=== PATIENT | female | born 1990 | race Caucasian/White ===

== ENCOUNTER → 2016-11-22 | Outpatient (CLI) | payer OTHER ==
[~2016-11-22] MED LIST: ADVA115A INH; ALBU17IN INH; DOCU100C PO; LEVA500T PO; MIRA33504 PO; NUVAMIS2 PV; OMEP20CA3 PO; ONDA1TAB15 PO; OXYC-517 PO; SERT-141 PO; TECF240C PO
--- NOTE | 2016-11-22 20:17 | REP ---
MRI BRAIN WITHOUT AND WITH CONTRAST: HISTORY: Multiple sclerosis. CONTRAST: ProHance 18 mL Several punctate areas of increased signal intensity on T2-weighted images are present in the periventricular white matter. An additional area of increased signal intensity is present in the corpus callosum. There are no areas of abnormal signal intensity in the brain stem or cerebellum. There is no abnormal enhancement with contrast. There is no intraparenchymal hemorrhage, infarct, mass or midline shift. The ventricular system is normal in appearance. There is no extracerebral collection. Mucosal thickening is present in the maxillary sinuses. A retention cyst is present in the left maxillary sinus. IMPRESSION: There are several punctate areas of increased signal intensity in the periventricular white matter and corpus callosum. This is suspicious for demyelinating disease. Unreviewed
--- NOTE | 2016-11-22 20:29 | REP ---
MRI CERVICAL SPINE WITHOUT AND WITH CONTRAST: HISTORY: Multiple sclerosis. CONTRAST: ProHance 18 mL. A small right paracentral disc protrusion is present at the C3-4 level. There is minimal effacement of the thecal sac without spinal cord compression. The C3 neural foramina are patent. There is no other disc bulge or herniation. The remaining neural foramina are patent. The spinal cord is normal in signal intensity. There is no intradural extramedullary lesion. There is no abnormal enhancement. Normal signal intensity is present in the cervical vertebral bodies. IMPRESSION: There is cervical spondylosis at the C3-4 level without spinal cord compression. Unreviewed
--- NOTE | 2016-11-22 20:32 | REP ---
MRI THORACIC SPINE WITHOUT AND WITH CONTRAST: HISTORY: Multiple sclerosis. CONTRAST: ProHance 18 mL. There is no disc bulge or herniation. The spinal canal and the neural foramina are . The spinal cord is normal in signal intensity. There is no intradural extramedullary lesion. There is no abnormal enhancement. Normal signal intensity is present in the thoracic vertebral bodies. IMPRESSION: Normal study. Incomplete
== END ==
LOC: M RAD 14:45
PROVIDERS: ATTEND Psychiatry & Neurology Neurology
DX: G35 Multiple sclerosis (principal); R20.2 Paresthesia of skin; R26.81 Unsteadiness on feet
CPT/HCPCS: 70553; 72156; 72157; A9576

== ENCOUNTER → 2016-11-27 | Outpatient (REF) | payer OTHER ==
[2016-11-27 18:15] LABS: BASO % 0.3 % (0.0-1.0); EOS % 0.6 % (0.0-3.0); LARGE UNSTAINED CELL # 0.1 K/mm3 (0.0-0.4); LYMPH # 0.7 K/mm3 (1.5-6.5); LYMPH % 10.3 % (24.0-44.0); MEAN CORPUSCULAR HEMOGLOBIN 28.1 pg (27.0-33.0); MEAN CORPUSCULAR HGB CONC 32.7 g/dl (32.0-36.5); MONO # 0.2 K/mm3 (0.0-0.8); MONO % 2.7 % (0.0-5.0); NEUTROPHILS # 5.7 K/mm3 (1.8-7.7); NEUTROPHILS % 84.1 % (36.0-66.0); PLATELET COUNT, AUTOMATED 269 k/mm3 (150-450); RED CELL DISTRIBUTION WIDTH 13.5 % (11.5-14.5); WHITE BLOOD COUNT 6.7 K/mm3 (4.0-10.0)
== END ==
LOC: M LABNEURO 16:48
PROVIDERS: ATTEND Psychiatry & Neurology Neurology
DX: T14.8 Other injury of unspecified body region (principal)

== ENCOUNTER → 2016-12-10 | Outpatient (REF) | payer OTHER ==
[2016-12-10 14:38] LABS: FOLATE 19.3 NG/ML (>5.4); VITAMIN B12 LEVEL 780 PG/ML (247-911)
[2016-12-10 14:39] LABS: ALBUMIN 3.8 GM/DL (3.2-5.2); ALBUMIN/GLOBULIN RATIO 1.12 (1.00-1.93); ALKALINE PHOSPHATASE 88 U/L (45-117); ALT/SGPT 33 U/L (12-78); ANION GAP 9 MEQ/L (8-16); AST/SGOT 22 U/L (15-37); BILIRUBIN,TOTAL 0.6 MG/DL (0.2-1.0); BLOOD UREA NITROGEN 11 MG/DL (7-18); CALCIUM LEVEL 8.8 MG/DL (8.5-10.1); CARBON DIOXIDE LEVEL 23 MEQ/L (21-32); CHLORIDE LEVEL 109 MEQ/L (98-107); CREATININE FOR GFR 0.62 MG/DL (0.55-1.02); GLOMERULAR FILTRATION RATE > 60.0 (>60); GLUCOSE, FASTING 98 MG/DL (70-105); POTASSIUM SERUM 4.2 MEQ/L (3.5-5.1); SODIUM LEVEL 141 MEQ/L (136-145); TOTAL PROTEIN 7.2 GM/DL (6.4-8.2)
== END ==
LOC: M LABNEURO 11:08
PROVIDERS: ATTEND Psychiatry & Neurology Neurology
DX: E55.9 Vitamin D deficiency, unspecified (principal); E53.8 Deficiency of other specified B group vitamins

== ENCOUNTER → 2017-02-03 | Outpatient (REF) | payer OTHER ==
[~2017-02-03] MED LIST changes: -SERT-141 PO; +SERT50TA PO
[2017-02-03 14:46] LABS: BASO % 0.2 % (0.0-1.0); EOS # 0.1 K/mm3 (0.0-0.50); EOS % 1.4 % (0.0-3.0); LARGE UNSTAINED CELL # 0.1 K/mm3 (0.0-0.4); LARGE UNSTAINED CELL % 1.5 % (0.0-4.0); MEAN CORPUSCULAR HEMOGLOBIN 29.2 pg (27.0-33.0); MEAN CORPUSCULAR HGB CONC 32.7 g/dl (32.0-36.5); MEAN CORPUSCULAR VOLUME 89.3 fl (80.0-96.0); MONO # 0.2 K/mm3 (0.0-0.8); MONO % 3.2 % (0.0-5.0); NEUTROPHILS # 5.4 K/mm3 (1.8-7.7); NEUTROPHILS % 80.6 % (36.0-66.0); PLATELET COUNT, AUTOMATED 280 k/mm3 (150-450); RED CELL DISTRIBUTION WIDTH 13.2 % (11.5-14.5); WHITE BLOOD COUNT 6.7 K/mm3 (4.0-10.0)
== END ==
LOC: M LABNEURO 14:38
PROVIDERS: ATTEND Psychiatry & Neurology Neurology
DX: G35 Multiple sclerosis (principal)

== ENCOUNTER → 2017-07-18 | Outpatient (REF) | payer OTHER ==
[~2017-07-18] MED LIST changes: -DOCU100C PO; +DOCU100C16 PO; +LEVA1TAB2 PO; -LEVA500T PO; -ONDA1TAB15 PO; +ONDA4TAB5 PO
[2017-07-18 10:13] LABS: BASO % 0.9 % (0.0-1.0); EOS # 0.2 K/mm3 (0.0-0.50); EOS % 4.8 % (0.0-3.0); LARGE UNSTAINED CELL # 0.1 K/mm3 (0.0-0.4); LARGE UNSTAINED CELL % 3.5 % (0.0-4.0); LYMPH # 0.8 K/mm3 (1.5-6.5); LYMPH % 19.3 % (24.0-44.0); MEAN CORPUSCULAR HEMOGLOBIN 30.1 pg (27.0-33.0); MEAN CORPUSCULAR HGB CONC 35.1 g/dl (32.0-36.5); MEAN CORPUSCULAR VOLUME 85.5 fl (80.0-96.0); MONO # 0.2 K/mm3 (0.0-0.8); NEUTROPHILS # 2.6 K/mm3 (1.8-7.7); NEUTROPHILS % 66.5 % (36.0-66.0); PLATELET COUNT, AUTOMATED 229 k/mm3 (150-450); RED CELL DISTRIBUTION WIDTH 12.3 % (11.5-14.5); WHITE BLOOD COUNT 3.9 K/mm3 (4.0-10.0)
== END ==
LOC: M LABNEURO 09:37
PROVIDERS: ATTEND Psychiatry & Neurology Neurology
DX: G35 Multiple sclerosis (principal); E55.9 Vitamin D deficiency, unspecified

== ENCOUNTER → 2017-09-25 | Outpatient (CLI) | payer OTHER ==
[~2017-09-25] MED LIST changes: +DULO30CA PO
[2017-09-25 14:59] LABS: BASO % 0.6 % (0.0-1.0); EOS # 0.2 10^3/uL (0.0-0.50); EOS % 2.5 % (0.0-3.0); IMMATURE GRANULOCYTE % 0.3 % (0-0); LYMPH # 0.8 10^3/uL (1.5-6.5); LYMPH % 11.6 % (24.0-44.0); MEAN CORPUSCULAR HGB CONC 33.5 g/dl (32.0-36.5); MEAN CORPUSCULAR VOLUME 89.6 fl (80.0-96.0); MONO # 0.3 10^3/uL (0.0-0.8); MONO % 4.9 % (0.0-5.0); NEUTROPHILS # 5.5 10^3/uL (1.8-7.7); NEUTROPHILS % 80.1 % (36.0-66.0); PLATELET COUNT, AUTOMATED 288 10^3/uL (150-450); RED CELL DISTRIBUTION WIDTH 12.7 % (11.5-14.5); WHITE BLOOD COUNT 6.9 10^3/uL (4.0-10.0)
[2017-09-25 15:29] LABS: VITAMIN B12 LEVEL 883 PG/ML (247-911)
[2017-09-26 09:47] LABS: HEPATITIS B SURFACE ANTIBODY POSITIVE (POSITIVE)
== END ==
LOC: M LABNEURO 12:09
PROVIDERS: ATTEND Psychiatry & Neurology Neurology
DX: G35 Multiple sclerosis (principal)

== ENCOUNTER 2017-09-30 13:22 | Outpatient (CLI) | payer OTHER ==
[~2017-09-30] VITALS: Ht 172.7 cm; Wt 135.5 kg
[~2017-09-30 13:22] MED LIST changes: -DULO30CA PO; +methylPREDNISolone 1,000 MG, VIAL MATE ADAPTER 1 EACH in D5W 250 ML IV ONE
[2017-09-30] MEDS ORDERED: DULO30CA PO (14:58)
== END 2017-09-30 15:45 | disposition home or self-care (01) ==
LOC: M INFU 13:22
PROVIDERS: ATTEND Psychiatry & Neurology Neurology
DX: G35 Multiple sclerosis (principal); Z98.84 Bariatric surgery status; Z87.891 Personal history of nicotine dependence; Z91.81 History of falling; Z79.899 Other long term (current) drug therapy
CPT/HCPCS: 96365; 96366; J2930

== ENCOUNTER 2017-10-01 15:19 | Outpatient (CLI) | payer OTHER ==
[~2017-10-01 15:19] MED LIST changes: +DULO30CA PO
== END 2017-10-01 16:45 | disposition home or self-care (01) ==
LOC: M INFU 15:19
PROVIDERS: ATTEND Psychiatry & Neurology Neurology
DX: G35 Multiple sclerosis (principal); J45.909 Unspecified asthma, uncomplicated; Z87.442 Personal history of urinary calculi; Z87.891 Personal history of nicotine dependence; Z79.899 Other long term (current) drug therapy
CPT/HCPCS: 96365; J2930

== ENCOUNTER 2017-10-02 14:27 | Outpatient (CLI) | payer OTHER ==
[~2017-10-02] VITALS: Ht 172.7 cm; Wt 97.7 kg
== END 2017-10-02 15:45 | disposition home or self-care (01) ==
LOC: M INFU 14:27
PROVIDERS: ATTEND Psychiatry & Neurology Neurology
DX: G35 Multiple sclerosis (principal); Z98.84 Bariatric surgery status; Z87.891 Personal history of nicotine dependence; Z79.899 Other long term (current) drug therapy
CPT/HCPCS: 96365; J2930

== ENCOUNTER 2017-10-03 08:34 | Outpatient (CLI) | payer OTHER ==
[~2017-10-03] VITALS: Ht 172.7 cm; Wt 97.7 kg
[~2017-10-03 08:34] MED LIST changes: -methylPREDNISolone 1,000 MG, VIAL MATE ADAPTER 1 EACH in D5W 250 ML IV ONE
[2017-10-03] MEDS ORDERED: methylPREDNISolone 1,000 MG, VIAL MATE ADAPTER 1 EACH in D5W 250 ML IV ONE (09:00)
== END 2017-10-03 10:25 | disposition home or self-care (01) ==
LOC: M INFU 08:34
PROVIDERS: ATTEND Psychiatry & Neurology Neurology
DX: G35 Multiple sclerosis (principal); Z91.81 History of falling; Z98.84 Bariatric surgery status; Z87.891 Personal history of nicotine dependence; Z79.899 Other long term (current) drug therapy
CPT/HCPCS: 96365; J2930

== ENCOUNTER 2017-10-04 11:16 | Outpatient (CLI) | payer OTHER ==
[2017-10-04 11:25] VITALS: BP 135/86
[2017-10-04] MEDS ORDERED: methylPREDNISolone 1,000 MG, VIAL MATE ADAPTER 1 EACH in D5W 250 ML IV ONE (12:00)
== END 2017-10-04 13:30 | disposition home or self-care (01) ==
LOC: M OPCLIPED 11:16 → M PED 11:19 → M OPCLIPED 13:30
PROVIDERS: ATTEND Psychiatry & Neurology Neurology
DX: G35 Multiple sclerosis (principal); Z79.899 Other long term (current) drug therapy
CPT/HCPCS: 96374; J2930

== ENCOUNTER → 2017-10-09 | Outpatient (CLI) | payer OTHER ==
--- NOTE | 2017-10-15 23:25 | REP ---
ULTRASOUND LEFT BREAST: Real-time sonographic evaluation of the left breast performed. Reportedly there is a palpable abnormality at 4-o'clock left breast. There is dense fibroglandular tissue in this region. No cystic or solid nodule is seen. IMPRESSION: ACR 2 benign. No cystic or solid nodule is seen in the region of the left breast, 4-o'clock. Dense fibroglandular tissue is seen. Unreviewed
== END ==
LOC: M RAD 09:38
PROVIDERS: ATTEND Internal Medicine
DX: N63.0 Unspecified lump in unspecified breast (principal)

== ENCOUNTER → 2017-12-02 | Outpatient (REF) | payer OTHER ==
[2017-12-02 17:45] LABS: BASO # 0.1 10^3/uL (0.0-0.2); EOS # 0.4 10^3/uL (0.0-0.50); EOS % 7.1 % (0.0-3.0); HEMATOCRIT 39.2 % (36.0-47.0); HEMOGLOBIN 12.9 g/dl (12.0-16.0); IMMATURE GRANULOCYTE % 0.4 % (0-0); LYMPH # 0.9 10^3/uL (1.5-6.5); LYMPH % 17.9 % (24.0-44.0); MEAN CORPUSCULAR HEMOGLOBIN 29.7 pg (27.0-33.0); MEAN CORPUSCULAR HGB CONC 32.9 g/dl (32.0-36.5); MEAN CORPUSCULAR VOLUME 90.3 fl (80.0-96.0); MONO # 0.4 10^3/uL (0.0-0.8); MONO % 7.5 % (0.0-5.0); NEUTROPHILS # 3.4 10^3/uL (1.8-7.7); NEUTROPHILS % 66.1 % (36.0-66.0); PLATELET COUNT, AUTOMATED 280 10^3/uL (150-450); RED BLOOD COUNT 4.34 10^6/uL (4.00-5.40); RED CELL DISTRIBUTION WIDTH 12.5 % (11.5-14.5); WHITE BLOOD COUNT 5.2 10^3/uL (4.0-10.0)
[2017-12-02 18:26] LABS: ALBUMIN 4.1 GM/DL (3.2-5.2); ALBUMIN/GLOBULIN RATIO 1.21 (1.00-1.93); ALKALINE PHOSPHATASE 88 U/L (45-117); ALT/SGPT 18 U/L (12-78); ANION GAP 13 MEQ/L (8-16); AST/SGOT 22 U/L (7-37); BILIRUBIN,TOTAL 0.4 MG/DL (0.2-1.0); BLOOD UREA NITROGEN 5 MG/DL (7-18); CALCIUM LEVEL 9.4 MG/DL (8.5-10.1); CARBON DIOXIDE LEVEL 20 MEQ/L (21-32); CHLORIDE LEVEL 106 MEQ/L (98-107); GLOMERULAR FILTRATION RATE > 60.0 (>60); GLUCOSE, FASTING 64 MG/DL (70-100); POTASSIUM SERUM 4.1 MEQ/L (3.5-5.1); SODIUM LEVEL 139 MEQ/L (136-145); TOTAL PROTEIN 7.5 GM/DL (6.4-8.2)
[2017-12-03 09:34] LABS: HEPATITIS B SURFACE ANTIBODY POSITIVE (POSITIVE)
[2017-12-03 09:43] LABS: HEPATITIS B SURFACE ANTIGEN NEGATIVE (NEGATIVE)
[2017-12-04 08:06] LABS: HEPATITIS B CORE ANTIBODY IGG Negative (Negative)
== END ==
LOC: M LABNEURO 17:01
DX: G35 Multiple sclerosis (principal); Z13.818 Encounter for screening for other digestive system disorders
CPT/HCPCS: 80053

== ENCOUNTER → 2017-12-23 | Outpatient (REF) | payer OTHER ==
[2017-12-23 14:33] LABS: ALBUMIN/GLOBULIN RATIO 1.21 (1.00-1.93); ALKALINE PHOSPHATASE 88 U/L (45-117); ALT/SGPT 18 U/L (12-78); AST/SGOT 9 U/L (7-37); BILIRUBIN,DIRECT 0.1 MG/DL (0.0-0.2); BILIRUBIN,TOTAL 0.4 MG/DL (0.2-1.0); IMMUNOGLOBULIN E 33.3 IU/ML (<100); IMMUNOGLOBULIN G 850 MG/DL (681-1648); IMMUNOGLOBULIN M 108 MG/DL (40-230); TOTAL PROTEIN 7.3 GM/DL (6.4-8.2)
[2017-12-25 00:07] LABS: HEPATITIS B CORE ANTIBODY IGG Negative (Negative); HEPATITIS BE ANTIBODY Negative (Negative)
[2017-12-25 00:07] LABS: HEPATITIS BE ANTIGEN Negative (Negative)
[2017-12-26 00:07] LABS: HBV HBV DNA not detected IU/mL (.)
== END ==
LOC: M SFHCPLAZ 11:06
DX: R76.8 Other specified abnormal immunological findings in serum (principal); J18.9 Pneumonia, unspecified organism

== ENCOUNTER 2018-02-23 07:54 | Outpatient (CLI) | payer OTHER ==
[2018-02-23] MEDS: 0.22 MICRON FILTER (METHACHOLINE/OCREVUS) XX (08:15)
[2018-02-23] MEDS: ACETAMINOPHEN TAB 650MG DOSE (2X325MG) PO (08:19)
[2018-02-23] MEDS: diphenhydrAMINE 25 MG CAP PO (08:19)
[2018-02-23] MEDS: methylPREDNISolone INJ 125 MG/2 ML VIAL (J2930) IV (08:19)
[2018-02-23] MEDS: OCRELIZUMAB 300 MG in NS 250 ML IV (08:27)
== END 2018-02-23 12:00 | disposition home or self-care (01) ==
LOC: M INFU 07:54
DX: G35 Multiple sclerosis (principal); Z98.84 Bariatric surgery status; Z88.0 Allergy status to penicillin; Z91.010 Allergy to peanuts; Z91.013 Allergy to seafood; Z79.82 Long term (current) use of aspirin; Z79.899 Other long term (current) drug therapy
CPT/HCPCS: J2930

== ENCOUNTER 2018-03-09 07:12 | Outpatient (CLI) | payer OTHER ==
[2018-03-09] MEDS: methylPREDNISolone INJ 125 MG/2 ML VIAL (J2930) IV (07:59)
[2018-03-09] MEDS: diphenhydrAMINE 25 MG CAP PO (07:59)
[2018-03-09] MEDS: ACETAMINOPHEN TAB 650MG DOSE (2X325MG) PO (08:00)
[2018-03-09] MEDS: 0.22 MICRON FILTER (METHACHOLINE/OCREVUS) XX (08:00)
[2018-03-09] MEDS: OCRELIZUMAB 300 MG in NS 250 ML IV (08:12)
== END 2018-03-09 11:45 | disposition home or self-care (01) ==
LOC: M INFU 07:12
DX: G35 Multiple sclerosis (principal); J45.909 Unspecified asthma, uncomplicated; Z79.891 Long term (current) use of opiate analgesic; Z79.899 Other long term (current) drug therapy; Z87.442 Personal history of urinary calculi; Z90.49 Acquired absence of other specified parts of digestive tract
CPT/HCPCS: J2930

== ENCOUNTER 2018-07-13 09:26 | Emergency (ER) | payer OTHER ==
[2018-07-13] MEDS: PERCOCET 5MG/325MG TAB PO (10:11)
[2018-07-13 10:26] LABS: HEMATOCRIT 41.6 % (36.0-47.0); MEAN CORPUSCULAR HEMOGLOBIN 29.8 pg (27.0-33.0); MEAN CORPUSCULAR HGB CONC 33.7 g/dl (32.0-36.5); MEAN CORPUSCULAR VOLUME 88.5 fl (80.0-96.0); PLATELET COUNT, AUTOMATED 280 10^3/uL (150-450); RED CELL DISTRIBUTION WIDTH 12.9 % (11.5-14.5); WHITE BLOOD COUNT 12.4 10^3/uL (4.0-10.0)
[2018-07-13 10:47] LABS: CONTROL LINE HCG INT CTR LINE PRESENT; HCG, SERUM QUALITATIVE NEGATIVE (NEGATIVE)
[2018-07-13 10:49] LABS: ERYTHROCYTE SEDIMENTATION RATE 3 mm/hr (0-20)
[2018-07-13 10:52] LABS: C REACTIVE PROTEIN QUANTITATIV < 0.30 MG/DL (0.00-0.30)
== END 2018-07-13 11:11 | disposition home or self-care (01) ==
LOC: M ED 09:26
DX: N64.4 Mastodynia (principal); G35 Multiple sclerosis; K21.9 Gastro-esophageal reflux disease without esophagitis; F33.9 Major depressive disorder, recurrent, unspecified; Z79.899 Other long term (current) drug therapy; Z79.3 Long term (current) use of hormonal contraceptives; Z87.42 Personal history of other diseases of the female genital tract
CPT/HCPCS: 93005

== ENCOUNTER 2018-08-27 07:42 | Outpatient (CLI) | payer OTHER ==
[2018-08-27] MEDS: ACETAMINOPHEN TAB 650MG DOSE (2X325MG) PO (08:07)
[2018-08-27] MEDS: diphenhydrAMINE 25 MG CAP PO (08:07)
[2018-08-27] MEDS: methylPREDNISolone INJ 125 MG/2 ML VIAL (J2930) IV (08:07)
[2018-08-27] MEDS: OCRELIZUMAB 600 MG in NS 500 ML IV (08:28)
[2018-08-27] MEDS: 0.22 MICRON FILTER (METHACHOLINE/OCREVUS) XX (08:28)
== END 2018-08-27 12:30 | disposition home or self-care (01) ==
LOC: M INFU 07:42
DX: G35 Multiple sclerosis (principal)
CPT/HCPCS: J2930

== ENCOUNTER → 2018-09-28 | Outpatient (CLI) | payer OTHER | LOC: M RAD 09:05 | DX: R06.2 Wheezing (principal) | CPT/HCPCS: 71250 ==

== ENCOUNTER → 2018-10-22 | Outpatient (REF) | payer OTHER ==
[~2018-10-22] MED LIST changes: +BIOT7500 PO; +CYMB1CAP5 PO; +DULO1CAP3 PO; +GERITAB9 PO; +NORCOTAB PO; +OCRE300I IV; +OXYC1TAB23 PO; +PERC5TAB12 PO; +PRED10PA PO; +PRED10TA2 PO; +PRED20TA PO; +VITA200038 PO; +VITMTA PO; +WHEEMIS3 XX
== END ==
LOC: M SFHCLERA 17:39
PROVIDERS: ATTEND Nurse Practitioner Family
DX: R06.2 Wheezing (principal)

== ENCOUNTER → 2018-10-22 | Outpatient (CLI) | payer OTHER ==
--- NOTE | 2018-10-22 10:38 | REP ---
Clinical: Wheezing . Comparison: 02/04/2018 . Technique: PA and lateral. Findings: The mediastinum and cardiac silhouette are normal. The lung burns are clear and without acute consolidation, effusion, or pneumothorax. The skeletal structures are intact and normal. Impression: 1. No acute cardiopulmonary process. Electronically Signed by Ernie Ellison MD 10/22/2018 10:30 A
== END ==
LOC: M LRY 09:49
PROVIDERS: ATTEND Nurse Practitioner Family
DX: R06.2 Wheezing (principal)

== ENCOUNTER 2018-12-18 09:37 | Emergency (ER) | payer OTHER ==
[~2018-12-18] VITALS: Ht 172.7 cm; Wt 102.7 kg
[2018-12-18 10:33] LABS: BASO % 0.8 % (0.0-1.0); EOS # 0.1 10^3/uL (0.0-0.50); EOS % 1.6 % (0.0-3.0); HEMOGLOBIN 14.4 g/dl (12.0-15.5); LYMPH # 0.5 10^3/uL (1.5-6.5); LYMPH % 13.5 % (24.0-44.0); MEAN CORPUSCULAR HEMOGLOBIN 29.8 pg (27.0-33.0); MEAN CORPUSCULAR HGB CONC 34.3 g/dl (32.0-36.5); MONO # 0.5 10^3/uL (0.0-0.8); MONO % 13.3 % (0.0-5.0); NEUTROPHILS # 2.7 10^3/uL (1.8-7.7); NEUTROPHILS % 70.5 % (36.0-66.0); PLATELET COUNT, AUTOMATED 226 10^3/uL (150-450); RED BLOOD COUNT 4.83 10^6/uL (4.00-5.40); WHITE BLOOD COUNT 3.8 10^3/uL (4.0-10.0)
[2018-12-18 10:59] LABS: HCG, SERUM QUALITATIVE NEGATIVE (NEGATIVE)
[2018-12-18 11:18] LABS: BLOOD UREA NITROGEN 10 MG/DL (7-18); CALCIUM LEVEL 8.3 MG/DL (8.5-10.1); CARBON DIOXIDE LEVEL 21 MEQ/L (21-32); CHLORIDE LEVEL 107 MEQ/L (98-107); CREATININE FOR GFR 0.67 MG/DL (0.55-1.30); GLOMERULAR FILTRATION RATE > 60.0 (>60); GLUCOSE, FASTING 87 MG/DL (70-100); POTASSIUM SERUM 4.2 MEQ/L (3.5-5.1); SODIUM LEVEL 138 MEQ/L (136-145)
[2018-12-18] MEDS ORDERED: LORazepam 2 MG/ML VIAL (J2060) IV STA (11:26)
[2018-12-18] MEDS ORDERED: MORPHINE 4 MG/ML 1ML VIAL/SYRINGE (J2270) IV ONE ×2 (11:30→14:45)
--- NOTE | 2018-12-18 11:49 | REP ---
CT Head without contrast HISTORY: Weakness COMPARISON: 02/05/2018 There is no intraparenchymal hemorrhage, acute infarct, mass or midline shift. The ventricular system is normal in appearance. There is no extra cerebral collection. There is no fracture. The visualized sinuses are clear. IMPRESSION: There is no intracranial lesion. Electronically Signed by Jaison Leger MD 12/18/2018 11:41 A
--- NOTE | 2018-12-18 13:35 | REP ---
MR LUMBAR SPINE WITHOUT CONTRAST: HISTORY: Back pain. Slight decreased signal intensity on T2-weighted images is present in the L5-S1 intervertebral disc. This represents disc degeneration. There is no disc bulge or herniation at the L1-2 through L3-4 levels. The nerves exit the neural foramina without compression. A diffuse disc bulge is present at the L4-5 level. This abuts the thecal sac. The L4 nerves exit the neural foramina without compression. A diffuse disc bulge is present at the L5-S1 level. This abuts the thecal sac. The L5 nerves exits the neural foramina without compression. The conus medullaris is normal in appearance terminating at the level of the T12-L1 intervertebral disc. Normal signal intensity is present in the lumbar vertebral bodies. IMPRESSION: 1. Diffuse disc bulges at the L4-5 and L5-S1 levels. The disc bulges abut the thecal sac. Electronically Signed by Jaison Leger MD 12/18/2018 01:36 P
[2018-12-18] MEDS ORDERED: NS 1,000 ML IV SCH (14:45)
[2018-12-18 15:40] VITALS: BP 120/69
== END 2018-12-18 15:47 | disposition short-term general hospital (02) ==
LOC: M ED 09:37
DX: M54.9 Dorsalgia, unspecified (principal); R53.1 Weakness; M51.26 Other intervertebral disc displacement, lumbar region; M51.27 Other intervertebral disc displacement, lumbosacral region; R32 Unspecified urinary incontinence; R15.9 Full incontinence of feces; G35 Multiple sclerosis; J45.909 Unspecified asthma, uncomplicated; Z98.84 Bariatric surgery status; Z98.891 History of uterine scar from previous surgery; Z79.899 Other long term (current) drug therapy
CPT/HCPCS: 36415; 70450; 72148; 80048; 84703; 85025; 96374; 96375; 96376; 99285; J2060; J2270

== ENCOUNTER → 2018-12-28 | Outpatient (CLI) | payer OTHER ==
[2018-12-28 19:17] LABS: CPK CREATINE PHOSPHOKINASE 59 U/L (26-192); FREE T4 1.07 NG/DL (0.76-1.46); RHEUMATOID FACTOR QUANT < 10.0 IU/ML (<15.0); TOTAL 25(OH) VITAMIN D 30.8 NG/ML (30.0-100.0)
[2018-12-30 14:15] LABS: ANTINUCLEAR ANTIBODIES DIRECT Negative (Negative)
[2018-12-31 00:06] LABS: Lyme Disease IgG/IgM Antibodie <0.91 ISR (0.00-0.90); Lyme Disease IgM Ab Quantitati <0.80 index (0.00-0.79)
[2019-01-01 14:21] LABS: ALDOLASE 3.5 U/L (3.3-10.3); VITAMIN E(ALPHA TOCOPHEROL) 15.7 mg/L (5.9-19.4); VITAMIN E(GAMMA TOCOPHEROL) 0.6 mg/L (0.7-4.9)
== END ==
LOC: M SMT 13:48
PROVIDERS: ATTEND Psychiatry & Neurology Neurology
DX: E11.9 Type 2 diabetes mellitus without complications (principal); R20.0 Anesthesia of skin; R53.1 Weakness; E07.9 Disorder of thyroid, unspecified; E55.9 Vitamin D deficiency, unspecified; E53.8 Deficiency of other specified B group vitamins

== ENCOUNTER 2019-02-24 07:45 | Outpatient (CLI) | payer OTHER ==
[~2019-02-24] VITALS: Ht 172.7 cm; Wt 102.7 kg
[2019-02-24] VITALS (8 sets, daily range): BP systolic 115–141; BP diastolic 64–76
[~2019-02-24 07:45] MED LIST changes: -DULO30CA PO; +DULO30CA9 PO; +HYDR-3715 PO; -NORCOTAB PO; +SERT-141 PO; -SERT50TA PO
[2019-02-24] MEDS ORDERED: 0.22 MICRON FILTER (METHACHOLINE/OCREVUS) XX ONE (08:00)
[2019-02-24] MEDS ORDERED: OCRELIZUMAB 600 MG in NS 500 ML IV ONE (08:00)
[2019-02-24] MEDS ORDERED: methylPREDNISolone INJ 125 MG/2 ML VIAL (J2930) IV ONE (08:00)
[2019-02-24] MEDS ORDERED: ACETAMINOPHEN TAB 650MG DOSE (2X325MG) PO ONE (08:00)
[2019-02-24] MEDS ORDERED: diphenhydrAMINE 25 MG CAP PO ONE (08:00)
[2019-02-24] MEDS ORDERED: PROZ10CA7 PO (08:39)
== END 2019-02-24 12:45 | disposition home or self-care (01) ==
LOC: M INFU 07:45
PROVIDERS: ATTEND Obstetrics & Gynecology Hospice and Palliative Medicine
DX: G35 Multiple sclerosis (principal)
CPT/HCPCS: 96375; 96413; 96415; J2350; J2930

== ENCOUNTER → 2019-03-24 | Outpatient (REF) | payer OTHER ==
[~2019-03-24] MED LIST changes: +PROZ10CA7 PO
[2019-03-24 13:30] LABS: BASO # 0.1 10^3/uL (0.0-0.2); BASO % 0.8 % (0.0-1.0); EOS # 0.3 10^3/uL (0.0-0.50); EOS % 4.7 % (0.0-3.0); HEMATOCRIT 39.7 % (36.0-47.0); HEMOGLOBIN 13.2 g/dl (12.0-15.5); LYMPH % 13.6 % (24.0-44.0); MEAN CORPUSCULAR HEMOGLOBIN 29.5 pg (27.0-33.0); MEAN CORPUSCULAR HGB CONC 33.2 g/dl (32.0-36.5); MEAN CORPUSCULAR VOLUME 88.8 fl (80.0-96.0); MONO # 0.5 10^3/uL (0.0-0.8); MONO % 7.3 % (0.0-5.0); NEUTROPHILS # 5.2 10^3/uL (1.8-7.7); NEUTROPHILS % 73.2 % (36.0-66.0); PLATELET COUNT, AUTOMATED 322 10^3/uL (150-450); RED BLOOD COUNT 4.47 10^6/uL (4.00-5.40); WHITE BLOOD COUNT 7.1 10^3/uL (4.0-10.0)
[2019-03-31 08:07] LABS: CHLAMYDIA PNEUMONIAE IgM <1:10 (Neg:<1:10); D001-IgE D pteronyssinus <0.10 kU/L (Class 0); E001-IgE Cat Epith/Dander < 0.10 kU/L (Class 0); E005-IgE Dog Dander < 0.10 kU/L (Class 0); G002-IgE Bermuda Grass < 0.10 kU/L (Class 0); G008-IgE Kentucky Bluegrass 0.61 kU/L (Class II); L PNEUMOPHILIA 1-6 IgG <1:128 (<1:128); L PNEUMOPHILIA 1-6 IgM < 1:16 (< 1:16); M001-IgE Penicillium chrysogen < 0.10 kU/L (Class 0); M002 IgE Cladosporium herbaru < 0.10 kU/L (Class 0); M003 IgE Aspergillus fumigatu < 0.10 kU/L (Class 0); M006-IgE Alternaria alternata < 0.10 kU/L (Class 0); MYCOPLASMA PNEUMONIAE IgG 255 U/mL (0-99); MYCOPLASMA PNEUMONIAE IgM <770 U/mL (0-769); T001-IgE Maple/Box Elder < 0.10 kU/L (Class 0); T003-IgE Common Silver Birch < 0.10 kU/L (Class 0); T006-IgE Cedar, Mountain 2.68 kU/L (Class III); T007-IgE Oak, White < 0.10 kU/L (Class 0); T008-IgE Elm, American < 0.10 kU/L (Class 0); T015-IgE Ash, White < 0.10 kU/L (Class 0); T041-IgE Hickory, White < 0.10 kU/L (Class 0); T070-IgE White Mulberry < 0.10 kU/L (Class 0); W001-IgE Ragweed, Short 0.13 kU/L (Class 0/I); W009-IgE Plantain, English < 0.10 kU/L (Class 0); W014-IgE Pigweed, Rough < 0.10 kU/L (Class 0); W018-IgE Sheep Sorrel < 0.10 kU/L (Class 0)
== END ==
LOC: M LAB REF 13:08
PROVIDERS: ATTEND Nurse Practitioner Adult Health
DX: J45.41 Moderate persistent asthma with (acute) exacerbation (principal)

== ENCOUNTER → 2019-03-24 | Outpatient (CLI) | payer OTHER ==
--- NOTE | 2019-03-24 11:36 | REP ---
Chest x-ray: Two views. History: Moderate persistent asthma. Comparison chest x-ray: October 07, 2018. Findings: The lungs are well inflated and clear. The pleural angles are sharp. Heart size is normal. Pulmonary vasculature is not increased. No significant bony abnormality is seen. Impression: No active disease. Electronically Signed by Salazar Ricardo MD 03/24/2019 11:27 A
== END ==
LOC: M SMT 10:14
PROVIDERS: ATTEND Nurse Practitioner Adult Health
DX: J45.41 Moderate persistent asthma with (acute) exacerbation (principal)

== ENCOUNTER → 2019-04-01 | Outpatient (REF) | payer OTHER | LOC: M LABNEURO 11:44 | PROVIDERS: ATTEND Psychiatry & Neurology Neurology | DX: E53.8 Deficiency of other specified B group vitamins (principal) ==

== ENCOUNTER → 2019-07-09 | Outpatient (CLI) | payer OTHER ==
[~2019-07-09] MED LIST changes: -DULO1CAP3 PO; +DULO1CAP6 PO; -OMEP20CA3 PO; +OMEP20CA4 PO
--- NOTE | 2019-07-09 18:12 | REP ---
HISTORY: Trauma. COMPARISON: No priors. FINDINGS: The joint spaces are symmetric and relatively well maintained. There is no evidence of acute fracture or destructive osseous lesion. IMPRESSION: Negative. Electronically Signed by Maximino Reed DO 07/09/2019 06:16 P
== END ==
LOC: M LRY 17:27
PROVIDERS: ATTEND Nurse Practitioner Family
DX: S69.92XA Unspecified injury of left wrist, hand and finger(s), initial encounter (principal); X58.XXXA Exposure to other specified factors, initial encounter; Y92.9 Unspecified place or not applicable
CPT/HCPCS: 73130; 90471; 90715; 96372; G0463; J1885

== ENCOUNTER 2019-08-23 08:42 | Outpatient (CLI) | payer OTHER ==
[~2019-08-23] VITALS: Ht 172.7 cm; Wt 112.0 kg
[2019-08-23] VITALS (8 sets, daily range): BP systolic 133–141; BP diastolic 80–90
[~2019-08-23 08:42] MED LIST changes: +0.22 MICRON FILTER (METHACHOLINE/OCREVUS) XX ONE; +ACETAMINOPHEN TAB 650MG DOSE (2X325MG) PO ONE; +OCRELIZUMAB 600 MG in NS 500 ML IV ONE; +diphenhydrAMINE 25 MG CAP PO ONE; +methylPREDNISolone INJ 125 MG/2 ML VIAL (J2930) IV ONE
[2019-08-23] MEDS ORDERED: methylPREDNISolone INJ 125 MG/2 ML VIAL (J2930) IV ONE (09:30)
[2019-08-23] MEDS ORDERED: OCRELIZUMAB 600 MG in NS 500 ML IV ONE (09:30)
[2019-08-23] MEDS ORDERED: 0.22 MICRON FILTER (METHACHOLINE/OCREVUS) XX ONE (09:30)
[2019-08-23] MEDS ORDERED: ACETAMINOPHEN TAB 650MG DOSE (2X325MG) PO ONE (09:30)
[2019-08-23] MEDS ORDERED: diphenhydrAMINE 25 MG CAP PO ONE (09:30)
== END 2019-08-23 14:25 | disposition home or self-care (01) ==
LOC: M INFU 08:42
PROVIDERS: ATTEND Psychiatry & Neurology Neurology
DX: G35 Multiple sclerosis (principal)
CPT/HCPCS: 96375; 96413; 96415; J2350; J2930

== ENCOUNTER 2019-11-22 11:10 | Inpatient (IN) | payer OTHER ==
[~2019-11-22] VITALS: Ht 172.7 cm; Wt 115.9 kg
[~2019-11-22 11:10] MED LIST changes: -0.22 MICRON FILTER (METHACHOLINE/OCREVUS) XX ONE; -ACETAMINOPHEN TAB 650MG DOSE (2X325MG) PO ONE; -OCRELIZUMAB 600 MG in NS 500 ML IV ONE; +OMEP1CAP73 PO; -OMEP20CA4 PO; +ONDA-83 PO; -ONDA4TAB5 PO; -diphenhydrAMINE 25 MG CAP PO ONE; -methylPREDNISolone INJ 125 MG/2 ML VIAL (J2930) IV ONE
[2019-11-22] MEDS ORDERED: NORT25CA2 PO (11:35)
[2019-11-22] MEDS ORDERED: SPIR1AER INH (11:35)
[2019-11-22] MEDS ORDERED: FLUO10CA15 PO (11:35)
[2019-11-22] MEDS ORDERED: FLUT11IN INH (11:35)
[2019-11-22] MEDS ORDERED: ALBU83IN INH (11:35)
[2019-11-22] MEDS ORDERED: ADVA230A INH (11:35)
[2019-11-22] MEDS ORDERED: PRED10TA2 PO (11:35)
[2019-11-22] MEDS ORDERED: NUVAMIS2 PV (11:35)
[2019-11-22] MEDS ORDERED: FLUO20CA19 PO (11:35)
[2019-11-22] MEDS ORDERED: AZIT-12 PO (11:35)
[2019-11-22 12:15] LABS: BASO % 0.1 % (0.0-1.0); HEMATOCRIT 41.4 % (36.0-47.0); HEMOGLOBIN 13.3 g/dl (12.0-15.5); LYMPH % 2.5 % (24.0-44.0); MEAN CORPUSCULAR HEMOGLOBIN 28.4 pg (27.0-33.0); MEAN CORPUSCULAR HGB CONC 32.1 g/dl (32.0-36.5); MEAN CORPUSCULAR VOLUME 88.5 fl (80.0-96.0); MONO # 0.2 10^3/uL (0.0-0.8); MONO % 2.7 % (0.0-5.0); NEUTROPHILS # 6.9 10^3/uL (1.5-8.5); NEUTROPHILS % 94.4 % (36.0-66.0); PLATELET COUNT, AUTOMATED 245 10^3/uL (150-450); RED BLOOD COUNT 4.68 10^6/uL (4.00-5.40); WHITE BLOOD COUNT 7.3 10^3/uL (4.0-10.0)
[2019-11-22] MEDS ORDERED: IPRATROPIUM 0.5MG/ALBUTEROL 2.5MG INH SOL UD 3ML (DUONEB)(J7620) NEB ONE (12:15)
[2019-11-22 12:25] LABS: INR 1.04; PROTHROMBIN TIME 13.3 SECONDS (11.8-14.0)
[2019-11-22 12:26] LABS: PARTIAL THROMBOPLASTIN TIME 31.4 SECONDS (25.0-38.4)
[2019-11-22 12:40] LABS: ALBUMIN 3.7 GM/DL (3.2-5.2); ALT/SGPT 29 U/L (12-78); BILIRUBIN,DIRECT < 0.1 MG/DL (0.0-0.2); BILIRUBIN,TOTAL 0.2 MG/DL (0.2-1.0); BLOOD UREA NITROGEN 6 MG/DL (7-18); CALCIUM LEVEL 8.8 MG/DL (8.5-10.1); CARBON DIOXIDE LEVEL 22 MEQ/L (21-32); CHLORIDE LEVEL 109 MEQ/L (98-107); CREATININE FOR GFR 0.77 MG/DL (0.55-1.30); GLOMERULAR FILTRATION RATE > 60.0 (>60); GLUCOSE, FASTING 135 MG/DL (70-100); POTASSIUM SERUM 4.1 MEQ/L (3.5-5.1); SODIUM LEVEL 139 MEQ/L (136-145); TOTAL PROTEIN 7.2 GM/DL (6.4-8.2)
[2019-11-22 12:44] LABS: VENOUS BASE EXCESS -3.6 (-2.0-2.0); VENOUS HCO3 19.8 MEQ/L (23.0-27.0); VENOUS O2 SATURATION 99.4 % (60.0-80.0); VENOUS PARTIAL PRESSURE CO2 31.4 mmHg (38.0-50.0); VENOUS PARTIAL PRESSURE O2 161.2 mmHg (30.0-50.0); VENOUS PH 7.418 UNITS (7.330-7.430); VENOUS STANDARD HCO3 21.5 MEQ/L; VENOUS TOTAL CO2 20.8 MEQ/L (24.0-28.0)
[2019-11-22 13:03] LABS: LYMPH # 0.2 10^3/uL (1.5-5.0)
[2019-11-22] MEDS ORDERED: ISOVUE-370 76% 100ML VIAL (Q9967) As Ordered ONE (13:03)
[2019-11-22] MEDS ORDERED: VITA100054 PO (15:46)
[2019-11-22] MEDS ORDERED: PROAAER10 INH (15:46)
[2019-11-22] MEDS: IPRATROPIUM HFA INHALER 12.9 GRAMS (ATROVENT HFA) INH SCH ×3 (15:50→23:25)
[2019-11-22] MEDS ORDERED: LEVALBUTEROL 1.25 MG/0.5 ML CONCENTRATE NEB NEB ONE (16:00)
[2019-11-22] MEDS ORDERED: methylPREDNISolone INJ 125 MG/2 ML VIAL (J2930) IV SCH (16:00)
[2019-11-22] MEDS ORDERED: MONTELUKAST 10 MG TAB PO ONE (16:45)
--- NOTE | 2019-11-22 16:55 | REP ---
CT ANGIOGRAM CHEST: TECHNIQUE: Axial contrast enhanced images from the thoracic inlet to the upper abdomen using 100 mL Isovue 370 intravenous contrast material with multiplanar reformations. The study is limited by patient motion. No gross pulmonary embolism is seen. No definite dissection is seen in the thoracic aorta and there is no thoracic aortic aneurysm. The heart is normal in size. There is no pleural or pericardial effusion. No significantly enlarged lymph nodes are seen in the chest. There is no pleural or pericardial effusion. There are linear fibro atelectatic changes in both lungs. No consolidation is seen. The patient has had a prior cholecystectomy. IMPRESSION: Limited by patient motion. No gross pulmonary embolism or other acute abnormality. Mild bilateral fibro atelectatic change. Electronically Signed by Brandt Carrillo MD 11/24/2019 12:03 P
--- NOTE | 2019-11-22 18:45 | IPNPDOC ---
Date Seen The patient was seen on 11/22/19. Progress Note Addendum: (+) influenza plan: tamiflu 75 mg po bid x 5days droplet precautions. VS, I&O, 24H, Fishbone Vital Signs/I&O Vital Signs Date Time Temp Pulse Resp B/P (MAP) Pulse Ox O2 Delivery O2 Flow Rate FiO2 11/22/19 16:28 103 20 125/69 (87) 96 Nasal Cannula 3.0 11/22/19 11:24 99.5 Laboratory Data 24H LABS Laboratory Tests 2 11/22/19 12:01: Immature Granulocyte % (Auto) 0.3, Neutrophils (%) (Auto) 94.4H, Lymphocytes (%) (Auto) 2.5L, Monocytes (%) (Auto) 2.7, Eosinophils (%) (Auto) 0.0, Basophils (%) (Auto) 0.1, Neutrophils # (Auto) 6.9, Lymphocytes # (Auto) 0.2L, Monocytes # (Auto) 0.2, Eosinophils # (Auto) 0.0, Basophils # (Auto) 0.0, Nucleated Red Blood Cells % (auto) 0.0, Prothrombin Time 13.3, Prothromb Time International Ratio 1.04, Activated Partial Thromboplast Time 31.4, Anion Gap 8, Glomerular Filtration Rate > 60.0, Calcium Level 8.8, Total Bilirubin 0.2, Direct Bilirubin < 0.1, Aspartate Amino Transf (AST/SGOT) 25, Alanine Aminotransferase (ALT/SGPT) 29, Alkaline Phosphatase 84, Total Protein 7.2, Albumin 3.7, Albumin/Globulin Ratio 1.06 11/22/19 12:02: POC Beta HCG, Quantitative < 5.0 11/22/19 12:19: Blood Gas Bicarbonate Standard 21.5, Venous Blood pH 7.418, Venous Blood Partial Pressure CO2 31.4L, Venous Blood Partial Pressure O2 161.2H, Venous Blood Total Carbon Dioxide 20.8L, Venous Blood HCO3 19.8L, Venous Blood Oxygen Saturation 99.4H, Venous Blood Base Excess -3.6L 11/22/19 17:49: Lactic Acid Level 3.0*H, C-Reactive Protein, Quantitative 7.26H CBC/BMP Laboratory Tests 11/22/19 12:01 Microbiology Microbiology 11/22/19 Respiratory Virus Panel (PCR) ([facility]), Received Pending 11/22/19 Respiratory Virus Panel (PCR) ([facility]) - Final, Complete Influenza B SHANTHI ROLDAN MD Nov 22, 2019 18:45
--- NOTE | 2019-11-22 18:49 | ECGEPIP ---
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
[2019-11-22] MEDS ORDERED: NS 1,000 ML IV ONE ×2 (19:00→20:00)
[2019-11-22] MEDS: OSELTAMIVIR PHOSPHATE 75 MG CAP (TAMIFLU) PO SCH (19:11)
[2019-11-22] MEDS: FLUTICASONE HFA 110 MCG 12 GM INHALER (FLOVENT) INH SCH (20:15)
[2019-11-22 20:20] VITALS: BP 138/84
[2019-11-22] MEDS ORDERED: ACETAMINOPHEN TAB 650MG DOSE (2X325MG) PO PRN (22:00)
[2019-11-22] MEDS: methylPREDNISolone INJ 125 MG/2 ML VIAL (J2930) IV SCH (22:03)
[2019-11-22] MEDS: NORTRIPTYLINE 25 MG CAP PO SCH (22:04)
[2019-11-22] MEDS: FLUoxetine 10 MG CAP PO SCH (22:04)
[2019-11-22] MEDS: FLUoxetine 20 MG CAP PO SCH (22:04)
[2019-11-22] MEDS: VITAMIN D 1,000 INTERNATIONAL UNITS TABLET PO SCH (22:04)
[2019-11-23] MEDS: IPRATROPIUM HFA INHALER 12.9 GRAMS (ATROVENT HFA) INH SCH ×6 (02:34→23:15)
[2019-11-23 04:55] VITALS: BP 140/110
[2019-11-23] MEDS: methylPREDNISolone INJ 125 MG/2 ML VIAL (J2930) IV SCH ×2 (04:55→08:56)
[2019-11-23 05:00] VITALS: BP 140/110
[2019-11-23 06:31] LABS: BASO % 0.2 % (0.0-1.0); HEMATOCRIT 39.7 % (36.0-47.0); HEMOGLOBIN 12.5 g/dl (12.0-15.5); LYMPH # 0.5 10^3/uL (1.5-5.0); MEAN CORPUSCULAR HGB CONC 31.5 g/dl (32.0-36.5); MEAN CORPUSCULAR VOLUME 88.8 fl (80.0-96.0); MONO # 0.6 10^3/uL (0.0-0.8); MONO % 9.6 % (0.0-5.0); NEUTROPHILS # 4.9 10^3/uL (1.5-8.5); NEUTROPHILS % 81.7 % (36.0-66.0); PLATELET COUNT, AUTOMATED 268 10^3/uL (150-450); RED BLOOD COUNT 4.47 10^6/uL (4.00-5.40)
[2019-11-23 06:57] LABS: BLOOD UREA NITROGEN 7 MG/DL (7-18); CALCIUM LEVEL 8.7 MG/DL (8.5-10.1); CARBON DIOXIDE LEVEL 23 MEQ/L (21-32); CHLORIDE LEVEL 109 MEQ/L (98-107); CREATININE FOR GFR 0.62 MG/DL (0.55-1.30); GLOMERULAR FILTRATION RATE > 60.0 (>60); GLUCOSE, FASTING 115 MG/DL (70-100); POTASSIUM SERUM 4.2 MEQ/L (3.5-5.1); SODIUM LEVEL 138 MEQ/L (136-145)
[2019-11-23] MEDS: FLUTICASONE HFA 110 MCG 12 GM INHALER (FLOVENT) INH SCH ×2 (07:12→20:40)
[2019-11-23] MEDS: VITAMIN D 1,000 INTERNATIONAL UNITS TABLET PO SCH ×2 (08:55→21:21)
[2019-11-23] MEDS: MONTELUKAST 10 MG TAB PO SCH (08:55)
[2019-11-23] MEDS: OSELTAMIVIR PHOSPHATE 75 MG CAP (TAMIFLU) PO SCH ×2 (08:55→21:21)
[2019-11-23] MEDS ORDERED: ALBUTEROL SULFATE 2.5 MG/0.5 ML INH NEB SOLN INH PRN (09:00)
[2019-11-23] MEDS ORDERED: ALBUTEROL 90 MCG/ACT 8GM HFA INHALER INH PRN (09:00)
--- NOTE | 2019-11-23 10:39 | IPNPDOC ---
Text Note Date of Service The patient was seen on 11/23/19. NOTE Patient's a 29-year-old female admitted for asthma exacerbation secondary to the influenza virus. SUBJECTIVE: She was examined at bedside this one. She had no overnight activitie s. Continues albuterol inhaler, as well as her other medications for asthma. She did admit to some chest pressure. This morning, and shortness of breath while ambulating to the bathroom, which is approximately 25 feet from her bed OBJECTIVE: PHYSICAL EXAMINATION: GENERAL APPEARANCE: Pleasant, alert and oriented 3, speaking in full sentences without shortness of breath SKIN: Warm, well perfused. LUNGS: Moderate wheezing heard throughout lung burns, no rhonchi, no rales, no use of his muscles HEART: Normal S1, S2. No murmurs, no rubs, no gallops PULSES: 2+ upper and lower extremity . Or discoloration LABORATORY DATA: Please see below. ASSESSMENT: Patient's a 29-year-old female admitted for asthma exacerbation secondary to the influenza virus. PLAN: Asthma exacerbation secondary to influenza vaccination with lactic acidosis. --Tamiflu for influenza --Albuterol nebulizer when necessary for shortness of breath -- Resume home medication for asthma control --Discontinued IV Solu-Medrol. Start patient on 40 mg by mouth prednisone. Will need five-day therapy followed by taper. --Due to patient's reported shortness of breath while and was in the bathroom, which is approximately 25 feet from her bed. We'll continue to monitor patient overnight. We'll likely discharge patient once patient is able to ambulate without getting short of breath. Lactic acidosis , secondary shortness of breath, no other signs of infection, patient does not have a cough, UA was negative, no skin rashes, no headaches, no abdominal pain, no diarrhea --Status post 2 L bolus -elevated on presentation at 3.0, repeat was 4.5. This a.m. patient had a lactic acidosis of 2.3. He is tolerating by mouth diet, will repeat tomorrow a.m. -Procalcitonin pending -C-Reactive protein elevated at 7.26 on 11/22/19 Influenza -Tamiflu -Respiratory panel pending Depression -c/w with home med VS,Fishbone, I+O VS, Fishbone, I+O Laboratory Tests 11/22/19 12:01 11/23/19 05:57 Vital Signs Date Time Temp Pulse Resp B/P (MAP) Pulse Ox O2 Delivery O2 Flow Rate FiO2 11/23/19 05:00 98.7 84 18 140/110 (120) 93 11/22/19 20:10 96 11/22/19 16:28 Nasal Cannula 3.0 I&O- Last 24 Hours up to 6 AM 11/23/19 06:00 Intake Total 2720 ml Output Total 400 ml Balance 2320 ml MAKAYLA GU DO Nov 23, 2019 08:57
--- NOTE | 2019-11-23 12:34 | HPE ---
DATE OF ADMISSION: 11/22/2019 PRIMARY CARE PROVIDER: Emelina Chairez CHIEF COMPLAINT: Shortness of breath. HISTORY OF PRESENT ILLNESS: This is a 29-year-old female with a history of asthma and multiple sclerosis who presented to the emergency room with worsening shortness of breath since Friday. She says that out of nowhere she felt a sharp pain in her chest and had a hard time breathing. When she got home she rested but it did not fidel despite using her nebulizers. She continued to have wheezing and shortness of breath with dyspnea on exertion. She did have a cough productive of white sputum. She was seen at [place] emergency room where she was given prednisone without much relief, and inhalers. In the emergency room, she had a temperature of 101. Chest x-ray was negative. Without significant improvement, the patient presented to the emergency room at [facility] for further evaluation. CT of the chest was negative. The patient did have a little bit of a sore throat, some headache, no nausea or vomiting. No diarrhea or abdominal pain. No chest pain this time. She follows with Darlene at [facility], last seen on 11/04/2019 and was given prednisone. The patient otherwise denies any recent travel. She has no pets or birds. No sick contacts. In the emergency room, she was found to be tachycardic and was 93% on room air but had bilateral wheezing. The hospitalist was called for admission for asthma exacerbation. PAST MEDICAL HISTORY: 1. Asthma. 2. Multiple sclerosis. PAST SURGICAL HISTORY: None. ALLERGIES: NONSTEROIDAL ANTIINFLAMMATORY DRUGS. HOME MEDICATIONS: - vitamin D - vitamin B - albuterol two puffs as needed every 4 hours - Nuva Ring - Geritol - Ocrevus - Prozac 20 mg daily - Advair Diskus 250/50 - nortriptyline - prednisone taper - azithromycin - triamcinolone - Voltaren transdermal SOCIAL HISTORY: Previously smoked, quit 2 months ago. No alcohol use. No drug use. Lives with her . FAMILY HISTORY: Unknown. REVIEW OF SYSTEMS: As per history of present illness. 12-point system otherwise negative. VITAL SIGNS: Temperature 99.5, pulse 109, respiratory rate 25, blood pressure 125/69, 96% on 3 liters nasal cannula, 91% on room air. GENERAL: The patient is unable to complete sentences. She currently has four to five word conversational dyspnea. No cyanosis. No tracheal deviation. No nasal flaring. She has a nose ring in the left naris. Some rhinorrhea. No jugular venous distention (JVD), thyromegaly or cervical lymphadenopathy. LUNGS: Diminished with bilateral wheezing, very tight, diminished breath sounds. HEART: S1, S2. Sinus tachycardia. ABDOMEN: Soft, nontender, nondistended. Positive bowel sounds. Obese abdomen. EXTREMITIES: No cyanosis, clubbing or any pitting edema. LABORATORY DATA: White count 7.3, hemoglobin 13, hematocrit 41, platelet count 245. Sodium 139, potassium 4.1, chloride 109, bicarbonate 22, BUN 6, creatinine 0.77, glucose of 135, calcium 8.8, total bilirubin 0.2, direct bilirubin less than 0.1, AST 25, ALT 29, alkaline phosphatase 84. CT of the chest with no PE or edema. No consolidation. ASSESSMENT AND PLAN: 29-year-old female with multiple sclerosis, depression, and asthma, who presented to the emergency room with intractable asthma symptoms despite oral prednisone as outpatient. IMPRESSION: 1. Asthma exacerbation. The patient will be given intravenous Solu-Medrol and Xopenex due to complaints of tremors and restlessness with albuterol. Montelukast and inhaled steroids. 2. Multiple sclerosis. No acute exacerbation. 3. Depression. Resume on home dose of Prozac. 4. Obesity. Body Mass Index (BMI) of 38.9. Rule out pulmonary hypertension. Check 2-D echo. Sleep study as an outpatient to rule out obstructive sleep apnea. 5. Deep vein thrombosis (DVT) prophylaxis with compression stockings.
[2019-11-23 14:39] VITALS: BP 126/77
--- NOTE | 2019-11-23 19:44 | ECHO ---
DATE OF PROCEDURE: 11/23/2019 REFERRING PHYSICIAN: Dr. Vargas INDICATION: Dyspnea. Height is 173 cm, weight is 116 kg. DIMENSIONS: IVS: 1.0 LV: 5.2 LVPW: 0.7 LA: 3.5 Aorta: 3.4 IVC: 0.9 Mitral E wave velocity: 64 A wave: 77 E prime septal: 8.7 E prime lateral: 14.7 FINDINGS: The study is of acceptable technical quality considering patient's body habitus. The patient is in sinus rhythm. Left ventricle is normal size and systolic function, I estimate ejection fraction (EF) around 65%. Right ventricle also appears normal size and systolic function. Both atria appear normal. There is thickening of the intra-atrial septum, most likely representing lipomatous hypertrophy which is a benign finding. Aortic, mitral and tricuspid valves appear normal. Pulmonic valve was poorly visualized. No pericardial effusion is present. Inferior vena cava is normal size and appropriately collapses with inspiration indicative of likely normal or low central venous pressure. Aortic root is normal. Aortic arch and abdominal aorta were poorly seen. Doppler interrogation reveals no aortic stenosis or insufficiency. There is also functionally competent mitral valve. Mild tricuspid insufficiency is seen. Calculated pulmonary artery pressure is in 30s corresponding to mild pulmonary hypertension. Mitral inflow pattern and tissue Doppler imaging of mitral annulus revealed grade 1 diastolic dysfunction. CONCLUSIONS: 1. Study is of acceptable technical quality, the patient is in sinus rhythm. 2. Normal left ventricular (LV) size with normal LV systolic function and grade 1 diastolic dysfunction. 3. No significant valvular disease. 4. Likely normal central venous pressure and mild pulmonary hypertension. COMMENT: Subacute bacterial endocarditis (SBE) prophylaxis is not recommended.
[2019-11-23] MEDS: FLUoxetine 10 MG CAP PO SCH (21:21)
[2019-11-23] MEDS: NORTRIPTYLINE 25 MG CAP PO SCH (21:21)
[2019-11-23] MEDS: FLUoxetine 20 MG CAP PO SCH (21:21)
[2019-11-23 22:00] VITALS: BP 125/77
[2019-11-24] MEDS: IPRATROPIUM HFA INHALER 12.9 GRAMS (ATROVENT HFA) INH SCH ×3 (05:25→12:44)
[2019-11-24 06:00] VITALS: BP 125/78
[2019-11-24 07:15] LABS: BASO % 0.2 % (0.0-1.0); EOS % 0.2 % (0.0-3.0); HEMATOCRIT 40.7 % (36.0-47.0); LYMPH # 0.7 10^3/uL (1.5-5.0); LYMPH % 14.1 % (24.0-44.0); MEAN CORPUSCULAR HEMOGLOBIN 28.3 pg (27.0-33.0); MEAN CORPUSCULAR HGB CONC 31.9 g/dl (32.0-36.5); MEAN CORPUSCULAR VOLUME 88.5 fl (80.0-96.0); MONO # 0.7 10^3/uL (0.0-0.8); MONO % 13.3 % (0.0-5.0); NEUTROPHILS # 3.5 10^3/uL (1.5-8.5); NEUTROPHILS % 71.8 % (36.0-66.0); PLATELET COUNT, AUTOMATED 245 10^3/uL (150-450); WHITE BLOOD COUNT 4.9 10^3/uL (4.0-10.0)
[2019-11-24 07:41] LABS: BLOOD UREA NITROGEN 12 MG/DL (7-18); CALCIUM LEVEL 8.5 MG/DL (8.5-10.1); CARBON DIOXIDE LEVEL 28 MEQ/L (21-32); CHLORIDE LEVEL 106 MEQ/L (98-107); CREATININE FOR GFR 0.85 MG/DL (0.55-1.30); GLOMERULAR FILTRATION RATE > 60.0 (>60); GLUCOSE, FASTING 78 MG/DL (70-100); POTASSIUM SERUM 3.9 MEQ/L (3.5-5.1); SODIUM LEVEL 140 MEQ/L (136-145)
[2019-11-24] MEDS: FLUTICASONE HFA 110 MCG 12 GM INHALER (FLOVENT) INH SCH (07:45)
[2019-11-24] MEDS: MONTELUKAST 10 MG TAB PO SCH (08:41)
[2019-11-24] MEDS: VITAMIN D 1,000 INTERNATIONAL UNITS TABLET PO SCH (08:41)
[2019-11-24] MEDS: OSELTAMIVIR PHOSPHATE 75 MG CAP (TAMIFLU) PO SCH (08:41)
[2019-11-24] MEDS ORDERED: predniSONE 20 MG TAB PO SCH (09:00)
[2019-11-24] MEDS ORDERED: PRED10TA2 PO (11:18)
[2019-11-24] MEDS ORDERED: OSEL75CA PO (12:45)
--- NOTE | 2019-11-24 13:16 | DS.PDOC ---
Discharge Summary General Date of Admission Nov 22, 2019 at 15:15 Date of Discharge 11/24/19 Attending Physician: MAIRA HYMAN MD Discharge Summary PROCEDURES PERFORMED DURING STAY: None ADMITTING DIAGNOSES: 1. Shortness of breath 2. Reported fevers 3. Wheezing DISCHARGE DIAGNOSES: 1. Asthma exacerbation secondary to viral infection 2. Influenza SECONDARY DIAGNOSIS: Relapsing and remitting Multiple sclerosis Obesity Depression Grade 1 diastolic dysfunction COMPLICATIONS/CHIEF COMPLAINT: Shortness Of Breath. HISTORY OF PRESENT ILLNESS: HOSPITAL COURSE: Patient's 29-year-old obese female with a history of asthma and multiple sclerosis whom presented to the emergency room with worsening shortness of breath of several days.That was worse with activity. On presentation she complained of chest pain with breathing. She also complained of cough that was productive of white sputum. Prior to presentation. She was evaluated at [facility] where she was given prednisone without much relief, and inhalers. Initial evaluation, patient had a temperature of 101 with a negative x-ray, without significant improvement with albuterol use. Respiratory panel was negative. However an influenza panel was positive for influenza virus B. . She was admitted for asthma exacerbation secondary to influenza B virus. She was given IV steroids, nebulizer treatment when necessary for wheezing and shortness of breath. Patient was afebrile during stay. She continued to have cough, but overall had improvement with decrease sputum production. On day of discharge patient was in good spirits. She was advised to follow-up with PCP for asthma management. Patient agreed and verbalized the plan. She was instructed to return for increased chest pain, shortness of breath, hemoptysis, increased exertional dyspnea. Patient verbalized plan. She was discharged on a steroid taper for asthma exacerbation. Patient was also discharged on a 4 day course of Tamiflu due to her influenza B infection and instructed to follow-up with PCP within the week for outpatient asthma management. DISCHARGE MEDICATIONS: Please see below. ALLERGIES: Please see below. PHYSICAL EXAMINATION ON DISCHARGE: GENERAL APPEARANCE: Alert no acute distress. SKIN: Warm, well perfused. LUNGS: Clear to auscultation bilaterally. No wheezing, no rhonchi, HEART: Normal S1, S2. No murmurs, no rubs, no gallops ABDOMEN: Soft. No masses. Bowel sounds are present. TRUNK/SPINE:Straight. EXTREMITIES: Moves all extremities equally. No gross deformities. PULSES: 2+ upper and lower extremity . LABORATORY DATA: Please see below. IMAGING: CT angiography.Limited by patient motion. No gross pulmonary embolism or other acute abnormality. Mild bilateral fibro atelectatic change. PROGNOSIS: Stable ACTIVITY:. As tolerated DIET:. As tolerated DISCHARGE PLAN: With PCP for asthma management DISPOSITION:fair, improved DISCHARGE INSTRUCTIONS: 1. Follow-up with PCP for asthma management ITEMS TO FOLLOWUP ON ON OUTPATIENT: 1. Asthma management 2. Complete course of Tamiflu for influenza B virus 3. Complete steroid taper DISCHARGE CONDITION: Stable. TIME SPENT ON DISCHARGE: 35 minutes. Vital Signs/I&Os Vital Signs Date Time Temp Pulse Resp B/P (MAP) Pulse Ox O2 Delivery O2 Flow Rate FiO2 11/24/19 07:45 94 11/24/19 06:00 98.1 88 18 125/78 (94) 92 Room Air 11/22/19 16:28 3.0 I&O- Last 24 Hours up to 6 AM 11/24/19 06:00 Intake Total 1980 ml Output Total 2100 ml Balance -120 ml Laboratory Data Labs 24H Laboratory Tests 2 11/23/19 13:21: Lactic Acid Followup at 4 Hours 1.2 11/24/19 06:54: Immature Granulocyte % (Auto) 0.4, Neutrophils (%) (Auto) 71.8H, Lymphocytes (%) (Auto) 14.1L, Monocytes (%) (Auto) 13.3H, Eosinophils (%) (Auto) 0.2, Basophils (%) (Auto) 0.2, Neutrophils # (Auto) 3.5, Lymphocytes # (Auto) 0.7L, Monocytes # (Auto) 0.7, Eosinophils # (Auto) 0.0, Basophils # (Auto) 0.0, Nucleated Red Blood Cells % (auto) 0.0, Anion Gap 6L, Glomerular Filtration Rate > 60.0, Calcium Level 8.5 CBC/BMP Laboratory Tests 11/24/19 06:54 Microbiology Microbiology 11/22/19 Respiratory Virus Panel (PCR) ([facility]), Received Pending 11/22/19 Respiratory Virus Panel (PCR) ([facility]) - Final, Complete Influenza B Discharge Medications Scheduled Cholecalciferol (Vitamin D3) (Vitamin D3) 1,000 Unit Capsule, 2,000 UNIT PO BID, (Reported) Etonogestrel/Ethinyl Estradiol (Nuvaring Vaginal Ring) 1 Each Vag.ring, 1 RING PV QMONTH, (Reported) Fluoxetine Hcl (Fluoxetine HCl) 10 Mg Capsule, 10 MG PO QHS, (Reported) TAKE WITH 20 MG TABLET FOR A TOTAL OF 30 MG DAILY Fluoxetine Hcl (Fluoxetine HCl) 20 Mg Capsule, 20 MG PO QHS, (Reported) TAKE WITH 10 MG TAB FOR A TOTAL OF 30 MG DAILY Fluticasone Propion/Salmeterol (Advair Hfa 230-21 Mcg Inhaler) 12 Gm Hfa.aer.ad, 2 PUFF INH BID, (Reported) Fluticasone Propionate (Flovent Hfa) 110 Mcg/Act Aer.w.adap, 2 PUFFS INH BID, (Reported) Nortriptyline HCl (Nortriptyline HCl) 25 Mg Capsule, 25 MG PO QHS, (Reported) Ocrelizumab (Ocrevus) 300 Mg/10 Ml Inj, 300 MG IV ASDIRECTED, (Reported) EVERY 6 MONTHS Oseltamivir Phosphate (Tamiflu) 75 Mg Capsule, 75 MG PO BID Prednisone (Prednisone) 10 Mg Tablet, 10 MG PO TAPER Take 4 tabs daily x 3 days, then 3 tabs daily x 3 days, then 2 tabs daily x 3 days, then 1 tab daily x 3 days and stop Tiotropium [place] (Spiriva Respimat) 4 Gm Mist.inhal, 2 PUFFS INH DAILY, (Reported) Scheduled PRN Albuterol Sulf (Albuterol Sulfate) 2.5 Mg/3 Ml Vial.neb, 2.5 MG INH Q6H PRN for SOB/WHEEZING, (Reported) Albuterol Sulfate (Proair Hfa) 8.5 Gm Hfa.aer.ad, 2 PUFF INH QID PRN for SOB/WHEEZING, (Reported) Allergies Coded Allergies: NSAIDS (Non-Steroidal Anti-Inflamma (Verified Adverse Reaction, Unknown, PT HAS GASTRIC SLEEVE, 11/22/19) Attending Note I personally saw and evaluated the patient. I agree with the findings and the plan of care documented above in the resident's note. Patient is going to be discharged home today. I personally spent 35 mins in counselling the patient and coordinating her discharge. MAKAYLA GU DO Nov 24, 2019 13:16 MAIRA HYAMN MD Nov 25, 2019 11:51
== END 2019-11-24 14:35 | disposition home or self-care (01) | DRG 202 ==
LOC: M ED 11:10 → EDBD 11:10 → M ED INP 15:15 → ENRESERV 15:27 → M MS5PR 17:30
PROVIDERS: ADMIT General Practice; ATTEND Internal Medicine Nephrology
DX: J45.901 Unspecified asthma with (acute) exacerbation (principal); E87.2 Acidosis; G35 Multiple sclerosis; J10.1 Influenza due to other identified influenza virus with other respiratory manifestations; F32.9 Major depressive disorder, single episode, unspecified; E66.9 Obesity, unspecified; Z68.38 Body mass index [BMI] 38.0-38.9, adult; Z79.899 Other long term (current) drug therapy; Z88.8 Allergy status to other drugs, medicaments and biological substances

== ENCOUNTER → 2019-12-10 | Outpatient (REF) | payer OTHER ==
[~2019-12-10] MED LIST changes: +ADVA230A INH; +ALBU83IN INH; +AZIT-12 PO; +FLUO10CA15 PO; +FLUO20CA22 PO; +FLUT11IN INH; +NORT25CA2 PO; +OSEL75CA PO; +PROAAER10 INH; +SPIR1AER INH; +VITA100054 PO
== END ==
LOC: M LABNEURO 11:25
PROVIDERS: ATTEND Psychiatry & Neurology Neurology
DX: E55.9 Vitamin D deficiency, unspecified (principal)

== ENCOUNTER → 2020-01-27 | Outpatient (REF) | payer OTHER | LOC: M LAB REF 13:31 | PROVIDERS: ATTEND Nurse Practitioner Adult Health | DX: J45.51 Severe persistent asthma with (acute) exacerbation (principal) ==

== ENCOUNTER 2020-02-21 07:45 | Outpatient (CLI) | payer OTHER ==
[~2020-02-21] VITALS: Ht 172.7 cm; Wt 115.9 kg
[2020-02-21] VITALS (9 sets, daily range): BP systolic 117–160; BP diastolic 70–87
[2020-02-21] MEDS ORDERED: OCRELIZUMAB 600 MG in NS 500 ML IV ONE (08:00)
[2020-02-21] MEDS ORDERED: diphenhydrAMINE 25MG CAP PO ONE (08:00)
[2020-02-21] MEDS ORDERED: methylPREDNISolone INJ 125 MG/2 ML VIAL (J2930) IV ONE (08:00)
[2020-02-21] MEDS ORDERED: ACETAMINOPHEN TAB 650MG DOSE (2X325MG) PO ONE (08:00)
[2020-02-21] MEDS ORDERED: FLOV250A2 IN (08:07)
== END 2020-02-21 12:45 | disposition home or self-care (01) ==
LOC: M INFU 07:45
PROVIDERS: ATTEND Psychiatry & Neurology Neurology
DX: G35 Multiple sclerosis (principal); Z88.8 Allergy status to other drugs, medicaments and biological substances
CPT/HCPCS: 96375; 96413; 96415; J2350; J2930

== ENCOUNTER → 2020-06-06 | Outpatient (REF) | payer OTHER ==
[~2020-06-06] MED LIST changes: +AMIT25TA PO; +FLOV250A2 IN; -FLUO10CA15 PO; +FLUO10CA16 PO; +METO1TAB32 PO
== END ==
LOC: M LAB REF 08:34
PROVIDERS: ATTEND Nurse Practitioner Adult Health
DX: J45.51 Severe persistent asthma with (acute) exacerbation (principal)

== ENCOUNTER → 2020-08-03 | Outpatient (CLI) | payer OTHER ==
[2020-08-03 15:50] LABS: BASO # 0.1 10^3/uL (0.0-0.2); BASO % 0.6 % (0.0-1.0); EOS # 0.4 10^3/uL (0.0-0.5); EOS % 4.1 % (0.0-3.0); HEMATOCRIT 39.4 % (36.0-47.0); HEMOGLOBIN 12.6 g/dl (12.0-15.5); LYMPH # 1.7 10^3/uL (1.5-5.0); MEAN CORPUSCULAR HEMOGLOBIN 28.4 pg (27.0-33.0); MEAN CORPUSCULAR VOLUME 88.9 fl (80.0-96.0); MONO # 0.8 10^3/uL (0.0-0.8); MONO % 9.6 % (0.0-5.0); NEUTROPHILS # 5.7 10^3/uL (1.5-8.5); NEUTROPHILS % 65.2 % (36.0-66.0); PLATELET COUNT, AUTOMATED 403 10^3/uL (150-450); RED BLOOD COUNT 4.43 10^6/uL (4.00-5.40); WHITE BLOOD COUNT 8.7 10^3/uL (4.0-10.0)
[2020-08-03 15:53] LABS: APPEARANCE, URINE CLEAR (CLEAR); BACTERIA, URINE AUTO 1+ (NEGATIVE); BILIRUBIN, URINE AUTO NEGATIVE (NEGATIVE); BLOOD, URINE BLOOD NEGATIVE (NEGATIVE); COLOR, URINE STRAW (YELLOW); GLUCOSE, URINE (UA) AUTO NEGATIVE (NEGATIVE); KETONE, URINE AUTO NEGATIVE (NEGATIVE); LEUKOCYTE ESTERASE, URINE AUTO NEGATIVE (NEGATIVE); NITRITE, URINE AUTO NEGATIVE (NEGATIVE); PROTEIN, URINE AUTO NEGATIVE (NEGATIVE); RBC, URINE AUTO 1 /HPF (0-3); SPECIFIC GRAVITY URINE AUTO 1.005 (1.002-1.035); SQUAMOUS EPITHELIAL CELL UR AU 0 /HPF (0-6); UROBILINOGEN, URINE AUTO 0.2 mg/dL (0.0-2.0); WBC, URINE AUTO 1 /HPF (0-3)
[2020-08-03 16:23] LABS: ALBUMIN 3.3 GM/DL (3.2-5.2); ALT/SGPT 22 U/L (12-78); BILIRUBIN,TOTAL 0.1 MG/DL (0.2-1.0); BLOOD UREA NITROGEN 13 MG/DL (7-18); CALCIUM LEVEL 8.5 MG/DL (8.5-10.1); CARBON DIOXIDE LEVEL 25 MEQ/L (21-32); CHLORIDE LEVEL 108 MEQ/L (98-107); CREATININE FOR GFR 0.74 MG/DL (0.55-1.30); GLOMERULAR FILTRATION RATE > 60.0 (>60); GLUCOSE, FASTING 85 MG/DL (70-100); POTASSIUM SERUM 4.3 MEQ/L (3.5-5.1); SODIUM LEVEL 139 MEQ/L (136-145); TOTAL PROTEIN 6.6 GM/DL (6.4-8.2)
[2020-08-03 16:30] LABS: TOTAL 25(OH) VITAMIN D 41.1 NG/ML (30.0-100.0)
== END ==
LOC: M WUC 11:37
PROVIDERS: ATTEND Psychiatry & Neurology Neurology
DX: G35 Multiple sclerosis (principal); E55.9 Vitamin D deficiency, unspecified

== ENCOUNTER 2020-08-21 08:27 | Outpatient (CLI) | payer OTHER ==
[~2020-08-21] VITALS: Ht 172.7 cm; Wt 127.3 kg
[~2020-08-21 08:27] MED LIST changes: -AMIT25TA PO; -METO1TAB32 PO
[2020-08-21 08:30] VITALS: BP 137/73
[2020-08-21] MEDS ORDERED: AMIT25TA PO (08:57)
[2020-08-21] MEDS ORDERED: METO1TAB32 PO (08:58)
[2020-08-21] MEDS ORDERED: methylPREDNISolone 125MG 2ML VIAL IV ONE (09:00)
[2020-08-21] MEDS ORDERED: OCRELIZUMAB 600 MG in NS 500 ML IV ONE (09:00)
[2020-08-21] MEDS ORDERED: ACETAMINOPHEN TAB 650MG DOSE (2X325MG) PO ONE (09:00)
[2020-08-21] MEDS ORDERED: diphenhydrAMINE 25MG CAP PO ONE (09:00)
[2020-08-21 09:40] VITALS: BP 118/60
[2020-08-21 10:10] VITALS: BP 116/62
[2020-08-21 10:40] VITALS: BP 119/65
[2020-08-21 12:00] VITALS: BP 119/76
[2020-08-21 13:45] VITALS: BP 136/77
== END 2020-08-21 13:45 | disposition home or self-care (01) ==
LOC: M INFU 08:27
PROVIDERS: ATTEND Psychiatry & Neurology Neurology
DX: G35 Multiple sclerosis (principal)
CPT/HCPCS: 96375; 96413; 96415; J2350; J2930

== ENCOUNTER → 2020-10-05 | Outpatient (CLI) | payer OTHER ==
[~2020-10-05] MED LIST changes: +AMIT25TA PO; +METO1TAB32 PO
[2020-10-05 16:21] LABS: BASO # 0.1 10^3/uL (0.0-0.2); BASO % 0.7 % (0.0-1.0); EOS # 0.3 10^3/uL (0.0-0.5); EOS % 3.4 % (0.0-3.0); HEMATOCRIT 40.3 % (36.0-47.0); HEMOGLOBIN 12.9 g/dl (12.0-15.5); LYMPH # 1.7 10^3/uL (1.5-5.0); LYMPH % 22.1 % (24.0-44.0); MEAN CORPUSCULAR HEMOGLOBIN 29.6 pg (27.0-33.0); MEAN CORPUSCULAR VOLUME 92.4 fl (80.0-96.0); MONO # 0.7 10^3/uL (0.0-0.8); MONO % 9.8 % (0.0-5.0); NEUTROPHILS # 4.8 10^3/uL (1.5-8.5); NEUTROPHILS % 63.6 % (36.0-66.0); PLATELET COUNT, AUTOMATED 388 10^3/uL (150-450); RED BLOOD COUNT 4.36 10^6/uL (4.00-5.40); WHITE BLOOD COUNT 7.5 10^3/uL (4.0-10.0)
== END ==
LOC: M WUC 11:30
PROVIDERS: ATTEND Nurse Practitioner Adult Health
DX: J45.50 Severe persistent asthma, uncomplicated (principal)

== ENCOUNTER 2020-12-18 16:43 | Emergency (ER) | payer OTHER ==
[~2020-12-18] VITALS: Ht 172.7 cm; Wt 133.1 kg
[~2020-12-18 16:43] MED LIST changes: -AMIT25TA PO; +AMIT25TA17 PO
--- OUTSIDE RECORDS SUMMARY | 2020-12-18 16:54 | CCD | Continuity of Care Document ---
Author Doris Smart Organization Unknown Address [address] [place] [address] Phone [phone] Care Team Providers Care Residential Building Inspector Name Role Phone Elias Hooker M.D.M [phone] Isai Sparks D.O. AUTVirgie Unavailable Problems Active Problems Provider Date Uncomplicated severe persistent asthma AMAURI Carcamo O nset: 08/22/2020 Exacerbation of severe persistent asthma AMAURI Carcamo Onset: 01/26/2020 Social History Type Date Description Comments Sex Unknown Tobacco Use Start: Unknown End: Patient is a former smoker does not know how long or how much she smoked Smoking Status Reviewed: 10/04/20 Patient is a former smoker d oes not know how long or how much she smoked Allergies, Adverse Reactions, Alerts Active Allergies Reaction Severity Comments Date Influenza A Virus interferes with MS meds 01/19/2020 NSAIDS 01/19/2020 Medications Active Medications SIG Qnty Indications Ordering Provide r Date Prednisone 10mg Tablets 1 tab by mouth every other day 15tabs AMAURI Carcamo 08/22/2020 Montelukast Sodium 10mg Tablets 1 by mouth every day 30tabs AMAURI Carcamo 04/05/2020 Spiriva Respimat 1.25mcg/Act Aeros ol 2 puffs every day 4gm J45.51 AMAURI Carcamo 11/04/2019 Flovent HFA 110mcg/Act Aerosol 2 puff twice a day 12gm AMAURI Carcamo 04/12/2019 Advair HFA 230-21mcg/Act Aerosol 2 puff twice a day 12gm AMAURI Carcamo 09/21/2018 Albuterol Sulfate (2 .5mg/3ML) 0.083% Nebulizer 1 vial four times a day as needed 360ml J45.50 AMAURI Tijerina Ocrevus 300mg/10ML Solution infusion every 6 months. Unknown Vitamin B-12 ER 1000mcg Tablets ER 1 tab by mouth every day Unknown Proair HFA 108(90Base) mcg/Act Aer osol 2 puffs four times a day as needed 25.5units AMAURI Carcamo Nuvaring 0.12-0.015mg/24HR Ring use as directed Unknown Aerochamber MV Misc 1 unit use with inhaler Unknown Gabapentin 300mg Capsules 1 cap by mouth every evening Unknown Effexor XR 150mg Caps ER 24HR 1 cap by mouth every day Unknown History Medications Prednisone 10mg Tablets 30mg by mouth every dayx 4 , 20mg x 4, 10mg x 4 days, then 10mg every other day 42tabs J45.51 AMAURI Carcamo 07/18/2020 - 08/22/2020 Prednisone 10mg Tablets 2 tabs by mouth every day x 5 days, the 1 tab by mouth daily x 7 days, then 1 tab every other day 30tabs AMAURI Carcamo 06/20/2020 - Prednisone 10mg Tablets 40mg by mouth every day x 4 days then 30mg every day x 4 days then 20mg every day x 4 days then 10mg x4days&stop 40tabs J45.51 AMAURI Carcamo 06/06/2020 - 06/20/2020 Immunizations Description No Information Available Vital Signs Date Vital Result Comment 10/04/2020 9:16am BP Systolic 122 mmHg BP Diastolic 80 mmHg Heart Rate 81 /min O2 % BldC Oximetry 95 % Height 69 inches 5'9" Weight 304.00 lb BMI (Body Mass Index) 44.9 kg/m2 [place] Body Weight 145 lb Weight 137.894 kg BSA (Body Surface Area) 2.47 m2 08/22/2020 9:18am BP Systolic 132 mmHg BP Diastolic 98 mmHg Heart Rate 102 /min O2 % BldC Oximetry 96 % Body Temperature 97.9 F Height 69 inches 5'9" Weight 292.00 lb BMI (Body Mass Index) 43.1 kg/m2 [place] Body Weight 145 lb Weight 132.451 kg BSA (Body Surface Area) 2.43 m2 Results Test Acquired Date Facility Test Result H/L Range Note FVL/[place] 10/04/2020 [facility] PD[facility]eport SEE IMAGE FVC-Pred 4.41 L FVC-Pre 3.27 L FVC-%Pred-Pre 74 L FVC-LLN 3.61 L Fev1-Pred 3.68 L Fev1-Pre 2.16 L Fev1-%Pred-Pre 58 L Fev1-LLN 3.00 L Fev6-Pred 4.36 L Fev6-Pre 3.27 L Fev6-%Pred-Pre 74 L Fev6-LLN 3.57 L Gew4xrz-Ztip 84 % Bmu7ctf-Fln 66 % Hyz5vvn-%Pred-Pre 78 % Bxx0lin-BJS 75 % Ycz8ygk-Jebh 99 % Fyf2cle-Pcb 100 % Xcv7faw-%Pred-Pre 101 % FEFMax-Pred 7.80 L/E/sec FEFMax-Pre 5.59 L/E/sec FEFMax-%Pred-Pre 71 L/E/sec FEFMax-LLN 5.80 L/E/sec Xtj9064-Zqme 3.76 L/E/sec Azd8850-War 1.20 L/E/sec Ozq3034-%Pred-Pre 31 L/E/sec Ard6439-PFH 2.32 L/E/sec ExpTime-Pre 6.15 sec Sya6vqz7-Azpv 85 % Qvd7pju9-Qnj 66 % Cuf6yqf9-%Pred-Pre 77 % Esg6guh0-ZVZ 77 % Culture Sputum And Gram Stain 06/06/2020 [facility] Main Lab [address] [place], [place] [id number] [phone] Gram Stain (SEE NOTE) Normal 1 Sputum Culture Sputum culture n <SEE NOTE> 2 FVL/Chito 06/06/2020 [facility] PDFRep[facility] SEE IMAGE FVC-Pred 4.41 L FVC-Pre 2.34 L FVC-%Pred-Pre 53 L FVC-LLN 3.61 L Fev1-Pred 3.68 L Fev1-Pre 1.37 L Fev1-%Pred-Pre 37 L Fev1-LLN 3.00 L Fev6-Pred 4.36 L Fev6-Pre 2.34 L Fev6-%Pred-Pre 53 L Fev6-LLN 3.57 L Ysi0rlz-Upfn 84 % Ooh3qzw-Wme 59 % Pcq6zat-%Pred-Pre 69 % Pvs0yva-NXY 75 % Ncf0gjy-Cqng 99 % Ceq2bso-Giq 100 % Ztr3eat-%Pred-Pre 101 % FEFMax-Pred 7.80 L/E/sec FEFMax-Pre 3.55 L/E/sec FEFMax-%Pred-Pre 45 L/E/sec FEFMax-LLN 5.80 L/E/sec Qhl6647-Gcoz 3.76 L/E/sec Wja9818-Cmy 0.65 L/E/sec Tbe3273-%Pred-Pre 17 L/E/sec Npr7603-HJF 2.32 L/E/sec ExpTime-Pre 6.01 sec Tgr2ptp2-Odjb 85 % Jwg9btw7-Fck 59 % Fko6hid7-%Pred-Pre 68 % Aws9hcx4-RKC 77 % FVL/Chito 04/05/2020 [facility] [facility] PDFReport SEE IMAGE FVC-Pred 4.41 L FVC-Pre 3.79 L FVC-%Pred-Pre 85 L FVC-LLN 3.61 L Fev1-Pred 3.68 L Fev1-Pre 2.85 L Fev1-%Pred-Pre 77 L Fev1-LLN 3.00 L Fev6-Pred 4.36 L Fev6-Pre 3.79 L Fev6-%Pred-Pre 86 L Fev6-LLN 3.57 L Rom5xot-Avbk 84 % Zxt6svk-Kwg 75 % Vjg8ynn-%Pred-Pre 89 % Qph8wij-YCF 75 % Exb8qaj-Nmco 99 % Adl8vis-Aiv 100 % Tcg7hso-%Pred-Pre 101 % FEFMax-Pred 7.80 L/E/sec FEFMax-Pre 6.67 L/E/sec FEFMax-%Pred-Pre 85 L/E/sec FEFMax-LLN 5.80 L/E/sec Mgn0516-Onjh 3.76 L/E/sec Hgr4814-Pej 2.21 L/E/sec Cbz5803-%Pred-Pre 58 L/E/sec Lfq6214-BYY 2.32 L/E/sec ExpTime-Pre 5.76 sec Flb0zey1-Muuk 85 % Lxd9uqx8-Rro 75 % Myx2uoo7-%Pred-Pre 88 % Yea7rcq8-ZMP 77 % 1 QUALITY: POOR MANY EPITHELIAL CELLS FEW WBCS MANY GRAM POSITIVE COCCI IN PAIRS AND CHAINS 2 Sputum culture not performed due to oropharyngeal contamination. Further processing of such specimens would not yield useful information about the possible pathogens from the lower respiratory tract. Test not performed Procedures Date Code Description Status 08/22/2020 00436 Spirometry Completed 07/18/2020 99549 Spirometry Completed 06/06/2020 74112 Spirometry Completed 04/05/2020 53595 Spirometry Completed Medical Devices Description No Information Available Encounters Type Date Location Provider Dx Diagnosis Office Visit 08/22/2020 9:30a [facility] To AMAURI anderson J45.50 Severe persistent asthma, uncomplicated Office Visit 07/18/2020 11:00a [facility] To AMAURI anderson J45.51 Severe persistent asthma with (acute) ex acerbation Office Visit 06/06/2020 2:00p [facility] To AMAURI anderson J45.51 Severe persistent asthma with (acute) ex acerbation Office Visit 04/05/2020 11:30a [facility] To AMAURI anderson J45.51 Severe persistent asthma with (acute) ex acerbation Assessments Date Code Description Provider 10/04/2020 J45.50 Severe persistent asthma, uncomp licated AMAURI Carcamo 08/22/2020 J45.50 Severe persistent asthma, uncomp licated AMAURI Carcamo 07/18/2020 J45.51 Severe persistent asthma with (a cute) exacerbation AMAURI Carcamo 06/06/2020 J45.51 Severe persistent asthma with (a cute) exacerbation AMAURI Carcamo 04/05/2020 J45.51 Severe persistent asthma with (a cute) exacerbation AMAURI Carcamo Plan of Treatment 10/04/2020 - AMAURI Carcamo* J45.50 Severe persistent asthma, uncomplicated* New Labs:* FVL/Chito, Ordered: 10/04/20 Functional Status Description No Information Available Mental Status Description No Information Available Referrals Description No Information Available
--- OUTSIDE RECORDS SUMMARY | 2020-12-18 16:54 | CCD | Continuity of Care Document ---
Author Author Doris OLIVEROS M.D. Organization Unknown Address [address] [place] [address] Phone [phone] Problems Active Problems Provider Date Multiple sclerosis Anaya Oliveros M.D. Onset: 12/26/2015 Social History Type Date Description Comments Sex Unknown Tobacco Use Start: Unknown End: Unknown Patient is a former smoker Allergies, Adverse Reactions, Alerts Description No Known Drug Allergies Medications Active Medications SIG Qnty Indications Ordering Provide r Date Gabapentin 300mg Capsules Take 1 capsule at bedtime. lacho Oliveros M.D. 09/26/2020 Amitriptyline HCL 25mg Tablets take one tablet at bedtime 30mable Oliveros M.D. 06/16/20 20 Ocrevus 300mg/10ML Solution infuse 600mg over 3.5 hours every 6 months for maintainence. 20ml Anaya Oliveros M.D. 08/18/2019 Ocrevus Pre-Med 125m [id number] IV/Tab/Tab methylprednisolone 125mg iv, benadryl 25mg by mouth, tylenol 650mg by mouth Anaya Oliveros M.D. 08/18/2019 Butalbital/Acetaminophen/Caffeine 50-325-40mg Tablets take 1 tab as needed for headaches. max 2 tabs 24 hours, and 4 tabs in 7 days. meaghan Oliveros M.D. 10/28/2018 Diazepam 5mg Tablets take 1-2 tabs 60 minutes prior to mri. pension manager [id number] 2amble orta M.D. 06/15/2018 Medrol 4mg TBPK take 6 tabs in the morning on day 1, then reduce by one tab each day till completed over 6 days. 21units Anaya Oliveros M.D. 03/26/2018 Ondansetron 4mg Tablets Dispers take 1 tab every 8 hours as needed for nausea, vomiting, and or migraine 30tajeronimo Oliveros M.D. 03/16/2018 Vitamin B-12 ER 1000mcg Tablets ER take one tablet once a day. 90tajeronimo Oliveros M.D. Vitamin D2 2000Unit Tablets take one tab by mouth bid. 180tajeronimo Oliveros M.D. 02/22/2016 Immunizations Description No Information Available Vital Signs Date Vital Result Comment 09/26/2020 12:54pm Respiratory Rate 12 /min Height 68 inches 5'8" Weight 275.00 lb BMI (Body Mass Index) 41.8 kg/m2 [place] Body Weight 140 lb 06/16/2020 11:02am Respiratory Rate 12 /min Height 68 inches 5'8" Weight 275.00 lb BMI (Body Mass Index) 41.8 kg/m2 [place] Body Weight 140 lb Results Test Acquired Date Facility Test Result H/L Range Note CBC With Differential 08/03/2020 [facility] White Blood Count 8.7 10 Normal 4.0-10.0 Red Blood Count 4.43 10 Normal 4.00-5.40 Hemoglobin 12.6 g/dL Normal 12.0-15.5 Hematocrit 39.4 % Normal 36.0-47.0 Mean Corpuscular Volume 88.9 fl Normal 80.0-96.0 Mean Corpuscular Hemoglobin 28.4 pg Normal 27.0-33.0 Mean Corpuscular HGB Conc 32.0 g/dL Normal 32.0-36.5 Red Cell Distribution Width 14.6 % High 11.5-14.5 Platelet Count, Automated 403 10 Normal 150-450 Neutrophils % 65.2 % Normal 36.0-66.0 Lymph % 20.0 % Low 24.0-44.0 [place] % 9.6 % High 0.0-5.0 Eos % 4.1 % High 0.0-3.0 Baso % 0.6 % Normal 0.0-1.0 Immature Granulocyte % 0.5 % Normal 0-3.0 Nucleated Red Blood Cell % 0.0 % Normal 0-0 Neutrophils # 5.7 10 Normal 1.5-8.5 Lymph # 1.7 10 Normal 1.5-5.0 [place] # 0.8 10 Normal 0.0-0.8 Eos # 0.4 10 Normal 0.0-0.5 Baso # 0.1 10 Normal 0.0-0.2 Ua Routine 08/03/2020 [facility] Appearance, Urine CLEAR Normal Clear Color, Urine STRAW Normal Yellow PH,Urine 6.0 units Normal 5.0-9.0 Specific [place] Urine Auto 1.005 Normal 1.002-1.035 Protein, Urine Auto NEGATIVE mg/dL Normal Negative Glucose, Urine (Ua) Auto NEGATIVE mg/dL Normal Negative Ketone, Urine Auto NEGATIVE mg/dL Normal Negative Urobilinogen, Urine Auto 0.2 mg/dL Normal 0.0-2.0 Bilirubin, Urine Auto NEGATIVE Normal Negative Nitrite, Urine Auto NEGATIVE Normal Negative Leukocyte Esterase, Urine Auto NEGATIVE Normal Negative Blood, Urine Blood NEGATIVE Normal Negative WBC, Urine Auto 1 /HPF Normal 0-3 RBC, Urine Auto 1 /HPF Normal 0-3 Bacteria, Urine Auto 1+ High Negative Squamous Epithelial Cell Ur AU 0 /HPF Normal 0-6 Hyaline Cast, Urine Auto 0 /LPF Normal 0-1 Comprehensive Metabolic Profil 08/03/2020 [facility] Glucose, Fasting 85 mg/dL Normal 70-100 Blood Urea Nitrogen 13 mg/dL Normal 7-18 Creatinine For GFR 0.74 mg/dL Normal 0.55-1.30 Glomerular Filtration Rate > 60.0 Normal >60 1 Sodium Level 139 mEq/L Normal 136-145 Potassium Serum 4.3 mEq/L Normal 3.5-5.1 Chloride Level 108 mEq/L High 98-107 Carbon Dioxide Level 25 mEq/L Normal 21-32 Anion Gap 6 mEq/L Low 8-16 Calcium Level 8.5 mg/dL Normal 8.5-10.1 Ast/Sgot 14 U/L Normal 7-37 Alt/SGPT 22 U/L Normal 12-78 Alkaline Phosphatase 87 U/L Normal 45-117 Bilirubin,Total 0.1 mg/dL Low 0.2-1.0 Total Protein 6.6 GM/DL Normal 6.4-8.2 Albumin 3.3 GM/DL Normal 3.2-5.2 Albumin/Globulin Ratio 1.0 Low 1.2-2.2 Laboratory test finding 08/03/2020 [facility] Total 25(Oh) Vitamin D 41.1 NG/ML Normal 30.0-100.0 1 Units are mL/min/1.73 m2 Chronic Kidney Disease Staging per NKF: Stage I & II GFR >=60 Normal to Mildly Decreased Stage III GFR 30-59 Moderately Decreased Stage IV GFR 15-29 Severely Decreased Stage V GFR <15 Very Little GFR Left ESRD GFR <15 on MANAGER DOCUMENTATION Procedures Date Code Description Status 09/05/2020 77910 MRI Spine Thoracic W/O Contrast, Followed By Contrast Completed 09/05/2020 41470 MRI Spine Thoracic W/O Contrast, Followed By Contrast Completed 09/05/2020 12780 MRI Spine Cervical W/O Contrast, Followed By Contrast Completed 09/05/2020 20032 MRI Spine Cervical W/O Contrast, Followed By Contrast Completed 09/05/2020 17014 MRI Brain W/O Contrast, Followed By Contrast Completed 09/05/2020 94938 MRI Brain W/O Contrast, Followed By Contrast Completed 08/09/2020 77678 Needle Electromyography Complete , Five Or More Muscles Studied Completed 08/09/2020 17737 Needle Electromyography Complete , Five Or More Muscles Studied Completed 08/09/2020 86407 Nerve Conduction 13+ Studies Com pleted 04/19/2020 95931 Sympathetic Skin Responses Compl eted 04/19/2020 09436 Sympathetic Skin Responses Compl eted 04/19/2020 86712 Test Autonomic Nervous System, C ardiovagal Innervation Completed 04/19/2020 31545 Test Autonomic Nervous System, C ardiovagal Innervation Completed 04/19/2020 88939 Artery Study Extremity Mult Leve ls Bilateral Completed 04/19/2020 93194 Artery Study Extremity Mult Leve ls Bilateral Completed 04/19/2020 40190 Artery Study Extremity Mult Leve ls Bilateral Completed 04/19/2020 63204 Artery Study Extremity Mult Leve ls Bilateral Completed Medical Devices Description No Information Available Encounters Type Date Location Provider Dx Diagnosis Office Visit 09/26/2020 12:30p Main office - Ne orta M.D. G35 Multiple sclerosis Office Visit 06/16/2020 10:30a Main office - Ne orta M.D. G35 Multiple sclerosis Assessments Date Code Description Provider 09/26/2020 G35 Multiple sclerosis Anaya farrell M.D. 09/05/2020 G35 Multiple sclerosis Araseli Forrest, FannyDVicenta 09/05/2020 G35 Multiple sclerosis MRI 09/05/2020 R20.2 Paresthesia of skin Araseli Forrest, M.DVicenta 09/05/2020 R20.2 Paresthesia of skin MRI 09/05/2020 M62.838 Other muscle spasm Araseli Forrest, M.D. 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 08/09/2020 M54.2 Cervicalgia Anaya Oliveros M.D. 08/09/2020 M79.605 Pain in left leg Anaya Oliveros M.D. 08/09/2020 M79.604 Pain in right leg Anaya aguirre M.D. 08/09/2020 M79.601 Pain in right arm Anaya aguirre M.D. 08/09/2020 M79.602 Pain in left arm Anaya Oliveros M.D. 06/16/2020 G35 Multiple sclerosis Anaya farrell M.D. 04/19/2020 G62.9 Polyneuropathy, unspecified Mary Oliveros M.D. 04/19/2020 G62.9 Polyneuropathy, unspecified Ans/ VS 04/19/2020 I95.1 Orthostatic hypotension Anaya phipps M.D. 04/19/2020 I95.1 Orthostatic hypotension Ans/VS 04/19/2020 I73.9 Peripheral vascular disease, uns pecified Anaya Oliveros M.D. 04/19/2020 I73.9 Peripheral vascular disease, uns pecified Ans/VS Plan of Treatment No Information Available Functional Status Description No Information Available Mental Status Description No Information Available Referrals Refer to Dr Reason for Referral Status Appt Date Anaya Oliveros M.D. Created [address] [id number] [phone] Anaya Oliveros M.D. Created [address] [place] [address] [phone] Anaya Oliveros M.D. Created [address] [place] [address] [phone]
--- OUTSIDE RECORDS SUMMARY | 2020-12-18 16:54 | CCD | Continuity of Care Document ---
Author Author Doris PETTY ANP Organization Unknown Address [address] [place] [address] Phone [phone] Care Team Providers Care Audit Mgr Name Role Phone Elias Hooker M.D.M [phone] Isai Sparks D.O. AUTVirgie Unavailable Problems [...] SIG Qnty Indications Ordering Provide r Date Flovent HFA 220mcg/Act Aerosol 2 puff twice a day 12gm AMAURI Carcamo 10/04/2020 Prednisone 10mg Tablets 1 tab by mouth every other day 15tabs AMAURI Carcamo 08/22/2020 Montelukast Sodium 10mg Tablets 1 by mouth every day 30tabs AMAURI Carcamo 04/05/2020 Spiriva Respimat 1.25mcg/Act Aeros ol 2 puffs every day 4gm J45.51 AMAURI Carcamo 11/04/2019 Advair HFA 230-21mcg/Act Aerosol 2 puff twice [...] lb BMI (Body Mass Index) 44.9 kg/m2 [place] Body Weight 145 lb Weight 137.894 kg BSA (Body Surface Area) 2.47 m2 08/22/2020 9:18am BP Systolic 132 mmHg BP Diastolic 98 mmHg Heart Rate 102 /min O2 % BldC Oximetry 96 % Body Temperature 97.9 F Height 69 inches 5'9" Weight 292.00 lb BMI (Body Mass Index) 43.1 kg/m2 [place] Body Weight 145 lb Weight 132.451 kg [...] L Fev6-%Pred-Pre 74 L Fev6-LLN 3.57 L Uyb0hdh-Gope 84 % Wqs4xng-Zzg 66 % Zyz1qln-%Pred-Pre 78 % Fuz0osj-KXT 75 % Bor1bmh-Lexr 99 % Nfl2slr-Vsw 100 % Vja6suv-%Pred-Pre 101 % FEFMax-Pred 7.80 L/E/sec FEFMax-Pre 5.59 L/E/sec FEFMax-%Pred-Pre 71 L/E/sec FEFMax-LLN 5.80 L/E/sec Fff7454-Nvnp 3.76 L/E/sec Frt7898-Pen 1.20 L/E/sec Hum0717-%Pred-Pre 31 L/E/sec Gkj5948-FLO 2.32 L/E/sec ExpTime-Pre 6.15 sec Ppu2wrm7-Exkp 85 % Liy8qtc2-Ruj 66 % Zre3tei5-%Pred-Pre 77 % Ytr4zhi2-QKJ 77 % Culture Sputum And Gram Stain 06/06/2020 [facility] Main Lab [address] [place], [place] [id number] [phone] Gram Stain (SEE NOTE) Normal 1 Sputum Culture Sputum culture n <SEE NOTE> 2 FVL/Chito 06/06/2020 [facility] PDFReport SEE IMAGE FVC-Pred 4.41 L FVC-Pre 2.34 L FVC-%Pred-Pre 53 L FVC-LLN 3.61 L Fev1-Pred 3.68 L Fev1-Pre 1.37 L Fev1-%Pred-Pre 37 L Fev1-LLN 3.00 L Fev6-Pred 4.36 L Fev6-Pre 2.34 L Fev6-%Pred-Pre 53 L Fev6-LLN 3.57 L Bhy2ryh-Mpca 84 % Hwv5mmh-Gee 59 % Lcy9esh-%Pred-Pre 69 % Llc9kyq-NWO 75 % Xng8yrs-Ruku 99 % Tkx5zvc-Ppt 100 % Dle3kci-%Pred-Pre 101 % FEFMax-Pred 7.80 L/E/sec FEFMax-Pre 3.55 L/E/sec FEFMax-%Pred-Pre 45 L/E/sec FEFMax-LLN 5.80 L/E/sec Bnw6020-Krvj 3.76 L/E/sec Kwy0586-Uhi 0.65 L/E/sec Vnf3802-%Pred-Pre 17 L/E/sec Nyp0532-HSJ 2.32 L/E/sec ExpTime-Pre 6.01 sec Bwg1vvw2-Zggv 85 % Mmq3hun2-Clo 59 % Rud0fty1-%Pred-Pre 68 % Yhx4zmo5-FVO 77 % FVL/Chito 04/05/2020 [facility] PDFReport SEE IMAGE FVC-Pred 4.41 L FVC-Pre 3.79 L FVC-%Pred-Pre 85 L FVC-LLN 3.61 L Fev1-Pred 3.68 L Fev1-Pre 2.85 L Fev1-%Pred-Pre 77 L Fev1-LLN 3.00 L Fev6-Pred 4.36 L Fev6-Pre 3.79 L Fev6-%Pred-Pre 86 L Fev6-LLN 3.57 L Jov5wxc-Xlnu 84 % Ock6vqx-Kdf 75 % Len5mca-%Pred-Pre 89 % Xhj2qnm-FWG 75 % Qva2hbx-Uqjl 99 % Tja0weq-Gty 100 % Ufs4aqz-%Pred-Pre 101 % FEFMax-Pred 7.80 L/E/sec FEFMax-Pre 6.67 L/E/sec FEFMax-%Pred-Pre 85 L/E/sec FEFMax-LLN 5.80 L/E/sec Qiv8281-Ohik 3.76 L/E/sec Gvy7036-Mjd 2.21 L/E/sec Wiz5337-%Pred-Pre 58 L/E/sec Uof4705-XRZ 2.32 L/E/sec ExpTime-Pre 5.76 sec Haf5zwm4-Ylfm 85 % Tlx1exu7-Gxr 75 % Jui0opt3-%Pred-Pre 88 % Jmy4zjd0-VPD 77 % 1 QUALITY: POOR MANY EPITHELIAL CELLS FEW WBCS MANY GRAM POSITIVE COCCI IN PAIRS AND CHAINS 2 Sputum culture not performed due to oropharyngeal contamination. Further processing of such specimens would not yield useful information about the possible pathogens from the lower respiratory tract. Test not performed Procedures Date Code Description Status 08/22/2020 92326 Spirometry Completed 07/18/2020 30232 Spirometry Completed 06/06/2020 94843 Spirometry Completed 04/05/2020 56866 Spirometry Completed Medical Devices Description No Information Available Encounters Type Date Location Provider Dx Diagnosis Office Visit 10/04/2020 9:30a [facility] To AMAURI anderson J45.50 Severe persistent asthma, uncomplicated Office Visit 08/22/2020 9:30a [facility] To AMAURI anderson J45.50 Severe persistent asthma, uncomplicated Office Visit 07/18/2020 11:00a [facility] To monica ANP J45.51 Severe persistent asthma with (acute) ex acerbation Office Visit 06/06/2020 2:00p [facility] To AMAURI anderson J45.51 Severe persistent asthma with (acute) ex acerbation Office Visit 04/05/2020 11:30a [facility] To AMAURI anderson J45.51 Severe [...] cute) exacerbation AMAURI Carcamo Plan of Treatment Future Appointment(s):* 11/15/2020 11:00 am - Darlene Petty ANP at [facility] 10/04/2020 - AMAURI Carcamo* J45.50 Severe persistent asthma, uncomplicated * * New Labs:* FVL/[place], Scheduled: 11/15/20 * CBC W/Diff & PLT, Ordered: 10/04/20 * Follow up:* Follow up 4-6 weeks with FVL Phone follow up with CBC Functional Status Description No Information Available Mental Status Description No Information Available Referrals Description No Information Available
--- OUTSIDE RECORDS SUMMARY | 2020-12-18 16:54 | CCD | Continuity of Care Document ---
Author Doris Smart Organization Unknown Address [address] [place] [address] Phone [phone] Care Team Providers Care Forestry Tree Pruner Name Role Phone Isai Sparks D.O. Unavailable Problems Active Problems Provider Date Uncomplicated [...] lb BMI (Body Mass Index) 44.9 kg/m2 [place] Body Weight 145 lb Weight 137.894 kg BSA (Body Surface Area) 2.47 m2 08/22/2020 9:18am BP Systolic 132 mmHg BP Diastolic 98 mmHg Heart Rate 102 /min O2 % BldC Oximetry 96 % Body Temperature 97.9 F Height 69 inches 5'9" Weight 292.00 lb BMI (Body Mass Index) 43.1 kg/m2 [place] Body Weight 145 lb Weight 132.451 kg BSA (Body Surface Area) 2.43 m2 Results Test Acquired Date Facility Test Result H/L Range Note CBC With Differential 10/05/2020 [facility] Main Lab [address] [place] [address] [phone] White Blood Count 7.5 10 Normal 4.0-10.0 Red Blood Count 4.36 10 Normal 4.00-5.40 Hemoglobin 12.9 g/dL Normal 12.0-15.5 Hematocrit 40.3 % Normal 36.0-47.0 Mean Corpuscular Volume 92.4 fl Normal 80.0-96.0 Mean Corpuscular Hemoglobin 29.6 pg Normal 27.0-33.0 Mean Corpuscular HGB Conc 32.0 g/dL Normal 32.0-36.5 Red Cell Distribution Width 13.5 % Normal 11.5-14.5 Platelet Count, Automated 388 10 Normal 150-450 Neutrophils % 63.6 % Normal 36.0-66.0 Lymph % 22.1 % Low 24.0-44.0 [place] % 9.8 % High 0.0-5.0 Eos % 3.4 % High 0.0-3.0 Baso % 0.7 % Normal 0.0-1.0 Immature Granulocyte % 0.4 % Normal 0-3.0 Nucleated Red Blood Cell % 0.0 % Normal 0-0 Neutrophils # 4.8 10 Normal 1.5-8.5 Lymph # 1.7 10 Normal 1.5-5.0 [place] # 0.7 10 Normal 0.0-0.8 Eos # 0.3 10 Normal 0.0-0.5 Baso # 0.1 10 Normal 0.0-0.2 FVL/[place] 10/04/2020 [employer] PDFReport SEE IMAGE FVC-Pred 4.41 L FVC-Pre 3.27 L FVC-%Pred-Pre 74 L FVC-LLN 3.61 L Fev1-Pred 3.68 L Fev1-Pre 2.16 L Fev1-%Pred-Pre 58 L Fev1-LLN 3.00 L Fev6-Pred 4.36 L Fev6-Pre 3.27 L Fev6-%Pred-Pre 74 L Fev6-LLN 3.57 L Kfd3yis-Rppu 84 % Uex7cck-Ywu 66 % Giv3sfj-%Pred-Pre 78 % Fkq3xeo-FHL 75 % Kpj6hkf-Ztzw 99 % Cal2muo-Ath 100 % Wpg6kyr-%Pred-Pre 101 % FEFMax-Pred 7.80 L/E/sec FEFMax-Pre 5.59 L/E/sec FEFMax-%Pred-Pre 71 L/E/sec FEFMax-LLN 5.80 L/E/sec Szh2715-Rtjt 3.76 L/E/sec Soh0768-Czt 1.20 L/E/sec Zsi3835-%Pred-Pre 31 L/E/sec Gyq1506-JQZ 2.32 L/E/sec ExpTime-Pre 6.15 sec Yof7dfv3-Fgan 85 % Seh5rmn9-Ytn 66 % Che6nff4-%Pred-Pre 77 % Lxl0rgl1-UVG 77 % Culture Sputum And Gram Stain 06/06/2020 [facility] Main Lab [address] [place] [address] [phone] Gram Stain (SEE NOTE) Normal 1 Sputum Culture Sputum culture n <SEE NOTE> 2 FVL/[place] 06/06/2020 [employer] PDFReport SEE IMAGE FVC-Pred 4.41 L FVC-Pre 2.34 L FVC-%Pred-Pre 53 L FVC-LLN 3.61 L Fev1-Pred 3.68 L Fev1-Pre 1.37 L Fev1-%Pred-Pre 37 L Fev1-LLN 3.00 L Fev6-Pred 4.36 L Fev6-Pre 2.34 L Fev6-%Pred-Pre 53 L Fev6-LLN 3.57 L Bra5wkq-Qqjj 84 % Agh2psm-Grt 59 % Qmx9ojj-%Pred-Pre 69 % Ldz7jwt-ZXC 75 % Vrm2dko-Kwph 99 % Yqo1wbd-Mkx 100 % Diw6lbx-%Pred-Pre 101 % FEFMax-Pred 7.80 L/E/sec FEFMax-Pre 3.55 L/E/sec FEFMax-%Pred-Pre 45 L/E/sec FEFMax-LLN 5.80 L/E/sec Inn0703-Gsaq 3.76 L/E/sec Lle8756-Cvo 0.65 L/E/sec Bfl8883-%Pred-Pre 17 L/E/sec Sqa6979-RHJ 2.32 L/E/sec ExpTime-Pre 6.01 sec Nma5umv5-Mpdt 85 % Owx3yey1-Rxz 59 % Lfa8wdq1-%Pred-Pre 68 % Bbl2jqx0-CME 77 % 1 QUALITY: POOR MANY EPITHELIAL CELLS FEW WBCS MANY GRAM POSITIVE COCCI IN PAIRS AND CHAINS 2 Sputum culture not performed due to oropharyngeal contamination. Further processing of such specimens would not yield useful information about the possible pathogens from the lower respiratory tract. Test not performed Procedures Date Code Description Status 10/04/2020 39717 Spirometry Completed 08/22/2020 22322 Spirometry Completed 07/18/2020 41520 Spirometry Completed 06/06/2020 98381 Spirometry Completed Medical Devices Description No Information Available Encounters Type Date Location Provider Dx Diagnosis Office Visit 10/04/2020 9:30a [facility] To AMAURI anderson J45.50 Severe persistent asthma, uncomplicated Office Visit 08/22/2020 9:30a [facility] To AMAURI anderson J45.50 Severe persistent asthma, uncomplicated Office Visit 07/18/2020 11:00a [facility] To AMAURI anderson J45.51 Severe persistent asthma with (acute) ex acerbation Office Visit 06/06/2020 2:00p [facility] To AMAURI anderson J45.51 Severe [...] Treatment Future Appointment(s):* 11/15/2020 11:00 am - A[facility]URI Carcamo at [facility] 10/04/2020 - AMAURI Carcamo* J45.50 Severe persistent asthma, uncomplicated * * New Labs:* FVL/[place], Scheduled: 11/15/20 * CBC W/Diff & PLT, Ordered: 10/04/20 * Follow up:* Follow up 4-6 weeks with FVL Phone follow up with CBC Functional Status Description No Information Available Mental Status Description No Information Available Referrals Description No Information Available
--- OUTSIDE RECORDS SUMMARY | 2020-12-18 16:54 | CCD | Continuity of Care Document ---
Author Author Doris CASTELLANO Organization Unknown Address [address] [place] [address] Phone [phone] Care Team Providers Care Dough Mixer Operator Name Role Phone Daron Frazier AUTM [phone] Problems Description No Information Available Social History Type Date Description Comments Sex Unknown ETOH Use Denies alcohol use Tobacco Use Start: Unknown End: Unknown Patient is a former smoker Recreational Drug Use Denies Drug Use Smoking Status Reviewed: 07/24/20 Patient is a former smoker Allergies, Adverse Reactions, Alerts Active Allergies Reaction Severity Comments Date NSAIDS gastric sleeve done 07/24/20 20 Medications Active Medications SIG Qnty Indications Ordering Provide r Date Ocrevus 300mg/10ML Solution Unknown Prozac Unknown Amitriptyline HCL Unknown 000 Flovent HFA 220mcg/Act Aerosol Unknown Advair Diskus 250-50mcg/Dose Aeros ol 1 puff twice a day Unknown Spiriva Handihaler 18mcg Capsules Unknown Proair HFA 108(90Base) mcg/Act Aer osol 2 puffs by mouth inhaled every 4-6 hours as needed Unknown Metoprolol Succinate ER Unknown 0 Vitamin D 2000Unit Tablets qi d Unknown Prednisone 10mg (21) TBPK 20mg tapering Unknown History Medications Neomycin/Polymyxin/Hydrocortisone (Otic) 3.5-57739-0 Suspension 4 drops to each ear canal 3-4 x daily x 5 days 10ml H92.03 Franky Trevino JR., M.D. 07/24/2020 - 07/29/2020 Immunizations Description No Information Available Vital Signs Date Vital Result Comment 11/28/2020 11:48am BP Systolic 134 mmHg BP Diastolic 75 mmHg Heart Rate 89 /min Respiratory Rate 18 /min O2 % BldC Oximetry 98 % Body Temperature 97.0 F Weight 290.00 lb Pain Level 6 07/24/2020 1:47pm BP Systolic 139 mmHg BP Diastolic 83 mmHg Heart Rate 88 /min Respiratory Rate 16 /min O2 % BldC Oximetry 95 % Body Temperature 98.0 F Weight 275.00 lb Height 68 inches 5'8" BMI (Body Mass Index) 41.8 kg/m2 Pain Level 7 Results Description No Information Available Procedures Description No Information Available Medical Devices Description No Information Available Encounters Type Date Location Provider Dx Diagnosis Office Visit 11/28/2020 10:15a Main Office FLIP Delgado J06.9 Acute upper respiratory infection, unspecified Z20.828 Contact w and exposure to ot h viral communicable diseases Office Visit 07/24/2020 2:40p Main Office FLIP Delgado H92.0 3 Otalgia, bilateral Assessments Date Code Description Provider 11/28/2020 J06.9 Acute upper respiratory infectio n, unspecified FLIP Delgado 11/28/2020 Z20.828 Contact with and (pugh spected) exposure to other viral communicable diseases FLIP Delgado 07/24/2020 H92.03 Otalgia, bilateral FLIP Lobo Plan of Treatment No Information Available Functional Status Description No Information Available Mental Status Description No Information Available Referrals Refer to Reason for Referral Status Appt Date Alicia Castellano PA Created [address] [place] [address] [phone] Alicia Castellano PA Created [address] [place] [address] [phone]
--- OUTSIDE RECORDS SUMMARY | 2020-12-18 16:54 | CCD | Continuity of Care Document ---
Author Author Doris PETTY Organization Unknown Address [address] [place] [address] Phone [phone] Care Team Providers Care Professor Of German Name Role Phone Elias Hooker M.D.M [phone] Isai Sparks D.O. AUTVirgie Unavailable Problems Active Problems Provider Date Uncomplicated severe persistent asthma AMAURI Carcamo O nset: 08/22/2020 Exacerbation of severe persistent asthma AMAUIR Carcamo Onset: 01/26/2020 Social History Type Date Description Comments Sex Unknown Tobacco Use Start: Unknown End: Unknown Patient is a former smoker pt said she quit smoking over 10 years ago and does not know how long or how much she smoked Smoking Status Reviewed: 08/22/20 Patient is a former smoker pt said she quit smoking over 10 years ago and does not know how long or how [...] twice a day 12gm AMAURI Carcamo 09/21/2018 Nortriptyline HCL 25mg Capsules 1 capsule every night at bedtime Unknown 0 Albuterol Sulfate (2 .5mg/3ML) 0.083% Nebulizer 1 vial four times a day as needed 360ml J45.50 AMAURI Tijerina Prozac 10mg Capsules 1 tab by mouth every day 90caps Unknown Ocrevus 300mg/10ML Solution every 6 months. Unknown Vitamin B-12 ER 1000mcg Tablets ER 1 tab every day Unknown Proair HFA 108(90Base) mcg/Act Aer osol 2 puffs four times a day as needed 25.5units AMAURI Carcamo Nuvaring 0.12-0.015mg/24HR Ring use as directed Unknown Aerochamber MV Misc 1 unit use with inhaler Unknown History Medications Prednisone 10mg Tablets 30mg [...] Available Vital Signs Date Vital Result Comment 08/22/2020 9:18am BP Systolic 132 mmHg BP Diastolic 98 mmHg Heart Rate 102 /min O2 % BldC Oximetry 96 % Body Temperature 97.9 F Height 69 inches 5'9" Weight 292.00 lb BMI (Body Mass Index) 43.1 kg/m2 [place] Body Weight 145 lb Weight 132.451 kg BSA (Body Surface Area) 2.43 m2 07/18/2020 10:55am BP Systolic 120 mmHg BP Diastolic 86 mmHg Heart Rate 83 /min O2 % BldC Oximetry 94 % Body Temperature 98.3 F Height 69 inches 5'9" Weight 283.00 lb BMI (Body Mass Index) 41.8 kg/m2 [place] Body Weight 145 lb Weight 128.369 kg BSA (Body Surface Area) 2.39 m2 Results Test Acquired Date Facility Test Result H/L Range Note Culture Sputum And Gram Stain 06/06/2020 [facility] Main Lab [address] [place], [place] [id number] [phone] Gram Stain (SEE NOTE) Normal 1 Sputum Culture Sputum culture n <SEE NOTE> 2 FVL/[place] 06/06/2020 [employer] PDFReport SEE IMAGE FVC-Pred 4.41 L FVC-Pre 2.34 L FVC-%Pred-Pre 53 L FVC-LLN 3.61 L Fev1-Pred 3.68 L Fev1-Pre 1.37 L Fev1-%Pred-Pre 37 L Fev1-LLN 3.00 L Fev6-Pred 4.36 L Fev6-Pre 2.34 L Fev6-%Pred-Pre 53 L Fev6-LLN 3.57 L Scx6plh-Fmjw 84 % Whr9jmi-Pkd 59 % Veo7pdd-%Pred-Pre 69 % Hhl1hmn-TSS 75 % Wwn9lxq-Taqo 99 % Axw9rcp-Ktn 100 % Gws4tox-%Pred-Pre 101 % FEFMax-Pred 7.80 L/E/sec FEFMax-Pre 3.55 L/E/sec FEFMax-%Pred-Pre 45 L/E/sec FEFMax-LLN 5.80 L/E/sec Uyc9811-Dntz 3.76 L/E/sec Eig6395-Aft 0.65 L/E/sec Jlg4747-%Pred-Pre 17 L/E/sec Kwg2776-TOP 2.32 L/E/sec ExpTime-Pre 6.01 sec Ubm9nvn5-Vkxd 85 % Szr8wsf2-Ehe 59 % Dpg6ory9-%Pred-Pre 68 % Mmd1fox4-OYL 77 % FVL/[place] 04/05/2020 [employer] PDFReport SEE IMAGE FVC-Pred 4.41 L FVC-Pre 3.79 L FVC-%Pred-Pre 85 L FVC-LLN 3.61 L Fev1-Pred 3.68 L Fev1-Pre 2.85 L Fev1-%Pred-Pre 77 L Fev1-LLN 3.00 L Fev6-Pred 4.36 L Fev6-Pre 3.79 L Fev6-%Pred-Pre 86 L Fev6-LLN 3.57 L Dzx6efu-Bndu 84 % Tdt6glb-Zcq 75 % Lya2kjq-%Pred-Pre 89 % Bfm3vzp-DKS 75 % Iej4wwm-Lbxr 99 % Skw4jvc-Zgl 100 % Pbx2kop-%Pred-Pre 101 % FEFMax-Pred 7.80 L/E/sec FEFMax-Pre 6.67 L/E/sec FEFMax-%Pred-Pre 85 L/E/sec FEFMax-LLN 5.80 L/E/sec Btx4457-Bwtk 3.76 L/E/sec Wuy5374-Vld 2.21 L/E/sec Fff2895-%Pred-Pre 58 L/E/sec Fnl4676-LUC 2.32 L/E/sec ExpTime-Pre 5.76 sec Btl3hvi5-Qkli 85 % Ouc9sdn5-Lfe 75 % Lks4irx9-%Pred-Pre 88 % Knm5zxh0-NNO 77 % 1 QUALITY: POOR MANY EPITHELIAL CELLS FEW WBCS MANY GRAM POSITIVE COCCI IN PAIRS AND CHAINS 2 Sputum culture not performed due to oropharyngeal contamination. Further processing of such specimens would not yield useful information about the possible pathogens from the lower respiratory tract. Test not performed Procedures Date Code Description Status 08/22/2020 56543 Spirometry Completed 07/18/2020 73226 Spirometry Completed 06/06/2020 87813 Spirometry Completed 04/05/2020 89555 Spirometry Completed Medical Devices Description No Information Available Encounters Type Date Location Provider Dx Diagnosis Office Visit 08/22/2020 9:30a [facility] To AMAURI anderson J45.50 Severe persistent asthma, uncomplicated Office Visit 07/18/2020 11:00a [facility] To AMAURI anderson J45.51 Severe persistent asthma with (acute) ex acerbation Office Visit 06/06/2020 2:00p [facility] To monica ANP J45.51 Severe persistent asthma with (acute) ex acerbation Office Visit 04/05/2020 11:30a [facility] To marleye, ANP J45.51 Severe persistent asthma with (acute) ex acerbation Assessments Date Code Description Provider 08/22/2020 J45.50 Severe persistent asthma, uncomp licated AMAURI Carcamo 07/18/2020 J45.51 Severe persistent asthma with (a cute) exacerbation AMAURI Carcamo 06/06/2020 J45.51 Severe persistent asthma with (a cute) exacerbation AMAURI Carcamo 04/05/2020 J45.51 Severe persistent asthma with (a cute) exacerbation AMAURI Carcamo Plan of Treatment 08/22/2020 - AMAURI Carcamo* J45.50 Severe persistent asthma, uncomplicated * * Follow up:* Follow up 1 month with FVL Functional Status Description No Information Available Mental Status Description No Information Available Referrals Description No Information Available
--- OUTSIDE RECORDS SUMMARY | 2020-12-18 16:54 | CCD | Continuity of Care Document ---
Author Author Doris CASTELLANO Organization Unknown Address [address] [place] [address] Phone [phone] Care Team Providers Care Migratory Game Bird Biologist Name Role Phone Daron Frazier AUTM [phone] Problems Description No Information Available Social History [...] 20mg tapering Unknown History Medications Neomycin/Polymyxin/Hydrocortisone (Otic) 3.5-05710-1 Suspension 4 drops to each ear canal [...] Date Alicia Castellano PA Created [address] [place] [address] [phone] Alicia Castellano PA Created [address] [place] [address] [phone]
--- OUTSIDE RECORDS SUMMARY | 2020-12-18 16:54 | CCD | Continuity of Care Document ---
Author Author Doris PETTY Organization Unknown Address [address] [place] [address] Phone [phone] Care Team Providers Care Grain Mixer Name Role Phone Isai Sparks D.O. Unavailable [...] Qnty Indications Ordering Provide r Date Prednisone 2.5mg Tablets 4 tabs by mouth every other day 60tabs AMAURI Carcamo 11/15/2020 Nucala 100mg/ml Solution Auto-Inje ct inject 100mg subq q4 weeks 1ml AMAURI Carcamo 11/06 Flovent HFA 220mcg/Act Aerosol 2 puff twice a day 12gm AMAURI Carcamo 10/04/2020 Montelukast Sodium 10mg Tablets 1 by mouth every day 30tabs AMAURI Carcamo 04/05/2020 Spiriva Respimat 1.25mcg/Act Aeros ol 2 puffs every day 4gm J45.51 AMAURI Carcamo 11/04/2019 Advair HFA 230-21mcg/Act Aerosol 2 puff twice a day 12gm AMAURI Carcamo 09/21/2018 Effexor XR 150mg Caps ER 24HR 1 cap by mouth every day Unknown Gabapentin 300mg Capsules 1 cap by mouth every evening Unknown Aerochamber MV Misc 1 unit use with inhaler Unknown Nuvaring 0.12-0.015mg/24HR Ring use as directed Unknown Proair HFA 108(90Base) mcg/Act Aer osol 2 puffs four times a day as needed 25.5units AMAURI Carcamo Vitamin B-12 ER 1000mcg Tablets ER 1 tab by mouth every day Unknown Ocrevus 300mg/10ML Solution infusion every 6 months. Unknown Albuterol Sulfate (2 .5mg/3ML) 0.083% Nebulizer 1 vial four times a day as needed 360ml J45.50 AMAURI Tijerina History Medications Prednisone 10mg Tablets 1 tab by mouth every other day 15tabs AMAURI Carcamo 08/22/2020 - Prednisone 10mg Tablets 30mg by mouth every [...] Available Vital Signs Date Vital Result Comment 11/15/2020 10:48am BP Systolic 124 mmHg BP Diastolic 88 mmHg Heart Rate 89 /min O2 % BldC Oximetry 95 % Body Temperature 97.1 F Height 69 inches 5'9" Weight 302.00 lb BMI (Body Mass Index) 44.6 kg/m2 [place] Body Weight 145 lb Weight 136.987 kg BSA (Body Surface Area) 2.46 m2 10/04/2020 9:16am BP Systolic 122 mmHg BP Diastolic 80 mmHg Heart Rate 81 /min O2 % BldC Oximetry 95 % Height 69 inches 5'9" Weight 304.00 lb BMI (Body Mass Index) 44.9 kg/m2 [place] Body Weight 145 lb Weight 137.894 kg BSA (Body Surface Area) 2.47 m2 Results Test Acquired Date Facility Test Result H/L Range Note CBC With Differential 10/05/2020 [facility] Main Lab [address] [place] [address] [phone] White Blood Count 7.5 10 Normal 4.0-10.0 [...] 36.0-66.0 Lymph % 22.1 % Low 24.0-44.0 [place] % 9.8 % High 0.0-5.0 Eos % 3.4 % High 0.0-3.0 Baso % 0.7 % Normal 0.0-1.0 Immature Granulocyte % 0.4 % Normal 0-3.0 Nucleated Red Blood Cell % 0.0 % Normal 0-0 Neutrophils # 4.8 10 Normal 1.5-8.5 Lymph # 1.7 10 Normal 1.5-5.0 [place] # 0.7 10 Normal 0.0-0.8 Eos # 0.3 10 Normal 0.0-0.5 Baso # 0.1 10 Normal 0.0-0.2 FVL/[place] 10/04/2020 [employer] PDFReport SEE IMAGE FVC-Pred 4.41 L FVC-Pre 3.27 L FVC-%Pred-Pre 74 L FVC-LLN 3.61 L Fev1-Pred 3.68 L Fev1-Pre 2.16 L Fev1-%Pred-Pre 58 L Fev1-LLN 3.00 L Fev6-Pred 4.36 L Fev6-Pre 3.27 L Fev6-%Pred-Pre 74 L Fev6-LLN 3.57 L Vqq0lvl-Rhdt 84 % Wsm3yhu-Dcs 66 % Rwf3qhv-%Pred-Pre 78 % Csd5jxf-LDJ 75 % Mus0mfb-Yswk 99 % Zbj0xgu-Mjz 100 % Ddz4fpk-%Pred-Pre 101 % FEFMax-Pred 7.80 L/E/sec FEFMax-Pre 5.59 L/E/sec FEFMax-%Pred-Pre 71 L/E/sec FEFMax-LLN 5.80 L/E/sec Mvk8936-Lztm 3.76 L/E/sec Ftd5941-Mer 1.20 L/E/sec Ief3744-%Pred-Pre 31 L/E/sec Zch5652-UBY 2.32 L/E/sec ExpTime-Pre 6.15 sec Pev1dqn2-Blpw 85 % Oqr4kbg3-Zlk 66 % Fbf5kgu8-%Pred-Pre 77 % Bir0tea2-EAU 77 % Culture Sputum And Gram Stain 06/06/2020 [facility] Main Lab [address] [place] [address] [phone] Gram Stain (SEE NOTE) Normal 1 Sputum Culture Sputum culture n <SEE NOTE> 2 FVL/[place] 06/06/2020 [employer] PDFReport SEE IMAGE FVC-Pred 4.41 L FVC-Pre 2.34 L FVC-%Pred-Pre 53 L FVC-LLN 3.61 L Fev1-Pred 3.68 L Fev1-Pre 1.37 L Fev1-%Pred-Pre 37 L Fev1-LLN 3.00 L Fev6-Pred 4.36 L Fev6-Pre 2.34 L Fev6-%Pred-Pre 53 L Fev6-LLN 3.57 L Vga7vni-Cwws 84 % Qpl0pri-Dzl 59 % Wpg9uxu-%Pred-Pre 69 % Xtb6nme-AUN 75 % Giu0wle-Donv 99 % Ekl5moa-Sep 100 % Qvd3aro-%Pred-Pre 101 % FEFMax-Pred 7.80 L/E/sec FEFMax-Pre 3.55 L/E/sec FEFMax-%Pred-Pre 45 L/E/sec FEFMax-LLN 5.80 L/E/sec Mzm0785-Bbuf 3.76 L/E/sec Inr1825-Nhp 0.65 L/E/sec Qwj5029-%Pred-Pre 17 L/E/sec Pqd0284-WCR 2.32 L/E/sec ExpTime-Pre 6.01 sec Xsv5pfg2-Mbcd 85 % Fmg2gaw7-Vil 59 % Gwf0mte1-%Pred-Pre 68 % Qnf6qlj4-IUC 77 % 1 QUALITY: POOR MANY EPITHELIAL CELLS FEW WBCS MANY GRAM POSITIVE COCCI IN PAIRS AND CHAINS 2 Sputum culture not performed due to oropharyngeal contamination. Further processing of such specimens would not yield useful information about the possible pathogens from the lower respiratory tract. Test not performed Procedures Date Code Description Status 10/04/2020 67124 Spirometry Completed 08/22/2020 16223 Spirometry Completed 07/18/2020 31146 Spirometry Completed 06/06/2020 02309 Spirometry Completed Medical Devices Description No Information Available Encounters Type Date Location Provider Dx Diagnosis Office Visit 11/15/2020 11:00a [facility] To AMAURI anderson J45.50 Severe persistent asthma, uncomplicated Office Visit 10/04/2020 9:30a [facility] To AMAURI anderson J45.50 Severe persistent asthma, uncomplicated Office Visit 08/22/2020 9:30a [facility] To monica ANP J45.50 Severe persistent asthma, uncomplicated Office Visit 07/18/2020 11:00a [facility] To AMAURI anderson J45.51 Severe persistent asthma with (acute) ex acerbation Office Visit 06/06/2020 2:00p [facility] To AMAURI anderson J45.51 Severe persistent asthma with (acute) ex acerbation Assessments Date Code Description Provider 11/15/2020 J45.50 Severe persistent asthma, uncomp licated Darlenenahmoi Petty, ANP 10/04/2020 J45.50 Severe persistent asthma, uncomp licated Darlene AMAURI Petty 08/22/2020 J45.50 Severe persistent asthma, uncomp licated Darlene KwameAMAURI garces 07/18/2020 J45.51 Severe persistent asthma with (a cute) exacerbation AMAURI Carcamo 06/06/2020 J45.51 Severe persistent asthma with (a cute) exacerbation AMAURI Carcamo Plan of Treatment Future Appointment(s):* 01/02/2021 11:30 am - [facility] Carcamo at [facility] 11/15/2020 - AMAURI Carcamo* J45.50 Severe persistent asthma, uncomplicated * * Follow up:* Follow up 4-6 weeks with FVL Functional Status Description No Information Available Mental Status Description No Information Available Referrals Description No Information Available
--- OUTSIDE RECORDS SUMMARY | 2020-12-18 16:55 | CCD ---
Author Author [facility] Organization [facility] Address Unknown Phone Unavailable Care Team Providers Care Plush Brusher Name Role Phone Rechlin, Thuan Thorpe DO Unavailable Unavailable Rechlin, Thuan Thorpe DO Unavailable Unavailable Rechlin, Thuan Thorpe DO Unavailable Unavailable Rechlin, P Maurilio DO Unavailable Unavailable Rechlin, P Maurilio DO Unavailable Unavailable Rechlin, P Maurilio DO Unavailable Unavailable Rechlin, P Maurilio DO Unavailable Unavailable Rechlin, P Maurilio DO Unavailable Unavailable Rechlin, P Maurilio DO Unavailable Unavailable Rechlin, P Maurilio DO Unavailable Unavailable Rechlin, P Maurilio DO Unavailable Unavailable Rechlin, P Maurilio DO Unavailable Unavailable Rechlin, P Maurilio DO Unavailable Unavailable Rechlin, P Maurilio DO Unavailable Unavailable Rechlin, P Maurilio DO Unavailable Unavailable Rechlin, P Maurilio DO Unavailable Unavailable Rechlin, P Maurilio DO Unavailable Unavailable Rechlin, P Maurilio DO Unavailable Unavailable Rechlin, P Maurilio DO Unavailable Unavailable Rechlin, P Maurilio DO Unavailable Unavailable Rechlin, P Maurilio DO Unavailable Unavailable Rechlin, P Maurilio DO Unavailable Unavailable Rechlin, P Maurilio DO Unavailable Unavailable Rechlin, P Maurilio DO Unavailable Unavailable Rechlin, P Maurilio DO Unavailable Unavailable Rechlin, P Maurilio DO Unavailable Unavailable Rechlin, P Maurilio DO Unavailable Unavailable Rechlin, P Maurilio DO Unavailable Unavailable Rechlin, P Maurilio DO Unavailable Unavailable Rechlin, P Maurilio DO Unavailable Unavailable Rechlin, P Maurilio DO Unavailable Unavailable Rechlin, P Maurilio DO Unavailable Unavailable Rechlin, P Maurilio DO Unavailable Unavailable Rechlin, P Maurilio DO Unavailable Unavailable Rechlin, P Maurilio DO Unavailable Unavailable Rechlin, P Maurilio DO Unavailable Unavailable Rechlin, P Maurilio DO Unavailable Unavailable Rechlin, P Maurilio DO Unavailable Unavailable Rechlin, P Maurilio DO Unavailable Unavailable Rechlin, P Maurilio DO Unavailable Unavailable Rechlin, P Maurilio DO Unavailable Unavailable Rechlin, P Maurilio DO Unavailable Unavailable Rechlin, P Maurilio DO Unavailable Unavailable Rechlin, P Maurilio DO Unavailable Unavailable Rechlin, P Maurilio DO Unavailable Unavailable Rechlin, P Maurilio DO Unavailable Unavailable Rechlin, P Maurilio DO Unavailable Unavailable Rechlin, P Maurilio DO Unavailable Unavailable Leigha, J Danie PA-C Unavailable Unavailable Leigha, J Danie PA-C Unavailable Unavailable Leigha, J Danie PA-C Unavailable Unavailable Leigha, J Danie PA-C Unavailable Unavailable Leigha, J Danie PA-C Unavailable Unavailable Leigha, Milagros Danie PA-C Unavailable Unavailable Leigha, Milagros Danie PA-C Unavailable Unavailable Leigha, J Danie PA-C Unavailable Unavailable Leigha, Milagros Danie PA-C Unavailable Unavailable Leigha, Milagros Danie PA-C Unavailable Unavailable Leigha, J Danie PA-C Unavailable Unavailable SCHWARZ, DANYEL Unavailable Unavailable TURRIN, ARABELLA Unavailable Unavailable TURRIN, ARABELLA Unavailable Unavailable TURRIN, ARABELLA Unavailable Unavailable TURRIN, ARABELLA Unavailable Unavailable LEIDYЕЛЕНАBOMARY MONTEIRO MD Unavailable Unavailable LEIDY MAQBOMARY MONTEIRO MD Unavailable Unavailable LEIDY MAQBOOL DONTAE LEON Unavailable Unavailable LEIDY MAQBOOL DONTAE LEON Unavailable Unavailable LEIDY MAQBOOL DONTAE LEON Unavailable Unavailable LEIDY MAQBOOL DONTAE LEON Unavailable Unavailable LEIDY MAQBOOL DONTAE LEON Unavailable Unavailable LEIDY, MAQBOOL DONTAE MD Unavailable Unavailable LEIDY, MAQBOOL DONTAE MD Unavailable Unavailable LEIDY, MAQBOOL DONTAE MD Unavailable Unavailable LEIDY, MAQBOOL DONTAE MD Unavailable Unavailable LEIDY, MAQBOOL DONTAE MD Unavailable Unavailable LEIDY, MAQBOOL DONTAE Unavailable Unavailable LEIDY, MAQBOOL DONTAE MD Unavailable Unavailable LEIDY, MAQBOOL DONTAE MD Unavailable Unavailable LEIDY, MAQBOOL DONTAE Unavailable Unavailable LEIDY, MAQBOOL DONTAE MD Unavailable Unavailable LEIDY, MAQBOOL DONTAE MD Unavailable Unavailable LEIDY, MAQBOOL DONTAE MD Unavailable Unavailable LEIDY, MAQBOOL DONTAE MD Unavailable Unavailable LEIDY, MAQBOOL DONTAE MD Unavailable Unavailable LEIDY, MAQBOOL DONTAE MD Unavailable Unavailable LEIDY, MAQBOOL DONTAE MD Unavailable Unavailable LEIDY, MAQBOOL DONTAE MD Unavailable Unavailable LEIDY, MAQBOOL DONTAE MD Unavailable Unavailable LEIDY, MAQBOOL DONTAE MD Unavailable Unavailable LEIDY, MAQBOOL DONTAE MD Unavailable Unavailable LEIDY, MAQBOOL DONTAE MD Unavailable Unavailable LEIDY, MAQBOOL DONTAE MD Unavailable Unavailable LEIDY, MAQBOOL DONTAE MD Unavailable Unavailable LEIDY, MAQBOOL DONTAE MD Unavailable Unavailable LEIDY, MAQBOOL DONTAE MD Unavailable Unavailable LEIDY, MAQBOOL DONTAE MD Unavailable Unavailable LEIDY, MAQBOOL DONTAE MD Unavailable Unavailable LEIDY, MAQBOOL DONTAE MD Unavailable Unavailable LEIDY, MAQBOOL DONTAE MD Unavailable Unavailable LEIDY, MAQBOOL DONTAE MD Unavailable Unavailable LEIDY, MAQBOOL DONTAE MD Unavailable Unavailable LEIDY, MAQBOOL DONTAE MD Unavailable Unavailable LEIDY, MAQBOOL DONTAE MD Unavailable Unavailable LEIDY, MAQBOOL DONTAE MD Unavailable Unavailable LEIDY, MAQBOOL DONTAE MD Unavailable Unavailable LEIDY, MAQBOOL DONTAE MD Unavailable Unavailable LEIDY, MAQBOOL DONTAE MD Unavailable Unavailable LEIDY, MAQBOOL DONTAE MD Unavailable Unavailable LEIDY, MAQBOOL DONTAE MD Unavailable Unavailable LEIDY, MAQBOOL DONTAE MD Unavailable Unavailable LEIDY, MAQBOOL DONTAE MD Unavailable Unavailable LEIDY, MAQBOOL DONTAE MD Unavailable Unavailable LEIDY, MAQBOOL DONTAE MD Unavailable Unavailable LEIDY, MAQBOOL DONTAE MD Unavailable Unavailable LEIDY, MAQBOOL DONTAE MD Unavailable Unavailable LEIDY, MAQBOOL DONTAE MD Unavailable Unavailable LEIDY, MAQBOOL DONTAE MD Unavailable Unavailable LEIDY, MAQBOOL DONTAE MD Unavailable Unavailable LEIDY, MAQBOOL DONTAE MD Unavailable Unavailable LEIDY, MAQBOOL DONTAE MD Unavailable Unavailable LEIDY, MAQBOOL DONTAE MD Unavailable Unavailable LEIDY, MAQBOOL DONTAE MD Unavailable Unavailable LEIDY, MAQBOOL DONTAE MD Unavailable Unavailable LEIDY, MAQBOOL DONTAE MD Unavailable Unavailable LEIDY, MAQBOOL DONTAE MD Unavailable Unavailable LEIDY, MAQBOOL DONTAE MD Unavailable Unavailable LEIDY, MAQBOOL DONTAE MD Unavailable Unavailable LEIDY, MAQBOOL DONTAE MD Unavailable Unavailable LEIDY, MAQBOOL DONTAE MD Unavailable Unavailable LEIDY, MAQBOOL DONTAE MD Unavailable Unavailable LEIDY, MAQBOOL DONTAE MD Unavailable Unavailable LEIDY, MAQBOOL DONTAE MD Unavailable Unavailable LEIDY, MAQBOOL DONTAE MD Unavailable Unavailable LEIDY, MAQBOOL DONTAE MD Unavailable Unavailable LEIDY, MAQBOOL DONTAE MD Unavailable Unavailable LEIDY, MAQBOOL DONTAE MD Unavailable Unavailable LEIDY, MAQBOOL DONTAE MD Unavailable Unavailable Buckley, Telma Unavailable Unavailable Buckley, Telma Unavailable Unavailable Buckley, Telma Unavailable Unavailable Buckley, Telma Unavailable Unavailable Buckley, Telma Unavailable Unavailable Buckley, Telma Unavailable Unavailable Buckley, Telma Unavailable Unavailable Buckley, Telma Unavailable Unavailable Buckley, Telma Unavailable Unavailable Buckley, Telma Unavailable Unavailable Buckley, Telma Unavailable Unavailable Buckley, Telma Unavailable Unavailable Buckley, Telma Unavailable Unavailable Buckley, Telma Unavailable Unavailable Buckley, Telma Unavailable Unavailable Buckley, Telma Unavailable Unavailable Buckley, Telma Unavailable Unavailable Buckley, Telma Unavailable Unavailable Buckley, Telma Unavailable Unavailable Buckley, Telma Unavailable Unavailable Buckley, Telma Unavailable Unavailable Buckley, Telma Unavailable Unavailable Buckley, Telma Unavailable Unavailable Buckley, Telma Unavailable Unavailable Buckley, Telma Unavailable Unavailable Buckley, Telma Unavailable Unavailable Buckley, Telma Unavailable Unavailable Buckley, Telma Unavailable Unavailable Buckley, Telma Unavailable Unavailable Buckley, Telma Unavailable Unavailable Buckley, Telma Unavailable Unavailable Buckley, Telma Unavailable Unavailable Buckley, Telma Unavailable Unavailable HemaEstuardo dale MD Unavailable Unavailable HemaEstuardo MD Unavailable Unavailable Hema, O Samah MD Unavailable Unavailable Estuardo Garrido MD Unavailable Unavailable Estuardo Garrido MD Unavailable Unavailable Estuardo Garrido MD Unavailable Unavailable Estuardo Garrido MD Unavailable Unavailable Estuardo Garrido MD Unavailable Unavailable Estuardo Garrido MD Unavailable Unavailable Estuardo Garrido MD Unavailable Unavailable Estuardo Garrido MD Unavailable Unavailable Estuardo Garrido MD Unavailable Unavailable Estuardo Garrido MD Unavailable Unavailable Estuardo Garrido MD Unavailable Unavailable Estuardo Garrido MD Unavailable Unavailable Estuardo Garrido MD Unavailable Unavailable Estuardo Garrido MD Unavailable Unavailable Estuardo Garrido MD Unavailable Unavailable Estuardo Garrido MD Unavailable Unavailable Estuardo Garrido MD Unavailable Unavailable Estuardo Garrido MD Unavailable Unavailable Estuardo Garrido MD Unavailable Unavailable Estuardo Garrido MD Unavailable Unavailable Estuardo Garrido MD Unavailable Unavailable Estuardo Garrido MD Unavailable Unavailable Estuardo Garrido MD Unavailable Unavailable Estuardo Garrido MD Unavailable Unavailable Estuardo Garrido MD Unavailable Unavailable Estuardo Garrido MD Unavailable Unavailable Estuardo Garrido MD Unavailable Unavailable Estuardo Garrido MD Unavailable Unavailable Estuardo Garrido MD Unavailable Unavailable Estuardo Garrido MD Unavailable Unavailable Esutardo Garrido MD Unavailable Unavailable Estuardo Garrido MD Unavailable Unavailable Estuardo Garrido MD Unavailable Unavailable Estuardo Garrido MD Unavailable Unavailable Estuardo Garrido MD Unavailable Unavailable Estuardo Garrido MD Unavailable Unavailable Estuardo Garrido MD Unavailable Unavailable Estuardo Garrido MD Unavailable Unavailable Estuardo Garrido MD Unavailable Unavailable Estuardo Garrido MD Unavailable Unavailable Estuardo Garrido MD Unavailable Unavailable Estuardo Garrido MD Unavailable Unavailable Estuardo Garrido MD Unavailable Unavailable Estuardo Garrido MD Unavailable Unavailable Estuardo Garrido MD Unavailable Unavailable Estuardo Garrido MD Unavailable Unavailable Estuardo Garrido MD Unavailable Unavailable Estuardo Garrido MD Unavailable Unavailable Estuardo Garrido MD Unavailable Unavailable Estuardo Garrido MD Unavailable Unavailable Estuardo Garrido MD Unavailable Unavailable Estuardo Garrido MD Unavailable Unavailable Estuardo Garrido MD Unavailable Unavailable Estuardo Garrido MD Unavailable Unavailable Estuardo Garrido MD Unavailable Unavailable Estuardo Garrido MD Unavailable Unavailable Estuardo Garrido MD Unavailable Unavailable Estuardo Garrido MD Unavailable Unavailable Estuardo Garrido MD Unavailable Unavailable Estuardo Garrido MD Unavailable Unavailable Estuardo Garrido MD Unavailable Unavailable Estuardo Garrido MD Unavailable Unavailable Estuardo Garrido MD Unavailable Unavailable Estuardo Garrido MD Unavailable Unavailable Estuardo Garrido MD Unavailable Unavailable Estuardo Garrido MD Unavailable Unavailable Estuardo Garrido MD Unavailable Unavailable Estuardo Garrido MD Unavailable Unavailable Estuardo Garrido MD Unavailable Unavailable Estuardo Garrido MD Unavailable Unavailable Estuardo Garrido MD Unavailable Unavailable Estuardo Garrido MD Unavailable Unavailable Estuardo Garriod MD Unavailable Unavailable Castellano, Juana Alicia PA Unavailable Unavailable Castellano, Juana Alicia PA Unavailable Unavailable Castellano, Juana Alicia PA Unavailable Unavailable Castellano, Ujana Alicia PA Unavailable Unavailable Castellano, Juana Alicia PA Unavailable Unavailable Castellano, Juana Alicia PA Unavailable Unavailable Castellano, Juana Aliica PA Unavailable Unavailable Castellano, Juana Alicia PA Unavailable Unavailable Castellano, Juana Alicia PA Unavailable Unavailable Castellano, Juana Alicia PA Unavailable Unavailable Kwame, L Darlene CHEMICAL LAB SUPERVISOR Unavailable Unavailable Kwame, L Darlene CHEMICAL LAB SUPERVISOR Unavailable Unavailable Kwame, L Darlene CHEMICAL LAB SUPERVISOR Unavailable Unavailable Kwame, L Darlene CHEMICAL LAB SUPERVISOR Unavailable Unavailable Kwame, L Darlene CHEMICAL LAB SUPERVISOR Unavailable Unavailable Kwame, L Darlene CHEMICAL LAB SUPERVISOR Unavailable Unavailable Kwame, L Darlene CHEMICAL LAB SUPERVISOR Unavailable Unavailable Kwame, L Darlene CHEMICAL LAB SUPERVISOR Unavailable Unavailable Kwame, L Darlene CHEMICAL LAB SUPERVISOR Unavailable Unavailable Kwame, L Darlene CHEMICAL LAB SUPERVISOR Unavailable Unavailable Kwame, L Darlene CHEMICAL LAB SUPERVISOR Unavailable Unavailable Kwame, L Dralene CHEMICAL LAB SUPERVISOR Unavailable Unavailable Kwame, L Darlene CHEMICAL LAB SUPERVISOR Unavailable Unavailable Kwame, L Darlene CHEMICAL LAB SUPERVISOR Unavailable Unavailable Kwame, L Darlene CHEMICAL LAB SUPERVISOR Unavailable Unavailable Kwame, L Darlene CHEMICAL LAB SUPERVISOR Unavailable Unavailable Kwame, L Darlene CHEMICAL LAB SUPERVISOR Unavailable Unavailable Kwame, L Darlene CHEMICAL LAB SUPERVISOR Unavailable Unavailable Kwame, L Darlene CHEMICAL LAB SUPERVISOR Unavailable Unavailable Kwame, L Darlene CHEMICAL LAB SUPERVISOR Unavailable Unavailable Kwame, L Darlene CHEMICAL LAB SUPERVISOR Unavailable Unavailable Kwame, L Darlene CHEMICAL LAB SUPERVISOR Unavailable Unavailable Re-disclosure Warning The records that you are about to access may contain information from federally-assisted alcohol or drug abuse programs. If such information is present, then the following federally mandated warning applies: This information has been disclosed to you from records protected by federal confidentiality rules (42 CFR part 2). The federal rules prohibit you from making any further disclosure of this information unless further disclosure is expressly permitted by the written consent of the person to whom it pertains or as otherwise permitted by 42 CFR part 2. A general authorization for the release of medical or other information is NOT sufficient for this purpose. The Federal rules restrict any use of the information to criminally investigate or prosecute any alcohol or drug abuse patient.The records that you are about to access may contain highly sensitive health information, the redisclosure of which is protected by Article 27-F of the [facility] Public Health law. If you continue you may have access to information: Regarding HIV / AIDS; Provided by facilities licensed or operated by the [facility] Office of Mental Health; or Provided by the [facility] Office for People With Developmental Disabilities. If such information is present, then the following [facility] mandated warning applies: This information has been disclosed to you from confidential records which are protected by state law. State law prohibits you from making any further disclosure of this information without the specific written consent of the person to whom it pertains, or as otherwise permitted by law. Any unauthorized further disclosure in violation of state law may result in a fine or group home sentence or both. A general authorization for the release of medical or other information is NOT sufficient authorization for further disc losure. Allergies and Adverse Reactions Type Description Substance Reaction Status Data Source(s ) Allergy Allergy No Known Drug Allergies Active [facility] ([facility]) NSAIDs NSAIDs NSAIDs GI surgery Active [facility] ([facility]) Drug Class NO KNOWN ALLERGIES NO KNOWN ALLERGIES [facility] Family History Family Member Name Family Member Gender Family Member Status Date o f Status Description Data Source(s) Unknown Male Problem [facility] ([facility] Encounters Encounter Providers Location Date Indications Data Source(s ) Outpatient Attender: Alicia taylory 11/28/2020 09:15:00 AM EST [facility] ([facility] Outpatient Attender: Darlene Puente NP Damien/Barrington/Mesfin/Reindl 11/15/2020 10:00:00 AM EST [facility] ([facility] Outpatient Attender: Darlene Puente NP Damien/Barrington/Mesfin/Reindl 10/04/2020 08:30:00 AM EST [facility] ([facility]) Outpatient Attender: Anaya Garrido MD Main office - [facility] 09/26/2020 11:30:00 AM EST [facility] ([facility]) Outpatient Attender: DONTAE VELAZQUEZ MD 2019 04:23:00 PM EST - 08/28/2020 05:23:00 PM [facility] Outpatient Attender: Darlene Puente NP Damien/Barrington/Mesfin/Reindl 08/22/2020 09:30:00 AM EDT [facility] ([facility] Emergency Attender: ARABELLA PERALTA 2019 05:59:00 PM EDT - 08/14/2020 07:37:00 PM EDT [facility] Patient discharged. Outpatient Attender: Alicia taylory 07/24/2020 02:40:00 PM EDT [facility] ([facility]) Outpatient Attender: Darlene Puente NP Damien/Barrington/Mesfin/Reindl 07/18/2020 11:00:00 AM EDT [facility] ([facility]) Review<td><content [id number]">Review</content></td><td><content styleCode="xSecondary">10-Jul-2020 21:19 </content>
<content styleCode="xSecondary">[facility]</content></td><td></td> [facility] Office 07/10/2020 09:19:14 PM ED T - 07/13/2020 09:45:50 PM EDT [facility] ([facility]) Outpatient<td><content [id number]">Office Visit</content>
<content><content styleCode="xLabel xSecondary">Encounter Reason</content>: <content [id number]" styleCode="xSecondary">Sleep Evaluation - The referring provider is Dr. Allen. The onset of the sleep problem has been gradual and has been occurring in a persistent pattern for 10 years. The course has been constant. The problem is described as moderate. The problems were first noted at 19 years of age. Daytime symptoms include daytime sleepiness, decreased energy, fatigue, sleepiness that affects work and dozing off during the day. The sleep problems have had an impact on the patient's work, concentration, memory, hobbies and sports. The patient reports snoring and snoring that disturbs others . The patient reports daytime sleepiness, awakening with shortness of breath, mouth breathing during sleep, pauses observ ed by someone else during sleep, insurance broker awakening, not being able to get back to sleep and being a light sleeper. On workdays the patient wakes up at 0400 AM and goes to bed at 0900 PM. Usually falls asleep within 60 minutes. Patient feels that 8 hours of sleep is needed per night. Patient awakes 3 times at night and is awake for The patient wakes up for to use bathroom and unknown reason. During the first few minutes after awakening the patient feels somewhat groggy after wakening up. The patient has a regular bed partner. The patient sleeps in variable positions.</content></content>
<content><content styleCode="xSecondary xLabel">Encounter Diagnosis</content>: <content [id number]" styleCode="xSecondary">SLEEP APNEA</content><content styleCode="xSecondary">, </content><content [id number]" styleCode="xSecondary">MORBID OBESITY</content><content styleCode="xSecondary">, </content><content [id number]" styleCode="xSecondary">SVT (SUPRAVENTRICULAR TACHYCARDIA)</content></content></td><td><content styleCode="xSecondary"> 27-Jun-2020 18:30 </content><content styleCode="xLabel xSecondary"> To </content><content styleCode="xSecondary">05-Jul-2020 10:40</content>
<content styleCode="xSecondary">[facility]</content></td><td></td> [facility] Office 06/27/2020 06:30:00 PM EDT - 07/05/2020 10:40:37 AM EDT Sleep Evaluation - The referring provider is Dr. Allen. The onset of the sleep problem has been gradual and has been occurring in a persistent pattern for 10 years. The course has been constant. The problem is described as moderate. The problems were first noted at 19 years of age. Daytime symptoms include daytime sleepiness, decreased energy, fatigue, sleepiness that affects work and dozing off during the day. The sleep problems have had an impact on the patient's work, concentration, memory, hobbies and sports. The patient reports snoring and snoring that disturbs others . The patient reports daytime sleepiness, awakening with shortness of breath, mouth breathing during sleep, pauses observed by someone else during sleep, insurance broker awakening, not being able to get back to sleep and being a light sleeper. On workdays the patient wakes up at 0400 AM and goes to bed at 0900 PM. Usually falls asleep within 60 minutes. Patient feels that 8 hours of sleep is needed per night. Patient awakes 3 times at night and is awake for The patient wakes up for to use bathroom and unknown reason. During the first few minutes after awakening the patient feels somewhat groggy after wakening up. The patient has a regular bed partner. The patient sleeps in variable positions.SVT (SUPRAVENTRICULAR TACHYCARDIA)MORBID OBESITYSLEEP APNEA [facility] ([facility]) Sleep Evaluation - The referring provide r is Dr. Allen. The onset of the sleep problem has been gradual and has been occurring in a persistent pattern for 10 years. The course has been constant. The problem is described as moderate. The problems were first noted at 19 years of age. Daytime symptoms include daytime sleepiness, decreased energy, fatigue, sleepiness that affects work and dozing off during the day. The sleep problems have had an impact on the patient's work, concentration, memory, hobbies and sports. The patient reports snoring and snoring that disturbs others . The patient reports daytime sleepiness, awakening with shortness of breath, mouth breathing during sleep, pauses observed by someone else during sleep, insurance broker awakening, not being able to get back to sleep and being a light sleeper. On workdays the patient wakes up at 0400 AM and goes to bed at 0900 PM. Usually falls asleep within 60 minutes. Patient feels that 8 hours of sleep is needed per night. Patient awakes 3 times at night and is awake for The patient wakes up for to use bathroom and unknown reason. During the first few minutes after awakening the patient feels somewhat groggy after wakening up. The patient has a regular bed partner. The patient sleeps in variable positions. SVT (SUPRAVENTRICULAR TACHYCARDIA) MORBID OBESITY SLEEP APNEA Outpatient Attender: Anaya Garrido MD Main office - [facility] 06/16/2020 10:30:00 AM DONTE MARTINEZ ([facility] jain) Outpatient Attender: Darlene Quezada/Barrington/Mesfin/Reindl 06/06/2020 02:00:00 PM EDT MED[facility] ([facility]) Outpatient Attender: DANYEL SCHWARZ 04/27/2020 12:13:56 PM EDT - 04/29/2020 06:00:00 AM EDT [facility] Patient discharged. Outpatient Attender: Darlene Quezada/Barrington/Mesfin/Reindl 04/05/2020 11:30:00 AM EDT [facility] ([facility]) Outpatient Attender: Anaya Garrido MD Main office - [facility] 03/14/2020 11:45:00 AM EDT [facility] ([facility]) Outpatient Attender: Darlene Quezada/Barrington/Mesfin/Reindl 01/26/2020 10:00:00 AM EDT [facility] ([facility]) Outpatient Attender: Maurilio Valdez DO Main Office 01/06/2020 09:30:00 AM EDT [facility] ([facility] [address] [id number] 12/22/2019 12:00:00 AM EST eCW1 ([facility]) Outpatient Attender: Anaya Garrido MD Main office - [facility] 12/10/2019 09:00:00 AM EST MEDENT ([facility]) Outpatient Attender: Darlene Puente NP Main Office 12/06/2019 02:45:00 PM EST MEDENT ([facility] Outpatient 11/26/2019 01:34:00 PM EST [facility] Outpatient Attender: Telma Buckley 11/26/2019 12:00:00 AM [facility] Emergency Attender: Danie Ahuja PA-C 05:15:00 PM EST - 11/20/2019 09:46:00 PM EST [facility] Patient discharged. Outpatient Attender: Telma Buckley 11/05/2019 12:00:00 AM [facility] Outpatient Attender: Darlene Puente NP Main Office 11/04/2019 10:00:00 AM EST MEDENT ([facility] Medications Medication Brand Name Start Date Product Form Dose Route Admi nistrative Instructions Pharmacy Instructions Status Indications Reaction Description Data Source(s) Prednisone 2.5 MG Oral Tablet Prednisone 11/15/2020 12:00:00 AM EST ORAL active MEDENT ([facility], ) Nucala Nucala 11/06/2020 12:00:00 AM EST active MEDENT ([facility]) 120 ACTUAT Fluticasone propionate 0.22 MG/ACTUAT Meter ed Dose Inhaler [Flovent] Flovent HFA 10/04/2020 12:00:00 AM EST RESPIRATORY activ e MEDENT ([facility]) gabapentin 300 MG Oral Capsule Gabapentin 09/26/2020 12:00:00 AM EST active MEDENT ([facility], ) Prednisone 10 MG Oral Tablet Prednisone 08/22/2020 12:00:00 AM EDT ORAL completed MEDENT ([facility], ) Hydrocortisone 10 MG/ML / Neomycin 3.5 M G/ML / Polymyxin B 43750 UNT/ML Otic Suspension Neomycin/Polymyxin/Hydrocortisone (Otic) 07/24/2020 12:00:00 AM EDT completed MEDENT ([facility]) Prednisone 10 MG Oral Tablet Prednisone 07/18/2020 12:00:00 AM EDT ORAL completed MEDENT ([facility]) Prednisone 10 MG Oral Tablet Prednisone 06/20/2020 12:00:00 AM EDT ORAL completed MEDENT ([facility]) Amitriptyline Hydrochloride 25 MG Oral Tablet Amitriptyline HCL 06/16/2020 12:00:00 AM EDT active M EDENT ([facility], ) Prednisone 10 MG Oral Tablet Prednisone 06/06/2020 12:00:00 AM EDT ORAL completed MEDENT ([facility]) montelukast 10 MG Oral Tablet Montelukast Sodium 04/05/2020 12:00:00 AM EDT ORAL active MEDENT ([facility]) Prednisone 10 MG Oral Tablet Prednisone 03/29/2020 12:00:00 AM EDT ORAL completed MEDENT ([facility]) Prednisone 10 MG Oral Tablet Prednisone 01/31/2020 12:00:00 AM EDT ORAL completed MEDENT ([facility], ) 120 ACTUAT Fluticasone propionate 0.22 MG/ACTUAT Meter ed Dose Inhaler [Flovent] Flovent HFA 01/19/2020 12:00:00 AM EDT RESPIRATORY activ e MEDENT ([facility] Prednisone 10 MG Oral Tablet Prednisone 01/19/2020 12:00:00 AM EDT ORAL completed MEDENT ([facility], ) Prednisone 10 MG Oral Tablet Prednisone 01/19/2020 12:00:00 AM EDT active [facility] Acetaminophen 500 MG Oral Tablet Acetaminophen 500 MG 2019 12:00:00 AM EST active 1-2 tablets as ne eded eCW1 ([facility]) Diclofenac Sodium 0.01 MG/MG Topical Gel [Voltaren] Voltaren 1 % Voltaren 1 % 12/22/2019 12:00:00 AM EST active 2 grams eCW1 ([facility]) Spiriva Respimat Spiriva Respimat 11/04/2019 12:00:00 AM EST RESPIRATORY active MEDENT ([facility], ) Prednisone 10 MG Oral Tablet Prednisone 11/04/2019 12:00:00 AM EST ORAL completed MED[facility] ([facility] Spiriva Respimat Spiriva Respimat 11/04/2019 12:00:00 AM EST RESPIRATORY active [facility] montelukast 10 MG Oral Tablet Montelukast Sodium 07/27/2019 12:00:00 AM EDT ORAL completed MEDENT ([facility] Insurance Providers Payer name Policy type / Coverage type Policy ID Covered democrat ID Covered democrat's relationship to panda Policy Panda Plan Information [facility] [id number] SP [id number] [facility] - [facility]/P [id number] 01 [id number] [facility] O/P [id number] 01 [id number] [facility] [id number] [facility] [id number] [facility] O [id number] S [id number] [facility] [id number] Self [id number] REG[place]AL CLAIMS [place] -O/P [id number] 01 [id number] [place] (2018) Commercial [id number] Self [id number] Prime Commercial [id number] Family Dependent [id number] [place] (2018) Commercial [id number] Self [id number] Prime Commercial [id number] Family Dependent [id number] ANSI-Not a Secondary Insurance [id number] ANSI-Not a Secondary Insurance [id number] [facility] (2018) Commercial [id number] Self [id number] Prime Commercial [id number] Family Dependent [id number] A [id number] ANSI-Not a Secondary Insurance [id number] ANSI-Not a Secondary Insurance [id number] [facility] HUMANA [id number] [facility] [id number] [facility] (2018) Commercial [id number] Self [id number] Prime Commercial [id number] Family Dependent [id number] ANSI-Not a Secondary Insurance [id number] [facility] (2018) Commercial [id number] Self [id number] Prime Commercial [id number] Family Dependent [id number] [facility] (2018) Commercial [id number] Self [id number] Prime Commercial [id number] Family Dependent [id number] [place] CLMS Commercial [id number] Family Depen dent [id number] [place] [id number] HU2 [id number] U [id number] Self [id number] Prime Commercial [id number] Family Dependent [id number] [place] [id number] SP [id number] Prime Commercial [id number] Family Dependent [id number] [place] F [id number] SPOUSE [id number] [place] F [id number] SELF [id number] [place] O [id number] P [id number] [place] [id number] HU2 [id number] [place] O [id number] P [id number] SELF PAY UNAVAILABLE SP UNAVAILA BLE Problems, Conditions, and Diagnoses Code Display Name Description Problem Type Effective Dates Data Source(s) 300696775 Uncomplicated severe persistent asthma U ncomplicated severe persistent asthma Problem 08/22/2020 12:00:00 AM EDT MEDENT ([facility], ) [id number] Exacerbation of severe persistent asthma Exacerbation of severe persistent asthma Problem 01/26/2020 12:00:00 AM EDT MEDENT ([facility], ) [id number] Exacerbation of severe persistent asthma Exacerbation of severe persistent asthma Problem 11/04/2019 12:00:00 AM EST MED[facility] ([facility] E8342 Hypomagnesemia Hypomagnesemia Diagnosis 08/28/2020 04:23: 00 PM [facility] N390 Urinary tract infection, site not specif ied Urinary tract infection, site not specified Diagnosis 08/28/2020 04:23:00 PM [facility] M329 Systemic lupus erythematosus, unspecifie d Systemic lupus erythematosus, unspecified Diagnosis 08/28/2020 04:23:00 PM [facility] E039 Hypothyroidism, unspecified Hypothyroidism, unspecifie d Diagnosis 08/28/2020 04:23:00 PM [facility] E119 Type 2 diabetes mellitus without complic ations Type 2 diabetes mellitus without complications Diagnosis 08/28/2020 04:23:00 PM [facility] D649 Anemia, unspecified Anemia, unspecified Diagnosis 1 10/28/2019 04:23:00 PM [facility] G5601 Carpal tunnel syndrome, right upper limb Carpal tunnel syndrome, right upper limb Diagnosis 08/14/2020 05:59:00 PM EDT [facility] U14263 Pain in right wrist Pain in right wrist Diagnosis 1 05:59:00 PM EDT [facility] Z9884 Bariatric surgery status Bariatric surgery status Diag nosis 04/28/2020 08:30:00 PM EDT [facility] G4700 Insomnia, unspecified Insomnia, unspecified Diagnosis 04/28/2020 08:30:00 PM [facility] G4761 Periodic limb movement disorder Periodic limb movement disorder Diagnosis 04/28/2020 08:30:00 PM [facility] R400 Somnolence Somnolence Diagnosis 04/28/2020 08:30:[address] [facility] I94653 Personal history of nicotine dependence Personal history of nicotine dependence Diagnosis 11/20/2019 05:15:00 PM [facility] I42816 Unspecified asthma, uncomplicated Unspecified as thma, uncomplicated Diagnosis 11/20/2019 05:15:00 PM [facility] R000 Tachycardia, unspecified Tachycardia, unspecified Diag nosis 11/20/2019 05:15:00 PM [facility] J209 Acute bronchitis, unspecified Acute bronchitis, unspec ified Diagnosis 11/20/2019 05:15:00 PM [facility] R0789 Other chest pain Other chest pain Diagnosis 11/20/2019 05 :15:00 PM [facility] R072 Precordial pain Precordial pain Diagnosis 11/20/2019 05:1 5:00 PM [facility] Surgeries/Procedures Procedure Description Date Indications Data Source(s) Spirometry 10/04/2020 12:00:00 AM YAMILETH CASE ([facility], ) MRI Brain W/O Contrast, Followed By Contrast 0 12:00:00 AM EST MEDENT ([facility], ) MRI Brain W/O Contrast, Followed By Contrast 0 12:00:00 AM EST MEDENT ([facility], ) MRI Spine Cervical W/O Contrast, Followed By Contrast 09/05/2020 12:00:00 AM EST MEDENT ([facility] ) MRI Spine Cervical W/O Contrast, Followed By Contrast 09/05/2020 12:00:00 AM EST MEDENT ([facility] ) MRI Spine Thoracic W/O Contrast, Followed By Contrast 09/05/2020 12:00:00 AM EST MEDENT ([facility] ) MRI Spine Thoracic W/O Contrast, Followed By Contrast 09/05/2020 12:00:00 AM EST MEDENT ([facility], ) Spirometry 08/22/2020 12:00:00 AM EDT EDENT [facility]) 35472 Nerve conduction studies 13 or more studies NEW 201208/09/2020 12:00:00 AM EDT MEDENT ([facility], ) Needle electromyography, each extremity, with related paraspinal areas, when performed, done with nerve conduction, amplitude and latency/velocity study; complete, five or more muscles studied, innervated by three or more nerves or four or more spinal levels (list separately in addition to the code for primary procedure). 08/09/2020 12:00:00 AM EDT MEDEN T ([facility], ) Needle electromyography, each extremity, with related paraspinal areas, when performed, done with nerve conduction, amplitude and latency/velocity study; complete, five or more muscles studied, innervated by three or more nerves or four or more spinal levels (list separately in addition to the code for primary procedure). 08/09/2020 12:00:00 AM EDT MEDEN T ([facility], ) Spirometry 07/18/2020 12:00:00 AM EDT M EDENT ([facility]) OFFICE OUTPATIENT NEW 45 MINUTES 020 06:30:00 PM EDT - 07/05/2020 10:40:37 AM EDT [employer] ([facility] ) Spirometry 06/06/2020 12:00:00 AM EDT EDENT ([facility]) NON-INVASIVE PHYSIOLOGIC STUDY EXTREMITY 3 LEVLS 04/19 12:00:00 AM EDT MEDENT ([facility], ) NON-INVASIVE PHYSIOLOGIC STUDY EXTREMITY 3 LEVLS 04/19 12:00:00 AM EDT MEDENT ([facility]) NON-INVASIVE PHYSIOLOGIC STUDY EXTREMITY 3 LEVLS 04/19 12:00:00 AM EDT MEDENT ([facility]) NON-INVASIVE PHYSIOLOGIC STUDY EXTREMITY 3 LEVLS 04/19 12:00:00 AM EDT MEDENT ([facility]) TSTG ANS FUNCJ CARDIOVAGAL INNERVAJ PARASYMP 0 12:00:00 AM EDT MEDENT ([facility]) TSTG ANS FUNCJ CARDIOVAGAL INNERVAJ PARASYMP 0 12:00:00 AM EDT MEDENT ([facility]) TESTING AUTONOMIC NERVOUS SYSTEM FUNCTION 04/19/2020 1 2:00:00 AM EDT MEDENT ([facility]) TESTING AUTONOMIC NERVOUS SYSTEM FUNCTION 04/19/2020 1 2:00:00 AM EDT MEDENT ([facility]) Spirometry 04/05/2020 12:00:00 AM EDT EDENT ([facility]) Spirometry 01/26/2020 12:00:00 AM EDT EDENT ([facility]) RESPIRATORY FLOW VOLUME LOOP 01/06/2020 12:00:00 AM ED T MEDENT ([facility] MRI BRAIN BRAIN STEM W/O CONTRAST MATERIAL 12/21/2019 12:00:00 AM EST MEDENT ([facility]) MRI BRAIN BRAIN STEM W/O CONTRAST MATERIAL 12/21/2019 12:00:00 AM EST MEDENT ([facility]) RESPIRATORY FLOW VOLUME LOOP 12/06/2019 12:00:00 AM ES T MEDENT ([facility] RESPIRATORY FLOW VOLUME LOOP 11/04/2019 12:00:00 AM ES T MEDENT ([facility] Results ID Date Data Source 140 12/14/2020 12:00:00 AM EST [facility] Name Value Range Interpretation Code Description Data Jany rce(s) Supporting Document(s) SARS-CoV2 Rapid Antigen Negative [facility] This lab was ordered by [facility] AN [facility] and reported by [facility]. ID Date Data Source [id number] 10/05/2020 11:33:00 AM EST [facility] Name Value Range Interpretation Code Description Data Jany rce(s) Supporting Document(s) White Blood Count 7.5 10 4.0-10.0 Normal (applies to non-numeri c results) [facility] ([facility]) Red Blood Count 4.36 10 4.00-5.40 Normal (applies to non-numeric results) [facility] ([facility]) Hematocrit 40.3 % 36.0-47.0 Normal (applies to non-numeric resul ts) [facility] ([facility]) Hemoglobin 12.9 g/dL 12.0-15.5 Normal (applies to non-numeric resul ts) [facility] ([facility]) Mean Corpuscular Volume 92.4 fl 80.0-96.0 Normal ( applies to non-numeric results) [facility] ([facility]) Red Cell Distribution Width 13.5 % 11.5-14.5 Norm al (applies to non-numeric results) [facility] ([facility]) Mean Corpuscular Hemoglobin 29.6 pg 27.0-33.0 Norm al (applies to non-numeric results) [facility] ([facility]) Mean Corpuscular HGB Conc 32.0 g/dL 32.0-36.5 Normal (applies to non-numeric results) [facility] ([facility]) Lymph % 22.1 % 24.0-44.0 Below low normal [facility] ( [facility]) Platelet Count, Automated 388 10 150-450 Normal (applies to non-numeric results) [facility]) Neutrophils % 63.6 % 36.0-66.0 Normal (applies to non-numeric re sults) [facility]) Mcleod % 9.8 % 0.0-5.0 Above high normal [facility] Baso % 0.7 % 0.0-1.0 Normal (applies to non-numeric resul ts) MEDENT [facility]) Eos % 3.4 % 0.0-3.0 Above high normal MEDENT ([facility]) Neutrophils # 4.8 10 1.5-8.5 Normal (applies to non-numeric re sults) MEDENT ([facility]) Immature Granulocyte % 0.4 % 0-3.0 Normal (applies to non-n umeric results) MEDENT ([facility]) Nucleated Red Blood Cell % 0.0 % 0-0 Normal (applies to n on-numeric results) MEDENT ([facility]) Mcleod # 0.7 10 0.0-0.8 Normal (applies to non-numeric resul ts) MEDENT ([facility]) Eos # 0.3 10 0.0-0.5 Normal (applies to non-numeric resul ts) MEDENT ([facility]) Lymph # 1.7 10 1.5-5.0 Normal (applies to non-numeric resul ts) MEDENT ([facility]) Baso # 0.1 10 0.0-0.2 Normal (applies to non-numeric resul ts) MEDENT ([facility]) ID Date Data Source [id number] 10/04/2020 09:16:00 AM EST MEDENT ([facility]) Name Value Range Interpretation Code Description Data Jany rce(s) Supporting Document(s) PDFReport Laboratory test result MEDENT ([facility]) FVC-Pred 4.41 L MEDENT ([facility]) FVC-Pre 3.27 L MEDENT ([facility]) FVC-%Pred-Pre 74 L MEDENT ([facility]) FVC-LLN 3.61 L MEDENT ([facility]) Fev1-Pre 2.16 L MEDENT ([facility]) Fev1-Pred 3.68 L MEDENT ([facility]) Fev1-%Pred-Pre 58 L MEDENT ([facility]) Fev6-Pred 4.36 L MEDENT ([facility]) Fev1-LLN 3.00 L MEDENT ([facility]) Fev6-%Pred-Pre 74 L MEDENT ([facility], ) Fev6-Pre 3.27 L MEDENT ([facility], ) Fev6-LLN 3.57 L MEDENT ([facility], ) Sab0tri-Aoj 66 % MEDENT ([facility]) Bpu6ljl-%Pred-Pre 78 % MEDENT ([facility], ) Inc1vis-Gtiw 84 % MEDENT ([facility]) Nrh0nlh-TGX 75 % MEDENT ([facility]) Tmr9aqy-Slt 100 % MEDENT ([facility], ) Ruw5ixu-Jeoi 99 % MEDENT ([facility]) FEFMax-Pred 7.80 L/E/sec MEDENT ([facility]) FEFMax-Pre 5.59 L/E/sec MEDENT ([facility], ) Dyj3tbl-%Pred-Pre 101 % MEDENT ([facility]) FEFMax-LLN 5.80 L/E/sec MEDENT ([facility]) Nbn0800-Klrc 3.76 L/E/sec MEDENT ([facility]) FEFMax-%Pred-Pre 71 L/E/sec MEDENT ([facility]) Lpl9822-%Pred-Pre 31 L/E/sec MEDENT ([facility]) Yzb7135-Ied 1.20 L/E/sec MEDENT ([facility], ) Opq4367-QBS 2.32 L/E/sec MEDENT ([facility], ) Qwj5ute1-Iyyx 85 % MEDENT ([facility], ) Nlw0nue6-Saw 66 % MEDENT ([facility]) ExpTime-Pre 6.15 sec MEDENT ([facility]) Cuj1cnu3-HWL 77 % MEDENT ([facility]) Uer7bjq5-%Pred-Pre 77 % MEDENT ([facility]) ID Date Data Source [id number] 09/01/2020 11:44:00 AM EST [facility] Name Value Range Interpretation Code Description Data Jany rce(s) Supporting Document(s) CULTURE URINE [facility] _CULTURE URINE_$$[id number]$$416777$$[id number]$$904137$$868327$$759200$$[id number]$$398335$$443877$$ 154125$$512136$$807022$$969864$$592977$$705539$$105667$$404224$$290213$$343590$$ 061852$$946320$$008816$$505299$$135051$$321531$$[id number]$$[id number] -- Continued on next page --Patient: TEODORO Monreal Order: Page 2Culture: CULTURE URINE Status: Final ==== -- Continued on next page --Patient: TEODORO Monreal Order: [id number] Page 2Culture: CULTURE URINE Status: Prelim =====$$[id number]$$[id number] DATE/TIME: 09/01/2020 11:06Culture: CULTURE URINE Status: FinalUrine Culture,Comprehensive: H9Pzzxu urogenital flora5,000 Colonies/mL Previous result entered on 08/31/2020 02:03 ET No growth after 18-24 hours.P1 Test performed by: Pearl GERMAN #: [id number] [facility] [id number] [facility] [id number] Director : Nirmal Kirk MD NPI #:Amortization Schedule Clerk : 08/31/20.0713.XMT.SENT REF 09/01/20.1144.KYLIET.SENT REF 09/01/20.1144. .to LEIDY MOLINA via modem ID Date Data Source [id number] 08/31/2020 07:12:00 AM EST [facility] Name Value Range Interpretation Code Description Data Jany rce(s) Supporting Document(s) Nuclear Ab [Titer] in Serum by Immunofluorescence Positive A [facility] Negative <1:80 Borderline 1:80 Positive >1:80 Nuclear Ab Pattern Homogenous [Titer] in Serum 1:80 [facility] Note: COMMENT [facility] A positive OSWALDO result may occur in healt hy individuals (lowtiter) or be associated with a variety of diseases. Seeinterpretation chart which is not all inclusive:Pattern Antigen Detected Suggested Disease Association Homogeneous DNA(ds,ss), SLE - High titers Nucleosomes, Histones Drug-induced SLE Speckled Sm, DOOR SLINGER, SCL-70, SLE,MCTD,PSS (diffuse form), SS-A/SS-B Sjogrens Nucleolar SCL-70, PM-1/SCL High titers Scleroderma, PM/DM Centromere Centromere PSS (limited form) w/Crest syndrome variable Nuclear Dot Sp100,g32-nueswx Primary Biliary Cirrhosis Nuclear GP210, Primary Biliary CirrhosisMembrane ana A,B,C ID Date Data Source [id number] 08/28/2020 06:45:00 PM [facility] Value Range Interpretation Code Description Data Jany rce(s) Supporting Document(s) Cobalamin (Vitamin B12) [Mass/volume] in Serum or Plasma 705 PG/ML 232 - 1245 [facility] ID Date Data Source [id number] 08/28/2020 06:45:00 PM [facility] Value Range Interpretation Code Description Data Jany rce(s) Supporting Document(s) Thyrotropin [Units/volume] in Serum or Plasma by Detec tion limit <= 0.05 mIU/L 3.76 uIU/mL 0.47 - 5.01 [facility] ID Date Data Source [id number] 08/28/2020 06:45:00 PM [facility] Value Range Interpretation Code Description Data Jany rce(s) Supporting Document(s) Thyroxine (T4) free index in Serum or Plasma by calculation 1.10 NG/DL 0.93 - 1.70 [facility] ID Date Data Source [id number] 08/28/2020 05:52:00 PM EST [facility] Name Value Range Interpretation Code Description Data Jany rce(s) Supporting Document(s) C reactive protein [Mass/volume] in Serum or Plasma by High sensitivity method 8.10 MG/L 1.00 - 3.00 H [facility] CDC/S HS-CRP CUT-OFF: RELATIVE RISK: <1.0 mg/L Low 1.0 - 3.0 mg/L Average >3.0 mg/L High Optimally, the average of HS-CRP results repeated two weeks apart should be used for risk assessment. ID Date Data Source [id number] 08/28/2020 05:52:00 PM [facility] Name Value Range Interpretation Code Description Data Jany rce(s) Supporting Document(s) COMPREHENSIVE METABOLIC PANEL [facility] COMPREHENSIVE METABOLIC PANEL Sodium [Moles/volume] in Serum or Plasma 136 mEq/L 134 - 153 [facility] Potassium [Moles/volume] in Serum or Plasma 4.3 mEq/L 3.6 - 5.0 [facility] Chloride [Moles/volume] in Serum or Plasma 102 mEq/L 98 - 107 [facility] Carbon dioxide, total [Moles/volume] in Serum or Plasma 23 MEQ/L 22 - 30 [facility] Glucose [Mass/volume] in Serum or Plasma 97 MG/DL 65 - 110 [facility] BUN 13 MG/DL 7 - 21 [facility] Creatinine [Mass/volume] in Serum or Plasma 0.8 MG/DL 0.7 - 1.5 [facility] BUN/CREAT 16 8 - 27 [facility] Protein [Mass/volume] in Serum or Plasma 6.9 G/DL 6.3 - 8.2 [facility] Albumin [Mass/volume] in Serum or Plasma 4.4 G/DL 3.9 - 5.0 [facility] Globulin [Mass/volume] in Serum by calculation 2.5 GM/DL 2.4 - 3.2 [facility] A/G RATIO 1.8 0.8 - 2.0 [facility] Calcium [Mass/volume] in Serum or Plasma 9.5 MG/DL 8.4 - 10.2 [facility] Bilirubin.total [Mass/volume] in Serum or Plasma <0.7 MG/DL 0.2 - 1.3 [facility] Alkaline phosphatase [Enzymatic activity/volume] in Serum or Plasma 85 U/L 38 - 126 [facility] Aspartate aminotransferase [Enzymatic activity/volume] in Serum or Plasma 18 U/L 5 - 40 [facility] Alanine aminotransferase [Enzymatic activity/volume] in Seru m or Plasma 18 U/L 7 - 56 [facility] Anion gap 3 in Serum or Plasma 11.0 mmol/L 8.0 - 16.0 [facility] AGE 29 yrs [facility] NON-AA GFR >60 mL/min [facility] AFR AMER GFR >60 mL/min [facility] Male GFR In terprentation 20-49 yrs >60 mL/min Normal 50-59 yrs >56 mL/min Normal 60-69 yrs >49 mL/min Normal 70-79yrs >42 mL/min Normal 80 and above >35 mL/min Normal Female GFR Interpretation 20-39 yrs >60 mL/min Normal 40-49 yrs >58 mL/min Normal 50-59 yrs >51 mL/min Normal 60-69 yrs >45 mL/min Normal 70-79 yrs >39 mL/min Normal 80 and above >32 mL/min Normal ID Date Data Source [id number] 08/28/2020 05:52:00 PM [facility] Name Value Range Interpretation Code Description Data Jany rce(s) Supporting Document(s) Magnesium [Mass/volume] in Serum or Plasma 2.1 MG/DL 1.7 - 2.2 [facility] ID Date Data Source [id number] 08/28/2020 05:52:00 PM [facility] Name Value Range Interpretation Code Description Data Jany rce(s) Supporting Document(s) Iron [Mass/volume] in Serum or Plasma 106 UG/DL 42 - 135 [facility] ID Date Data Source [id number] 08/28/2020 04:59:00 PM [facility] Name Value Range Interpretation Code Description Data Jany rce(s) Supporting Document(s) Hemoglobin A1c/Hemoglobin.total in Blood 5.2 % 4.4 - 6.1 [facility] {A1]{HB] ID Date Data Source [id number] 08/28/2020 04:56:00 PM EST [facility] Name Value Range Interpretation Code Description Data Jany rce(s) Supporting Document(s) [facility] COL[facility] yellow NORMAL: Yellow [facility] CLARITY hazy NORMAL: Clear [facility] Specific gravity of Urine by Test strip 1.020 1.001 - 1.030 [facility] pH 5 5 - 9 [facility] Glucose [Mass/volume] in Urine by Test strip NORM NORMAL: Negat [facility] Bilirubin.total [Presence] in Urine by Test strip NEG NORMAL: Negative [facility] Ketones [Presence] in Urine by Test strip 5 NORMAL: Negative [facility] Protein [Mass/volume] in Urine by Test strip 15 NORMAL: Negat [facility] Nitrite [Presence] in Urine by Test strip NEG NORMAL: Negative [facility] BLOOD NEG NORMAL: Negative [facility] Leukocyte esterase [Presence] in Urine by Test strip 500 LIBORIO L: Negative [facility] Urobilinogen [Mass/volume] in Urine by Test strip 4 less jeanentte n 1.0 mg/dL [facility] MICROSCOPIC See Below [facility] ital WBC 15 - 20 NORMAL: NONE SEEN A [facility] Erythrocytes [#/volume] in Urine by Test strip None Seen NORMAL: NON E SEEN [facility] EPITHELIAL MODERATE NORMAL: NONE SEEN A [facility] Bacteria [Presence] in Urine sediment by Light microscopy 2+ MOD NORMAL: NONE SEEN A [facility] Mucus [Presence] in Urine sediment by Light microscopy None Seen NORMAL: NONE SEEN [facility] Amorphous sediment [Presence] in Urine sediment by Light fabiana roscopy NONE SEEN NORMAL: NONE SEEN [facility] Casts [#/area] in Urine sediment by Microscopy low power field N ot Indicated [facility] Crystals [type] in Urine sediment by Light microscopy Not Indicated [facility] YEAST None [facility] Date Data Source [id number] 08/28/2020 04:47:00 PM EST [facility] Name Value Range Interpretation Code Description Data Jany rce(s) Supporting Document(s) CBC W/AUTOMATED DIFF [facility] COMPLETE BLOOD COUNT Leukocytes [#/volume] in Blood by Automated count 7.4 10^3/uL 4.2 - 1 1.0 [facility] Erythrocytes [#/volume] in Blood by Automated count 4.47 10^6/uL 4. 20 - 5.40 [facility] Hemoglobin [Mass/volume] in Blood 13.1 g/dL 12.0 - 16.0 [facility] Hematocrit [Volume Fraction] of Blood by Automated count 38.7 % 3 7.0 - 47.0 [facility] Erythrocyte mean corpuscular volume [Entitic volume] by Auto mated count 86.6 fL 81.0 - 101 [facility] Erythrocyte mean corpuscular hemoglobin [Entitic mass] by Automated count 29.3 pg 27.0 - 34.0 [facility] Erythrocyte mean corpuscular hemoglobin concentration [Mass/volume] by Automated count 33.9 g/dL 31.0 - 36.0 [facility] Erythrocyte distribution width [Ratio] by Automated count 14.7 % 11.5 - 14.5 H [facility] Platelets [#/volume] in Blood by Automated count 440 10^3/uL 150 - 45 0 [facility] Platelet mean volume [Entitic volume] in Blood by Automated count 8.8 fL 7.4 - 10.4 [facility] Neutrophils/100 leukocytes in Blood by Automated count 60.4 % 37. 0 - 80.0 [facility] Lymphocytes/100 leukocytes in Blood by Manual count 23.5 % 25.0 - 40.0 L [facility] Monocytes/100 leukocytes in Blood by Automated count 9.8 % 3.0 - 8.0 H [facility] Eosinophils/100 leukocytes in Blood by Automated count 5.1 % 0.0 - 7.0 [facility] Basophils/100 leukocytes in Blood by Automated count 0.9 % 0.0 - 2.5 [facility] %IG 0.3 % 0.0 - 0.0 [facility] %NRBC 0.0 % 0.0 - 0.0 [facility] Neutrophils [#/volume] in Blood by Automated count 4.48 10^3/uL 2.00 - 6.90 [facility] Lymphocytes [#/volume] in Blood by Automated count 1.74 10^3/uL 0.60 - 3.40 [facility] Monocytes [#/volume] in Blood by Automated count 0.73 10^3/uL 0.00 - 0.90 [facility] Eosinophils [#/volume] in Blood by Automated count 0.38 10^3/uL 0.00 - 0.70 [facility] Basophils [#/volume] in Blood by Automated count 0.07 10^3/uL 0.00 - 0.20 [facility] #IG 0.02 10^3/uL 0.00 - 0.10 [facility] #NRBC 0.00 10^3/uL 0.00 - 0.00 [facility] MANUAL DIFF NOT INDICATED [facility] RBC MORPH NOT INDICATED [facility] ID Date Data Source [id number] 08/15/2020 03:03:00 PM EDT [facility] [address] [place] [address] PHONE: [phone] FAX: [phone] Name .................. : TEODORO SEGURA Jocelin Acct Number.................. : [id number] ROOM. ................. : TR-05 Number ................... : [id number] Stay type ............. : E/R Discharge Date......... ... : 08/14/20 Admit Date ......... : 08/14/20 Admit Phys .................... : FABIAN AMADOR Date of ....... : 1990 Family Phys ................... : UNKNOWN Phone .................. : [phone] Age ................................ : 29 Film# .................. .:[id number] Sex ................................. : F Unsigned transcriptions are preliminary reports and do not represent a medical or legal document WRIST COMPLETE RT [id number] COMPLETE:08/14/20 19:10 [facility] [id number] Reason(s): Wrist Pain RIGHT WRIST X-RAY: 4-VIEWS INDICATION: Pain, no known trauma. FINDINGS: No evidence for fractures, subluxation or adjacent soft tissue swelling is noted. IMPRESSION: Unremarkable right wrist. Electronically Reviewed and Signed By Angel Griffith MD , 08/15/20 15:03, KELIN Transcribe Initials: DZ , Transcribe Date: 08/14/20 21:21, Dictation Date: Copy for: ILENE IBARRA via fax Copy for: EMERGENCY DEPT via modem Copy for: 710 MED REC DISCHARGED Page 1 of 1 Name Value Range Interpretation Code Description Data Jany rce(s) Supporting Document(s) ID Date Data Source [id number] 08/14/2020 05:59:00 PM EDT [facility] 1 OrderSheet [facility] Emergency Department [address] [place] [address] Phone #: [phone] egn- [phone] 08/14/2020 17:50 Patient: IMELDA VALERIO Sex: F : 1990 Age: 29yWEIGHT:127.0 kg (S) HEIGHT:68 inches (S) BMI:42.6ALLERGIES: NSAIDsCHIEF COMPLAINT: Rt, wristDIAGNOSIS: Carpal tunnel syndromeLAB ORDERSOrder Description Priority Entered Acknowledged InitialedDIAGNOSTIC STUDY ORDERSOrder Description Priority Entered Acknowledged InitialedWrist Complete STAT 18:21 08/14/2020 18:21 KhadarRight Dio Kidd R.N.(Oxygen?(No)) PA; Reason for Study: Wrist PainMEDICATION/IV/DRIP/FLUID ORDERSOrder Description Priority Entered Acknowledged InitialedToradol IM 60 mg 19:13 08/14/2020 19:20 Karen Hunt R.N. PA; Reason for ordering with alerts: Clinical consideration given -- 19:13 08/14/2020 Magda Steele PAGENERAL ORDERSOrder Description Priority Entered Acknowledged InitialedSplint (UE) (Right) 19:04 08/14/2020 19:05 Khadar(Velcro - wrist) Dio Kidd R.N.(Cock-up) FLIP;[Electronically signed by Marti Rubalcava R.N. (19:37 08/14/2020)][Electronically signed by Dio Smith (21:33 08/14/2020)][Electronically locked by Marti Rubalcava R.N. (19:37 08/14/2020)] Name Value Range Interpretation Code Description Data Jany rce(s) Supporting Document(s) ID Date Data Source [id number] 08/14/2020 05:59:00 PM EDT [facility] 1 Medication Reconciliation Report [facility] Emergency Department [address] [place] [address] Phone #: ext- [phone] 08/14/2020 17:50 Patient: IMELDA VALERIO Sex: F : 1990 Age: 29yWeight: 127.0 kgHeight/Length: 68 in.BMI: 42.6ALLERGIES: NSAIDsThe patient's Home Medications are listed below:CONTINUE TAKING THE FOLLOWING MEDICATIONS: Metoprolol Succinate ER Oral (25 mg) 1 tablet, daily, at bedtime NuvaRing Vaginal Ocrevus Intravenous, every6 months PROzac Oral 30 mg, daily Vitamin B12 Oral Vitamin D OralThe source(s) of the original Home Medication information:Not obtained.The following Medications were given to the patient in the Emergency Department:Toradol [IM] IM 60 mg, administered: 08/14/2020 7:20:00 PMThe following Medications were prescribed to the patient:hydrocodone 5 mg-acetaminophen 325 mg tablet Take 1 tablet every six hours as needed for pain --Dispense 20 tablet. Refills: 0. Substitution permitted.Pharmacy - [id number] - [address] [place], [place] [id number]. . -- FLIP Mcfarlane Name Value Range Interpretation Code Description Data [facility] rce(s) Supporting Document(s) ID Date Data Source [id number] 08/14/2020 05:59:00 PM EDT [facility] 1 Medication Administration Record [facility] Emergency Department [address] [place] [address] Phone #: ext- [phone] 08/14/2020 17:50 Patient: IMELDA VALERIO Sex: F : 1990 Age: 29yWeight: 127.0 kgHeight/Length: 68 inBMI: 42.6ALLERGIES: NSAIDs Date/Time Medication Administered Medication OrderedGiven TORADOL [IM] (KETOROLAC Toradol IM 60 mg19:20 08/14/2020 TROMETHAMINE)Karen Hunt R.N. Dose: 60 mg IM Name Value Range Interpretation Code Description Data [facility] rce(s) Supporting Document(s) ID Date Data Source [id number] 08/14/2020 05:59:00 PM EDT [facility] 1 General Instructions [facility] Emergency Department [address] [place] [address] Phone #: ext- [phone] 08/14/2020 17:50 Patient: IMELDA VALERIO Sex: F : 1990 Age: 29yCarpal tunnel syndrome right wrist.INSTRUCTIONSWear cock-up splint for two weeks.Your Current Medications: Your current home medications have been reviewed.CONTINUE TAKING THE FOLLOWING MEDICATIONS:Metoprolol Succinate ER Oral : Tablet Extended Release 24 Hour 25 mg, 1 tablet daily, at bedtime.NuvaRing Vaginal.Ocrevus Intravenous : every6 months.PROzac Oral : 30 mg daily.Vitamin B12 Oral.Vitamin D Oral.Prescription Medications:hydrocodone 5 mg-acetaminophen 325 mg tablet Take 1 tablet every six hours as needed for pain --Dispense 20 tablet. Refills: 0. Substitution permitted.Pharmacy - [id number] - [address] [place], [place] [id number]. .Follow-up:Follow up with your doctor. Call for the next available appointment. Reason for referral: evaluation,treatment and refer to Orthopedics if symptoms persist.. Summary of care provided to patient.Understanding of the discharge instructions verbalized by patient. ADDITIONAL INFORMATIONCarpal Tunnel Syndrome 2 General Instructions [facility] Emergency Department [address] [place] [address] Phone #: ext- [phone] 08/14/2020 17:50 Patient: IMELDA VALERIO Sex: F : 1990 Age: 29yCarpal tunnel syndrome is a painful condition of the wrist and arm. It is caused by pressure on themedian nerve. The median nerve is one of the nerves that give feeling and movement to the hand. Itpasses through a tunnel in the wrist called the carpal tunnel. This tunnel is made up of bones andligaments. N arrowing of this tunnel or swelling of the tissues inside the tunnel puts pressure on themedian nerve. This causes numbness, pins and needles, or electric shooting pains in your hand andforearm. Often the pain is worse at night and may wake you when you are asleep.Carpal tunnel syndrome may occur during and with use of control pills. It is morecommon in workers who must often bend their wrists. It is also common in people who work withpower tools that cause strong vibrations.Home care Rest the painful wrist. Avoid repeated bending of the wrist back and forth. This puts pressure on the median nerve. Avoid using power tools with strong vibrations. If you were given a splint, wear it at night while you sleep. You may also wear it during the 3 General Instructions [facility] Emergency Department [address] [place] [address] Phone #: ext- [phone] 08/14/2020 17:50 Patient: IMELDA VALERIO Sex: F : 1990 Age: 29y day for comfort. Move your fingers and wrists often to prevent stiffness. Elevate your arms on pillows when you lie down. Try using the unaffected hand more. Try not to hold your wrists in a bent, downward position. Sometimes changes in the work place may ease symptoms. If you type most of the day, it may help to change the position of your keyboard or add a wrist support. Your wrist should be in a neutral position and not bent back when typing. You may use krll-igi-okzptur pain medicine to treat pain and inflammation, unless another medicine was prescribed. Anti-inflammatory pain medicines, such as ibuprofen or naproxen may be more effective than acetaminophen, which treats pain, but not inflammation. If you have chronic liver or kidney disease or ever had a stomach ulcer or gastrointestinal bleeding, talk with your healthcare provider before using these medicines. Opioid pain medicine will only give temporary relief and does not treat the problem. If pain continues, you may need a shot of a steroid drug into your wrist. If the above methods fail, you may need surgery. This will open the carpal tunnel and release the pressure on the trapped nerve.Follow-up careFollow up with your healthcare provider, or as advised. If X-rays were taken, you will be notified ofany new findings that may affect your care.When to seek medical adviceCall your healthcare provider right away if any of these occur: Pain not improving with the above treatment Fingers or hand become cold, blue, numb, or tingly Your whole arm becomes swollen or weak [id number] [employer]. [address] [place] [address]. All rights reserved. This information is not intended as asubstitute for professional medical care. Always follow your healthcare professional's instructions.Wrist Splint: VelcroA splint is designed to prevent movement of the bones, muscles and tendons. Velcro wrist splints are 4 General Instructions [facility] Emergency Department [address] [place] [address] Phone #: ext- [phone] 08/14/2020 17:50 ---- Patient: IMELDA VALERIO Sex: F : 1990 Age: 29yused because of their comfort and convenience for wrist and hand injuries. In certain conditions, thesplint can be removed when bathing or changing clothes. The condition you are being treated for willdetermine how long you should wear the splint and if it is safe to remove your splint before your nextvisit. If you are unsure, ask your nurse or doctor. When to seek medical advice Call your healthcare provider right away if any of these occur: Increased pain or swelling under the splint or in the hand or fingers Fingers or hand becomes cold, blue, numb or tingly [phone] [employer]. [address] [place] [address], [place] [address]. All rights reserved. This information is not intended as asubstitute for professional medical care. Always follow your healthcare professional's instructions. You have been given the following additional information: Carpal Tunnel Syndrome Wrist Splint, Velcro(Electronically signed by FLIP Mcfarlane 08/14/2020 21:33) Name Value Range Interpretation Code Description Data Jany rce(s) Supporting Document(s) ID Date Data Source [id number] 08/14/2020 05:59:00 PM EDT [facility] 1 Clinical Report - Nurses [facility] Emergency Department [address] [place] [address] Phone #: ext- [phone] 08/14/2020 17:50 Patient: IMELDA VALERIO Sex: F : 1990 Age: 29yTRIAGEArrived by private vehicle. Historian: patient.Acuity: LEVEL 4.Chief Complaint: RIGHT UPPER EXTREMITY PAIN and NUMBNESS.Alert.No injury occurred. Onset. (2 weeks ago). Provoking / relieving factors: worsened by movement. ( PTstates her right wrist began hurting around 2 weeks ago and her middle and index finger are numb. Shealso feels like she has a raised bump on the wrist that is very tender.).Treatment TOPPER PACKER:Ice and took Tylenol.SEPSIS SCREEN: SIRS Screen negative: heart rate greater than 90. Sepsis Screen negative. Nosuspected or confirmed signs of infection present.MARKO COMA SCORE: 15- eyes open- spontaneous (4); best verbal response- oriented (5); bestmotor response- obeys commands (6). --18:01 08/14/20 Marti Rubalcava R.N.17:53 08/14/20. BP: 153/83. MAP: 106. HR: 92. RR: 18. O2 saturation: 96%. Temp: 97.3 F. Pain levelnow: 07/06. --18:01 08/14/20 Marti Rubalcava R.N.Weight: 127 kg stated. Height/Length: 68 inches Per Patient. BMI: 42.6. --17:57 08/14/20 Marti Rubalcava R.N.MedicationsNuvaRing Vaginal. --18:04 08/14/20 Marti Rubalcava R.N. Ocrevus Intravenous (every6 months). PROzac Oral 30 mg, daily. Vitamin B12 Oral. Vitamin D Oral. --18:04 08/14/20 Marti Rubalcava R.N. Metoprolol Succinate ER Oral (Tablet Extended Release 24 Hour 25 mg) 1 tablet, daily at bedtime.--18:05 08/14/20 Marti Rubalcava R.N.AllergiesNSAIDs. --17:56 08/14/20 Marti Rubalcava R.N.PROBLEMS:Asthma.Multiple Sclerosis. --17:57 08/14/20 Marti Rubalcava R.N. 2 Clinical Report - Nurses [facility] Emergency Department [address] [place] [address] Phone #: ext- [phone] 08/14/2020 17:50 Patient: IMELDA VALERIO Sex: F : 1990 Age: 29y ADDITIONAL SURGERIES: Appendectomy. Cholecystectomy. Gastric sleeve. --17:57 08/14/20 Marti Rubalcava R.N. History PAST MEDICAL HX: Tetanus status: up-to-date. Immunizations: up-to-date. Last normal menstrual period- 5 days ago. Denies current . SOCIAL HX: Never smoker. No alcohol use or drug use. She was offered HIV testing but declined and hepatitis C testing but declined. She has not traveled outside the [place] Infectious disease exposure: No infectious disease exposure. The patient was not exposed to C-diff, MRSA, VRE, CRE or Coronavirus. SELF HARM ASSESSMENT: Self harm assessment was performed. The patient answered "no" to the question(s) "Have you recently felt down, depressed, or hopeless?", "Do you have thoughts of harming or killing yourself?", "Do you have a plan for harming or killing yourself?", "Have you recently had thoughts about harming or killing others?", "Do you have any dangerous items in your possession?", "Have you noticed less interest or pleasure in doing things?", "Are you here because you tried to hurt yourself?" and "Have you ever tried to hurt yourself before today?". ABUSE ASSESSMENT: No report of abuse. NUTRITIONAL RISK ASSESSMENT: The nutritional risk assessment revealed no deficiencies. FUNCTIONAL ASSESSMENT: Functional assessment: no impairments noted. LEARNING NEEDS ASSESSMENT: The learning needs assessment revealed no barriers. SKIN INTEGRITY ASSESSMENT: Skin integrity risk assessment completed. No skin integrity risk identified. --18:01 08/14/20 Marti Rubalcava R.N. FALL RISK ASSESSMENT: Fall risk assessment completed. No risk factors identified. --18:06 08/14/20 Marti Rubalcava R.N.PHYSICAL ASSESSMENTAmbulatory to room.GENERAL / NEURO / PSYCH: Oriented X 4. Alert. Appears in pain. She has numbness with tingling(Righ middle and index finger).CVS: Capillary refill is greater than 2 seconds.EXTREMITIES: Limited ROM present. Right wrist: tenderness.SKIN: Skin intact. Skin is warm and dry. --18:03 08/14/20 Marti Rubalcava R.N.NURSING PROGRESS NOTES 3 Clinical Report - Nurses [facility] Emergency Department [address] [place] [address] Phone #: [phone]- [phone] 08/14/2020 17:50 [id number] Sex[facility] F : 1990 Age: 29y Reassurance given. Call light placed in reach. Side rails up. Bed placed in lowest position. Patient ready for evaluation- PA notified. --18:06 08/14/20 Marti Rubalcava R.N. Patient walked to radiology with mask and tech. --18:26 08/14/20 Marti Rubalcava R.N. Patient walked back from radiology with mask and tech. --18:29 08/14/20 Marti Rubalcava R.N. 19:20 08/14/2020 Toradol (Ketorolac Tromethamine) IM 60 mg given. Given in the right gluteus sherrill. Allergies verified and confirmed 5 rights. Information reviewed with patient including reason for taking this medication, signs of allergic reaction and precautions. Verbalizes understanding. --19:20 08/14/20 Karen Hunt R.N.DISPOSITION / DISCHARGE 19:15 08/14/20. BP: 133/90. HR: 86. RR: 18. O2 saturation: 96%. Temp: 98.3 F. Pain level now 07/06. --19:15 08/14/20 [place] drug coordinator, Hossein, DANI Tech1 Condition at departure: improved. No learning barriers present. Reviewed medication(s) side effects information. Prescription(s) sent electronically to pharmacy. Written instructions provided in Mauritian. The patient was discharged by the physician commercial escrow assistant. She was discharged home. She left ambulatory and via private vehicle. Patient driving. --19:37 08/14/20 Marti Rubalcava R.N.Locked/Released at 08/14/2020 19:37 by Marti Rubalcava R.N. Name Value Range Interpretation Code Description Data Jany rce(s) Supporting Document(s) ID Date Data Source [id number] 08/14/2020 05:59:00 PM EDT [facility] 1 Clinical Report - Physicians/Mid Levels [facility] Emergency Department [address] [place] [address] Phone #: ext- [phone] 08/14/2020 17:50 [id number] Sex[facility] F : 1990 Age: 29y Time Seen: 18:15 08/14/2020. Arrived- By private vehicle. Historian- patient.HISTORY OF PRESENT ILLNESS Chief Complaint: Injury to the right wrist. The injury happened 2 weeks ago. Occurred at home. ( PT states her right wrist began hurting around 2 weeks ago and her middle and index finger are numb. She also feels like she has a raised bump on the wrist that is very tender). This was not an incised wound, caused by a direct blow or puncture wound or a tw isting injury. Patient did not fall. Patient is experiencing moderate pain. No injury to the head or neck or other injury.REVIEW OF SYSTEMSThe patient has had tingling, and numbness. Last normal menstrual period- 5 days ago. No swelling,weakness, foreign body or skin laceration.SOCIAL HISTORYNever smoker. No alcohol use or drug use.PHYSICAL EXAMVital Signs: 08/14/2020 17:53 BP: 153/83. MAP: 106. HR: 92. RR: 18. O2 saturation: 96%. Temp: 97.3 F.Pain level now: 9/10. Have been reviewed as abnormal. Hypertensive. Oxygen saturation normal.Appearance: Alert. Oriented X3. No acute distress.Head: Head atra umatic.Eyes: Pupils equal, round and reactive to light. Eyes normal inspection.ENT: Ears normal. Nose normal. Pharynx normal.Neck: Normal inspection.CVS: Normal heart rate.Respiratory: No respiratory distress.Abdomen: No visible injury.Back: Normal inspection.Skin: Skin warm and dry. Skin intact.Extremities: Right wrist: mild tenderness located in the area of the radial styloid. Limited ROM secondaryto pain. Neurovascular intact distally. (pos. tinel's sign). Extremities otherwise negative.Neuro, Vascular and Tendons: Vascular status intact. Sensation intact. Motor intact. Tendon functionintact.Neuro: Oriented X 3.LABS, X-RAYS, AND EKGRt Wrist X-ray: No fracture. Views: AP, lateral, oblique and scaphoid. The X-rays were interpreted by 2 Clinical Report - Physicians/Mid Levels [facility] Emergency Department [address] [place] [id number] Phone #: ext- [phone] 08/14/2020 17:50 Patient: IMELDA VALERIO Sex: F : 1990 Age: 29y the radiologist and contemporaneously by me. Interpretation time: 19:03 08/14/2020.PROGRESS AND PROCEDURESCourse of Care: :Aug 14 2020. Evaluation after observation. (Discussed x-ray and exam findingsand pt is agreeable with dx and tx plan.). Patient counseled in person regarding the patient's stable condi tion, test results, diagnosis and need for follow-up. Patient agrees with plan of care. 19:Aug 14 2020. Disposition: Discharged home in good and improved condition (:Aug 14 2020).CLINICAL IMPRESSION Carpal tunnel syndrome right wrist.INSTRUCTIONS Wear cock-up splint for two weeks. Your Current Medications: Your current home medications have been reviewed. CONTINUE TAKING THE FOLLOWING MEDICATIONS: Metoprolol Succinate ER Oral : Tablet Extended Release 24 Hour 25 mg, 1 tablet daily, at bedtime. NuvaRing Vaginal. Ocrevus Intravenous : every6 months. PROzac Oral : 30 mg daily. Vitamin B12 Oral. Vitamin D Oral. Prescription Medications: hydrocodone 5 mg-acetaminophen 325 mg tablet Take 1 tablet every six hours as needed for pain -- Dispense 20 tablet. Refills: 0. Substitution permitted. Pharmacy - [id number] - [address], [place] [phone]. FaxNumber: . Follow-up: Follow up with your doctor. Call for the next available appoint ment. Reason for referral: evaluation, treatment and refer to Orthopedics if symptoms persist.. Summary of care provided to patient. Understanding of the discharge instructions verbalized by patient. 3 Clinical Report - Physicians/Mid Levels [facility] Emergency Department [address] [place] [address] Phone #: ext- [phone] 08/14/2020 17:50 [id number] Sex: F : 1990 Age: 29y(Electronically signed by FLIP Mcfarlane 08/14/2020 21:33) Name Value Range Interpretation Code Description Data Jany rce(s) Supporting Document(s) ID Date Data Source [id number] 08/03/2020 11:39:00 AM EDT [facility] ([facility], ) Name Value Range Interpretation Code Description Data Jany rce(s) Supporting Document(s) Calcidiol [Mass/volume] in Serum or Plasma 41.1 ng/mL 30.0-100.0 [facility] ([facility], ) ID Date Data Source [id number] 08/03/2020 11:39:00 AM EDT [facility] ([facility], ) Name Value Range Interpretation Code Description Data Jany rce(s) Supporting Document(s) Glucose, Fasting 85 mg/dL 70-100 [facility] ([facility], ) Blood Urea Nitrogen 13 mg/dL 7-18 [facility] ([facility], ) Sodium Level 139 meq/L 136-145 [facility] ([facility], ) Creatinine For GFR 0.74 mg/dL 0.55-1.30 [facility] ([facility], ) Glomerular Filtration Rate Laboratory test result [facility] ([facility], ) <content>Units are mL/min/1.73 m2</content>
<content></content>
<content>Chronic Kidney Disease Staging per NKF:</content>
<content></content>
<content>Stage I & II GFR >=60 Normal to Mildly Decreased</content>
<content>Stage III GFR 30- 59 Moderately Decreased</content>
<content>Stage IV GFR 15-29 Severely Decreased</content>
<content>Stage V GFR <15 Very Little GFR Left</content>
<content>ESRD GFR <15 on SPECIAL LIBRARIAN</content>
<content></content> Potassium Serum 4.3 meq/L 3.5-5.1 [facility] ([facility]) Chloride Level 108 meq/L 98-107 [facility] ([facility]) Carbon Dioxide Level 25 meq/L 21-32 [facility] ([facility]) Ast/Sgot 14 U/L 7-37 [facility] ([facility]) Anion Gap 6 meq/L 8-16 [facility] ([facility]) Calcium Level 8.5 mg/dL 8.5-10.1 [facility] ([facility]) Alt/SGPT 22 U/L 12-78 [facility] ([facility]) Bilirubin,Total 0.1 mg/dL 0.2-1.0 [facility] ([facility]) Alkaline Phosphatase 87 U/L 45-117 [facility] ([facility]) Total Protein 6.6 GM/DL 6.4-8.2 [facility] ([facility]) Albumin 3.3 GM/DL 3.2-5.2 [facility] ([facility]) Albumin/Globulin Ratio 1.0 1.2-2.2 [facility] ([facility]) ID Date Data Source [id number] 08/03/2020 11:39:00 AM EDT [facility] ([facility]) Name Value Range Interpretation Code Description Data Jany rce(s) Supporting Document(s) Appearance, Urine Laboratory test result [facility] ([facility], ) Color, Urine Laboratory test result [facility] ([facility]) Protein, Urine Auto Laboratory test result [facility] ([facility]) PH,Urine 6.0 units 5.0-9.0 [facility] ([facility]) Specific Denhoff Urine Auto 1.005 1.002-1.035 [facility] ([facility]) Glucose, Urine (Ua) Auto Laboratory test result [facility] ([facility]) Urobilinogen, Urine Auto 0.2 mg/dL 0.0-2.0 [facility] ([facility]) Ketone, Urine Auto Laboratory test result [facility] ([facility]) Leukocyte Esterase, Urine Auto Laboratory test result [facility] ([facility]) Nitrite, Urine Auto Laboratory test result [facility] ([facility]) Bilirubin, Urine Auto Laboratory test result [facility] ([facility]) WBC, Urine Auto 1 /HPF 0-3 [facility] ([facility]) Blood, Urine Blood Laboratory test result [facility] ([facility]) Bacteria, Urine Auto Laboratory test result [facility] ([facility]) Squamous Epithelial Cell Ur AU 0 /HPF 0-6 [facility] ([facility]) RBC, Urine Auto 1 /HPF 0-3 [facility] ([facility]) Hyaline Cast, Urine Auto 0 /LPF 0-1 [facility] ([facility]) ID Date Data Source [id number] 08/03/2020 11:39:00 AM EDT [facility] ([facility]) Name Value Range Interpretation Code Description Data Jany rce(s) Supporting Document(s) Red Blood Count 4.43 10 4.00-5.40 [facility] ([facility]) White Blood Count 8.7 10 4.0-10.0 [facility] ([facility]) Hemoglobin 12.6 g/dL 12.0-15.5 [facility] ([facility]) Mean Corpuscular Volume 88.9 fl 80.0-96.0 M [facility] ([facility]) Hematocrit 39.4 % 36.0-47.0 [facility] ([facility]) Red Cell Distribution Width 14.6 % 11.5-14.5 [facility] ([facility]) Mean Corpuscular HGB Conc 32.0 g/dL 32.0-36.5 [facility] ([facility]) Mean Corpuscular Hemoglobin 28.4 pg 27.0-33.0 [facility] ([facility]) Neutrophils % 65.2 % 36.0-66.0 [facility] ([facility]) Lymph % 20.0 % 24.0-44.0 [facility] ([facility]) Platelet Count, Automated 403 10 150-450 [facility] ([facility]) Mcleod % 9.6 % 0.0-5.0 [facility] ([facility], ) Baso % 0.6 % 0.0-1.0 [facility] ([facility]) Eos % 4.1 % 0.0-3.0 [facility] ([facility]) Immature Granulocyte % 0.5 % 0-3.0 [facility] ([facility]) Neutrophils # 5.7 10 1.5-8.5 [facility] ([facility]) Nucleated Red Blood Cell % 0.0 % 0-0 [facility] ([facility]) Mcleod # 0.8 10 0.0-0.8 [facility] ([facility]) Lymph # 1.7 10 1.5-5.0 [facility] ([facility]) Eos # 0.4 10 0.0-0.5 [facility] ([facility]) Baso # 0.1 10 0.0-0.2 [facility] ([facility]) ID Date Data Source [id number] 06/06/2020 02:29:00 PM EDT [facility] ([facility]) Name Value Range Interpretation Code Description Data Jany rce(s) Supporting Document(s) Gram Stain Laboratory test result Normal (applies to non-n umeric results) [facility] ([facility]) QUALITY: POOR MANY EPITHELIAL CELLS FEW WBCS MANY GRAM POSITIVE COCCI IN PAIRS AND CHAINS Sputum Culture Laboratory test result [facility] ([facility]) Sputum culture not performed due to orop haryngeal contamination. Further processing of such specimens would not yield useful information about the possible pathogens from the lower respiratory tract. Test not performed ID Date Data Source [id number] 06/06/2020 01:43:00 PM EDT [facility] ([facility]) Name Value Range Interpretation Code Description Data Jany rce(s) Supporting Document(s) PDFReport Laboratory test result [facility] ([facility]) FVC-Pre 2.34 L [facility] ([facility]) FVC-%Pred-Pre 53 L [facility] ([facility]) FVC-Pred 4.41 L [facility] ([facility], ) Fev1-Pred 3.68 L [facility] ([facility], ) Fev1-Pre 1.37 L [facility] ([facility], ) FVC-LLN 3.61 L [facility] ([facility], ) Fev1-LLN 3.00 L [facility] ([facility], ) Fev1-%Pred-Pre 37 L [facility] ([facility], ) Fev6-Pred 4.36 L [facility] ([facility], ) Fev6-LLN 3.57 L [facility] ([facility]) Fev6-Pre 2.34 L [facility] ([facility]) Fev6-%Pred-Pre 53 L [facility] ([facility], ) Tkw5fjx-Qqhg 84 % [facility] ([facility], ) Hsx0aun-Scn 59 % [facility] ([facility]) Kei9adk-XCT 75 % [facility] ([facility]) Cqb1tfz-%Pred-Pre 69 % [facility] ([facility]) Yes8ixi-Gaie 99 % [facility] ([facility]) Kis5ezb-%Pred-Pre 101 % [facility] ([facility]) Ufb2qvp-Rho 100 % [facility] ([facility], ) FEFMax-Pred 7.80 L/E/sec [facility] ([facility], ) FEFMax-%Pred-Pre 45 L/E/sec [facility] ([facility]) FEFMax-LLN 5.80 L/E/sec [facility] ([facility]) FEFMax-Pre 3.55 L/E/sec [facility] ([facility]) Xvs3748-Mjl 0.65 L/E/sec [facility] ([facility], ) Fzd1438-Aqyp 3.76 L/E/sec [facility] ([facility]) Lxa8429-%Pred-Pre 17 L/E/sec [facility] ([facility]) Gzh3pmu2-Idvn 85 % [facility] ([facility]) Wcr9584-ZAB 2.32 L/E/sec [facility] ([facility]) ExpTime-Pre 6.01 sec [facility] ([facility]) Bbd7mgz8-Bdd 59 % [facility] ([facility]) Eiq3szj6-%Pred-Pre 68 % [facility] ([facility]) Qhb1bcg2-JHD 77 % [facility] ([facility]) ID Date Data Source [id number] 04/05/2020 11:30:00 AM EDT [facility] ([facility]) Name Value Range Interpretation Code Description Data Jany rce(s) Supporting Document(s) PDFReport Laboratory test result [facility] ([facility]) FVC-Pre 3.79 L [facility] ([facility]) FVC-Pred 4.41 L [facility] ([facility]) FVC-%Pred-Pre 85 L [facility] ([facility]) FVC-LLN 3.61 L [facility] ([facility]) Fev1-Pred 3.68 L [facility] ([facility]) Fev1-LLN 3.00 L [facility] ([facility]) Fev1-%Pred-Pre 77 L [facility] ([facility]) Fev1-Pre 2.85 L [facility] ([facility]) Fev6-Pred 4.36 L [facility] ([facility]) Fev6-Pre 3.79 L [facility] ([facility]) Fev6-%Pred-Pre 86 L [facility] ([facility]) Mbe6ucn-Esvo 84 % [facility] ([facility]) Xro9the-Xje 75 % [facility] ([facility]) Fev6-LLN 3.57 L [facility] ([facility]) Tsw4xbo-XDZ 75 % [facility] ([facility]) Ltq9niz-%Pred-Pre 89 % [facility] ([facility]) Wnq0gdn-Yecj 99 % [facility] ([facility]) Lqt3wpb-Tjq 100 % [facility] ([facility]) Gem5bmu-%Pred-Pre 101 % [facility] ([facility]) FEFMax-Pred 7.80 L/E/sec [facility] ([facility]) FEFMax-LLN 5.80 L/E/sec [facility] ([facility]) FEFMax-Pre 6.67 L/E/sec [facility] ([facility]) FEFMax-%Pred-Pre 85 L/E/sec [facility] ([facility]) Eor5914-Zvp 2.21 L/E/sec [facility] ([facility]) Qkg0294-Lhgt 3.76 L/E/sec [facility] ([facility]) Bms5632-%Pred-Pre 58 L/E/sec [facility] ([facility]) ExpTime-Pre 5.76 sec [facility] ([facility]) Ley9852-LEB 2.32 L/E/sec [facility] ([facility]) Jea3wnj8-Vfbh 85 % [facility] ([facility]) Hqi0sek7-%Pred-Pre 88 % [facility] ([facility]) Qew6xac0-Ole 75 % [facility] ([facility]) Yrt4rpo8-KIM 77 % [facility] ([facility]) ID Date Data Source [id number] 01/27/2020 09:55:00 AM EDT [facility] ([facility]) Name Value Range Interpretation Code Description Data Jany rce(s) Supporting Document(s) Gram Stain Laboratory test result Normal (applies to non-n umeric results) [facility] ([facility]) QUALITY: GOOD MODERATE WBCS MODERATE EPITHELIAL CELLS MANY GRAM POSITIVE COCCI IN PAIRS, CHAINS AND CLUSTERS FEW GRAM POSITIVE RODS Sputum Culture Laboratory test result Normal (applies to non-numeric results) [facility] ([facility]) FULL REPORT IN LAB NOTES ([facility] and [facility] ). NORMAL NAVEED PRESENT ORGANISM 1: YEAST LIKE ORGANISM QUANTITY OF GROWTH FEW ORGANISM 1: YEAST LIKE ORGANISM ID Date Data Source [id number] 01/26/2020 09:33:00 AM EDT [facility] ([facility]) Name Value Range Interpretation Code Description Data Jany rce(s) Supporting Document(s) FVC-Pre 3.75 L [facility] ([facility]) FVC-Pred 4.41 L [facility] ([facility]) PDFReport Laboratory test result [facility] ([facility]) FVC-%Pred-Pre 85 L [facility] ([facility]) FVC-LLN 3.61 L [facility] ([facility]) Fev1-Pre 2.59 L [facility] ([facility]) Fev1-Pred 3.68 L [facility] ([facility]) Fev6-Pred 4.36 L [facility] ([facility]) Fev1-%Pred-Pre 70 L [facility] ([facility]) Fev1-LLN 3.00 L [facility] ([facility]) Fev6-Pre 3.75 L [facility] ([facility]) Fev6-%Pred-Pre 86 L [facility] ([facility]) Fev6-LLN 3.57 L [facility] ([facility]) Wpd8nlb-Wemu 84 % [facility] ([facility]) Esk8zgi-%Pred-Pre 81 % [facility] ([facility]) Jee4lsz-Dqq 69 % [facility] ([facility]) Hel3bjm-YMW 75 % [facility] ([facility]) Lko3qhg-Jzh 100 % [facility] ([facility]) Lrj6tob-%Pred-Pre 101 % [facility] ([facility]) Gqv7xgc-Zobg 99 % [facility] ([facility]) FEFMax-%Pred-Pre 69 L/E/sec [facility] ([facility]) FEFMax-Pred 7.80 L/E/sec [facility] ([facility]) FEFMax-Pre 5.39 L/E/sec [facility] ([facility]) FEFMax-LLN 5.80 L/E/sec [facility] ([facility]) Olk1824-Gfad 3.76 L/E/sec [facility] ([facility]) Hvh1601-%Pred-Pre 43 L/E/sec [facility] ([facility]) Kwg5673-Qff 1.62 L/E/sec [facility] ([facility]) Poh5546-VRT 2.32 L/E/sec [facility] ([facility]) Nfs9ose2-Hupv 85 % [facility] ([facility], ) ExpTime-Pre 5.65 sec [facility] ([facility]) Qxw8hef9-NGA 77 % [facility] ([facility]) Kto8gbi0-Aqi 69 % [facility] ([facility]) Pwc6vle1-%Pred-Pre 80 % [facility] ([facility]) ID Date Data Source [id number] 12/10/2019 10:30:00 AM EST [facility] ([facility], ) Name Value Range Interpretation Code Description Data Jany rce(s) Supporting Document(s) Calcidiol [Mass/volume] in Serum or Plasma 27.6 ng/mL 30.0-100.0 [facility] ([facility], ) ID Date Data Source [id number] 11/20/2019 05:15:00 PM [facility] 1 OrderSheet [facility] Emergency Department [address] [place] [address] Phone #: ext- [phone] 11/20/2019 17:04 [id number] Sex: F : 1990 Age: 29yWEIGHT:115.6 kg (S) HEIGHT:68 inches (S) BMI:38.8ALLERGIES: NSAIDsCHIEF COMPLAINT: chest pain, chest painDIAGNOSIS: Chest pain, Sinus tachycardia, BronchitisLAB ORDERSOrder Description Priority Entered Acknowledged InitialedCBC w Diff STAT 17:10 11/20/2019 17:14 Nilsa Weeks; R.N.CMP STAT 17:10 11/20/2019 17:14 Nilsa Weeks; R.N.D-Dimer STAT 17:10 11/20/2019 17:14 Nilsa Weeks; R.N.Lactic Acid STAT 17:10 11/20/2019 17:14 Nilsa Weeks; R.N.Troponin-T STAT 17:10 11/20/2019 17:14 Nilsa Weeks; R.N.TSH STAT 17:10 11/20/2019 17:14 Nilsa Weeks; R.N.Urinalysis (Clean STAT 17:10 11/20/2019 Ack'd: 17:47 19:15 Pepe, JanuaryBret CASTELAN; [facility] R.N.Troponin-T STAT 19:47 11/20/2019 20:08 [facility] Rosalino Christianson R.N. Physician;DIAGNOSTIC STUDY ORDERSOrder Description Priority Entered Acknowledged [facility]ed[facility] 1 STAT 17:10 11/20/2019 17:14 Flor Weeks; R.N.(Oxygen?(No)) Reason for Study: Chest PainCT CTA CHEST STAT 17:50 17:51 [facility](NONCOR) Uzma CASTELAN; R.N.INC PP(Oxygen?(No))(IV?(Yes)) Reason for Study: Please r/o PE, tachycardia, CP, BCP's smoker 2 OrderSheet [facility] Emergency Department [address] [place] [address] Phone #: ext- [phone] 11/20/2019 17:04 Patient: IMELDA VALERIO Sex: F : 1990 Age: 29yMEDICATION/IV/DRIP/FLUID ORDERSOrder Description Priority Entered Acknowledged InitialedNS IV : 125 mL/hr 17:10 11/20/2019 17:47 Zojanuary(NOW x1) Danie CASTELAN; R.N.NitroGLYCERIN 17:25 11/20/2019 17:47 ZojanuaryTopical- Patch 0.4 Danie CASTELAN; R.N.mg/hr (NOW x1)Morphine IVP 2 mg 17:25 11/20/2019 17:50 ZossJanuary(NOW x1, keep o2 Danie CASTELAN; R.N.sat > 90%, HIGHALERTMEDICATION)Zofran IVP 4 mg 17:25 11/20/2019 17:49 ZossJanuary Danie CASTELAN; R.N.GI Cocktail PO 50 21:00 11/20/2019 21:19 ZoJanuarymL with Lidocaine Rosalino Kleinrus R.N.Viscous Physician;Mouth/Throat 10mL, Maalox Oral 30mL, Oral10 mLMorphine IVP 4 mg 21:15 11/20/2019 21:21 Zoss, January(NOW, HIGH ALERT Rosalino Venerus R.N.MEDICATION) Physician;GENERAL ORDERSOrder Description Priority Entered Acknowledged InitialedCardiac Monitor 17:10 11/20/2019 17:14 Nilsa Weeks(continuous) Danie CASTELAN; R.N.Blood Pressure 17:11/20/2019 17:14 Christophe Weeks; R.N.EKG 17:10 11/20/2019 17:14 Nilsa Weeks; R.N.NPO 17:11/20/2019 17:14 Nilsa Weeks; R.NVicentaPulse Oximetry 17:10 11/20/2019 17:14 Jay Weeks; R.NVicentaVitals 17:10 11/20/2019 17:14 Nilsa Weeks; R.NVicentaWarm blanket 17:10 11/20/2019 17:14 Nilsa Weeks; R.NVicentaEKG 20:56 11/20/2019 21:01 PepeJanuary 27 OrderSheet [facility] Emergency Department [address] [place] [address] Phone #: ext- [phone] 11/20/2019 17:04 Patient: IMELDA VALERIO Sex: F : 1990 Age: 29y Rosalino Christianson R.N. Physician;[Electronically signed by Katina Cantu R.N. (21:46 11/20/2019)][Electronically signed by Rosalino Christianson (11:03 11/21/2019)][Electronically signed by Danie Ahuja (11:51 11/22/2019)][Electronically locked by Katina Cantu R.N. (21:46 11/20/2019)] Name Value Range Interpretation Code Description Data Jany rce(s) Supporting Document(s) ID Date Data Source [id number] 11/20/2019 05:15:00 PM EST [facility] 1 Medication Reconciliation Report [facility] Emergency Department [address] [place] [address] Phone #: ext- [phone] 11/20/2019 17:04 Patient: IMELDA VALERIO Sex: F : 1990 Age: 29yWeight: 115.6 kgHeight/Length: 68 in.BMI: 38.8ALLERGIES: NSAIDsThe patient's Home Medications are listed below:THE FOLLOWING MEDICATIONS NEED TO BE RECONCILED: Nortriptyline HCl Oral (25 mg) 1 capsule, daily, at bedtime NuvaRing Vaginal Ocrevus Intravenous, every6 months PROzac Oral 30 mg, daily Vitamin B12 Oral Vitamin D OralThe source(s) of the original Home Medication information:Not obtained.The following Medications were given to the patient in the Emergency Department:NS [IV] IV Fluids bolus 0, then 125 mL/hr, administered: 11/20/2019 5:47:00 PMNITROGLYCERIN [TOPICAL- PATCH] Transdermal 0.4 mg, administered: 11/20/2019 5:40:00 PMZofran [IVP] IVP 4 mg, administered: 11/20/2019 5:48:00 PMMorphine [IVP] IVP 2 mg, administered: 11/20/2019 5:50:00 PMGI Cocktail [PO] PO 50 mL, administered: 11/20/2019 9:16:00 PMMorphine [IVP] IVP 4 mg, administered: 11/20/2019 9:21:00 PM 2 Medication Reconciliation Report [facility] Emergency Department [address] [place] [address] Phone #: ext- [phone] 11/20/2019 17:04 Patient: IMELDA VALERIO Sex: F : 1990 Age: 29yThe following Medications were prescribed to the patient:Zithromax Z-Cesar 250 mg tablet Take as directed for 5 days -- for bronchitis - Take 2 tabs PO on day1, then one tab PO each day for next 4 days. Dispense 1 pack. Refills: 0. Substitution permitted.Pharmacy - [facility] [phone] ; [place] [address]. .albuterol sulfate 2.5 mg/3 mL (0.083 %) solution for nebulization Inhale 1 vial every six hours as needed for10 days -- for cough / SOB / wheezing. Dispense 40 vial. Refills: 0. Substitution permitted.Pharmacy - [facility] [phone] ; [place] [address]. FaxNumber: [phone]. -- Physician SairaPrednisone 10mg dose packsig: take 6 tabs PO each day for 2 days, then 5 tabs PO each day for 2 days, then taper by one tab eachday every other day until down to 1 tab PO each day for 2 days.Disp# 42. -- Rosalino Christianson Physician Name Value Range Interpretation Code Description Data Jany rce(s) Supporting Document(s) ID Date Data Source [id number] 11/20/2019 05:15:00 PM EST [facility] 1 Medication Administration Record [facility] Emergency Department [address] [place] [address] Phone #: ext- [phone] 11/20/2019 17:04 Patient: IMELDA VALERIO Sex: F : 1990 Age: 29yWeight: 115.6 kgHeight/Length: 68 inBMI: 38.8ALLERGIES: NSAIDs Date/Time Medication Administered Medication OrderedStart NS [IV] NS IV : 125 mL/hr (NOW x1)17:47 11/20/2019 Dose: IV FluidsZoss, January, R.N. Rate: 125 mL/hr---- Dispensed: 1000 mL bagStop Site: #1 left AC21:45 11/20/2019Zoss, Katina, R.N.Given NITROGLYCERIN [TOPICAL- PATCH] NitroGLYCERIN Topical- Patch 0.417:40 11/20/2019 (NITROGLYCERIN TRANSDERMAL) mg/hr (NOW x1)Zoss, January, R.N. Dose: 0.4 mg Transdermal----Stop20:18 11/20/2019Zoss, January, R.N.Given MORPHINE [IVP] Morphine IVP 2 mg (NOW x1, keep17:50 11/20/2019 Dose: 2 mg IVP o2 sat > 90%, HIGH ALERTZoss, January, R.N. Site: #1 left AC MEDICATION)Given ZOFRAN [IVP] (ONDANSETRON HCL) Zofran IVP 4 mg17:48 11/20/2019 Dose: 4 mg IVPZoss, January, R.N. Site: #1 left ACGiven GI COCKTAIL [PO] (CALCIUM GI Cocktail PO 50 mL with21:16 11/20/2019 CARBONATE ANTACID) Lidocaine Viscous Mouth/ThroatZoss, January, R.N. Dose: 50 mL PO 10 mL, Maalox Oral 30 mL, Oral 10 mLGiven MORPHINE [IVP] Morphine IVP 4 mg (NOW, HIGH21:21 11/20/2019 Dose: 4 mg IVP ALERT MEDICATION)Zo, January, R.N. Site: #1 left AC Name Value Range Interpretation Code Description Data Jany rce(s) Supporting Document(s) ID Date Data Source [id number] 11/20/2019 05:15:00 PM EST [facility] 1 General Instructions [facility] Emergency Department [address] [place] [address] Phone #: ext- [phone] 11/20/2019 17:04 Patient: IMELDA VALERIO Sex: F : 1990 Age: 29y(Electronically signed by FLIP Nash 11/22/2019 11:51)Precordial chest pain characterized as "discomfort", "pressure" and "tightness".Acute mucopurulent bronchitis. (Mild).Sinus tachycardiaINSTRUCTIONSAvoid stimulants (such as cigarettes, coffee, cold medicines, sinus medicines, street drugs).Warnings: Further evaluation is necessary.GENERAL WARNINGS: Return or contact your physician immediately if your condition worsens orchanges unexpectedly, if not improving as expected, or if other problems arise.Prescription Medications:Zithromax Z-Cesar 250 mg tablet Take as directed for 5 days -- for bronchitis - Take 2 tabs PO on day1, then one tab PO each day for next 4 days. Dispense 1 pack. Refills: 0. Substitution permitted.Pharmacy - [facility] [phone] ; [place] [address]. .albuterol sulfate 2.5 mg/3 mL (0.083 %) solution for nebulization Inhale 1 vial every six hours as needed for10 days -- for cough / SOB / wheezing. Dispense 40 vial. Refills: 0. Substitution permitted.Pharmacy - [facility] [phone] ; [place] [address]. .Prednisone 10mg dose packsig: take 6 tabs PO each day for 2 days, then 5 tabs PO each day for 2 days, then taper by one tab each 2 General Instructions [facility] Emergency Department [address] [place] [address] Phone #: ext- [phone] 11/20/2019 17:04 Patient: IMELAD VALERIO Sex: F : 1990 Age: 29yday every other day until down to 1 tab PO each day for 2 days.Disp# 42.Understanding of the discharge instructions verbalized by patient and family.Follow-up with: Dontae Velazquez MD, Cardiology, , [address] [place] [address], [phone] Follow up. Call for the next available appointment. Reason for referral: evaluation, treatment and Atypicalchest pain / Bronchitis / Sinus tach. ADDITIONAL INFORMATIONBronchitis, Antibiotic Treatment (Adult)Bronchitis is an infection of the air passages (bronchial tubes) in your lungs. It often occurs when youhave a cold. This illness is contagious during the first few days and is spread through the air bycoughing and sneezing, or by direct contact (touching the sick person and then touching your own 3 General Instructions [facility] Emergency Department [address] [place] [address] Phone #: ext- [phone] 11/20/2019 17:04 Patient: IMELDA VALERIO Sex: F : 1990 Age: 29yeyes, nose, or mouth).Symptoms of bronchitis include cough with mucus (phlegm) and low-grade fever. Bronchitis usuallylasts 7 to 14 days. Mild cases can be treated with simple home remedies. More severe infection istreated with an antibiotic.Home careFollow these guidelines when caring for yourself at home: If your symptoms are severe, rest at home for the first 2 to 3 days. When you go back to your usual activities, don't let yourself get too tired. Don't smoke. Also stay away from secondhand smoke. You may use ntzm-ese-zkrdpsp medicines to control fever or pain, unless another medicine was prescribed. If you have chronic liver or kidney disease or have ever had a stomach ulcer or gastrointestinal bleeding, talk with your healthcare provider before using these medicines. Also talk to your provider if you are taking medicine to prevent blood clots. Aspirin should never be given to anyone younger than 18 who is ill with a viral infection or fever. It may cause severe liver or brain damage. Your appetite may be low, so a light diet is fine. Stay well hydrated by drinking 6 to 8 glasses of fluids per day. This includes water, soft drinks, sports drinks, juices, tea, or soup. Extra fluids will help loosen mucus in your nose and lungs. Zcbf-dck-zhtitnb cough, cold, and sore-throat medicines will not shorten the length of the illness, but they may be helpful to reduce your symptoms. Don't use decongestants if you have high blood pressure. Finish all antibiotic medicine. Do this even if you are feeling better after only a few days.Follow-up careFollow up with your healthcare provider, or as advised. If you had an X-ray or ECG(electrocardiogram), a specialist will review it. You will be told of any new test results that may affectyour care.If you are age 65 or older, if you smoke, or if you have a chronic lung disease or condition that affectsyour immune system, ask your healthcare provider about getting a pneumococcal vaccine and ayearly flu shot (influenza vaccine).When to seek medical adviceCall your healthcare provider right away if any of these occur: 4 General Instructions [facility] Emergency Department [address] [place] [address] Phone #: ext- [phone] 11/20/2019 17:04 Patient: IMELDA VALERIO Sex: F : 1990 Age: 29y Fever of 100.4F (38C) or higher, or as directed by your healthcare provider Coughing up more sputum Weakness, drowsiness, headache, facial pain, ear pain, or a stiff neckCall 911Call 911 if any of these occur. Coughing up blood Weakness, drowsiness, headache, or stiff neck that get worse Trouble breathing, whee zing, or pain with breathing [id number] [employer]. [address] [place] [address]. All rights reserved. This information is not intended as asubstitute for professional medical care. Always follow your healthcare professional's instructions.Uncertain Causes of Chest PainChest pain can happen for a number of reasons. Sometimes the cause can't be determined. Ifyour condition does not seem serious, and your pain does not appear to be coming from your heart,your healthcare provider may recommend watching it closely. Sometimes the signs of a serious 5 General Instructions [facility] Emergency Department [address] [place] [address] Phone #: ext- [phone] 11/20/2019 17:04 Patient: IMELDA VALERIO Sex: F : 1990 Age: 29yproblem take more time to appear. Many problems not related to your heart can cause chest pain.These include: Musculoskeletal. Costochondritis is an inflammation of the tissues around the ribs that can occur from trauma or overuse injuries, or a strain of the muscles of the chest wall Respiratory. Pneumonia, collapsed lung (pneumothorax), or inflammation of the lining of the chest and lungs (pleurisy) Gastrointestinal. Esophageal reflux, heartburn, ulcers, or gallbladder disease Anxiety and panic disorders Nerve compression and inflammation Rare miscellaneous problems such as aortic aneurysm (a swelling of the large artery coming out of the heart) or pulmonary embolism (a blood clot in the lungs)Home careAfter your visit, follow these recommendations: Rest today and avoid strenuous activity. Take any prescribed medicine as directed. Be aware of any recurrent chest pain and notice any changesFollow-up careFollow up with your healthcare provider if you do not start to feel better within 24 hours, or as advised.Call [phone] if any of these occur: A change in the type of pain: if it feels different, becomes more severe, lasts longer, or begins to spread into your shoulder, arm, neck, jaw or back Shortness of breath or increased pain with breathing Weakness, dizziness, or fainting Rapid heart beat Crushing sensation in your chestWhen to seek medical advice 6 General Instructions [facility] Emergency Department [address] [place] [address] Phone #: ext- [phone] 11/20/2019 17:04 Patient: IMELDA VALERIO Sex: F : 1990 Age: 29yCall your healthcare provider right away if any of the following occur: Cough with dark colored sputum (phlegm) or blood Fever of 100.4F (38C) or higher, or as directed by your healthcare provider Swelling, pain or redness in one leg [id number] [employer]. [address] [place] [address], [place] [address]. All rights reserved. This information is not intended as asubstitute for professional medical care. Always follow your healthcare professional's instructions.Tachycardia: PAT (PSVT)PAT stands for paroxysmal atrial tachycardia. It is a type of paroxysmal supraventricular tachycardia(PSVT). This means your heart suddenly starts beating very fast. This may feel like your heart isracing or pounding. Because it comes on so suddenly, it is often scary. But this is usually not adangerous condition. PAT can last seconds, minutes, or hours.PAT can occur in otherwise healthy people who have used too much of a stimulant like tobacco orcaffeine. Caffeine is found in coffee, tea, cola and some medicines. Some xcwy-nej-trblxri cold andsinus remedies, diet pills, and some herbal supplements can also overstimulate the heart. The streetdrugs cocaine and amphetamine are the most powerful heart stimulants. You must avoid these.Overactive thyroid and some types of heart valve disorders can also cause PAT. You may have testsdone to find out if this is the cause if your healthcare provider suspects this.Home careFollow these guidelines when caring for yourself at home: Rest today. Go back to your normal activities as soon as you are feeling back to normal. Sometimes a long episode of PAT can leave you feeling tired and weak for a while. To prevent having PAT come back, avoid all the stimulants listed above. If you have trouble giving up coffee, switch to decaf. If you smoke, try to stop or at least switch to a filtered, low-nicotine type of cigarette while you look for a stop-smoking program. If you have another episode of PAT, lie down and try to remain calm. These spells usually stop by themselves within a few minutes.Follow-up careFollow up with your healthcare provider within the week, or as advised.When to seek medical advice 7 General Instructions [facility] Emergency Department [address] [place] [address] Phone #: ext- [phone] 11/20/2019 17:04 Patient: IMELDA VALERIO Sex: F : 1990 Age: 29yCall your healthcare provider right away if any of these occur: Chest, shoulder, arm, neck, or back pain Shortness of breath Weakness Fainting or lightheadedness Sustained palpitations [phone] [employer] [place] [address]. All rights reserved. This information is not intended as asubstitute for professional medical care. Always follow your healthcare professional's instructions. You have been given the following additional information: Bronchitis, Antibiotic Treatment (Adult) Chest Pain, Uncertain Cause Tachycardia: PAT(Electronically signed by Rosalino Christianson, Physician 11/21/2019 11:03) Name Value Range Interpretation Code Description Data Jany rce(s) Supporting Document(s) ID Date Data Source [id number] 11/20/2019 05:15:00 PM EST [facility] 1 Clinical Report - Nurses [facility] Emergency Department [address] [place] [address] Phone #: ext- [phone] 11/20/2019 17:04 Patient: IMELDA VALERIO Sex: F : 1990 Age: 29yTRIAGEArrived by private vehicle. Historian: patient. Accompanied by family. ( chest pain left breast and goesto left shoulder , worst with palpation, pt states her heart rate has been 100 and does not go down, ptstates she had a migraine first and then chest pain started).Acuity: LEVEL 3.Chief Complaint: CHEST PAIN.Alert.Onset. (3pm). ( feels like she is going to pass out).Treatment TOPPER PACKER:Took Tylenol. (8:30).SEPSIS SCREEN: Negative (no infection suspected/docu mented). --17:13 11/20/19 Nilsa Weeks R.N.17:05 11/20/19. BP: 149/81. MAP: 103. HR: 93. RR: 20. O2 saturation: 97%. Temp: 97.9 F. Pain levelnow: 9/10. --17:13 11/20/19 Nilsa Weeks R.N.Weight: 115.6 kg stated. Height/Length: 68 inches Per Patient. BMI: 38.8. --17:05 11/20/19 Nilsa Weeks R.N.MedicationsOcrevus Intravenous (every6 months). --17:08 11/20/19 Nilsa Weeks R.N. PROzac Oral 30 mg, daily. --17:09 11/20/19 Nilsa Weeks R.N. Vitamin D Oral. --17:09 11/20/19 Nilsa Weeks R.N. Vitamin B12 Oral. --17:09 11/20/19 Nilsa Weeks R.N. Nortriptyline HCl Oral (Capsule 25 mg) 1 capsule, daily at bedtime. --17:10 11/20/19 Nilsa Weeks R.N. NuvaRing Vaginal. --17:10 11/20/19 Nilsa Weeks R.N.AllergiesNSAIDs. --17:08 11/20/19 Nlisa Weeks R.N.PROBLEMS:Neuropathy. --17:11 11/20/19 Nilsa Weeks R.N.Multiple Sclerosis. --17:18 11/20/19 Reed Nash following entry was modified by FLIP Nash, 17:18 11/20/19Multiple Sclerosis. --17:10 11/20/19 Nilsa Weeks R.N..ADDITIONAL SURGERIES:Gastric sleeve. --17:11 11/20/19 Nilsa Weeks R.N. 2 Clinical Report - Nurses [facility] Emergency Department [address] [place] [address] Phone #: ext- [phone] 11/20/2019 17:04 Patient: IMELDA VALERIO Sex: F : 1990 Age: 29y Appendectomy. Cholecystectomy. --17:11 11/20/19 Nilsa Weeks R.N. History PAST MEDICAL HX: Last normal menstrual period- Oct 26. SOCIAL HX: Smoker- current status unknown (quit 1 month ago). No alcohol use or drug use. She was offered HIV testing but declined and hepatitis C testing but declined. She has not traveled outside the [place] Infectious disease exposure: No infectious disease exposure. Patient is not a known carrier of tuberculosis, hepatitis, HIV, MRSA or VRE. Patient is not a known carrier of CRE. SELF HARM ASSESSMENT: Self harm assessment was performed. The patient answered "no" to the question(s) "Have you recently felt down, depressed, or hopeless?", "Do you have thoughts of harming or killing yourself?", "Do you have a plan for harming or killing yourself?", "Have you recently had thoughts about harming or killing others?", "Do you have any dangerous items in your possession?", "Have you noticed less interest or pleasure in doing things?", "Are you here because you tried to hurt yourself?" and "Have you ever tried to hurt yourself before today?". ABUSE ASSESSMENT: Abuse assessment. Abuse denied. No report of abuse. NUTRITIONAL RISK ASSESSMENT: The nutritional risk assessment revealed no deficiencies. FUNCTIONAL ASSESSMENT: Functional assessment: no impairments noted. LEARNING NEEDS ASSESSMENT: The learning needs assessment revealed no barriers. FALL RISK ASSESSMENT: Fall risk assessment completed. No risk factors identified. SKIN INTEGRITY ASSESSMENT: Skin integrity risk assessment completed. No skin integrity risk identified. --17:13 11/20/19 Nilsa Weeks R.N. Interventions Identification band on patient. To treatment room. --17:13 11/20/19 Nilsa Weeks R.N.PHYSICAL ASSESSMENTGENERAL / NEURO / PSYCH: Alert. Oriented X 4. Appears in no acute distress.HEENT: Mucous membranes are pink.RESPIRATORY: Respirations not labored. Wheezes in the left lung base posteriorly. (NON-PRODUCTIVE COUGH).CVS: Capillary refill less than 2 seconds.EXTREMITIES: No lower extremity edema.SKIN: Skin is warm and dry. Normal skin turgor. Skin is non-tender. --17:18 11/20/19 Katina Cantu R.N.NURSING PROGRESS NOTES 3 Clinical Report - Nurses [facility] Emergency Department [address] [place] [address] Phone #: ext- [phone] 11/20/2019 17:04 Patient: IMELDA VALERIO A cct#: [id number] Sex: F : 1990 Age: 29yCardiac monitor and pulse oximeter placed on patient. EKG time: (17:07 11/20/2019). EKG wasperformed by a tech and shown to the PA. Reassurance given. Two patient identifiers checked. Calllight placed in reach. Side rails up x 2. Bed placed in lowest position. Brakes of bed on. Patient readyfor evaluation- PA notified. --17:14 11/20/19 Nilsa Weeks R.N.17:40 11/20/2019 NITROGLYCERIN (Nitroglycerin Transdermal) Transdermal 0.4 mg applied to the leftchest. Allergies verified and confirmed 5 rights. Information reviewed with patient including reason fortaking this medication. Verbalizes understanding. --17:47 11/20/19January, R.N.17:47 11/20/2019 Site #1 started via IV in the left antecubital space with an 20g angiocath; two attempts.Saline lock flushed with 10 mL saline. --17:47 11/20/19January, R.N.17:47 11/20/2019 Started bag #1 1000 mL IV Fluids NS; at 125 mL/hr via site #1 via IV pump. Allergiesverified and confirmed 5 rights. IV patency established. IV site checked: no pain, redness, or swelling. IVflushed thoroughly pre- and post-medication administration. Information reviewed with patient includingreason for taking this medication. Verbalizes understanding. --17:47 11/20/19 january, R.N.17:48 11/20/2019 Zofran (Ondansetron HCl) IVP 4 mg given via site #1. Allergies verified and confirmed 5rights. IV patency established. IV site checked: no pain, redness, or swelling. IV flushed thoroughly pre-and post- medication administration. IVP given by RN. Information reviewed with patient including reasonfor taking this medication. Verbalizes understanding. --17:49 11/20/19January, R.N.17:50 11/20/2019 Morphine IVP 2 mg given via site #1. Allergies verified and confirmed 5 rights. IV patencyestablished. IV site checked: no pain, redness, or swelling. IV flushed thoroughly pre- and post- medicationadministration. IVP given by RN. Information reviewed with patient including reason for taking thismedication and sedative warning. Verbalizes understanding. --17:50 11/20/19January, R.N.18:00 11/20/19. BP: 111/68. MAP: 82. HR: 103. RR: 18. O2 saturation: 97%. --18:01 11/20/19 Gabbie Castillo ER Qhdu048:42 11/20/19. Patient returned from CT by wheelchair with solar panel technician. --18:48 11/20/19, R.N.19:03 11/20/19. BP: 113/71. MAP: 85. HR: 92. RR: 29. O2 saturation: 100%. --19:03 11/20/19 Gabbie Castillo, DANI Tech1( pt resting, no c/o, vss, waiting on CT results.). --19:24 11/20/19 Katina Cantu R.N.( pt c/o chest wall pain coming back and feeling like its pulling to her left shoulder, vss, also c/o headache,Dr workman, nitro patch removed.). --20:18 11/20/19 Pepe January RVicentaNVicenta20:30 11/20/19. BP: 114/74. MAP: 87. HR: 107. RR: 22. O2 saturation: 95%. --20:47 11/20/19 KRISTY Gomez 4 Clinical Report - Nurses [facility] Emergency Department [address] [place] [address] Phone #: ext- [phone] 11/20/2019 17:04 Patient: IMELDA VALERIO Sex: F : 1990 Age: 29y 21:16 11/20/2019 GI Cocktail (Calcium Carbonate Antacid) PO 50 mL gi louise. Allergies verified and confirmed 5 rights. Information reviewed with patient including reason for taking this medication. Verbalizes understanding. --21:19 11/20/19 Pepe KatinaElver EKG time: (21:16 11/20/2019). EKG was performed by a nurse and shown to the ED physician. --21:19 11/20/19 Pepe JanuaryThiNVicenta 20:18 11/20/2019 NITROGLYCERIN Transdermal discontinued due to adverse reaction: headache. --21:22 11/20/19 Pepe JanuaryThiNVicenta 21:21 11/20/2019 Morphine IVP 4 mg given via site #1. Allergies verified and confirmed 5 rights. IV patency established. IV site checked: no pain, redness, or swelling. IV flushed thoroughly pre- and post-medication administration. IVP given by RN. Information reviewed with patient including reason for taking this medication and sedative warning. Verbalizes understanding. --21:21 11/20/19 Katina Cantu R.N.DISPOSITION / DISCHARGE 21:38 11/20/19. BP: 135/82. MAP: 99. HR: 103. RR: 20. O2 saturation: 94%. Temp: 100.3 F. Pain level now: 02/03. --21:44 11/20/19 Katina Cantu R.N. Condition at departure: improved and stable. No learning barriers present. Discharge instructions provided and reviewed with the patient. Reviewed medication(s). Treatments reviewed. Follow up contact number. Patient verbalized understanding. Written instructions provided in Mauritian. The patient was discharged by the physician. She was discharged home and accompanied by spouse. She left ambulatory and via private vehicle. Spouse driving. --21:44 11/20/19 Katina Cantu R.N. 21:45 11/20/2019 Site #1 removed upon discharge. Catheter intact. Bandaid applied. --21:45 11/20/19 Katina Cantu R.N. 21:45 11/20/2019 IV Fluids NS via IV site #1 Discontinued: bag #1 STOPPED upon discharge. Total amount infused: 500 mL. IV patency established. IV site checked: no pain, redness, or swelling. IV flushed thoroughly. --21:45 11/20/19 Katina Cantu R.N.Locked/Released at 11/20/2019 21:46 by Katina Cantu R.N. Name Value Range Interpretation Code Description Data Jany rce(s) Supporting Document(s) ID Date Data Source [id number] 11/20/2019 05:15:00 PM EST [facility] 1 Clinical Report - Physicians/Mid Levels [facility] Emergency Department [address] [place] [address] Phone #: ext- [phone] 11/20/2019 17:04 Patient: IMELDA VALERIO Sex: F : 1990 Age: 29y Time Seen: 17:08 11/20/2019. Arrived- By private vehicle. Historian- patient.HISTORY OF PRESENT ILLNESS Chief Complaint: CHEST PAIN. This started several hours ago; Acute onset substernal chest pain radiating into L shoulder with lightheadedness, states feels like something sitting on chest. palpitations. Cough x several days. Denies fever. It is described as pressure and it is described as located in the central chest and left chest area and left shoulder and radiating to the left shoulder. At its maximum, severity described as 9 / 10. When seen in the E.D., severity described as 9 / 10. Modifying factors- worsened by exertion. No difficulty breathing or diaphoresis. No additional chest pain. Similar symptoms previously. None. Recent medical care: Not recently seen/assessed.REVIEW OF SYSTEMSLast normal menstrual period- 26 Oct 2019. No fever, chills, pedal edema, calf pain or fainting episodes.No sore throat, blurred vision, abdominal pain, black stools or difficulty with urination. No skin rash,enlarged lymph nodes, joint pain or bloody stools. The patient has had a cough. She has had aheadache (migraine, now resolved).PAST HISTORYSee nurses notes. Problems: Bone spur. LUE burisits . Acute Pain. Asthma. Sprain. MS. Multiple Sclerosis. Neuropathy. Additional Surgeries: Appendectomy. Cholecystectomy. Gastric sleeve. Gastric Sleeve. Oophorectomy. 2 Clinical Report - Physicians/Mid Levels [facility] Emergency Department [address] [place] [address] Phone #: ext- [phone] 11/20/2019 17:04 Patient: IMELDA VALERIO Sex: F : 1990 Age: 29y Medications: NuvaRing Vaginal. Nortriptyline HCl Oral (Capsule 25 mg) 1 capsule, daily at bedtime. Vitamin B12 Oral. Vitamin D Oral. PROzac Oral 30 mg, daily. Ocrevus Intravenous (every6 months). Allergies: NSAIDs.SOCIAL HISTORYFormer smoker. No alcohol use or drug use. No recent travel.ADDITIONAL NOTESThe nursing notes have been reviewed with agreement regarding the chief complaint, HPI, ROS, PMH andpatient medications and allergies.PHYSICAL EXAMVital Signs: 11/20/2019 17:05 BP: 149/81. MAP: 103. HR: 93. RR: 20. O2 saturation: 97%. Temp: 97.9 F.Pain level now: 07/06. Have been reviewed as abnormal and appear to be correct. Hypertensive. Meanarterial pressure- normal. Heart rate normal. Respiratory rate normal. Temperature normal. Oxygensaturation normal.Appearance: Alert. Oriented X3. Anxious. Patient in moderate distress. Distress appears due toanxiety.Eyes: Pupils equal, round and reactive to light. Eyes normal inspection.ENT: Ears normal. Nose normal. Pharynx normal.Neck: Normal inspection. Neck supple.CVS: Tachycardia. Heart sounds normal. Pulses normal.Respiratory: No respiratory distress. Painless inspiration. Expiratory mild bilateral wheezes diffusely.Chest nontender.Abdomen: Soft and nontender. Bowel sounds normal. No organomegaly. No mass. Femoral pulsesequal.Back: Normal external inspection.Skin: Skin warm and dry. Normal skin color. No rash. Normal skin turgor.Extremities: Extremities exhibit normal ROM. No lower extremity edema.Neuro: Oriented X 3. No motor deficit. No sensory deficit. Reflexes normal.LABS, X-RAYS, AND EKGEKG: EKG time: 17:15 11/20/2019. No acute process. No acute ischemia. Normal EKG. Rate: 99.Normal P waves. Normal USHA. Normal QRS complex. Normal axis. Normal ST and T waves, QT andQTc. The study has been interpreted contemporaneously by me. The study has been independentlyviewed by me. The EKG appears to be a good tracing. I agree with and confirm the computer reading ofthe EKG. Interpretation time: 17:15 11/20/2019.Laboratory Tests: Laboratory tests have been ordered, with results reviewed and considered in the 3 Clinical Report - Physicians/Mid Levels [facility] Emergency Department [address] [place] [address] Phone #: ext- [phone] 11/20/2019 17:04 Patient: IMELDA VALERIO Sex: F : 1990 Age: 29ymedical decision making process.CT CTA CHEST NON- CORONARY W CON INC PP: (ANNMARIE: 11/20/2019 17:50) ( MsgRcvd 11/20/2019 18:57) InProgressCT CTA CHEST NON-CORONARY W CON INC PPReason(s): Please r/o PE, tachycardia, CP, BCP's smokerTRANSPORTATION: S IV? IV?(Yes) O2? Oxygen?(No) Ro: Will sign waiverCBC w Diff: (ANNMARIE: 11/20/2019 17:35) ( MsgRcvd 11/20/2019 17:50) Final results Test Result Flag Units (Reference) CBC W/AUTOMATED DIFF COMPLETE BLOOD COUNT WBC 5.7 10/uL (4.2 - 11.0) RBC 4.3 9 10/uL (4.20 - 5.40) HEMOGLOBIN 12.7 g/dL (12.0 - 16.0) HEMATOCRIT 38.9 % (37.0 - 47.0) MCV 88.6 fL (81.0 - 101) MCH 28.9 pg (27.0 - 34.0) MCHC 32.6 g/dL (31.0 - 36.0) RDW 13.6 % (11.5 - 14.5) PLATELETS 255 10/uL (150 - 450) MPV 9.5 fL (7.4 - 10.4) NEUT 79.7 % (37.0 - 80.0) LYMPH 5.4 L % (25.0 - 40.0) MONO 11.6 H % (3.0 - 8.0) EOS 2.6 % (0.0 - 7.0) BASO 0.5 % (0.0 - 2.5) %IG 0.2 H % (0.0 - 0.0) %NRBC 0.0 % (0.0 - 0.0) #NEUT 4.53 10/uL (2.00 - 6.90) #LYMPH 0.31 L 10/uL (0.60 - 3.40) #MONO 0.66 10/uL (0.00 - 0.90) #EOS 0.15 10/uL (0.00 - 0.70) #BASO 0.03 10/uL (0.00 - 0.20) #IG 0.01 10/uL (0.00 - 0.10) #NRBC 0.00 10/uL (0.00 - 0.00) MANUAL DIFF NOT INDICATED RBC MORPH NOT INDICATEDCMP: (ANNMARIE: 11/20/2019 17:35) ( MsgRcvd 11/20/2019 18:28) Final results Test Result Flag Units (Reference) COMPREHENSIVE METABOLIC PANEL COMPREHENSIVE METABOLIC PANEL SODIUM 139 mEq/L (134 - 153) POTASSIUM 4.0 mEq/L (3.6 - 5.0) CHLORIDE 104 mEq/L (98 - 107) CO2 21 L MEQ/L (22 - 30) GLUCOSE 75 MG/DL (65 - 110) BUN 7 MG/DL (7 - 21) CREATININE 0.8 MG/DL (0.7 - 1.5) BUN/CREAT 9 (8 - 27) TOTAL PROTEIN 6.8 G/DL (6.3 - 8.2) ALBUMIN 4.4 G/DL (3.9 - 5.0) GLOBULIN 2.4 GM/DL (2.4 - 3.2) A/G RATIO 1.8 (0.8 - 2.0) CALCIUM 9.8 MG/DL (8.4 - 10.2) TOTAL BILI 0.7 MG/DL (0.2 - 1.3) ALKALINE PHOS 82 U/L (38 - 126) SGOT/AST 25 U/L (5 - 40) SGPT/ALT 19 U/L (7 - 56) ANION GAP 14.0 mmol/L (8.0 - 16.0) AGE 29 yrs NON-AA GFR >60 mL/min 4 Clinical Report - Physicians/Mid Levels [facility] Emergency Department [address] [place] [address] Phone #: ext- [phone] 11/20/2019 17:04 Patient: IMELDA VALERIO Sex: F : 1990 Age: 29y AFR AMER GFR >60 mL/min Male GFR Interprentation 20-49 yrs >60 mL/min Normal 50-59 yrs >56 mL/min Normal 60-69 yrs >49 mL/min Normal 70-79yrs >42 mL/min Normal 80 and above >35 mL/min Normal Female GFR Interpretation 20-39 yrs >60 mL/min Normal 40-49 yrs >58 mL/min Normal 50-59 yrs >51 mL/min Normal 60-69 yrs >45 mL/min Normal 70-79 yrs >39 mL/min Normal 80 and above >32 mL/min Normal D-Dimer: (ANNMARIE: 11/20/2019 17:35) ( IngRcvd 11/20/2019 17:59) Final results Test Result Flag Units (Reference) D-DIMER QUANT <0.27 ug/mL (0.27 - 0.50) Lactic Acid: (ANNMARIE: 11/20/2019 17:35) ( MsgRcvd 11/20/2019 17:50) Final results Test Result Flag Units (Reference) LACTIC ACID 2.1 MMOL/L (0.2 - 2.2) Troponin-T: (ANNMARIE: 11/20/2019 17:35) ( MsgRcvd 11/20/2019 18:28) Final results Test Result Flag Units (Reference) TROPONIN T 0.01 NG/ML (0.00 - 0.10) TROPONIN T0.1 ng/ml Recommended as the clinical threshold value Antonimessi T. TSH: (ANNMARIE: 11/20/2019 17:35) ( [facility] 11/20/2019 18:20) Final results Test Result Flag Units (Reference) TSH 1.32 uIU/mL (0.47 - 5.01) Urinalysis: (ANNMARIE: 11/20/2019 18:55) ( [facility] 19[facility] Final results Test Result Flag Units (Reference) URINALYSIS URINALYSIS SOURCE R COLOR yellow (NORMAL: Yello CLARITY clear (NORMAL: Clear SPEC GRAVITY 1.005 (1.001 - 1.030 pH 7 (5 - 9) GLUCOSE NORM (NORMAL: Negat BILIRUBIN NEG (NORMAL: Negat KETONE 15 A (NORMAL: Negat PROTEIN NEG (NORMAL: Negat NITRITE NEG (NORMAL: Negat BLOOD NEG (NORMAL: Negat LEUK EST NEG (NORMAL: Negat UROBILINOGEN NOR (less than 1.0 MICROSCOPIC Not Indicate Chest Portable 1 View: (ANNMARIE: 11/20/2019 17:15) ( [facility] 11/20/2019 18:57 ) In Progress CHEST PORTABLE Reason(s): Chest Pain TRANSPORTATION: P IV? O2? Oxygen?(No) Room: ED : Will sign waiver.PROGRESS AND PROCEDURESCourse of Care: 18:53 Nov 20 2019. Awaiting CTA chest results. 18:55 Nov 20 2019. ED caretransferred. Case discussed with Dr Christianson. Assumed care. Brief hx: Chest pressure, pain, cough, r/o PE. 5 Clinical Report - Physicians/Mid Levels [facility] Emergency Department [address] [place] [address] Phone #: ext- [phone] 11/20/2019 17:04 Patient: IMELDA VALERIO Sex: F : 1990 Age: 29y(Electronically signed by FLIP Nash 11/22/2019 11:51) Time Seen: 19:00 11/20/2019 (Dr. Christianson assumes care from Adina Walker). ED care transferred. Case discussed with receiving physician. Arrived- By private vehicle. Historian- patient. Disposition decision: 21:45 11/20/2019.HISTORY OF PRESENT ILLNESS Chief Complaint: CHEST PAIN. This started 3PM today; Pt. has MS and neuropathy and is still present. It was abrupt in onset and has been waxing/waning. Onset during light activity. It is described as pressure, tightness, aching, sharp and "pain" and it is described as located in the central chest and left chest area and radiating to the left shoulder and left chest. When seen in the E.D., severity described as 9 / 10. Modifying factors- worsened by exertion, movement, walking, cough and deep breaths. No nausea, vomiting, difficulty breathing or diaphoresis. Similar symptoms previously. Recent medical care: The patient was seen recently at another facility in the office.REVIEW OF SYSTEMSNo fever, chills, pedal edema, calf pain or fainting episodes. No headache, sore throat, blurred vision,abdominal pain or black stools. No difficulty with urination, skin rash, enlarged lymph nodes, joint pain orbloody stools. The patient has had a cough.PAST HISTORYPast history not negative. See nurses notes. Surgeries: Appendectomy. Cholecystectomy. (Gastric sleeve).SOCIAL HISTORYFormer smoker. No alcohol use or drug use.ADDITIONAL NOTESThe nursing notes have been reviewed with agreement regarding the chief complaint, HPI, ROS, PMH andpatient medications and allergies.PHYSICAL EXAM 6 Clinical Report - Physicians/Mid Levels [facility] Emergency Department [address] [place] [address] Phone #: ext- [phone] 11/20/2019 17:04 Patient: IMELDA VALERIO Sex: F : 1990 Age: 29y Vital Signs: 11/20/2019 19:03 BP: 113/71. MAP: 85. HR: 92. RR: 29. O2 saturation: 100%. 11/20/2019 18:00 BP: 111/68. MAP: 82. HR: 103. RR: 18. O2 saturation: 97%. 11/20/2019 17:05 BP: 149/81. MAP: 103. HR: 93. RR: 20. O2 saturation: 97%. Temp: 97.9 F. Pain level now: 07/06. Have been reviewed and appear to be correct. Blood pressure normal. Heart rate normal. Tachypneic. Temperature normal. Oxygen saturation normal. Appearance: Alert. Oriented X3. Anxious. Appears to be in pain. Patient in moderate distress. In distress. Eyes: Pupils equal, round and reactive to light. Eyes inspection not normal. Pale conjunctivae. ENT: Nose normal. Pharynx normal. Neck: Normal inspection. Neck supple. CVS: Heart rate / rhythm abnormal. Tachycardia. Heart sounds normal. Pulses normal. Respiratory: No respiratory distress. Chest tender. Chest pain reproducible with palpation of the costal cartilage, costochondral junction and anterior chest wall. Painless inspiration. Breath sounds normal. Abdomen: Soft and nontender. Bowel sounds normal. No organomegaly. No mass. Back: Normal external inspection. Skin: Skin warm and dry. Abnormal skin color. No rash. Normal skin turgor. Pallor. Extremities: Extremities exhibit normal ROM. No lower extremity edema. Neuro: Oriented X 3. No motor deficit. No sensory deficit.LABS, X-RAYS, AND EKGEKG: Normal EKG.Laboratory Tests: Laboratory tests have been ordered, with results reviewed and considered in themedical decision making process. Troponin-T: (ANNMARIE: 11/20/2019 20:10) ( MsgRcvd 11/20/2019 20:52) Final results Test Result Flag Units (Reference) TROPONIN T 0.01 NG/ML (0.00 - 0.10) TROPONIN T0.1 ng/ml Recommended as the clinical threshold value forTroponin T. CT CTA CHEST NON-CORONARY W CON INC PP: (ANNMARIE: 11/20/2019 17:50) ( MsgRcvd 11/20/2019 20:41) Final results Test Result Flag Units (Reference) CT CTA CHEST NON-CORONARY W CON INC PP [address] [place] [address] ---------NAME--------- NUMBER SEX AGE ADMIT DISC. XRAY# F/C TYPE TEODORO Monreal [id number] F 29 11/20/19 [id number] SB4 E/R DATE OF : 1990 M/R# [id number] #: [id number] TR-02 LOCATION: EMERGENCY DEPT TRANSCRIBED: 11/20/19 20:[address] CTA CHEST NON-CORONARY W [id number] COMPLETED:11/20/19 18:57 ST[place] [id number] Reason(s): Please r/o PE, tachycardia, CP, BCP's smoker -- PHYSICIAN: LEIGHA PEOPLES -- -- R A D I O L O G Y R E P O R T -- PATIENT HISTORY: R/O PE signed waiver verified 2 pt identifiers timeout performed 75ml isovue 370 injected acc dlp 696.5mgy*cm MP / SAGITTAL (DICOM Hx) -- CT - CTA Chest -- -- Hi story: 7 Clinical Report - Physicians/Mid Levels [facility] Emergency Department [address] [place] [address] Phone #: ext- [phone] 11/20/2019 17:04 Patient: IMELDA VALERIO Sex: F : 1990 Age: 29y R/O PE signed waiver verified 2 pt identifiers timeout performed 75ml isovue 370 injected acc dlp 696.5mgy*cm MP (Hx) / SAGITTAL (DICOM Hx) -- Technique: CT CTA CHEST NON- CORONARY W CON INC PP Dose length product (mGy-cm): Not provided Reformations: None Contrast: With; Iodine 0 -- Comparison: No comparison study provided. -- -- Findings: -- Motion limited exam -- There is no aortic dissection or aneurysm. There is no definitive filling defects seen in the pulmonary arteries. No definitive evidence for pulmonary embolism. Some subsegmental arteries not well evaluated -- Heart size is normal. No pericardial effusion. No adenopathy within the mediastinum or hilar regions. Minor groundglass changes the anterior upper lobes bilaterally likely due to minor atelectasis. No effusions or pneumothorax. -- There is no aggressive bony lesion. -- -- IMPRESSIONS: -- Motion limited exam: No definitive evidence for pulmonary embolism. Minor groundglass changes the anterior upper lobes bilaterally likely due to minor atelectasis. -- While performing the above CT examination, radiation dose reduction was accomplished utilizing automated exposure control, adjusting of the mA and kV based on the patient's body size and/or the use of imperative reconstructive -- techniques. -- -- -- Electronically Signed By: Calin Ramos M.D. , Radiologist Date/Time: 11/20/19 20:.STANLEY.to EMERGENCY via [facility] w Diff: (ANNMARIE: 11/20/2019 17:35) ( MsgRcvd 11/20/2019 17:50) Final results Test Result Flag Units (Reference) CBC W/AUTOMATED DIFF COMPLETE BLOOD COUNT WBC 5.7 10/uL (4.2 - 11.0) RBC 4.39 10/uL (4.20 - 5.40) HEMOGLOBIN 12.7 g/dL (12.0 - 16.0) HEMATOCRIT 38.9 % (37.0 - 47.0) MCV 88.6 fL (81.0 - 101) MCH 28.9 pg (27.0 - 34.0) MCHC 32.6 g/dL (31.0 - 36.0) RDW 13.6 % (11.5 - 14.5) PLATELETS 255 10/uL (150 - 450) MPV 9.5 fL (7.4 - 10.4) NEUT 79.7 % (37.0 - 80.0) LYMPH 5.4 L % (25.0 - 40.0) MONO 11.6 H % (3.0 - 8.0) EOS 2.6 % (0.0 - 7.0) BASO 0.5 % (0.0 - 2.5) %IG 0.2 H % (0.0 - 0.0) %NRBC 0.0 % (0.0 - 0.0) #NEUT 4.53 10/uL (2.00 - 6.90) 8 Clinical Report - Physicians/Mid Levels [facility] Emergency Department [address] [place] [address] Phone #: ext- [phone] 11/20/2019 17:04 Patient: IMELDA VALERIO Sex: F : 1990 Age: 29y #LYMPH 0.31 L 10/uL (0.60 - 3.40) #MONO 0.66 10/uL (0.00 - 0.90) #EOS 0.15 10/uL (0.00 - 0.70) #BASO 0.03 10/uL (0.00 - 0.20) #IG 0.01 10/uL (0.00 - 0.10) #NRBC 0.00 10/uL (0.00 - 0.00) MANUAL DIFF NOT INDICATED RBC MORPH NOT INDICATEDCMP: (ANNMARIE: 11/20/2019 17:35) ( MsgRcvd 11/20/2019 18:28) Final results Test Result Flag Units (Reference) COMPREHENSIVE METABOLIC PANEL COMPREHENSIVE METABOLIC PANEL SODIUM 139 mEq/L (134 - 153) POTASSIUM 4.0 mEq/L (3.6 - 5.0) CHLORIDE 104 mEq/L (98 - 107) CO2 21 L MEQ/L (22 - 30) GLUCOSE 75 MG/DL (65 - 110) BUN 7 MG/DL (7 - 21) CREATININE 0.8 MG/DL (0.7 - 1.5) BUN/CREAT 9 (8 - 27) TOTAL PROTEIN 6.8 G/DL (6.3 - 8.2) ALBUMIN 4.4 G/DL (3.9 - 5.0) GLOBULIN 2.4 GM/DL (2.4 - 3.2) A/G RATIO 1.8 (0.8 - 2.0) CALCIUM 9.8 MG/DL (8.4 - 10.2) TOTAL BILI 0.7 MG/DL (0.2 - 1.3) ALKALINE PHOS 82 U/L (38 - 126) SGOT/AST 25 U/L (5 - 40) SGPT/ALT 19 U/L (7 - 56) ANION GAP 14.0 mmol/L (8.0 - 16.0) AGE 29 yrs NON-AA GFR >60 mL/min AFR AMER GFR >60 mL/min Male GFR Interprentation 20-49 yrs >60 mL/min [id number] yrs >56 mL/min Normal 60-69 yrs >49 mL/min Normal 70-79yrs>42 mL/min Normal 80 and above >35 mL/min Normal Female GFRInterpretation 20-39 yrs >60 mL/min Normal 40-49 yrs >58 mL/minNormal 50-59 yrs >51 mL/min Normal 60-69 yrs >45 mL/min Btqrku99-56 yrs >39 mL/min Normal 80 and above >32 mL/min NormalD-Dimer: (ANNMARIE: 11/20/2019 17:35) ( MsgRcvd 11/20/2019 17:59) Final results Test Result Flag Units (Reference) D-DIMER QUANT <0.27 ug/mL (0.27 - 0.50)Lactic Acid: (ANNMARIE: 11/20/2019 17:35) ( [facility] 11/20/2019 17:50) Final results Test Result Flag Units (Reference) LACTIC ACID 2.1 MMOL/L (0.2 - 2.2)Troponin-T: (ANNMARIE: 11/20/2019 17:35) ( [facility] 11/20/2019 18:28) Final results Test Result Flag Units (Reference) TROPONIN T 0.01 NG/ML (0.00 - 0.10) TROPONIN T0.1 ng/ml Recommended as the clinical threshold value forTroponin T.TSH: (ANNMARIE: 11/20/2019 17:35) ( [facility] 11/20/2019 18:20) Final results Test Result Flag Units (Reference) TSH 1.32 uIU/mL (0.47 - 5.01)Urinalysis: (ANNMARIE: 11/20/2019 18:55) ( [facility] 11/20/2019 19:01) Final results Test Result Flag Units (Reference) URINALYSIS 9 Clinical Report - Physicians/Mid Levels [facility] Emergency Department [address] [place] [address] Phone #: ext- [phone] 11/20/2019 17:04 Patient: IMELDA VALERIO Sex: F : 1990 Age: 29y URINALYSIS SOURCE R COLOR yellow (NORMAL: Yello CLARITY clear (NORMAL: Clear SPEC GRAVITY 1.005 (1.001 - 1.030 pH 7 (5 - 9) GLUCOSE NORM (NORMAL: Negat BILIRUBIN NEG (NORMAL: Negat KETONE 15 A (NORMAL: Negat PROTEIN NEG (NORMAL: Negat NITRITE NEG (NORMAL: Negat BLOOD NEG (NORMAL: Negat LEUK EST NEG (NORMAL: Negat UROBILINOGEN NOR (less than 1.0 MICROSCOPIC Not Indicate Chest Portable 1 View: (ANNMARIE: 11/20/2019 17:15) ( MsgRcvd 11/20/2019 18:57) In Progress CHEST PORTABLE Reason(s): Chest Pain TRANSPORTATION: P IV? O2? Oxygen?(No) Room: ED : Will sign waiver . Note - Tests: (CTA chest - No P.E. Groundglass changes to upper lobes c/w minor atelectasis. No pleural or pericardial effusions.).PROGRESS AND PROCEDURESCourse of Care: 20:57 Nov 20 2019. Patient is stable. Symptoms better. 20:57 Nov 20 2019. Repeat t roponin and CTA chest results are unremarkable. Other than mild tachycardia at times, there are no significant abnormalities on labs / X-rays. Will recommend follow-up with Dr. Velazquez for stress test / ECHO. Critical care performed (120 minutes). Time is exclusive of separately billable procedures. Time includes: direct patient care, patient reassessment, coordination of patient care, interpretation of data (laboratory data and pulse oximetry), review of patient's medical records and documentation of patient care- see progress notes. Procedures included in critical care time: peripheral IV placement and phlebotomy- see progress notes. Disposition: Discharged (21:45 Nov 20 2019). Condition: good.CLINICAL IMPRESSION Precordial chest pain characterized as "discomfort", "pressure" and "tightness". Acute mucopurulent bronchitis. (Mild). Sinus tachycardia 10 Clinical Report - Physicians/Mid Levels [facility] Emergency Department [address] [place] [address] Phone #: ext- [phone] 11/20/2019 17:04 --------- Patient: IMELDA VALERIO Sex: F : 1990 Age: 29yINSTRUCTIONS Avoid stimulants (such as cigarettes, coffee, cold medicines, sinus medicines, street drugs). Warnings: Further evaluation is necessary. GENERAL WARNINGS: Return or contact your physician immediately if your condition worsens or changes unexpectedly, if not improving as expected, or if other problems arise. Prescription Medications: Zithromax Z-Cesar 250 mg tablet Take as directed for 5 days -- for bronchitis - Take 2 tabs PO on day 1, then one tab PO each day for next 4 days. Dispense 1 pack. Refills: 0. Substitution permitted. Pharmacy - [facility] [phone] ; [place] [address]. . albuterol sulfate 2.5 mg/3 mL (0.083 %) solution for nebulization Inhale 1 vial every six hours as needed for 10 days -- for cough / SOB / wheezing. Dispense 40 vial. Refills: 0. Substitution permitted. Pharmacy - [facility] [phone] ; [place] [address]. . Prednisone 10mg dose pack sig: take 6 tabs PO each day for 2 days, then 5 tabs PO each day for 2 days, then taper by one tab each day every other day until down to 1 tab PO each day for 2 days. Disp# 42. Understanding of the discharge instructions verbalized by patient and family. Follow-up with: Dontae Velazquez MD, Cardiology, , [address] [place] [address], [id number] Follow up. Call for the next available appointment. Reason for referral: evaluation, treatment and Atypical chest pain / Bronchitis / Sinus tach.(Electronically signed by Rosalino Christianson, Physician 11/21/2019 11:03) Name Value Range Interpretation Code Description Data Jany rce(s) Supporting Document(s) ID Date Data Source [id number] 11/22/2019 03:18:00 AM [place] [address] RESPIRATORY CARE REPORT ==== ---------NAME------- NUMBER SEX AGE ADMIT DISC. XRAY# F/C HOUSTON Monreal [id number] F 29 11/20/19 11/20/19 [id number] SB4 E/R DATE OF : 1990 M/R# [id number] PH#: [phone] TR- LOCATION: EMERGENCY DEPT EKG 80082 COMP LETE:11/21/19 02:18 VMT 90891 EKG 92482 COMPLETE:11/21/19 02:18 VMT [id number] PHYSICIAN: LEIGHA PEOPLES Name Value Range Interpretation Code Description Data Jany rce(s) Supporting Document(s) ID Date Data Source [id number] 11/20/2019 08:41:00 [place] [address] ---------NAME--------- NUMBER SEX AGE ADMIT DISC. XRAY# F/C KASHMIR Monreal [id number] F 29 11/20/19 [id number] SB4 E/R DATE OF : 1990 M/R# [id number] PH#: [phone] TR- LOCATION: EMERGENCY DEPT TRANSCRIBED: 11/20/19 20:[address] CTA CHEST NON-CORONARY W [id number] COMPLETED:11/20/19 18:57 [place] [id number] Reason(s): Please r/o PE, tachycardia, CP, BCP's smoker PHYSICIAN: LEIGHA PEOPLES == R A D I O L O G Y R E P O R T PATIENT HISTORY:R/O PE signed waiver verified 2 pt identifiers timeout performed 75ml isovue 370injected acc dlp 696.5mgy*cm MP / SAGITTAL (DICOM Hx)CT - CTA ChestHistory:R/O PE signed waiver verified 2 pt identifiers timeout performed 75ml isovue 370injected acc dlp 696.5mgy*cm MP (Hx) / SAGITTAL (DICOM Hx)Technique:CT CTA CHEST NON-CORONARY W CON INC PPDose length product (mGy-cm): Not providedReformations: NoneContrast: With; Iodine 0Comparison:No comparison study provided.Findings:Motion limited examThere is no aortic dissection or aneurysm. There is no definitive fillingdefects seen in the pulmonary arteries. No definitive evidence for pulmonaryembolism. Some subsegmental arteries not well evaluatedHeart size is normal. No pericardial effusion. No adenopathy within themediastinum or hilar regions.Minor groundglass changes the anterior upper lobes bilaterally likely due tominor atelectasis.No effusions or pneumothorax.There is no aggressive bony lesion.IMPRESSIONS:Motion limited exam:No definitive evidence for pulmonary embolism.Minor groundglass changes the anterior upper lobes bilaterally likely due tominor atelectasis.While performing the above CT examination, radiation dose reduction wasaccomplished utilizing automated exposure control, adjusting of the mA and kVbased on the patient's body size and/or the use of imperative reconstructivetechniques.Electronically Signed By:Calin Ramos M.D. , RadiologistDate/Time: 11/20/19 20:41 11/20/[email or web address].to E MERGENCY via modem Name Value Range Interpretation Code Description Data Jany rce(s) Supporting Document(s) ID Date Data Source [id number] 11/20/2019 08:52:00 PM EST [facility] Name Value Range Interpretation Code Description Data [facility](s) Supporting Document(s) TROPONIN T 0.01 NG/ML 0.00 - 0.10 [facility] TROPONIN T0.1 ng/ml Recommended as the c linical threshold value forTroponin T. ID Date Data Source [id number] 11/20/2019 07:01:00 PM EST [facility] Name Value Range Interpretation Code Description Data [facility](s) Supporting Document(s) URINALYSIS [facility] angélica [facility] yellow NORMAL: Yellow [facility] CLARITY clear NORMAL: Clear [facility] Specific gravity of Urine by Test strip 1.005 1.001 - 1.030 [facility] pH 7 5 - 9 [facility] Glucose [Mass/volume] in Urine by Test strip NORM NORMAL: Negat [facility] Bilirubin.total [Presence] in Urine by Test strip NEG NORMAL: Negative [facility] Ketones [Presence] in Urine by Test strip 15 NORMAL: Negative A [facility] Protein [Mass/volume] in Urine by Test strip NEG NORMAL: Negat [facility] Nitrite [Presence] in Urine by Test strip NEG NORMAL: Negative [facility] BLOOD NEG NORMAL: Negative [facility] Leukocyte esterase [Presence] in Urine by Test strip NEG LIBORIO L: Negative [facility] Urobilinogen [Mass/volume] in Urine by Test strip NOR less ejannette n 1.0 mg/dL [facility] MICROSCOPIC Not Indicate [facility] ID Date Data Source [id number] 11/20/2019 06:28:00 PM EST [facility] Name Value Range Interpretation Code Description Data [facility](s) Supporting Document(s) TROPONIN T 0.01 NG/ML 0.00 - 0.10 [facility] TROPONIN T0.1 ng/ml Recommended as the c linical threshold value forTroponin T. ID Date Data Source [id number] 11/20/2019 06:28:00 PM EST [facility] Name Value Range Interpretation Code Description Data Jany rce(s) Supporting Document(s) COMPREHENSIVE METABOLIC PANEL [facility] COMPREHENSIVE METABOLIC PANEL Sodium [Moles/volume] in Serum or Plasma 139 mEq/L 134 - 153 [facility] Potassium [Moles/volume] in Serum or Plasma 4.0 mEq/L 3.6 - 5.0 [facility] Chloride [Moles/volume] in Serum or Plasma 104 mEq/L 98 - 107 [facility] Carbon dioxide, total [Moles/volume] in Serum or Plasma 21 MEQ/L 22 - 30 L [facility] Glucose [Mass/volume] in Serum or Plasma 75 MG/DL 65 - 110 [facility] BUN 7 MG/DL 7 - 21 [facility] Creatinine [Mass/volume] in Serum or Plasma 0.8 MG/DL 0.7 - 1.5 [facility] BUN/CREAT 9 8 - 27 [facility] Protein [Mass/volume] in Serum or Plasma 6.8 G/DL 6.3 - 8.2 [facility] Albumin [Mass/volume] in Serum or Plasma 4.4 G/DL 3.9 - 5.0 [facility] Globulin [Mass/volume] in Serum by calculation 2.4 GM/DL 2.4 - 3.2 [facility] A/G RATIO 1.8 0.8 - 2.0 [facility] Calcium [Mass/volume] in Serum or Plasma 9.8 MG/DL 8.4 - 10.2 [facility] Bilirubin.total [Mass/volume] in Serum or Plasma 0.7 MG/DL 0.2 - 1.3 [facility] Alkaline phosphatase [Enzymatic activity/volume] in Serum or Plasma 82 U/L 38 - 126 [facility] Aspartate aminotransferase [Enzymatic activity/volume] in Serum or Plasma 25 U/L 5 - 40 [facility] Alanine aminotransferase [Enzymatic activity/volume] in Seru m or Plasma 19 U/L 7 - 56 [facility] Anion gap 3 in Serum or Plasma 14.0 mmol/L 8.0 - 16.0 [facility]GE 29 [facility] NON-AA GFR >60 mL/min [facility] AFR AMER GFR >60 mL/min [facility] Male GFR In terprentation 20-49 yrs >60 mL/min Normal 50-59 yrs >56 mL/min Normal 60-69 yrs >49 mL/min Normal 70-79yrs >42 mL/min Normal 80 and above >35 mL/min Normal Female GFR Interpretation 20-39 yrs >60 mL/min Normal 40-49 yrs >58 mL/min Normal 50-59 yrs >51 mL/min Normal 60-69 yrs >45 mL/min Normal 70-79 yrs >39 mL/min Normal 80 and above >32 mL/min Normal ID Date Data Source [id number] 11/20/2019 06:20:00 PM [facility] Value Range Interpretation Code Description Data Jany rce(s) Supporting Document(s) Thyrotropin [Units/volume] in Serum or Plasma by Detec tion limit <= 0.05 mIU/L 1.32 uIU/mL 0.47 - 5.01 [facility] ID Date Data Source [id number] 11/20/2019 05:58:00 PM [facility] Value Range Interpretation Code Description Data Jany rce(s) Supporting Document(s) Fibrin D-dimer FEU [Mass/volume] in Platelet poor plasma <0. 27 ug/mL 0.27 - 0.50 [facility] ID Date Data Source [id number] 11/20/2019 05:50:00 PM [facility] Value Range Interpretation Code Description Data Jany rce(s) Supporting Document(s) Lactate [Moles/volume] in Serum or Plasma 2.1 MMOL/L 0.2 - 2.2 [facility] ID Date Data Source [id number] 11/20/2019 05:50:00 PM [facility] Value Range Interpretation Code Description Data Jany rce(s) Supporting Document(s) CBC W/AUTOMATED DIFF [facility] COMPLETE BLOOD COUNT Leukocytes [#/volume] in Blood by Automated count 5.7 10^3/uL 4.2 - 1 1.0 [facility] Erythrocytes [#/volume] in Blood by Automated count 4.39 10^6/uL 4. 20 - 5.40 [facility] Hemoglobin [Mass/volume] in Blood 12.7 g/dL 12.0 - 16.0 [facility] Hematocrit [Volume Fraction] of Blood by Automated count 38.9 % 3 7.0 - 47.0 [facility] Erythrocyte mean corpuscular volume [Entitic volume] by Auto mated count 88.6 fL 81.0 - 101 [facility] Erythrocyte mean corpuscular hemoglobin [Entitic mass] by Automated count 28.9 pg 27.0 - 34.0 [facility] Erythrocyte mean corpuscular hemoglobin concentration [Mass/volume] by Automated count 32.6 g/dL 31.0 - 36.0 [facility] Erythrocyte distribution width [Ratio] by Automated count 13.6 % 11.5 - 14.5 [facility] Platelets [#/volume] in Blood by Automated count 255 10^3/uL 150 - 45 0 [facility] Platelet mean volume [Entitic volume] in Blood by Automated count 9.5 fL 7.4 - 10.4 [facility] Neutrophils/100 leukocytes in Blood by Automated count 79.7 % 37. 0 - 80.0 [facility] Lymphocytes/100 leukocytes in Blood by Manual count 5.4 % 25.0 - 40.0 L [facility] Monocytes/100 leukocytes in Blood by Automated count 11.6 % 3.0 - 8.0 H [facility] Eosinophils/100 leukocytes in Blood by Automated count 2.6 % 0.0 - 7.0 [facility] Basophils/100 leukocytes in Blood by Automated count 0.5 % 0.0 - 2.5 [facility] %IG 0.2 % 0.0 - 0.0 [facility] %NRBC 0.0 % 0.0 - 0.0 [facility] al Neutrophils [#/volume] in Blood by Automated count 4.53 10^3/uL 2.00 - 6.90 [facility] Lymphocytes [#/volume] in Blood by Automated count 0.31 10^3/uL 0.60 - 3.40 L [facility] Monocytes [#/volume] in Blood by Automated count 0.66 10^3/uL 0.00 - 0.90 [facility] Eosinophils [#/volume] in Blood by Automated count 0.15 10^3/uL 0.00 - 0.70 [facility] Basophils [#/volume] in Blood by Automated count 0.03 10^3/uL 0.00 - 0.20 [facility] #IG 0.01 10^3/uL 0.00 - 0.10 [facility] #NRBC 0.00 10^3/uL 0.00 - 0.00 [facility] MANUAL DIFF NOT INDICATED [facility] RBC MORPH NOT INDICATED [facility] Procedure Social History Code Duration Value Status Description Data Source(s ) Smoking 10/04/2020 12:00:00 AM EST Patient is a former smoker completed Patient is a former smoker [facility] ([facility]) Smoking 07/24/2020 12:00:00 AM EDT Patient is a former smoker completed Patient is a former smoker [facility] ([facility]) Vital Signs ID Date Data Source UNK Name Value Range Interpretation Code Description Data Source(s) Body weight 290.00 [lb_av] 290.00 [[facility]_av] [facility] Body temperature 97.0 [degF] 97.0 [degF] [facility] ([facility]) Oxygen saturation in Arterial blood by Pulse oximetry 98 % 98 % [facility] ([facility]) Respiratory rate 18 /min 18 /min [facility] ( [facility]) Heart rate 89 /min 89 /min [facility] ([facility]) Diastolic blood pressure 75 mm[Hg] 75 mm[Hg] [facility] ([facility]) Systolic blood pressure 134 mm[Hg] 134 mm[Hg] [facility] Body surface area Derived from formula 2.46 m2 2.46 m2 [facility] ([facility]) Body weight 136.987 kg 136.987 kg [facility] ([facility]) [place] body weight 145 [lb_av] 145 [lb_av] [facility] ([facility]) Body mass index (BMI) [Ratio] 44.6 kg/m2 44.6 k g/m2 [facility] ([facility]) Body weight 302.00 [lb_av] 302.00 [lb_av] [facility] ([facility]) Body height 69 [in_i] 69 [in_i] [facility] ([facility]) 5'9" Body temperature 97.1 [degF] 97.1 [degF] [facility] ([facility]) Oxygen saturation in Arterial blood by Pulse oximetry 95 % 95 % [facility] ([facility]) Heart rate 89 /min 89 /min [facility] ([facility]) Diastolic blood pressure 88 mm[Hg] 88 mm[Hg] [facility] ([facility]) Systolic blood pressure 124 mm[Hg] 124 mm[Hg] [facility] ([facility]) Body mass index (BMI) [Ratio] 44.9 kg/m2 44.9 k g/m2 [facility] ([facility]) Body weight 304.00 [lb_av] 304.00 [lb_av] [facility] ([facility]) Body height 69 [in_i] 69 [in_i] [facility] ([facility]) 5'9" Oxygen saturation in Arterial blood by Pulse oximetry 95 % 95 % [facility] ([facility]) Heart rate 81 /min 81 /min [facility] ([facility]) Diastolic blood pressure 80 mm[Hg] 80 mm[Hg] [facility] ([facility]) Systolic blood pressure 122 mm[Hg] 122 mm[Hg] [facility]) Body surface area Derived from formula 2.47 m2 2.47 m2 [facility] ([facility]) Body weight 137.894 kg 137.894 kg [facility] ([facility]) [place] body weight 145 [lb_av] 145 [lb_av] [facility] ([facility]) [place] body weight 140 [lb_av] 140 [lb_av] [facility] ([facility]) Body mass index (BMI) [Ratio] 41.8 kg/m2 41.8 k g/m2 [facility] ([facility]) Body weight 275.00 [lb_av] 275.00 [lb_av] [facility] ([facility]) Body height 68 [in_i] 68 [in_i] [facility] ([facility]) 5'8" Respiratory rate 12 /min 12 /min [facility] ( [facility]) Body surface area Derived from formula 2.43 m2 2.43 m2 [facility] ([facility]) Body weight 132.451 kg 132.451 kg [facility] ([facility]) [place] body weight 145 [lb_av] 145 [lb_av] [facility] ([facility]) Body mass index (BMI) [Ratio] 43.1 kg/m2 43.1 k g/m2 [facility] ([facility]) Body weight 292.00 [lb_av] 292.00 [lb_av] [facility] ([facility]) Body height 69 [in_i] 69 [in_i] [facility] ([facility]) 5'9" Body temperature 97.9 [degF] 97.9 [degF] [facility] ([facility]) Oxygen saturation in Arterial blood by Pulse oximetry 96 % 96 % [facility] ([facility]) Heart rate 102 /min 102 /min [facility] ([facility]) Diastolic blood pressure 98 mm[Hg] 98 mm[Hg] [facility] ([facility]) Systolic blood pressure 132 mm[Hg] 132 mm[Hg] [facility] ([facility]) Body mass index (BMI) [Ratio] 41.8 kg/m2 41.8 k g/m2 [facility] ([facility]) Body height 68 [in_i] 68 [in_i] [facility] ([facility]) 5'8" Body weight 275.00 [lb_av] 275.00 [lb_av] [facility] ([facility]) Body temperature 98.0 [degF] 98.0 [degF] [facility] ([facility]) Oxygen saturation in Arterial blood by Pulse oximetry 95 % 95 % [facility] ([facility]) Respiratory rate 16 /min 16 /min [facility] ( [facility]) Heart rate 88 /min 88 /min [facility] ([facility]) Diastolic blood pressure 83 mm[Hg] 83 mm[Hg] [facility] ([facility]) Systolic blood pressure 139 mm[Hg] 139 mm[Hg] M [facility] ([facility]) Body surface area Derived from formula 2.39 m2 2.39 m2 [facility] ([facility]) Body weight 128.369 kg 128.369 kg [facility] ([facility]) [place] body weight 145 [lb_av] 145 [lb_av] [facility] ([facility]) Body mass index (BMI) [Ratio] 41.8 kg/m2 41.8 k g/m2 [facility] ([facility]) Body weight 283.00 [lb_av] 283.00 [lb_av] [facility] ([facility]) Body height 69 [in_i] 69 [in_i] [facility] ([facility]) 5'9" Body temperature 98.3 [degF] 98.3 [degF] [facility] ([facility]) Oxygen saturation in Arterial blood by Pulse oximetry 94 % 94 % [facility] ([facility]) Heart rate 83 /min 83 /min [facility] ([facility]) Diastolic blood pressure 86 mm[Hg] 86 mm[Hg] [facility] ([facility]) Systolic blood pressure 120 mm[Hg] 120 mm[Hg] [facility] ([facility]) Body surface area Derived from formula 2.32 m2 2.32 m2 [facility] ([facility] ) Body mass index (BMI) [Ratio] 41.05 kg/m2 41.05 kg/m2 [facility] ([facility] ) Body height 68 [in_us] 68 [in_us] [facility] ([facility] ) Body weight 270 [lb_av] 270 [lb_av] [employer] ([facility] ) [place] body weight 140 [lb_av] 140 [lb_av] [facility] ([facility]) Body mass index (BMI) [Ratio] 41.8 kg/m2 41.8 k g/m2 [facility] Body weight 275.00 [lb_av] 275.00 [lb_av] [facility] ([facility]) Body height 68 [in_i] 68 [in_i] [facility] ([facility]) 5'8" Respiratory rate 12 /min 12 /min [facility] ( [facility]) Body weight 124.286 kg 124.286 kg [facility] ([facility]) Body mass index (BMI) [Ratio] 40.5 kg/m2 40.5 k g/m2 [facility] ([facility]) Body weight 274.00 [lb_av] 274.00 [lb_av] [facility] ([facility]) Body height 69 [in_i] 69 [in_i] [facility] ([facility]) 5'9" Body temperature 98.3 [degF] 98.3 [degF] [facility] ([facility]) Oxygen saturation in Arterial blood by Pulse oximetry 99 % 99 % [facility] ([facility]) Heart rate 98 /min 98 /min [facility] ([facility]) Diastolic blood pressure 80 mm[Hg] 80 mm[Hg] [facility] ([facility]) Systolic blood pressure 120 mm[Hg] 120 mm[Hg] M [facility] ([facility]) Body weight 123.833 kg 123.833 kg [facility] ([facility]) Body mass index (BMI) [Ratio] 40.3 kg/m2 40.3 k g/m2 [facility] ([facility]) Body weight 273.00 [lb_av] 273.00 [lb_av] [facility] ([facility]) Body height 69 [in_i] 69 [in_i] [facility] ([facility]) 5'9" Body temperature 98.2 [degF] 98.2 [degF] [facility] ([facility]) Oxygen saturation in Arterial blood by Pulse oximetry 98 % 98 % [facility] ([facility]) Room Air Heart rate 80 /min 80 /min [facility] ([facility]) Diastolic blood pressure 80 mm[Hg] 80 mm[Hg] [facility] ([facility]) Systolic blood pressure 118 mm[Hg] 118 mm[Hg] [facility] ([facility]) [place] body weight 140 [lb_av] 140 [lb_av] [facility] ([facility]) Body mass index (BMI) [Ratio] 40.4 kg/m2 40.4 k g/m2 [facility] ([facility]) Body weight 266.00 [lb_av] 266.00 [lb_av] [facility] ([facility]) Body height 68 [in_i] 68 [in_i] [facility] ([facility]) 5'8" Respiratory rate 12 /min 12 /min [facility] ( [facility]) Body weight 121.565 kg 121.565 kg [facility] ([facility]) Body mass index (BMI) [Ratio] 39.6 kg/m2 39.6 k g/m2 [facility] ([facility]) Body weight 268.00 [lb_av] 268.00 [lb_av] [facility] Body height 69 [in_i] 69 [in_i] [facility] ([facility]) 5'9" Body temperature 97.9 [degF] 97.9 [degF] [facility] ([facility]) Oxygen saturation in Arterial blood by Pulse oximetry 98 % 98 % [facility] ([facility]) Heart rate 97 /min 97 /min [facility] ([facility]) Diastolic blood pressure 86 mm[Hg] 86 mm[Hg] [facility] ([facility]) Systolic blood pressure 138 mm[Hg] 138 mm[Hg] [facility] ([facility]) Body mass index (BMI) [Ratio] 39.9 kg/m2 39.9 k g/m2 [facility] ([facility] Body weight 270.00 [lb_av] 270.00 [lb_av] [facility] ([facility] Body height 69 [in_i] 69 [in_i] [facility] ([facility] 5'9" Oxygen saturation in Arterial blood by Pulse oximetry 97 % 97 % [facility] ([facility] Heart rate 103 /min 103 /min [facility] ([facility] Diastolic blood pressure 80 mm[Hg] 80 mm[Hg] [facility] ([facility] Systolic blood pressure 110 mm[Hg] 110 mm[Hg] M [facility] ([facility] Diastolic blood pressure 85 mm[Hg] 85 mm[Hg] eCW1 ([facility]) Systolic blood pressure 137 mm[Hg] 137 mm[Hg] e CW1 ([facility]) Body temperature 98.3 [degF] 98.3 [degF] eCW1 ( [facility]) Respiratory rate 20 /min 20 /min eCW1 ([facility]) Heart rate 92 /min 92 /min eCW1 ([facility]) Body mass index (BMI) [Ratio] 40.74 kg/m2 40.74 kg/m2 W1 ([facility]) Body height 68 [in_us] 68 [in_us] eCW1 ([facility]) Body weight Measured 268 [lb_av] 268 [lb_av] eC W1 ([facility]) Body mass index (BMI) [Ratio] 38.2 kg/m2 38.2 k g/m2 [facility] ([facility] ) Body weight 251.00 [lb_av] 251.00 [lb_av] [facility] ([facility], ) Body height 68 [in_i] 68 [in_i] [facility] ([facility], ) 5'8" Respiratory rate 12 /min 12 /min [facility] ( [facility], ) Heart rate 88 /min 88 /min [facility] ([facility] ) Diastolic blood pressure 82 mm[Hg] 82 mm[Hg] [facility] ([facility], ) Systolic blood pressure 120 mm[Hg] 120 mm[Hg] [facility] Body mass index (BMI) [Ratio] 38.1 kg/m2 38.1 k g/m2 [facility] ([facility] Body weight 258.00 [lb_av] 258.00 [lb_av] [facility] ([facility] Body height 69 [in_i] 69 [in_i] [facility] ([facility] 5'9" Oxygen saturation in Arterial blood by Pulse oximetry 98 % 98 % [facility] ([facility] Heart rate 109 /min 109 /min [facility] ([facility] Diastolic blood pressure 78 mm[Hg] 78 mm[Hg] [facility] ([facility] Systolic blood pressure 124 mm[Hg] 124 mm[Hg] [facility] ([facility] Body mass index (BMI) [Ratio] 38.4 kg/m2 38.4 k g/m2 [facility] ([facility] Body weight 260.00 [lb_av] 260.00 [lb_av] [facility] ([facility] Body height 69 [in_i] 69 [in_i] [facility] ([facility] 5'9" Oxygen saturation in Arterial blood by Pulse oximetry 95 % 95 % [facility] ([facility] Heart rate 84 /min 84 /min [facility] ([facility] Diastolic blood pressure 80 mm[Hg] 80 mm[Hg] [facility] ([facility] Systolic blood pressure 120 mm[Hg] 120 mm[Hg] [facility] ([facility] Patient Treatment Plan of Care Planned Activity Planned Date Details Description Data Source (s) Diclofenac Sodium 0.01 MG/MG Topical Gel [Voltaren] 12/22/19 20 12:00:00 AM EST eCW1 ([facility]) Acetaminophen 500 MG Oral Tablet 12/22/2019 12:00:00 AM EST eCW1 ([facility])
[2020-12-18 17:26] LABS: HEMATOCRIT 42.7 % (36.0-47.0); HEMOGLOBIN 14.1 g/dl (12.0-15.5); MEAN CORPUSCULAR HEMOGLOBIN 29.6 pg (27.0-33.0); MEAN CORPUSCULAR VOLUME 89.5 fl (80.0-96.0); PLATELET COUNT, AUTOMATED 403 10^3/uL (150-450); RED BLOOD COUNT 4.77 10^6/uL (4.00-5.40); WHITE BLOOD COUNT 9.3 10^3/uL (4.0-10.0)
[2020-12-18 17:57] LABS: BLOOD UREA NITROGEN 5 MG/DL (7-18); CALCIUM LEVEL 9.3 MG/DL (8.5-10.1); CARBON DIOXIDE LEVEL 27 MEQ/L (21-32); CHLORIDE LEVEL 107 MEQ/L (98-107); CREATININE FOR GFR 0.72 MG/DL (0.55-1.30); GLOMERULAR FILTRATION RATE > 60.0 (>60); GLUCOSE, FASTING 87 MG/DL (70-100); POTASSIUM SERUM 3.8 MEQ/L (3.5-5.1); SODIUM LEVEL 143 MEQ/L (136-145)
[2020-12-18 17:59] LABS: HCG, SERUM QUALITATIVE NEGATIVE (NEGATIVE)
--- OUTSIDE RECORDS SUMMARY | 2020-12-18 18:44 | CCD ---
Author Author [facility] Organization [facility] Address Unknown Phone Unavailable Care Team Providers Care Healthcare Applications Analyst Name Role Phone Rechlin, Thuan Thorpe DO [...] J Danie PA-C Unavailable Unavailable Leigha, J Daine PA-C Unavailable Unavailable Leigha, J Danie PA-C [...] Unavailable Unavailable Estuardo Garrido MD Unavailable Unavailable Esturado Garrido MD Unavailable Unavailable Estuardo Garrido MD [...] Unavailable Unavailable Estuardo Garrido MD Unavailable Unavailable Castellano, Juana Alicia PA [...] Alicia PA Unavailable Unavailable Kwame, L Darlene INVESTMENT CONSULTANT Unavailable Unavailable Kwame, L Darlene INVESTMENT CONSULTANT Unavailable Unavailable Kwame, L Darlene INVESTMENT CONSULTANT Unavailable Unavailable Kwame, L Darlene INVESTMENT CONSULTANT Unavailable Unavailable Kwame, L Darlene INVESTMENT CONSULTANT Unavailable Unavailable Kwame, L Darlene INVESTMENT CONSULTANT Unavailable Unavailable Kwame, L Darlene INVESTMENT CONSULTANT Unavailable Unavailable Kwame, L Darlene INVESTMENT CONSULTANT Unavailable Unavailable Kwame, L Darlene INVESTMENT CONSULTANT Unavailable Unavailable Kwame, L Darlene INVESTMENT CONSULTANT Unavailable Unavailable Kwame, L Darlene INVESTMENT CONSULTANT Unavailable Unavailable Kwame, L Darlene INVESTMENT CONSULTANT Unavailable Unavailable Kwame, L Darlene INVESTMENT CONSULTANT Unavailable Unavailable Kwame, L Darlene INVESTMENT CONSULTANT Unavailable Unavailable Kwame, L Darlene INVESTMENT CONSULTANT Unavailable Unavailable Kwame, L Darlene INVESTMENT CONSULTANT Unavailable Unavailable Kwame, L Darlene INVESTMENT CONSULTANT Unavailable Unavailable Kwame, L Darlene INVESTMENT CONSULTANT Unavailable Unavailable Kwame, L Darlene INVESTMENT CONSULTANT Unavailable Unavailable Kwame, L Darlene INVESTMENT CONSULTANT Unavailable Unavailable Kwame, L Darlene INVESTMENT CONSULTANT Unavailable Unavailable Kwame, L Darlene INVESTMENT CONSULTANT Unavailable Unavailable Re-disclosure Warning The records that [...] is protected by Article 27-F of the [facility] Public Health law. If you continue you may have access to information: Regarding HIV / AIDS; Provided by facilities licensed or operated by the [facility] Office of Mental Health; or Provided by the [facility] Office for People With Developmental Disabilities. If such information is present, then the following [facility] mandated warning applies: This information has [...] law may result in a fine or correction sentence or both. A general authorization for the release of medical or other information is NOT sufficient authorization for further disc losure. Allergies and Adverse Reactions Type Description Substance Reaction Status Data Source(s ) Allergy Allergy No Known Drug Allergies Active A [facility]Scripts ([facility]) NSAIDs NSAIDs NSAIDs GI surgery Active eCW1 ([facility]) Drug Class NO KNOWN ALLERGIES NO KNOWN ALLERGIES [facility] Family History Family Member Name Family Member Gender Family Member Status Date o f Status Description Data Source(s) Unknown Male Problem MEDENT ([facility] Encounters Encounter Providers Location Date Indications Data Source(s ) Outpatient Attender: Alicia taylory 11/28/2020 09:15:00 AM EST MEDENT ([facility] Outpatient Attender: Darlene Puente NP [place] 11/15/2020 10:00:00 AM EST MEDENT ([facility] Outpatient Attender: Darlene Puente NP [place] 10/04/2020 08:30:00 AM EST MEDENT ([facility]) Outpatient Attender: Anaya Garrido MD Main office - [facility] 09/26/2020 11:30:00 AM EST MEDENT ([facility] Outpatient Attender: DONTAE VELAZQUEZ MD 2019 04:23:00 PM EST - 08/28/2020 05:23:00 PM [facility] Outpatient Attender: Darlene Puente NP [place] 08/22/2020 09:30:00 AM EDT MEDENT ([facility] Emergency Attender: ARABELLA PERALTA 2019 05:59:00 PM EDT - 08/14/2020 07:37:00 PM EDT [facility] Patient discharged. Outpatient Attender: Alicia taylory 07/24/2020 02:40:00 PM EDT MEDENT ([facility]) Outpatient Attender: Darlene Puente NP [place] 07/18/2020 11:00:00 AM EDT MEDENT ([facility]) Review<td><content [id number]">Review</content></td><td><content styleCode="xSecondary">10-Jul-2020 21:19 </content>
<content styleCode="xSecondary">[facility]</content></td><td></td> [facility] 07/10/2020 09:19:14 PM ED T - 07/13/2020 09:45:50 PM EDT [facility] ([facility]) Outpatient<td><content ID="_[id number]">Office Visit</content>
<content><content styleCode="xLabel xSecondary">Encounter Reason</content>: <content ID="_[id number]" styleCode="xSecondary">Sleep Evaluation - The referring provider is [...] observ ed by someone else during sleep, line palletizer awakening, not being able to get back [...] variable positions.</content></content>
<content><content styleCode="xSecondary xLabel">Encounter Diagnosis</content>: <content [id number]" styleCode="xSecondary">SLEEP APNEA</content><content styleCode="xSecondary">, </content><content [id number]" styleCode="xSecondary">MORBID OBESITY</content><content styleCode="xSecondary">, </content><content ID="_[id number]" styleCode="xSecondary">SVT (SUPRAVENTRICULAR TACHYCARDIA)</content></content></td><td><content styleCode="xSecondary"> 27-Jun-2020 18:30 </content><content styleCode="xLabel xSecondary"> To </content><content styleCode="xSecondary">05-Jul-2020 10:40</content>
<content styleCode="xSecondary">[facility]</content></td><td></td> [facility] 06/27/2020 06:30:00 PM EDT - 07/05/2020 [...] pauses observed by someone else during sleep, line palletizer awakening, not being able to get back [...] pauses observed by someone else during sleep, line palletizer awakening, not being able to get back [...] Attender: Anaya Garrido MD Main office - [facility] 06/16/2020 10:30:00 AM DONTE MARTINEZ ([facility] jain) Outpatient Attender: Darlene Quez[place] 06/06/2020 02:00:00 PM EDT MEDENT ([facility]) Outpatient Attender: DANYEL SCHWARZ 04/27/2020 12:13:56 PM EDT - 04/29/2020 06:00:00 AM EDT [facility] Patient discharged. Outpatient Attender: Darlene Quezada/[place] 04/05/2020 11:30:00 AM EDT MEDENT ([facility]) Outpatient Attender: Anaya aGrrido MD Main office - [facility] 03/14/2020 11:45:00 AM EDT MEDENT ([facility]) Outpatient Attender: Darlene Quez[place] 01/26/2020 10:00:00 AM EDT MEDENT ([facility]) Outpatient Attender: Maurilio Valdez DO Main Office 01/06/2020 09:30:00 AM EDT MED[facility] ([facility] [address] [address] 12/22/2019 12:00:00 AM EST eCW1 ([facility]) Outpatient Attender: Anaya Garirdo MD Main office - [facility] 12/10/2019 09:00:00 AM EST MEDENT ([facility]) Outpatient Attender: Darlene Puente NP Main Office 12/06/2019 02:45:00 PM EST MED[facility] ([facility] Outpatient 11/26/2019 01:34:00 PM EST [facility] Outpatient Attender: Telma Buckley 11/26/2019 12:00:[address] [facility] Emergency Attender: Danie Ahuja PA-C 05:15:00 PM EST - 11/20/2019 09:46:00 PM EST [facility] Patient discharged. Outpatient Attender: Telma Buckley 11/05/2019 12:00:[address] [facility] Outpatient Attender: Darlene Puente NP Main Office 11/04/2019 10:00:00 AM EST MEDENT ([facility] Medications Medication Brand Name Start Date Product Form Dose Route Admi nistrative Instructions Pharmacy Instructions Status Indications Reaction Description Data Source(s) Prednisone 2.5 MG Oral Tablet Prednisone 11/15/2020 12:00:00 AM EST ORAL active MEDENT ([facility], ) Nucala Nucala 11/06/2020 12:00:00 AM EST active MEDENT ([facility]) 120 ACTUAT Fluticasone propionate 0.22 MG/ACTUAT Meter ed Dose Inhaler [Flovent] Flovent HFA 10/04/2020 12:00:00 AM EST RESPIRATORY activ e MEDENT ([facility]) gabapentin 300 MG Oral Capsule Gabapentin 09/26/2020 12:00:00 AM EST active MEDENT ([facility], ) Prednisone 10 MG Oral Tablet Prednisone 08/22/2020 12:00:00 AM EDT ORAL completed MEDENT ([facility], ) Hydrocortisone 10 MG/ML / Neomycin 3.5 M G/ML / Polymyxin B 18908 UNT/ML Otic Suspension Neomycin/Polymyxin/Hydrocortisone (Otic) 07/24/2020 12:00:00 AM EDT completed MEDENT ([facility]) Prednisone 10 MG Oral Tablet Prednisone 07/18/2020 12:00:00 AM EDT ORAL completed MEDENT ([facility]) Prednisone 10 MG Oral Tablet Prednisone 06/20/2020 12:00:00 AM EDT ORAL completed MEDENT ([facility]) Amitriptyline Hydrochloride 25 MG Oral Tablet Amitriptyline HCL 06/16/2020 12:00:00 AM EDT active M EDENT ([facility], ) Prednisone 10 MG Oral Tablet Prednisone 06/06/2020 12:00:00 AM EDT ORAL completed MEDENT ([facility]) montelukast 10 MG Oral Tablet Montelukast Sodium 04/05/2020 12:00:00 AM EDT ORAL active MEDENT ([facility]) Prednisone 10 MG Oral Tablet Prednisone 03/29/2020 12:00:00 AM EDT ORAL completed MEDENT ([facility]) Prednisone 10 MG Oral Tablet Prednisone 01/31/2020 12:00:00 AM EDT ORAL completed MEDENT ([facility], ) 120 ACTUAT Fluticasone propionate 0.22 MG/ACTUAT Meter ed Dose Inhaler [Flovent] Flovent HFA 01/19/2020 12:00:00 AM EDT RESPIRATORY activ e MEDENT ([facility] Prednisone 10 MG Oral Tablet Prednisone 01/19/2020 12:00:00 AM EDT ORAL completed MEDENT ([facility], ) Prednisone 10 MG Oral Tablet Prednisone 01/19/2020 12:00:00 AM EDT active [facility] Acetaminophen 500 MG Oral Tablet Acetaminophen 500 MG 2019 12:00:00 AM EST active 1-2 tablets as ne eded eCW1 ([facility]) Diclofenac Sodium 0.01 MG/MG Topical Gel [Voltaren] Voltaren 1 % Voltaren 1 % 12/22/2019 12:00:00 AM EST active 2 grams eCW1 ([facility]) Spiriva Respimat Spiriva Respimat 11/04/2019 12:00:00 AM EST RESPIRATORY active MEDENT ([facility], ) Prednisone 10 MG Oral Tablet Prednisone 11/04/2019 12:00:00 AM EST ORAL completed [facility] Spiriva Respimat Spiriva Respimat 11/04/2019 12:00:00 AM EST RESPIRATORY active [facility] montelukast 10 MG Oral Tablet Montelukast Sodium 07/27/2019 12:00:00 AM EDT ORAL completed [facility] Insurance Providers Payer name Policy type / Coverage type Policy ID Covered republican ID Covered republican's relationship to panda Policy Panda Plan Information [facility] [id number] [facility] [id number] [facility] [id number] 01 [id number] [facility] [id number] 01 [id number] [facility] [id number] [facility] [id number] [facility] [id number] [facility] [id number] Self [id number] [place] CLAIMS [place] -O/P [id number] 01 [id number] [place] (2018) Commercial [id number] Self [id number] Prime Commercial [id number] Family Dependent [id number] [facility] (2018) Commercial [id number] Self [id number] Prime Commercial [id number] Family Dependent [id number] ANSI-Not a Secondary Insurance [id number] ANSI-Not a Secondary Insurance [id number] [facility] (2018) Commercial [id number] Self [id number] Prime Commercial [id number] Family Dependent [id number] A [id number] ANSI-Not a Secondary Insurance [id number] ANSI-Not a Secondary Insurance [id number] [facility] HUMANA [id number] [facility] [id number] [facility] (2018) Commercial [id number] Self [id number] Prime Commercial [id number] Family Dependent [id number] ANSI-Not a Secondary Insurance [id number] [facility] (2018) Commercial [id number] Self [id number] Prime Commercial [id number] Family Dependent [id number] [facility] (2018) Commercial [id number] Self [id number] Prime Commercial [id number] Family Dependent [id number] [place] CL[place] Commercial [id number] Family Depen dent [id number] [place] [id number] HU2 [id number] U [id number] Self [id number] Prime Commercial [id number] Family Dependent [id number] [place] [id number] SP [id number] Prime Commercial [id number] Family Dependent [id number] [place] F [id number] SPOUSE [id number] [place] F [id number] SELF [id number] [place] O [id number] P [id number] [place] [id number] HU2 [id number] [place] O [id number] P [id number] SELF PAY UNAVAILABLE SP UNAVAILA BLE Problems, Conditions, and Diagnoses Code Display Name Description Problem Type Effective Dates Data Source(s) 284987151 Uncomplicated severe persistent asthma U ncomplicated severe persistent asthma Problem 08/22/2020 12:00:00 AM EDT MEDENT ([facility], ) [id number] Exacerbation of severe persistent asthma Exacerbation of severe persistent asthma Problem 01/26/2020 12:00:00 AM EDT MEDENT ([facility], ) [id number] Exacerbation of severe persistent asthma Exacerbation of severe persistent asthma Problem 11/04/2019 12:00:00 AM EST [facility] ([facility] E8342 Hypomagnesemia Hypomagnesemia Diagnosis 08/28/2020 04:23: 00 PM [facility] N390 Urinary tract infection, site not specif ied Urinary tract infection, site not specified Diagnosis 08/28/2020 04:23:00 PM [facility] M329 Systemic lupus erythematosus, unspecifie d Systemic lupus erythematosus, unspecified Diagnosis 08/28/2020 04:23:00 PM [facility] E039 Hypothyroidism, unspecified Hypothyroidism, unspecifie d Diagnosis 08/28/2020 04:23:00 PM [facility] E119 Type 2 diabetes mellitus without complic ations Type 2 diabetes mellitus without complications Diagnosis 08/28/2020 04:23:00 PM [facility] D649 Anemia, unspecified Anemia, unspecified Diagnosis 1 10/28/2019 04:23:00 PM [facility] G5601 Carpal tunnel syndrome, right upper limb Carpal tunnel syndrome, right upper limb Diagnosis 08/14/2020 05:59:00 PM EDT [facility] E33996 Pain in right wrist Pain in right wrist Diagnosis 1 05:59:00 PM EDT [facility] Z9884 Bariatric surgery status Bariatric surgery status Diag nosis 04/28/2020 08:30:00 PM EDT [facility] G4700 Insomnia, unspecified Insomnia, unspecified Diagnosis 04/28/2020 08:30:00 PM EDT [facility] G4761 Periodic limb movement disorder Periodic limb movement disorder Diagnosis 04/28/2020 08:30:00 PM EDT [facility] R400 Somnolence Somnolence Diagnosis 04/28/2020 08:30:00 PM ED [facility] H04249 Personal history of nicotine dependence Personal history of nicotine dependence Diagnosis 11/20/2019 05:15:00 PM [facility] S48675 Unspecified asthma, uncomplicated Unspecified as thma, uncomplicated Diagnosis 11/20/2019 05:15:00 PM [facility] R000 Tachycardia, unspecified Tachycardia, unspecified Diag nosis 11/20/2019 05:15:00 PM [facility] J209 Acute bronchitis, unspecified Acute bronchitis, unspec ified Diagnosis 11/20/2019 05:15:00 PM [facility] R0789 Other chest pain Other chest pain Diagnosis 11/20/2019 05 :15:00 PM [facility] R072 Precordial pain Precordial pain Diagnosis 11/20/2019 05:1 5:00 PM [facility] Surgeries/Procedures Procedure Description Date Indications Data Source(s) Spirometry 10/04/2020 12:00:00 AM YAMILETH CASE ([facility], ) MRI Brain W/O Contrast, Followed By Contrast 0 12:00:00 AM EST FOZIAENT ([facility], ) MRI Brain W/O Contrast, Followed By Contrast 0 12:00:00 AM EST MEDENT ([facility] ) MRI Spine Cervical W/O Contrast, Followed By Contrast 09/05/2020 12:00:00 AM EST MEDENT ([facility] ) MRI Spine Cervical W/O Contrast, Followed By Contrast 09/05/2020 12:00:00 AM EST MEDENT ([facility] ) MRI Spine Thoracic W/O Contrast, Followed By Contrast 09/05/2020 12:00:00 AM EST MEDENT ([facility] ) MRI Spine Thoracic W/O Contrast, Followed By Contrast 09/05/2020 12:00:00 AM EST MEDENT ([facility] ) Spirometry 08/22/2020 12:00:00 AM EDT EDENT ([facility]) 82365 Nerve conduction studies 13 or more studies NEW 201208/09/2020 12:00:00 AM EDT MEDENT ([facility], ) Needle electromyography, each extremity, with related paraspinal areas, when performed, done with nerve conduction, amplitude and latency/velocity study; complete, five or more muscles studied, innervated by three or more nerves or four or more spinal levels (list separately in addition to the code for primary procedure). 08/09/2020 12:00:00 AM EDT MEDEN T ([facility], ) Needle electromyography, each extremity, with related paraspinal areas, when performed, done with nerve conduction, amplitude and latency/velocity study; complete, five or more muscles studied, innervated by three or more nerves or four or more spinal levels (list separately in addition to the code for primary procedure). 08/09/2020 12:00:00 AM EDT MEDEN T ([facility], ) Spirometry 07/18/2020 12:00:00 AM EDT M EDENT ([facility], ) OFFICE OUTPATIENT NEW 45 MINUTES 020 06:30:00 PM EDT - 07/05/2020 10:40:37 AM EDT [facility] ([facility] ) Spirometry 06/06/2020 12:00:00 AM EDT M EDENT ([facility]) NON-INVASIVE PHYSIOLOGIC STUDY EXTREMITY 3 LEVLS 04/19 12:00:00 AM EDT MEDENT ([facility], ) NON-INVASIVE PHYSIOLOGIC STUDY EXTREMITY 3 LEVLS 04/19 12:00:00 AM EDT MEDENT ([facility]) NON-INVASIVE PHYSIOLOGIC STUDY EXTREMITY 3 LEVLS 04/19 12:00:00 AM EDT MEDENT ([facility]) NON-INVASIVE PHYSIOLOGIC STUDY EXTREMITY 3 LEVLS 04/19 12:00:00 AM EDT MEDENT ([facility]) TSTG ANS FUNCJ CARDIOVAGAL INNERVAJ PARASYMP 0 12:00:00 AM EDT MEDENT ([facility]) TSTG ANS FUNCJ CARDIOVAGAL INNERVAJ PARASYMP 0 12:00:00 AM EDT MEDENT ([facility]) TESTING AUTONOMIC NERVOUS SYSTEM FUNCTION 04/19/2020 1 2:00:00 AM EDT MEDENT ([facility]) TESTING AUTONOMIC NERVOUS SYSTEM FUNCTION 04/19/2020 1 2:00:00 AM EDT MEDENT ([facility]) Spirometry 04/05/2020 12:00:00 AM EDT EDENT ([facility]) Spirometry 01/26/2020 12:00:00 AM EDT EDENT ([facility]) RESPIRATORY FLOW VOLUME LOOP 01/06/2020 12:00:00 AM ED T MEDENT ([facility] MRI BRAIN BRAIN STEM W/O CONTRAST MATERIAL 12/21/2019 12:00:00 AM EST MEDENT ([facility]) MRI BRAIN BRAIN STEM W/O CONTRAST MATERIAL 12/21/2019 12:00:00 AM EST MEDENT ([facility]) RESPIRATORY FLOW VOLUME LOOP 12/06/2019 12:00:00 AM ES T MED[facility] ([facility] RESPIRATORY FLOW VOLUME LOOP 11/04/2019 12:00:00 AM ES T MED[facility] ([facility] Results ID Date Data Source 140 12/14/2020 12:00:00 AM EST [facility] Name Value Range Interpretation Code Description Data Jany rce(s) Supporting Document(s) SARS-CoV2 Rapid Antigen Negative [facility] This lab was ordered by [facility] and reported by [facility]. ID Date Data Source [id number] 10/05/2020 11:33:00 AM EST [facility]) Name Value Range Interpretation Code Description Data Jany rce(s) Supporting Document(s) White Blood Count 7.5 10 4.0-10.0 Normal (applies to non-numeri c results) [facility] ([facility], ) Red Blood Count 4.36 10 4.00-5.40 Normal (applies to non-numeric results) [facility] ([facility]) Hematocrit 40.3 % 36.0-47.0 Normal (applies to non-numeric resul ts) [facility]) Hemoglobin 12.9 g/dL 12.0-15.5 Normal (applies to non-numeric resul ts) [facility] ([facility]) Mean Corpuscular Volume 92.4 fl 80.0-96.0 Normal ( applies to non-numeric results) [facility] ([facility]) Red Cell Distribution Width 13.5 % 11.5-14.5 Norm al (applies to non-numeric results) [facility] ([facility]) Mean Corpuscular Hemoglobin 29.6 pg 27.0-33.0 Norm al (applies to non-numeric results) [facility] ([facility]) Mean Corpuscular HGB Conc 32.0 g/dL 32.0-36.5 Normal (applies to non-numeric results) [facility] ([facility]) Lymph % 22.1 % 24.0-44.0 Below low normal [facility] ( [facility]) Platelet Count, Automated 388 10 150-450 Normal (applies to non-numeric results) [facility]) Neutrophils % 63.6 % 36.0-66.0 Normal (applies to non-numeric re sults) [facility]) [place] % 9.8 % 0.0-5.0 Above high normal [facility] Baso % 0.7 % 0.0-1.0 Normal (applies to non-numeric resul ts) [facility] Eos % 3.4 % 0.0-3.0 Above high normal MEDENT ([facility]) Neutrophils # 4.8 10 1.5-8.5 Normal (applies to non-numeric re sults) MEDENT ([facility]) Immature Granulocyte % 0.4 % 0-3.0 Normal (applies to non-n umeric results) MEDENT ([facility]) Nucleated Red Blood Cell % 0.0 % 0-0 Normal (applies to n on-numeric results) MEDENT ([facility]) [place] # 0.7 10 0.0-0.8 Normal (applies to non-numeric resul ts) MEDENT ([facility]) Eos # 0.3 10 0.0-0.5 Normal (applies to non-numeric resul ts) MEDENT ([facility]) Lymph # 1.7 10 1.5-5.0 Normal (applies to non-numeric resul ts) MEDENT ([facility]) Baso # 0.1 10 0.0-0.2 Normal (applies to non-numeric resul ts) MED[facility] ([facility]) ID Date Data Source [id number] 10/04/2020 09:16:00 AM EST MEDENT ([facility]) Name Value Range Interpretation Code Description Data Jany rce(s) Supporting Document(s) PDFReport Laboratory test result MEDENT ([facility]) FVC-Pred 4.41 L MEDENT ([facility]) FVC-Pre 3.27 L [facility] ([facility]) FVC-%Pred-Pre 74 L [facility] ([facility]) FVC-LLN 3.61 L [facility] ([facility]) Fev1-Pre 2.16 L [facility] ([facility]) Fev1-Pred 3.68 L [facility] ([facility]) Fev1-%Pred-Pre 58 L [facility] ([facility]) Fev6-Pred 4.36 L [facility] ([facility]) Fev1-LLN 3.00 L [facility] ([facility]) Fev6-%Pred-Pre 74 L [facility] ([facility], ) Fev6-Pre 3.27 L [facility] ([facility], ) Fev6-LLN 3.57 L [facility] ([facility]) Sjs9eha-Ewh 66 % [facility] ([facility]) Ktc6uzr-%Pred-Pre 78 % [facility] ([facility], ) Eyc5cjf-Gweb 84 % [facility] ([facility]) Spz1gjo-OQE 75 % [facility] ([facility]) Vla4nmw-Ffg 100 % [facility] ([facility]) Gmf8qkb-Bote 99 % [facility] ([facility]) FEFMax-Pred 7.80 L/E/sec [facility] ([facility]) FEFMax-Pre 5.59 L/E/sec [facility] ([facility]) Hby1tmn-%Pred-Pre 101 % [facility] ([facility]) FEFMax-LLN 5.80 L/E/sec [facility] ([facility]) Kgz8228-Esqw 3.76 L/E/sec [facility] ([facility]) FEFMax-%Pred-Pre 71 L/E/sec [facility] ([facility]) Fia9254-%Pred-Pre 31 L/E/sec [facility] ([facility]) Dnk3939-Faj 1.20 L/E/sec [facility] ([facility], ) Xlv6005-YYK 2.32 L/E/sec [facility] ([facility]) Qrp0cft8-Seve 85 % [facility] ([facility]) Buw0zfu7-Tsu 66 % [facility] ([facility]) ExpTime-Pre 6.15 sec [facility] ([facility]) Dov1dzx0-SVD 77 % [facility] ([facility]) Egm7qwj3-%Pred-Pre 77 % [facility] ([facility] ) ID Date Data Source [id number] 09/01/2020 11:44:00 AM EST [facility] Name Value Range Interpretation Code Description Data Jany rce(s) Supporting Document(s) CULTURE URINE [facility] _CULTURE URINE_$$[id number]$$[id number]$$[id number]$$[id number]$$614560$$151692$$018328$$714572$$233430$$ 340514$$896289$$302103$$120523$$810316$$055466$$624411$$210605$$964306$$877983$$ 505117$$993582$$393916$$403829$$949805$$906646$$661352$$702158 -- Continued on next page --Patient: TEODORO Monreal Order: Page 2Culture: CULTURE URINE Status: Final ==== -- Continued on next page --Patient: TEODORO Monreal Order: [id number] Page 2Culture: CULTURE URINE Status: Prelim =====$$[id number]$$[id number] DATE/TIME: 09/01/2020 11:06Culture: CULTURE URINE Status: FinalUrine Culture,Comprehensive: M2Olyei urogenital flora5,000 Colonies/mL Previous result entered on 08/31/2020 02:03 ET No growth after 18-24 hours.P1 Test performed by: Pearl GERMAN #: [id number] [address] [id number] [facility] [id number] Director : Nirmal Kirk MD NPI #:Customer Service Advocate : 08/31/20.0713.XMT.SENT REF 09/01/20.1144.KYLIET.SENT REF 09/01/20.1144. .to LEIDY MOLINA via modem ID Date Data Source [id number] 08/31/2020 07:12:00 AM EST [facility] Name Value Range Interpretation Code Description Data Jany rce(s) Supporting Document(s) Nuclear Ab [Titer] in Serum by Immunofluorescence Positive A [facility] Negative <1:80 Borderline 1:80 Positive >1:80 Nuclear Ab Pattern Homogenous [Titer] in Serum 1:80 [facility] Note: COMMENT [facility] al A positive OSWALDO result may occur in healt hy individuals (lowtiter) or be associated with a variety of diseases. Seeinterpretation chart which is not all inclusive:Pattern Antigen Detected Suggested Disease Association Homogeneous DNA(ds,ss), SLE - High titers Nucleosomes, Histones Drug-induced SLE Speckled Sm, INSULATION FOREMAN, SCL-70, SLE,MCTD,PSS (diffuse form), SS-A/SS-B Sjogrens Nucleolar SCL-70, PM-1/SCL High titers Scleroderma, PM/DM Centromere Centromere PSS (limited form) w/Crest syndrome variable Nuclear Dot Sp100,s32-gdtyou Primary Biliary Cirrhosis Nuclear GP210, Primary Biliary CirrhosisMembrane ana A,B,C ID Date Data Source [id number] 08/28/2020 06:45:[address] [facility] Value Range Interpretation Code Description Data Jany rce(s) Supporting Document(s) Cobalamin (Vitamin B12) [Mass/volume] in Serum or Plasma 705 PG/ML 232 - 1245 [facility] ID Date Data Source [id number] 08/28/2020 06:45:[address] [facility] Value Range Interpretation Code Description Data Jany rce(s) Supporting Document(s) Thyrotropin [Units/volume] in Serum or Plasma by Detec tion limit <= 0.05 mIU/L 3.76 uIU/mL 0.47 - 5.01 [facility] ID Date Data Source [id number] 08/28/2020 06:45:[address] [facility] Value Range Interpretation Code Description Data Jany rce(s) Supporting Document(s) Thyroxine (T4) free index in Serum or Plasma by calculation 1.10 NG/DL 0.93 - 1.70 [facility] ID Date Data Source [id number] 08/28/2020 05:52:00 PM EST [facility] Name Value Range Interpretation Code Description Data Jany rce(s) Supporting Document(s) C reactive protein [Mass/volume] in Serum or Plasma by High sensitivity method 8.10 MG/L 1.00 - 3.00 H [facility] CDC/S HS-CRP CUT-OFF: RELATIVE RISK: <1.0 mg/L Low 1.0 - 3.0 mg/L Average >3.0 mg/L High Optimally, the average of HS-CRP results repeated two weeks apart should be used for risk assessment. ID Date Data Source [id number] 08/28/2020 05:52:00 PM [facility] Name Value Range Interpretation Code Description Data Jany rce(s) Supporting Document(s) COMPREHENSIVE METABOLIC PANEL [facility] COMPREHENSIVE METABOLIC PANEL Sodium [Moles/volume] in Serum or Plasma 136 mEq/L 134 - 153 [facility] Potassium [Moles/volume] in Serum or Plasma 4.3 mEq/L 3.6 - 5.0 [facility] Chloride [Moles/volume] in Serum or Plasma 102 mEq/L 98 - 107 [facility] Carbon dioxide, total [Moles/volume] in Serum or Plasma 23 MEQ/L 22 - 30 [facility] Glucose [Mass/volume] in Serum or Plasma 97 MG/DL 65 - 110 [facility] BUN 13 MG/DL 7 - 21 [facility] al Creatinine [Mass/volume] in Serum or Plasma 0.8 MG/DL 0.7 - 1.5 [facility] BUN/CREAT 16 8 - 27 [facility] al Protein [Mass/volume] in Serum or Plasma 6.9 G/DL 6.3 - 8.2 [facility] Albumin [Mass/volume] in Serum or Plasma 4.4 G/DL 3.9 - 5.0 [facility] Globulin [Mass/volume] in Serum by calculation 2.5 GM/DL 2.4 - 3.2 [facility] A/G RATIO 1.8 0.8 - 2.0 [facility] Calcium [Mass/volume] in Serum or Plasma 9.5 MG/DL 8.4 - 10.2 [facility] Bilirubin.total [Mass/volume] in Serum or Plasma <0.7 MG/DL 0.2 - 1.3 [facility] Alkaline phosphatase [Enzymatic activity/volume] in Serum or Plasma 85 U/L 38 - 126 [facility] Aspartate aminotransferase [Enzymatic activity/volume] in Serum or Plasma 18 U/L 5 - 40 [facility] Alanine aminotransferase [Enzymatic activity/volume] in Seru m or Plasma 18 U/L 7 - 56 [facility] Anion gap 3 in Serum or Plasma 11.0 mmol/L 8.0 - 16.0 [facility] AGE 29 yrs [facility] al NON-AA GFR >60 mL/min [facility] ital AFR AMER GFR >60 mL/min [facility] Male GFR In terprentation 20-49 [...] >32 mL/min Normal ID Date Data Source [id number] 08/28/2020 05:52:00 PM [facility] Name Value Range Interpretation Code Description Data Jany rce(s) Supporting Document(s) Magnesium [Mass/volume] in Serum or Plasma 2.1 MG/DL 1.7 - 2.2 [facility] ID Date Data Source [id number] 08/28/2020 05:52:00 PM [facility] Name Value Range Interpretation Code Description Data Jany rce(s) Supporting Document(s) Iron [Mass/volume] in Serum or Plasma 106 UG/DL 42 - 135 [facility] ID Date Data Source [id number] 08/28/2020 04:59:00 PM [facility] Name Value Range Interpretation Code Description Data Jany rce(s) Supporting Document(s) Hemoglobin A1c/Hemoglobin.total in Blood 5.2 % 4.4 - 6.1 [facility] {A1]{HB] ID Date Data Source [id number] 08/28/2020 04:56:00 PM EST [facility] Name Value Range Interpretation Code Description Data Jany rce(s) Supporting Document(s) [facility] yellow NORMAL: Yellow [facility] CLARITY hazy NORMAL: Clear [facility] Specific gravity of Urine by Test strip 1.020 1.001 - 1.030 [facility] pH 5 5 - 9 [facility] al Glucose [Mass/volume] in Urine by Test strip NORM NORMAL: Negat [facility] Bilirubin.total [Presence] in Urine by Test strip NEG NORMAL: Negative [facility] Ketones [Presence] in Urine by Test strip 5 NORMAL: Negative [facility] Protein [Mass/volume] in Urine by Test strip 15 NORMAL: Negat [facility] Nitrite [Presence] in Urine by Test strip NEG NORMAL: Negative [facility] BLOOD NEG NORMAL: Negative [facility] Leukocyte esterase [Presence] in Urine by Test strip 500 LIBORIO L: Negative [facility] Urobilinogen [Mass/volume] in Urine by Test strip 4 less jeannette n 1.0 mg/dL [facility] MICROSCOPIC See Below [facility] ital WBC 15 - 20 NORMAL: NONE SEEN A [facility] Erythrocytes [#/volume] in Urine by Test strip None Seen NORMAL: NON E SEEN [facility] EPITHELIAL MODERATE NORMAL: NONE SEEN A [facility] Bacteria [Presence] in Urine sediment by Light microscopy 2+ MOD NORMAL: NONE SEEN A [facility] Mucus [Presence] in Urine sediment by Light microscopy None Seen NORMAL: NONE SEEN [facility] Amorphous sediment [Presence] in Urine sediment by Light fabiana roscopy NONE SEEN NORMAL: NONE SEEN [facility] Casts [#/area] in Urine sediment by Microscopy low power field N ot Indicated [facility] Crystals [type] in Urine sediment by Light microscopy Not Indicated [facility] YEAST None Seen [facility] al ID Date Data Source [id number] 08/28/2020 04:47:00 PM EST [facility] Name Value Range Interpretation Code Description Data Jany rce(s) Supporting Document(s) CBC W/AUTOMATED DIFF [facility] COMPLETE BLOOD COUNT Leukocytes [#/volume] in Blood by Automated count 7.4 10^3/uL 4.2 - 1 1.0 [facility] Erythrocytes [#/volume] in Blood by Automated count 4.47 10^6/uL 4. 20 - 5.40 [facility] Hemoglobin [Mass/volume] in Blood 13.1 g/dL 12.0 - 16.0 [facility] Hematocrit [Volume Fraction] of Blood by Automated count 38.7 % 3 7.0 - 47.0 [facility] Erythrocyte mean corpuscular volume [Entitic volume] by Auto mated count 86.6 fL 81.0 - 101 [facility] Erythrocyte mean corpuscular hemoglobin [Entitic mass] by Automated count 29.3 pg 27.0 - 34.0 [facility] Erythrocyte mean corpuscular hemoglobin concentration [Mass/volume] by Automated count 33.9 g/dL 31.0 - 36.0 [facility] Erythrocyte distribution width [Ratio] by Automated count 14.7 % 11.5 - 14.5 H [facility] Platelets [#/volume] in Blood by Automated count 440 10^3/uL 150 - 45 0 [facility] Platelet mean volume [Entitic volume] in Blood by Automated count 8.8 fL 7.4 - 10.4 [facility] Neutrophils/100 leukocytes in Blood by Automated count 60.4 % 37. 0 - 80.0 [facility] Lymphocytes/100 leukocytes in Blood by Manual count 23.5 % 25.0 - 40.0 L [facility] Monocytes/100 leukocytes in Blood by Automated count 9.8 % 3.0 - 8.0 H [facility] Eosinophils/100 leukocytes in Blood by Automated count 5.1 % 0.0 - 7.0 [facility] Basophils/100 leukocytes in Blood by Automated count 0.9 % 0.0 - 2.5 [facility] %IG 0.3 % 0.0 - 0.0 [facility] %NRBC 0.0 % 0.0 - 0.0 [facility] al Neutrophils [#/volume] in Blood by Automated count 4.48 10^3/uL 2.00 - 6.90 [facility] Lymphocytes [#/volume] in Blood by Automated count 1.74 10^3/uL 0.60 - 3.40 [facility] Monocytes [#/volume] in Blood by Automated count 0.73 10^3/uL 0.00 - 0.90 [facility] Eosinophils [#/volume] in Blood by Automated count 0.38 10^3/uL 0.00 - 0.70 [facility] Basophils [#/volume] in Blood by Automated count 0.07 10^3/uL 0.00 - 0.20 [facility] #IG 0.02 10^3/uL 0.00 - 0.10 [facility] #NRBC 0.00 10^3/uL 0.00 - 0.00 [facility] MANUAL DIFF NOT INDICATED [facility] RBC MORPH NOT INDICATED [facility] ID Date Data Source [id number] 08/15/2020 03:03:00 PM EDT [facility] [address] [place] [address] PHONE: [phone] FAX: [phone] Name .................. : TEODORO ESPINOSAALLI Monreal Acct Number.................. : [id number] ROOM. ................. : TR-05 Number ................... : [id number] Stay type ............. : E/R Discharge Date......... ... : 08/14/20 Admit Date ......... : 08/14/20 Admit Phys .................... : FABIAN AMADOR Date of ....... : 1990 Family Phys ................... : UNKNOWN Phone .................. : [phone] Age ................................ : 29 Film# .................. .:[id number] Sex ................................. : F Unsigned transcriptions are preliminary reports and do not represent a medical or legal document [place]ST COMPLETE RT [id number] COMPLETE:08/14/20 19:10 [facility] [address] Reason(s): Wrist Pain RIGHT WRIST X-RAY: 4-VIEWS [...] rce(s) Supporting Document(s) ID Date Data Source [id number] 08/14/2020 05:59:00 PM EDT [facility] 1 OrderSheet [facility] Emergency Department [address] [place] [address] Phone #: [phone] 08/14/2020 17:50 Patient: IMELDA VALERIO Sex: F [...] rce(s) Supporting Document(s) ID Date Data Source [id number] 08/14/2020 05:59:00 PM EDT [facility] 1 Medication Reconciliation Report [facility] [address] [place] [address] Phone #: ext- [phone] 08/14/2020 17:50 [...] 20 tablet. Refills: 0. [id number] [address] [place], [place] [id number]. . -- FLIP Mcfarlane Name Value Range Interpretation Code Description Data [facility] Supporting Document(s) ID Date Data Source [id number] 08/14/2020 05:59:00 PM EDT [facility] 1 Medication Administration Record [facility] Department [address] [place] [address] Phone #: ext- [phone] 08/14/2020 17:50 Patient: IMELDA VALERIO Sex: F : 1990 Age: 29yWeight: 127.0 kgHeight/Length: 68 inBMI: 42.6ALLERGIES: NSAIDs Date/Time Medication Administered Medication OrderedGiven TORADOL [IM] (KETOROLAC Toradol IM 60 mg19:20 08/14/2020 TROMETHAMINE)Karen Hunt R.N. Dose: 60 mg IM Name Value Range Interpretation Code Description Data [facility] rce(s) Supporting Document(s) ID Date Data Source [id number] 08/14/2020 05:59:00 PM EDT [facility] 1 General Instructions [facility] Department [address] [place] [address] Phone #: ext- [phone] 08/14/2020 17:50 Patient: [...] 20 tablet. Refills: 0. Substitution permitted.Pharmacy - [id number] - [address] [place], [place] [phone]. .Follow-up:Follow up with your doctor. Call for the next available appointment. Reason for referral: evaluation,treatment and refer to Orthopedics if symptoms persist.. Summary of care provided to patient.Understanding of the discharge instructions verbalized by patient. ADDITIONAL INFORMATIONCarpal Tunnel Syndrome 2 General Instructions [facility] [address] [place] [address] Phone #: ext- [phone] 08/14/2020 17:50 Patient: [...] wear it during the 3 General Instructions [facility] [address] [place] [address] Phone #: ext- [phone] 08/14/2020 17:50 Patient: [...] bent back when typing. You may use yxqc-jhw-eglvnsf pain medicine to treat pain and inflammation, [...] Your whole arm becomes swollen or weak [id number] [employer] [address] [place] [address]. All rights reserved. This information is not intended as asubstitute for professional medical care. Always follow your healthcare professional's instructions.Wrist Splint: VelcroA splint is designed to prevent movement of the bones, muscles and tendons. Velcro wrist splints are 4 General Instructions [facility] Department [address] [place] [address] Phone #: ext- [phone] 08/14/2020 17:50 ---- [...] hand becomes cold, blue, numb or tingly [id number] [employer] [address] [place] [address], [place] [address]. All rights reserved. This information is not intended as asubstitute for professional medical care. Always follow your healthcare professional's instructions. You have been given the following additional information: Carpal Tunnel Syndrome Wrist Splint, Velcro(Electronically signed by FLIP Mcfarlane 08/14/2020 21:33) Name Value Range Interpretation Code Description Data Jany rce(s) Supporting Document(s) ID Date Data Source [id number] 08/14/2020 05:59:00 PM EDT [facility] 1 Clinical Report - Nurses [facility] [address] [place] [address] Phone #: ext- [phone] 08/14/2020 17:50 Patient: [...] on the wrist that is very tender.).Treatment DIRECTOR OF ASSESSING:Ice and took Tylenol.SEPSIS SCREEN: SIRS Screen negative: [...] Rubalcava R.N. 2 Clinical Report - Nurses [facility] [address] [place] [address] Phone #: ext- [phone] 08/14/2020 17:50 Patient: [...] PROGRESS NOTES 3 Clinical Report - Nurses [facility] [address] [place] [address] Phone #: [phone]- [phone] 08/14/2020 17:50 Patient: IMELDA VALERIO Sex: F : 1990 Age: 29y Reassurance [...] F. Pain level now 07/06. 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 No learning barriers present. Reviewed medication(s) side effects information. Prescription(s) sent electronically to pharmacy. Written instructions provided in Japanese. The patient was discharged by the physician training program assistant. She was discharged home. She left ambulatory and via private vehicle. Patient driving. --19:37 08/14/20 Marti Rubalcava R.N.Locked/Released at 08/14/2020 19:37 by Marti Rubalacva R.N. Name Value Range Interpretation Code Description Data Jany rce(s) Supporting Document(s) ID Date Data Source [id number] 08/14/2020 05:59:00 PM EDT [facility] 1 Clinical Report - Physicians/Mid Levels [facility] Department [address] [place] [address] Phone #: ext- [phone] 08/14/2020 17:50 [id number] Sex: F : 1990 Age: 29y Time [...] by 2 Clinical Report - Physicians/Mid Levels [facility] Emergency Department [address] [place] [address] Phone #: ext- [phone] 08/14/2020 17:50 Patient: IMELDA VALERIO Sex: F [...] tablet. Refills: 0. Substitution permitted. Pharmacy - [id number] - [address] [place], [place] [phone]. FaxNumber: [phone]. Follow-up: Follow up with your doctor. Call for the next available appoint ment. Reason for referral: evaluation, treatment and refer to Orthopedics if symptoms persist.. Summary of care provided to patient. Understanding of the discharge instructions verbalized by patient. 3 Clinical Report - Physicians/Mid Levels [facility] Department [address] [place] [address] Phone #: ext- [phone] 08/14/2020 17:50 [id number] Sex: F : 1990 Age: 29y(Electronically signed by FLIP Mcfarlane 08/14/2020 21:33) Name Value Range Interpretation Code Description Data Jany rce(s) Supporting Document(s) ID Date Data Source [id number] 08/03/2020 11:39:00 AM EDT [facility] ([facility], ) Name Value Range Interpretation Code Description Data Jany rce(s) Supporting Document(s) Calcidiol [Mass/volume] in Serum or Plasma 41.1 ng/mL 30.0-100.0 [facility] ([facility] ) ID Date Data Source [id number] 08/03/2020 11:39:00 AM EDT [facility] ([facility], ) Name Value Range Interpretation Code Description Data Jany rce(s) Supporting Document(s) Glucose, Fasting 85 mg/dL 70-100 [facility] ([facility] ) Blood Urea Nitrogen 13 mg/dL 7-18 [facility] ([facility], ) Sodium Level 139 meq/L 136-145 [facility] ([facility] ) Creatinine For GFR 0.74 mg/dL 0.55-1.30 [facility] ([facility], ) Glomerular Filtration Rate [facility] <content>Units are mL/min/1.73 m2</content>
<content></content>
<content>Chronic Kidney Disease Staging per NKF:</content>
<content></content>
<content>Stage I & II GFR >=60 Normal to Mildly Decreased</content>
<content>Stage III GFR 30- 59 Moderately Decreased</content>
<content>Stage IV GFR 15-29 Severely Decreased</content>
<content>Stage V GFR <15 Very Little GFR Left</content>
<content>ESRD GFR <15 on FABRICATION SUPERVISOR</content>
<content></content> Potassium Serum 4.3 meq/L 3.5-5.1 [facility] ([facility]) Chloride Level 108 meq/L 98-107 [facility] ([facility]) Carbon Dioxide Level 25 meq/L 21-32 [facility] ([facility]) Ast/Sgot 14 U/L 7-37 [facility] ([facility]) Anion Gap 6 meq/L 8-16 [facility] ([facility]) Calcium Level 8.5 mg/dL 8.5-10.1 [facility] ([facility]) Alt/SGPT 22 U/L 12-78 [facility] ([facility]) Bilirubin,Total 0.1 mg/dL 0.2-1.0 [facility] ([facility]) Alkaline Phosphatase 87 U/L 45-117 [facility] ([facility]) Total Protein 6.6 GM/DL 6.4-8.2 [facility] ([facility]) Albumin 3.3 GM/DL 3.2-5.2 [facility] ([facility]) Albumin/Globulin Ratio 1.0 1.2-2.2 [facility] ([facility]) ID Date Data Source [id number] 08/03/2020 11:39:00 AM EDT [facility] ([facility]) Name Value Range Interpretation Code Description Data Jany rce(s) Supporting Document(s) Appearance, Urine Laboratory test result [facility] ([facility], ) Color, Urine Laboratory test result [facility] ([facility]) Protein, Urine Auto Laboratory test result [facility] ([facility]) PH,Urine 6.0 units 5.0-9.0 [facility] ([facility]) Specific [place] Urine Auto 1.005 1.002-1.035 [facility] ([facility]) Glucose, Urine (Ua) Auto Laboratory test result [facility] ([facility]) Urobilinogen, Urine Auto 0.2 mg/dL 0.0-2.0 [facility] ([facility]) Ketone, Urine Auto Laboratory test result [facility] ([facility]) Leukocyte Esterase, Urine Auto Laboratory test result [facility] ([facility]) Nitrite, Urine Auto Laboratory test result [facility] ([facility]) Bilirubin, Urine Auto Laboratory test result [facility] ([facility]) WBC, Urine Auto 1 /HPF 0-3 [facility] ([facility]) Blood, Urine Blood Laboratory test result [facility] ([facility]) Bacteria, Urine Auto Laboratory test result [facility] ([facility]) Squamous Epithelial Cell Ur AU 0 /HPF 0-6 [facility] ([facility]) RBC, Urine Auto 1 /HPF 0-3 [facility] ([facility]) Hyaline Cast, Urine Auto 0 /LPF 0-1 [facility] ([facility]) ID Date Data Source [id number] 08/03/2020 11:39:00 AM EDT [facility] ([facility]) Name Value Range Interpretation Code Description Data Jany rce(s) Supporting Document(s) Red Blood Count 4.43 10 4.00-5.40 [facility] ([facility]) White Blood Count 8.7 10 4.0-10.0 [facility] ([facility]) Hemoglobin 12.6 g/dL 12.0-15.5 [facility] ([facility]) Mean Corpuscular Volume 88.9 fl 80.0-96.0 M [facility] ([facility]) Hematocrit 39.4 % 36.0-47.0 [facility] ([facility] [facility]) Red Cell Distribution Width 14.6 % 11.5-14.5 [facility] ([facility]) Mean Corpuscular HGB Conc 32.0 g/dL 32.0-36.5 [facility] ([facility]) Mean Corpuscular Hemoglobin 28.4 pg 27.0-33.0 [facility] ([facility]) Neutrophils % 65.2 % 36.0-66.0 [facility] ([facility]) Lymph % 20.0 % 24.0-44.0 [facility] ([facility]) Platelet Count, Automated 403 10 150-450 [facility] ([facility]) [place] % 9.6 % 0.0-5.0 [facility] ([facility]) Baso % 0.6 % 0.0-1.0 [facility] ([facility]) Eos % 4.1 % 0.0-3.0 [facility] ([facility]) Immature Granulocyte % 0.5 % 0-3.0 [facility] ([facility]) Neutrophils # 5.7 10 1.5-8.5 [facility] ([facility]) Nucleated Red Blood Cell % 0.0 % 0-0 MED [facility] ([facility]) [place] # 0.8 10 0.0-0.8 [facility] ([facility]) Lymph # 1.7 10 1.5-5.0 [facility] ([facility]) Eos # 0.4 10 0.0-0.5 [facility] ([facility]) Baso # 0.1 10 0.0-0.2 [facility] ([facility]) ID Date Data Source [id number] 06/06/2020 02:29:00 PM EDT [facility] ([facility]) Name Value Range Interpretation Code Description Data Jany rce(s) Supporting Document(s) Gram Stain Laboratory test result Normal (applies to non-n umeric results) [facility] ([facility]) QUALITY: POOR MANY EPITHELIAL CELLS FEW WBCS MANY GRAM POSITIVE COCCI IN PAIRS AND CHAINS Sputum Culture Laboratory test result [facility] ([facility]) Sputum culture not performed due to orop haryngeal contamination. Further processing of such specimens would not yield useful information about the possible pathogens from the lower respiratory tract. Test not performed ID Date Data Source [id number] 06/06/2020 01:43:00 PM EDT [facility] ([facility]) Name Value Range Interpretation Code Description Data Jany rce(s) Supporting Document(s) PDFReport Laboratory test result [facility] ([facility]) FVC-Pre 2.34 L [facility] ([facility]) FVC-%Pred-Pre 53 L [facility] ([facility] ) FVC-Pred 4.41 L [facility] ([facility], ) Fev1-Pred 3.68 L [facility] ([facility], ) Fev1-Pre 1.37 L [facility] ([facility], ) FVC-LLN 3.61 L [facility] ([facility], ) Fev1-LLN 3.00 L [facility] ([facility], ) Fev1-%Pred-Pre 37 L [facility] ([facility], ) Fev6-Pred 4.36 L [facility] ([facility], ) Fev6-LLN 3.57 L [facility] ([facility]) Fev6-Pre 2.34 L [facility] ([facility]) Fev6-%Pred-Pre 53 L [facility] ([facility], ) Llx2prq-Kvdw 84 % [facility] ([facility], ) Okq4fsp-Mte 59 % [facility] ([facility]) Xlp7fzq-VJF 75 % [facility] ([facility]) Yeb5xni-%Pred-Pre 69 % [facility] ([facility]) Blt7frc-Hehh 99 % [facility] ([facility]) Jep9mbg-%Pred-Pre 101 % [facility] ([facility]) Wzc1pxi-Cfy 100 % [facility] ([facility], ) FEFMax-Pred 7.80 L/E/sec [facility] ([facility], ) FEFMax-%Pred-Pre 45 L/E/sec [facility] ([facility]) FEFMax-LLN 5.80 L/E/sec [facility] ([facility]) FEFMax-Pre 3.55 L/E/sec [facility] ([facility]) Bkc4211-Tar 0.65 L/E/sec [facility] ([facility], ) Ugd5836-Cmbe 3.76 L/E/sec [facility] ([facility]) Qnk5669-%Pred-Pre 17 L/E/sec [facility] ([facility]) Tbf3uvg9-Qwyn 85 % [facility] ([facility]) Swh9153-JUL 2.32 L/E/sec [facility] ([facility]) ExpTime-Pre 6.01 sec [facility] ([facility]) Dbq3zgm4-Bpm 59 % [facility] ([facility]) Fca6dcz2-%Pred-Pre 68 % [facility] ([facility]) Ejl2iok1-TTH 77 % [facility] ([facility]) ID Date Data Source [id number] 04/05/2020 11:30:00 AM EDT [facility] ([facility]) Name Value Range Interpretation Code Description Data Jany rce(s) Supporting Document(s) PDFReport Laboratory test result [facility] ([facility]) FVC-Pre 3.79 L [facility] ([facility]) FVC-Pred 4.41 L [facility] ([facility]) FVC-%Pred-Pre 85 L [facility] ([facility]) FVC-LLN 3.61 L [facility] ([facility]) Fev1-Pred 3.68 L [facility] ([facility]) Fev1-LLN 3.00 L [facility] ([facility]) Fev1-%Pred-Pre 77 L [facility] ([facility]) Fev1-Pre 2.85 L [facility] ([facility]) Fev6-Pred 4.36 L [facility] ([facility]) Fev6-Pre 3.79 L [facility] ([facility]) Fev6-%Pred-Pre 86 L [facility] ([facility]) Cro2mti-Imlp 84 % [facility] ([facility]) Bjm9wql-Bno 75 % [facility] ([facility]) Fev6-LLN 3.57 L [facility] ([facility]) Afe0fas-QTO 75 % [facility] ([facility]) Gjo0cyx-%Pred-Pre 89 % [facility] ([facility]) Yjf0cpo-Zmlx 99 % [facility] ([facility]) Ruo6jhj-Jek 100 % [facility] ([facility]) Vzl7rjr-%Pred-Pre 101 % [facility] ([facility]) FEFMax-Pred 7.80 L/E/sec [facility] ([facility]) FEFMax-LLN 5.80 L/E/sec [facility] ([facility]) FEFMax-Pre 6.67 L/E/sec [facility] ([facility]) FEFMax-%Pred-Pre 85 L/E/sec [facility] ([facility]) Raf2373-Cct 2.21 L/E/sec [facility] ([facility]) Ava6703-Zcyl 3.76 L/E/sec [facility] ([facility]) Zhg6331-%Pred-Pre 58 L/E/sec [facility] ([facility]) ExpTime-Pre 5.76 sec [facility] ([facility]) Ajy3700-EXQ 2.32 L/E/sec [facility] ([facility]) Vlv6fvb0-Xysd 85 % [facility] ([facility]) Kym6gaz6-%Pred-Pre 88 % [facility] ([facility]) Sid0ghc4-Onv 75 % [facility] ([facility]) Mtf7ipw0-MLP 77 % [facility] ([facility]) ID Date Data Source [id number] 01/27/2020 09:55:00 AM EDT [facility] ([facility]) Name Value Range Interpretation Code Description Data Jany rce(s) Supporting Document(s) Gram Stain Laboratory test result Normal (applies to non-n umeric results) [facility] QUALITY: GOOD MODERATE WBCS MODERATE EPITHELIAL CELLS MANY GRAM POSITIVE COCCI IN PAIRS, CHAINS AND CLUSTERS FEW GRAM POSITIVE RODS Sputum Culture Laboratory test result Normal (applies to non-numeric results) [facility] ([facility], ) FULL REPORT IN LAB NOTES (eCW and [facility] ). NORMAL NAVEED PRESENT ORGANISM 1: YEAST LIKE ORGANISM QUANTITY OF GROWTH FEW ORGANISM 1: YEAST LIKE ORGANISM ID Date Data Source [id number] 01/26/2020 09:33:00 AM EDT [facility] ([facility]) Name Value Range Interpretation Code Description Data Jany rce(s) Supporting Document(s) FVC-Pre 3.75 L [facility] ([facility]) FVC-Pred 4.41 L [facility] ([facility]) PDFReport Laboratory test result [facility] ([facility]) FVC-%Pred-Pre 85 L [facility] ([facility]) FVC-LLN 3.61 L [facility] ([facility]) Fev1-Pre 2.59 L [facility] ([facility]) Fev1-Pred 3.68 L [facility] ([facility]) Fev6-Pred 4.36 L [facility] ([facility]) Fev1-%Pred-Pre 70 L [facility] ([facility]) Fev1-LLN 3.00 L [facility] ([facility]) Fev6-Pre 3.75 L [facility] ([facility]) Fev6-%Pred-Pre 86 L [facility] ([facility]) Fev6-LLN 3.57 L [facility] ([facility]) Nid7xcf-Kmcr 84 % [facility] ([facility]) Xca5woa-%Pred-Pre 81 % [facility] ([facility]) Zxt9rlj-Kzk 69 % [facility] ([facility]) Qbx8fht-QOO 75 % [facility] ([facility]) Xqg6pjg-Nbt 100 % [facility] ([facility]) Raq7nby-%Pred-Pre 101 % [facility] ([facility]) Aak4wxc-Vvuq 99 % [facility] ([facility]) FEFMax-%Pred-Pre 69 L/E/sec [facility] ([facility]) FEFMax-Pred 7.80 L/E/sec [facility] ([facility]) FEFMax-Pre 5.39 L/E/sec [facility] ([facility]) FEFMax-LLN 5.80 L/E/sec [facility] ([facility]) Usu8061-Kooy 3.76 L/E/sec [facility] ([facility]) Mwr3712-%Pred-Pre 43 L/E/sec [facility] ([facility]) Ghe9831-Psa 1.62 L/E/sec [facility] ([facility]) Fpz0453-KWM 2.32 L/E/sec [facility] ([facility]) Tax1aum0-Bzyg 85 % [facility] ([facility]) ExpTime-Pre 5.65 sec [facility] ([facility]) Vgp9lmz1-NSZ 77 % [facility] ([facility]) Cxy7flh9-Lkq 69 % [facility] ([facility]) Dgb7hfs4-%Pred-Pre 80 % [facility] ([facility]) ID Date Data Source [id number] 12/10/2019 10:30:00 AM EST [facility] ([facility], ) Name Value Range Interpretation Code Description Data Jany rce(s) Supporting Document(s) Calcidiol [Mass/volume] in Serum or Plasma 27.6 ng/mL 30.0-100.0 [facility] ([facility], ) ID Date Data Source [id number] 11/20/2019 05:15:00 PM EST [facility] 1 OrderSheet [facility] Emergency Department [address] [place] [address] Phone #: ext- [phone] 11/20/2019 17:04 [id number] Sex[facility] F : 1990 Age: 29yWEIGHT:115.6 kg [...] 11/20/2019 Ack'd: 17:47 19:15 Pepe, JanuaryBret CASTELAN; [facility] R.N. R.N.Troponin-T STAT 19:47 11/20/2019 20:08 [facility] Rosalino Christianson R.N. Physician;DIAGNOSTIC STUDY ORDERSOrder Description Priority Entered Acknowledged [facility]ed[facility] Portable 1 STAT 17:10 11/20/2019 17:14 Flor Weeks; R.N.(Oxygen?(No)) Reason for Study: Chest PainCT CTA CHEST STAT 17:50 17:51 [facility]January(NONCOR) Uzma CASTELAN; R.N.INC PP(Oxygen?(No))(IV?(Yes)) Reason for Study: Please r/o PE, tachycardia, CP, BCP's smoker 2 OrderSheet [facility] Emergency Department [address] [place] [address] Phone #: ext- [phone] 11/20/2019 17:04 Patient: IMELDA VALERIO Sex: F : 1990 Age: 29yMEDICATION/IV/DRIP/FLUID ORDERSOrder Description Priority Entered Acknowledged InitialedNS IV : 125 mL/hr 17:10 11/20/2019 17:47 Zojanuary(NOW x1) Danie CASTELAN; R.N.NitroGLYCERIN 17:25 11/20/2019 17:47 ZojanuaryTopical- Patch 0.4 Danie CASTELAN; R.N.mg/hr (NOW x1)Morphine IVP 2 mg 17:25 11/20/2019 17:50 Zojanuary(NOW x1, keep o2 Danie CASTELAN; R.N.sat > 90%, HIGHALERTMEDICATION)Zofran IVP 4 mg 17:25 11/20/2019 17:49 ZossJanuary Danie CASTELAN; R.N.GI Cocktail PO 50 21:00 11/20/2019 21:19 ZojanuarymL with Lidocaine Rosalino Venerus R.N.Viscous Physician;Mouth/Throat 10mL, Maalox Oral 30mL, Oral10 mLMorphine IVP 4 mg 21:15 11/20/2019 21:21 Zoss, January(NOW, HIGH ALERT Rosalino Venerus R.N.MEDICATION) Physician;GENERAL ORDERSOrder Description Priority Entered Acknowledged InitialedCardiac Monitor 17:10 11/20/2019 17:14 Nilsa Weeks(continuous) Danie CASTELAN; R.N.Blood Pressure 17:11/20/2019 17:14 Christophe Weeks; R.N.EKG 17:10 11/20/2019 17:14 Nilsa Weeks; R.N.NPO 17:11/20/2019 17:14 Nilsa Weeks; R.NVicentaPulse Oximetry 17:10 11/20/2019 17:14 Jya Weeks; R.NVicentaVitals 17:10 11/20/2019 17:14 Nilsa Weeks; RMackWarm blanket 17:10 11/20/2019 17:14 Nilsa Weeks; RMackEKG 20:56 11/20/2019 21:01 Pepe, January 3 OrderSheet [facility] Emergency Department [address] [place] [address] Phone #: ext- [phone] 11/20/2019 17:04 Patient: IMELDA VALERIO Sex: F : 1990 Age: 29y Rosalino Christianson R.N. Physician;[Electronically signed by Katina Cantu R.N. (21:46 11/20/2019)][Electronically signed by Rosalino Christianson (11:03 11/21/2019)][Electronically signed by Danie Ahuja (11:51 11/22/2019)][Electronically locked by Katina Cantu R.N. (21:46 11/20/2019)] Name Value Range Interpretation Code Description Data Jany rce(s) Supporting Document(s) ID Date Data Source [id number] 11/20/2019 05:15:00 PM EST [facility] 1 Medication Reconciliation Report [facility] Emergency Department [address] [place] [address] Phone #: ext- [phone] 11/20/2019 17:04 Patient: [...] 11/20/2019 9:21:00 PM 2 Medication Reconciliation Report [facility] Emergency Department [address] [place] [address] Phone #: ext- [phone] 11/20/2019 17:04 Patient: IMELDA VALERIO Sex: F : 1990 Age: 29yThe following Medications were prescribed to the patient:Zithromax Z-Cesar 250 mg tablet Take as directed for 5 days -- for bronchitis - Take 2 tabs PO on day1, then one tab PO each day for next 4 days. Dispense 1 pack. Refills: 0. Substitution permitted.Pharmacy - [facility] [address] ; [place] [address]. .albuterol sulfate 2.5 mg/3 mL (0.083 %) solution for nebulization Inhale 1 vial every six hours as needed for10 days -- for cough / SOB / wheezing. Dispense 40 vial. Refills: 0. Substitution permitted.Pharmacy - [facility] [phone] ; [place] [address]. FaxNumber: [phone]. -- Physician SairaPrednisone 10mg dose packsig: take [...] rce(s) Supporting Document(s) ID Date Data Source [id number] 11/20/2019 05:15:00 PM EST [facility] 1 Medication Administration Record [facility] Emergency Department [address] [place] [address] Phone #: [phone]- [phone] 11/20/2019 17:04 Patient: IMELDA VALERIO Sex: F [...] January, R.N. Dose: 0.4 mg Transdermal----Stop20:18 11/20/2019Zoss, Katina, R.N.Given MORPHINE [IVP] Morphine IVP 2 mg [...] rce(s) Supporting Document(s) ID Date Data Source [id number] 11/20/2019 05:15:00 PM EST [facility] 1 General Instructions [facility] Emergency Department [address] [place] [address] Phone #: ext- [phone] 11/20/2019 17:04 Patient: [...] 1 pack. Refills: 0. Substitution permitted.Pharmacy - [facility] [address] ; [place] [address]. .albuterol sulfate 2.5 mg/3 mL (0.083 %) solution for nebulization Inhale 1 vial every six hours as needed for10 days -- for cough / SOB / wheezing. Dispense 40 vial. Refills: 0. Substitution permitted.Pharmacy - [facility] [address] ; [place] [address]. .Prednisone 10mg dose packsig: take 6 tabs PO each day for 2 days, then 5 tabs PO each day for 2 days, then taper by one tab each 2 General Instructions [facility] Emergency Department [address] [place] [address] Phone #: ext- [phone] 11/20/2019 17:04 Patient: IMELDA VALERIO Sex: F : 1990 Age: 29yday every other day until down to 1 tab PO each day for 2 days.Disp# 42.Understanding of the discharge instructions verbalized by patient and family.Follow-up with: Dontae Velazquez MD, Cardiology, , [address] [place] [address], [address] Follow up. Call for the next available [...] then touching your own 3 General Instructions [facility] Emergency Department [address] [place] [address] Phone #: ext- [phone] 11/20/2019 17:04 Patient: [...] away from secondhand smoke. You may use skyb-tnd-phqcrqa medicines to control fever or pain, unless [...] loosen mucus in your nose and lungs. Vhoo-jur-obahdqk cough, cold, and sore-throat medicines will not [...] any of these occur: 4 General Instructions [facility] Emergency Department [address] [place] [address] Phone #: ext- [phone] 11/20/2019 17:04 Patient: [...] breathing, whee zing, or pain with breathing [phone] [employer] [address] [place] [address], [place] [address]. All rights reserved. This information is not [...] signs of a serious 5 General Instructions [facility] Emergency Department [address] [place] [address] Phone #: ext- [phone] 11/20/2019 17:04 Patient: [...] better within 24 hours, or as advised.Call [phone] if any of these occur: A change in the type of pain: if it feels different, becomes more severe, lasts longer, or begins to spread into your shoulder, arm, neck, jaw or back Shortness of breath or increased pain with breathing Weakness, dizziness, or fainting Rapid heart beat Crushing sensation in your chestWhen to seek medical advice 6 General Instructions [facility] Emergency Department [address] [place] [address] Phone #: ext- [phone] 11/20/2019 17:04 Patient: IMELDA VALERIO Sex: F : 1990 Age: 29yCall your healthcare provider right away if any of the following occur: Cough with dark colored sputum (phlegm) or blood Fever of 100.4F (38C) or higher, or as directed by your healthcare provider Swelling, pain or redness in one leg [phone] [employer] [address] [place] [address], [place] [address]. All rights reserved. This information is not [...] coffee, tea, cola and some medicines. Some pkzp-nns-nvkrtap cold andsinus remedies, diet pills, and some [...] to seek medical advice 7 General Instructions [facility] Emergency Department [address] [place] [address] Phone #: ext- [phone] 11/20/2019 17:04 Patient: IMELDA VALERIO Sex: F : 1990 Age: 29yCall your healthcare provider right away if any of these occur: Chest, shoulder, arm, neck, or back pain Shortness of breath Weakness Fainting or lightheadedness Sustained palpitations [phone] [employer] [place] [address]. All rights reserved. This information is not intended as asubstitute for professional medical care. Always follow your healthcare professional's instructions. You have been given the following additional information: Bronchitis, Antibiotic Treatment (Adult) Chest Pain, Uncertain Cause Tachycardia: PAT(Electronically signed by Rosalino Christianson, Physician 11/21/2019 11:03) Name Value Range Interpretation Code Description Data Jany rce(s) Supporting Document(s) ID Date Data Source [id number] 11/20/2019 05:15:00 PM EST [facility] 1 Clinical Report - Nurses [facility] Emergency Department [address] [place] [address] Phone #: ext- [phone] 11/20/2019 17:04 Patient: [...] like she is going to pass out).Treatment DIRECTOR OF ASSESSING:Took Tylenol. (8:30).SEPSIS SCREEN: Negative (no infection suspected/docu [...] --17:10 11/20/19 Nilsa Weeks R.N.AllergiesNSAIDs. --17:08 11/20/19 Nilsa Weeks R.N.PROBLEMS:Neuropathy. --17:11 11/20/19 Nilsa Weeks R.N.Multiple Sclerosis. --17:18 11/20/19 Reed Nash following entry was modified by FLIP Nash, 17:18 11/20/19Multiple Sclerosis. --17:10 11/20/19 Nilsa Weeks R.N..ADDITIONAL SURGERIES:Gastric sleeve. --17:11 11/20/19 Nilsa Weeks R.N. 2 Clinical Report - Nurses [facility] Emergency Department [address] [place] [address] Phone #: ext- [phone] 11/20/2019 17:04 Patient: [...] PROGRESS NOTES 3 Clinical Report - Nurses [facility] Emergency Department [address] [place] [address] Phone #: ext- [phone] 11/20/2019 17:04 Patient: IMELDA VALERIO A cct#: [id number] Sex: F : 1990 Age: 29yCardiac monitor [...] for taking this medication. Verbalizes understanding. --17:47 11/20/19January, R.N.17:48 11/20/2019 Zofran (Ondansetron HCl) IVP 4 [...] saturation: 97%. --18:01 11/20/19 Gabbie Castillo ER Vcmb385:42 11/20/19. Patient returned from CT by wheelchair with radiology administrator. --18:48 11/20/19, R.N.19:03 11/20/19. BP: 113/71. MAP: [...] KRISTY Gomez 4 Clinical Report - Nurses [facility] Emergency Department [address] [place] [address] Phone #: ext- [phone] 11/20/2019 17:04 Patient: IMELDA VALERIO Sex: F : 1990 Age: 29y 21:16 11/20/2019 GI Cocktail (Calcium Carbonate Antacid) PO 50 mL gi louise. Allergies verified and confirmed 5 rights. Information reviewed with patient including reason for taking this medication. Verbalizes understanding. --21:19 11/20/19 Pepe JanuaryElver EKG time: (21:16 11/20/2019). EKG was performed [...] Patient verbalized understanding. Written instructions provided in Japanese. The patient was discharged by the physician. [...] rce(s) Supporting Document(s) ID Date Data Source [id number] 11/20/2019 05:15:00 PM EST [facility] 1 Clinical Report - Physicians/Mid Levels [facility] Emergency Department [address] [place] [address] Phone #: ext- [phone] 11/20/2019 17:04 Patient: IMELDA VALERIO Sex: F [...] Recent medical care: Not recently seen/assessed.[facility] period- 26 Oct 2019. No [...] Oophorectomy. 2 Clinical Report - Physicians/Mid Levels [facility] Emergency Department [address] [place] [address] Phone #: ext- [phone] 11/20/2019 17:04 Patient: [...] the 3 Clinical Report - Physicians/Mid Levels [facility] Department [address] [place] [address] Phone #: ext- [phone] 11/20/2019 17:04 Patient: IMELDA VALERIO Sex: F [...] mL/min 4 Clinical Report - Physicians/Mid Levels [facility] Department [address] [place] [address] Phone #: ext- [phone] 11/20/2019 17:04 Patient: [...] mL/min Normal D-Dimer: (ANNMARIE: 11/20/2019 17:35) ( NygRcvd 11/20/2019 17:59) Final results Test Result Flag [...] ng/ml Recommended as the clinical threshold value Macrina T. TSH: (ANNMARIE: 11/20/2019 17:35) ( [facility] 11/20/2019 18:20) Final results Test Result Flag Units (Reference) TSH 1.32 uIU/mL (0.47 - 5.01) Urinalysis: (ANNMARIE: 11/20/2019 18:55) ( [facility] 11/20/2019 19:01) Final results Test Result Flag [...] Portable 1 View: (ANNMARIE: 11/20/2019 17:15) ( [facility] 11/20/2019 18:57 ) In Progress CHEST PORTABLE Reason(s): Chest Pain TRANSPORTATION: P IV? O2? Oxygen?(No) Room: ED : Will sign waiver.PROGRESS AND PROCEDURESCourse of Care: 18:53 Nov 20 2019. Awaiting CTA chest results. 18:55 Nov 20 2019. ED caretransferred. Case discussed with Dr Christianson. Assumed care. Brief hx: Chest pressure, pain, cough, r/o PE. 5 Clinical Report - Physicians/Mid Levels [facility] Emergency Department [address] [place] [address] Phone #: ext- [phone] 11/20/2019 17:04 Patient: [...] EXAM 6 Clinical Report - Physicians/Mid Levels [facility] Emergency Department [address] [place] [address] Phone #: ext- [phone] 11/20/2019 17:04 Patient: IMELDA VALERIO Sex: F [...] CTA CHEST NON-CORONARY W CON INC PP [address] [place] [address] ---------NAME--------- NUMBER SEX AGE ADMIT DISC. XRAY# F/C TYPE TEODORO Morneal [id number] F 29 11/20/19 [id number] SB4 E/R DATE OF : 1990 M/R# [id number] #: [id number] TR-02 LOCATION: EMERGENCY DEPT TRANSCRIBED: 11/20/19 20:[address] CTA CHEST NON-CORONARY W [id number] COMPLETED:11/20/19 18:57 STANLEY [id number] Reason(s): Please r/o PE, tachycardia, CP, BCP's [...] story: 7 Clinical Report - Physicians/Mid Levels [facility] Department [address] [place] [address] Phone #: ext- [phone] 11/20/2019 17:04 Patient: [...] , Radiologist Date/Time: 11/20/19 20:.STANLEY.to EMERGENCY via [facility] w Diff: (ANNMARIE: 11/20/2019 17:35) ( [...] 6.90) 8 Clinical Report - Physicians/Mid Levels [facility] Department [address] [place] [address] Phone #: ext- [phone] 11/20/2019 17:04 Patient: [...] Male GFR Interprentation 20-49 yrs >60 mL/min Jtqxde69-10 yrs >56 mL/min Normal 60-69 yrs >49 mL/min Normal 70-79yrs>42 mL/min Normal 80 and above >35 mL/min Normal Female GFRInterpretation 20-39 yrs >60 mL/min Normal 40-49 yrs >58 mL/minNormal 50-59 yrs >51 mL/min Normal 60-69 yrs >45 mL/min Dkbimc79-85 yrs >39 mL/min Normal 80 and above >32 mL/min NormalD-Dimer: (ANNMARIE: 11/20/2019 17:35) ( MsgRcvd 11/20/2019 17:59) Final results Test Result Flag Units (Reference) D-DIMER QUANT <0.27 ug/mL (0.27 - 0.50)Lactic Acid: (ANNMARIE: 11/20/2019 17:35) ( [facility] 11/20/2019 17:50) Final results Test Result Flag Units (Reference) LACTIC ACID 2.1 MMOL/L (0.2 - 2.2)Troponin-T: (ANNMARIE: 11/20/2019 17:35) ( [facility] 11/20/2019 18:28) Final results Test Result Flag Units (Reference) TROPONIN T 0.01 NG/ML (0.00 - 0.10) TROPONIN T0.1 ng/ml Recommended as the clinical threshold value forTroponin T.TSH: (ANNMARIE: 11/20/2019 17:35) ( [facility] 11/20/2019 18:20) Final results Test Result Flag Units (Reference) TSH 1.32 uIU/mL (0.47 - 5.01)Urinalysis: (ANNMARIE: 11/20/2019 18:55) ( [facility] 11/20/2019 19:01) Final results Test Result Flag Units (Reference) URINALYSIS 9 Clinical Report - Physicians/Mid Levels [facility] Emergency Department [address] [place] [address] Phone #: ext- [phone] 11/20/2019 17:04 Patient: [...] tachycardia 10 Clinical Report - Physicians/Mid Levels [facility] Emergency Department [address] [place] [address] Phone #: ext- [phone] 11/20/2019 17:04 --------- Patient: IMELDA VALERION: [id number] Sex: F : 1990 Age: 29yINSTRUCTIONS Avoid [...] pack. Refills: 0. Substitution permitted. Pharmacy - [facility] [phone] ; [place] [address]. . albuterol sulfate 2.5 mg/3 mL (0.083 %) solution for nebulization Inhale 1 vial every six hours as needed for 10 days -- for cough / SOB / wheezing. Dispense 40 vial. Refills: 0. Substitution permitted. Pharmacy - [facility] [phone] ; [place] [address]. . Prednisone 10mg dose pack sig: take [...] Follow-up with: Dontae Velazquez MD, Cardiology, , [address] [place] [address], [phone] Follow up. Call for the next available appointment. Reason for referral: evaluation, treatment and Atypical chest pain / Bronchitis / Sinus tach.(Electronically signed by Rosalino Christianson, Physician 11/21/2019 11:03) Name Value Range Interpretation Code Description Data Jany rce(s) Supporting Document(s) ID Date Data Source [id number] 11/22/2019 03:18:00 [place] [address] RESPIRATORY CARE REPORT ==== ---------NAME------- NUMBER SEX AGE ADMIT DISC. XRAY# F/C HOUSTON Monreal [id number] F 29 11/20/19 11/20/19 [id number] SB4 E/R DATE OF : 1990 M/R# [id number] PH#: [phone] TR- LOCATION: EMERGENCY DEPT EKG [id number] COMP LETE:11/21/19 02:18 VMT 58722 EKG [id number] COMPLETE:11/21/19 02:18 VMT 33207 PHYSICIAN: LEIGHA PEOPLES Name Value Range Interpretation Code Description Data Jany rce(s) Supporting Document(s) ID Date Data Source [id number] 11/20/2019 08:41:00 [place] [address] ---------NAME--------- NUMBER SEX AGE ADMIT DISC. XRAY# F/C KASHMIR Monreal [id number] F 29 11/20/19 [id number] SB4 E/R DATE OF : 1990 M/R# [id number] PH#: [phone] TR- LOCATION: EMERGENCY DEPT TRANSCRIBED: 11/20/19 20:[address] CTA CHEST NON-CORONARY W [id number] COMPLETED:11/20/19 18:57 [place] [id number] Reason(s): Please r/o PE, tachycardia, CP, BCP's [...] rce(s) Supporting Document(s) ID Date Data Source [id number] 11/20/2019 08:52:00 PM EST [facility] Name Value Range Interpretation Code Description Data Jany rce(s) Supporting Document(s) TROPONIN T 0.01 NG/ML 0.00 - 0.10 [facility] TROPONIN T0.1 ng/ml Recommended as the c linical threshold value forTroponin T. ID Date Data Source [id number] 11/20/2019 07:01:00 PM EST [facility] Name Value Range Interpretation Code Description Data [facility] Supporting Document(s) URINALYSIS [facility] Hos[facility] angélica UR[facility]YS[facility] yellow NORMAL: Yellow [facility] CLARITY clear NORMAL: Clear [facility] Specific gravity of Urine by Test strip 1.005 1.001 - 1.030 [facility] pH 7 5 - 9 [facility] Glucose [Mass/volume] in Urine by Test strip NORM NORMAL: Negat [facility] Bilirubin.total [Presence] in Urine by Test strip NEG NORMAL: Negative [facility] Ketones [Presence] in Urine by Test strip 15 NORMAL: Negative A [facility] Protein [Mass/volume] in Urine by Test strip NEG NORMAL: Negat [facility] Nitrite [Presence] in Urine by Test strip NEG NORMAL: Negative [facility] BLOOD NEG NORMAL: Negative [facility] Leukocyte esterase [Presence] in Urine by Test strip NEG LIBORIO L: Negative [facility] Urobilinogen [Mass/volume] in Urine by Test strip NOR less jeannette n 1.0 mg/dL [facility] MICROSCOPIC Not Indicate [facility] ID Date Data Source [id number] 11/20/2019 06:28:00 PM EST [facility] Name Value Range Interpretation Code Description Data Jany rce(s) Supporting Document(s) TROPONIN T 0.01 NG/ML 0.00 - 0.10 [facility] TROPONIN T0.1 ng/ml Recommended as the c linical threshold value forTroponin T. ID Date Data Source [id number] 11/20/2019 06:28:00 PM EST [facility] Name Value Range Interpretation Code Description Data Jany rce(s) Supporting Document(s) COMPREHENSIVE METABOLIC PANEL [facility] COMPREHENSIVE METABOLIC PANEL Sodium [Moles/volume] in Serum or Plasma 139 mEq/L 134 - 153 [facility] Potassium [Moles/volume] in Serum or Plasma 4.0 mEq/L 3.6 - 5.0 [facility] Chloride [Moles/volume] in Serum or Plasma 104 mEq/L 98 - 107 [facility] Carbon dioxide, total [Moles/volume] in Serum or Plasma 21 MEQ/L 22 - 30 L [facility] Glucose [Mass/volume] in Serum or Plasma 75 MG/DL 65 - 110 [facility] BUN 7 MG/DL 7 - 21 [facility] Creatinine [Mass/volume] in Serum or Plasma 0.8 MG/DL 0.7 - 1.5 [facility] BUN/CREAT 9 8 - 27 [facility] Protein [Mass/volume] in Serum or Plasma 6.8 G/DL 6.3 - 8.2 [facility] Albumin [Mass/volume] in Serum or Plasma 4.4 G/DL 3.9 - 5.0 [facility] Globulin [Mass/volume] in Serum by calculation 2.4 GM/DL 2.4 - 3.2 [facility] A/G RATIO 1.8 0.8 - 2.0 [facility] Calcium [Mass/volume] in Serum or Plasma 9.8 MG/DL 8.4 - 10.2 [facility] Bilirubin.total [Mass/volume] in Serum or Plasma 0.7 MG/DL 0.2 - 1.3 [facility] Alkaline phosphatase [Enzymatic activity/volume] in Serum or Plasma 82 U/L 38 - 126 [facility] Aspartate aminotransferase [Enzymatic activity/volume] in Serum or Plasma 25 U/L 5 - 40 [facility] Alanine aminotransferase [Enzymatic activity/volume] in Seru m or Plasma 19 U/L 7 - 56 [facility] Anion gap 3 in Serum or Plasma 14.0 mmol/L 8.0 - 16.0 [facility]GE 29 [facility] NON-AA GFR >60 mL/min [facility] AFR AMER GFR >60 mL/min [facility] Male GFR In terprentation 20-49 [...] >32 mL/min Normal ID Date Data Source [id number] 11/20/2019 06:20:[address] [facility] Value Range Interpretation Code Description Data Jany rce(s) Supporting Document(s) Thyrotropin [Units/volume] in Serum or Plasma by Detec tion limit <= 0.05 mIU/L 1.32 uIU/mL 0.47 - 5.01 [facility] ID Date Data Source [id number] 11/20/2019 05:58:[address] [facility] Value Range Interpretation Code Description Data Jany rce(s) Supporting Document(s) Fibrin D-dimer FEU [Mass/volume] in Platelet poor plasma <0. 27 ug/mL 0.27 - 0.50 [facility] ID Date Data Source [id number] 11/20/2019 05:50:[address] [facility] Value Range Interpretation Code Description Data Jany rce(s) Supporting Document(s) Lactate [Moles/volume] in Serum or Plasma 2.1 MMOL/L 0.2 - 2.2 [facility] ID Date Data Source [id number] 11/20/2019 05:50:[address] [facility] Value Range Interpretation Code Description Data Jany rce(s) Supporting Document(s) CBC W/AUTOMATED DIFF [facility] COMPLETE BLOOD COUNT Leukocytes [#/volume] in Blood by Automated count 5.7 10^3/uL 4.2 - 1 1.0 [facility] Erythrocytes [#/volume] in Blood by Automated count 4.39 10^6/uL 4. 20 - 5.40 [facility] Hemoglobin [Mass/volume] in Blood 12.7 g/dL 12.0 - 16.0 [facility] Hematocrit [Volume Fraction] of Blood by Automated count 38.9 % 3 7.0 - 47.0 [facility] Erythrocyte mean corpuscular volume [Entitic volume] by Auto mated count 88.6 fL 81.0 - 101 [facility] Erythrocyte mean corpuscular hemoglobin [Entitic mass] by Automated count 28.9 pg 27.0 - 34.0 [facility] Erythrocyte mean corpuscular hemoglobin concentration [Mass/volume] by Automated count 32.6 g/dL 31.0 - 36.0 [facility] Erythrocyte distribution width [Ratio] by Automated count 13.6 % 11.5 - 14.5 [facility] Platelets [#/volume] in Blood by Automated count 255 10^3/uL 150 - 45 0 [facility] Platelet mean volume [Entitic volume] in Blood by Automated count 9.5 fL 7.4 - 10.4 [facility] Neutrophils/100 leukocytes in Blood by Automated count 79.7 % 37. 0 - 80.0 [facility] Lymphocytes/100 leukocytes in Blood by Manual count 5.4 % 25.0 - 40.0 L [facility] Monocytes/100 leukocytes in Blood by Automated count 11.6 % 3.0 - 8.0 H [facility] Eosinophils/100 leukocytes in Blood by Automated count 2.6 % 0.0 - 7.0 [facility] Basophils/100 leukocytes in Blood by Automated count 0.5 % 0.0 - 2.5 [facility] %IG 0.2 % 0.0 - 0.0 [facility] %NRBC 0.0 % 0.0 - 0.0 [facility] al Neutrophils [#/volume] in Blood by Automated count 4.53 10^3/uL 2.00 - 6.90 [facility] Lymphocytes [#/volume] in Blood by Automated count 0.31 10^3/uL 0.60 - 3.40 L [facility] Monocytes [#/volume] in Blood by Automated count 0.66 10^3/uL 0.00 - 0.90 [facility] Eosinophils [#/volume] in Blood by Automated count 0.15 10^3/uL 0.00 - 0.70 [facility] Basophils [#/volume] in Blood by Automated count 0.03 10^3/uL 0.00 - 0.20 [facility] #IG 0.01 10^3/uL 0.00 - 0.10 [facility] #NRBC 0.00 10^3/uL 0.00 - 0.00 [facility] MANUAL DIFF NOT INDICATED [facility] RBC MORPH NOT INDICATED [facility] Procedure Social History Code Duration Value Status Description Data Source(s ) Smoking 10/04/2020 12:00:00 AM EST Patient is a former smoker completed Patient is a former smoker [facility] ([facility]) Smoking 07/24/2020 12:00:00 AM EDT Patient is a former smoker completed Patient is a former smoker [facility] ([facility]) Vital Signs ID Date Data Source UNK Name Value Range Interpretation Code Description Data Source(s) Body weight 290.00 [lb_av] 290.00 [lb_av] [facility] Body temperature 97.0 [degF] 97.0 [degF] [facility] ([facility]) Oxygen saturation in Arterial blood by Pulse oximetry 98 % 98 % [facility] ([facility]) Respiratory rate 18 /min 18 /min [facility] ( [facility]) Heart rate 89 /min 89 /min [facility] ([facility]) Diastolic blood pressure 75 mm[Hg] 75 mm[Hg] [facility] ([facility]) Systolic blood pressure 134 mm[Hg] 134 mm[Hg] [facility] Body surface area Derived from formula 2.46 m2 2.46 m2 [facility] ([facility]) Body weight 136.987 kg 136.987 kg [facility] ([facility]) [place] body weight 145 [lb_av] 145 [lb_av] [facility] ([facility]) Body mass index (BMI) [Ratio] 44.6 kg/m2 44.6 k g/m2 [facility] ([facility]) Body weight 302.00 [lb_av] 302.00 [lb_av] [facility] ([facility]) Body height 69 [in_i] 69 [in_i] [facility] ([facility]) 5'9" Body temperature 97.1 [degF] 97.1 [degF] [facility] ([facility]) Oxygen saturation in Arterial blood by Pulse oximetry 95 % 95 % [facility] ([facility]) Heart rate 89 /min 89 /min [facility]) Diastolic blood pressure 88 mm[Hg] 88 mm[Hg] [facility] ([facility]) Systolic blood pressure 124 mm[Hg] 124 mm[Hg] [facility] ([facility]) Body mass index (BMI) [Ratio] 44.9 kg/m2 44.9 k g/m2 [facility] Body weight 304.00 [lb_av] 304.00 [lb_av] [facility] ([facility]) Body height 69 [in_i] 69 [in_i] [facility] ([facility]) 5'9" Oxygen saturation in Arterial blood by Pulse oximetry 95 % 95 % [facility] ([facility]) Heart rate 81 /min 81 /min [facility] ([facility]) Diastolic blood pressure 80 mm[Hg] 80 mm[Hg] [facility] ([facility]) Systolic blood pressure 122 mm[Hg] 122 mm[Hg] [facility] Body surface area Derived from formula 2.47 m2 2.47 m2 [facility] ([facility]) Body weight 137.894 kg 137.894 kg [facility] ([facility]) [place] body weight 145 [lb_av] 145 [lb_av] [facility] ([facility]) [place] body weight 140 [lb_av] 140 [lb_av] [facility] ([facility]) Body mass index (BMI) [Ratio] 41.8 kg/m2 41.8 k g/m2 [facility] ([facility]) Body weight 275.00 [lb_av] 275.00 [lb_av] [facility] ([facility]) Body height 68 [in_i] 68 [in_i] [facility] ([facility]) 5'8" Respiratory rate 12 /min 12 /min [facility] ( [facility]) Body surface area Derived from formula 2.43 m2 2.43 m2 [facility] Body weight 132.451 kg 132.451 kg [facility] ([facility]) [place] body weight 145 [lb_av] 145 [lb_av] [facility] ([facility]) Body mass index (BMI) [Ratio] 43.1 kg/m2 43.1 k g/m2 [facility] ([facility]) Body weight 292.00 [lb_av] 292.00 [lb_av] [facility] ([facility]) Body height 69 [in_i] 69 [in_i] [facility] 5'9" Body temperature 97.9 [degF] 97.9 [degF] [facility] ([facility]) Oxygen saturation in Arterial blood by Pulse oximetry 96 % 96 % [facility] ([facility]) Heart rate 102 /min 102 /min [facility] ([facility]) Diastolic blood pressure 98 mm[Hg] 98 mm[Hg] [facility] ([facility]) Systolic blood pressure 132 mm[Hg] 132 mm[Hg] M [facility] ([facility]) Body mass index (BMI) [Ratio] 41.8 kg/m2 41.8 k g/m2 [facility] ([facility]) Body height 68 [in_i] 68 [in_i] [facility] ([facility]) 5'8" Body weight 275.00 [lb_av] 275.00 [lb_av] [facility] ([facility]) Body temperature 98.0 [degF] 98.0 [degF] [facility] ([facility]) Oxygen saturation in Arterial blood by Pulse oximetry 95 % 95 % [facility] ([facility], [facility]) Respiratory rate 16 /min 16 /min [facility] ( [facility], [facility]) Heart rate 88 /min 88 /min [facility] ([facility], [facility]) Diastolic blood pressure 83 mm[Hg] 83 mm[Hg] [facility] ([facility], [facility]) Systolic blood pressure 139 mm[Hg] 139 mm[Hg] M [facility] ([facility], [facility]) Body surface area Derived from formula 2.39 m2 2.39 m2 [facility] ([facility]) Body weight 128.369 kg 128.369 kg [facility] ([facility]) [place] body weight 145 [lb_av] 145 [lb_av] [facility] T ([facility]) Body mass index (BMI) [Ratio] 41.8 kg/m2 41.8 k g/m2 [facility] ([facility]) Body weight 283.00 [lb_av] 283.00 [lb_av] [facility] ([facility]) Body height 69 [in_i] 69 [in_i] [facility] ([facility]) 5'9" Body temperature 98.3 [degF] 98.3 [degF] [facility] ([facility]) Oxygen saturation in Arterial blood by Pulse oximetry 94 % 94 % [facility] ([facility]) Heart rate 83 /min 83 /min [facility] ([facility]) Diastolic blood pressure 86 mm[Hg] 86 mm[Hg] [facility] ([facility]) Systolic blood pressure 120 mm[Hg] 120 mm[Hg] [facility] Body surface area Derived from formula 2.32 m2 2.32 m2 [employer] ([facility] ) Body mass index (BMI) [Ratio] 41.05 kg/m2 41.05 kg/m2 [employer] ([facility] ) Body height 68 [in_us] 68 [in_us] [employer] [facility] Body weight 270 [lb_av] 270 [lb_av] [employer] ([facility] ) [place] body weight 140 [lb_av] 140 [lb_av] [facility] T ([facility]) Body mass index (BMI) [Ratio] 41.8 kg/m2 41.8 k g/m2 [facility] Body weight 275.00 [lb_av] 275.00 [lb_av] [facility] ([facility]) Body height 68 [in_i] 68 [in_i] [facility] ([facility]) 5'8" Respiratory rate 12 /min 12 /min [facility] ( [facility]) Body weight 124.286 kg 124.286 kg [facility] ([facility]) Body mass index (BMI) [Ratio] 40.5 kg/m2 40.5 k g/m2 [facility] ([facility]) Body weight 274.00 [lb_av] 274.00 [lb_av] [facility] ([facility]) Body height 69 [in_i] 69 [in_i] [facility] ([facility]) 5'9" Body temperature 98.3 [degF] 98.3 [degF] [facility] ([facility]) Oxygen saturation in Arterial blood by Pulse oximetry 99 % 99 % [facility] ([facility]) Heart rate 98 /min 98 /min [facility] ([facility]) Diastolic blood pressure 80 mm[Hg] 80 mm[Hg] [facility] ([facility]) Systolic blood pressure 120 mm[Hg] 120 mm[Hg] M [facility] ([facility]) Body weight 123.833 kg 123.833 kg [facility] ([facility]) Body mass index (BMI) [Ratio] 40.3 kg/m2 40.3 k g/m2 [facility] ([facility]) Body weight 273.00 [lb_av] 273.00 [lb_av] [facility] Body height 69 [in_i] 69 [in_i] [facility] ([facility]) 5'9" Body temperature 98.2 [degF] 98.2 [degF] [facility] ([facility]) Oxygen saturation in Arterial blood by Pulse oximetry 98 % 98 % [facility] ([facility]) Room Air Heart rate 80 /min 80 /min [facility] ([facility]) Diastolic blood pressure 80 mm[Hg] 80 mm[Hg] [facility] ([facility]) Systolic blood pressure 118 mm[Hg] 118 mm[Hg] [facility] ([facility]) [place] body weight 140 [lb_av] 140 [lb_av] [facility] ([facility]) Body mass index (BMI) [Ratio] 40.4 kg/m2 40.4 k g/m2 [facility] ([facility]) Body weight 266.00 [lb_av] 266.00 [lb_av] [facility] ([facility]) Body height 68 [in_i] 68 [in_i] [facility] ([facility]) 5'8" Respiratory rate 12 /min 12 /min [facility] ( [facility]) Body weight 121.565 kg 121.565 kg [facility] ([facility]) Body mass index (BMI) [Ratio] 39.6 kg/m2 39.6 k g/m2 [facility] ([facility]) Body weight 268.00 [lb_av] 268.00 [lb_av] [facility] Body height 69 [in_i] 69 [in_i] [facility] ([facility]) 5'9" Body temperature 97.9 [degF] 97.9 [degF] [facility] ([facility]) Oxygen saturation in Arterial blood by Pulse oximetry 98 % 98 % [facility] ([facility]) Heart rate 97 /min 97 /min [facility] ([facility]) Diastolic blood pressure 86 mm[Hg] 86 mm[Hg] [facility] ([facility]) Systolic blood pressure 138 mm[Hg] 138 mm[Hg] [facility] ([facility]) Body mass index (BMI) [Ratio] 39.9 kg/m2 [...] pressure 85 mm[Hg] 85 mm[Hg] eCW1 ([facility]) Systolic blood pressure 137 mm[Hg] 137 mm[Hg] e CW1 ([facility]) Body temperature 98.3 [degF] 98.3 [degF] eCW1 ( [facility]) Respiratory rate 20 /min 20 /min eCW1 ([facility]) Heart rate 92 /min 92 /min eCW1 ([facility]) Body mass index (BMI) [Ratio] 40.74 kg/m2 40.74 kg/m2 eCW1 ([facility]) Body height 68 [in_us] 68 [in_us] eCW1 ([facility]) Body weight Measured 268 [lb_av] 268 [lb_av] eC W1 ([facility]) Body mass index (BMI) [Ratio] 38.2 kg/m2 38.2 k g/m2 [facility] ([facility] ) Body weight 251.00 [lb_av] 251.00 [lb_av] [facility] T ([facility] ) Body height 68 [in_i] 68 [in_i] [facility] ([facility], ) 5'8" Respiratory rate 12 /min 12 /min [facility] ( [facility], ) Heart rate 88 /min 88 /min [facility] ([facility] ) Diastolic blood pressure 82 mm[Hg] 82 mm[Hg] [facility] ([facility] ) Systolic blood pressure 120 mm[Hg] 120 mm[Hg] [facility] ) Body mass index (BMI) [Ratio] [...] Systolic blood pressure 124 mm[Hg] 124 mm[Hg] [facility] Body mass [...] Systolic blood pressure 120 mm[Hg] 120 mm[Hg] [facility] Patient Treatment Plan of Care Planned Activity Planned Date Details Description Data Source (s) Diclofenac Sodium 0.01 MG/MG Topical Gel [Voltaren] 02/26/20 20 12:00:00 AM EST eCW1 ([facility]) Acetaminophen 500 MG Oral Tablet 12/22/2019 12:00:00 AM EST eCW1 ([facility])
[2020-12-18] MEDS ORDERED: ACETAMINOPHEN 500 MG TAB PO ONE (19:15)
[2020-12-18] MEDS ORDERED: PROMETHAZINE INJ 25 MG/ML VIAL (J2550) IV ONE (19:15)
[2020-12-18 19:33] LABS: CK-MB VALUE MASS < 1.0 NG/ML (<3.6); CPK CREATINE PHOSPHOKINASE 47 U/L (26-192); ETHYL ALCOHOL (ETHANOL) 0.004 % (0.000-0.010); FREE T4 1.05 NG/DL (0.76-1.46); MAGNESIUM LEVEL 2.2 MG/DL (1.8-2.4); MB/CK RELATIVE INDEX 2.13 (< OR =4); TROPONIN I < 0.02 NG/ML (< 0.10)
[2020-12-18] MEDS ORDERED: NS 1,000 ML IV ONE (20:45)
--- NOTE | 2020-12-18 22:19 | REPVR ---
PROCEDURE INFORMATION: Exam: CT Head Without Contrast Exam date and time: 12/18/2020 10:11 PM Age: 30 years old Clinical indication: Altered mental status/memory loss; Additional info: Syncope TECHNIQUE: Imaging protocol: Computed tomography of the head without contrast. Radiation optimization: All CT scans at this facility use at least one of these dose optimization techniques: automated exposure control; mA and/or kV adjustment per patient size (includes targeted exams where dose is matched to clinical indication); or iterative reconstruction. COMPARISON: 1. CT Head without contrast 2018-12-18 11:[address] Head without contrast 2018-02-05 09:30 FINDINGS: Brain: Normal. No hemorrhage. Unremarkable white matter. No mass effect. Cerebral ventricles: No ventriculomegaly. Bones/joints: Unremarkable. No acute fracture. Paranasal sinuses: Visualized sinuses are unremarkable. No fluid levels. Mastoid air cells: Visualized mastoid air cells are well aerated. Soft tissues: Unremarkable. IMPRESSION: No acute intracranial abnormality. Electronically signed by: Maurilio Magdaleno On 12/18/2020 22:19:37 PM
[2020-12-18 22:44] LABS: APPEARANCE, URINE HAZY (CLEAR); BACTERIA, URINE AUTO NEGATIVE (NEGATIVE); BILIRUBIN, URINE AUTO NEGATIVE (NEGATIVE); BLOOD, URINE BLOOD NEGATIVE (NEGATIVE); COLOR, URINE YELLOW (YELLOW); GLUCOSE, URINE (UA) AUTO NEGATIVE (NEGATIVE); KETONE, URINE AUTO NEGATIVE (NEGATIVE); LEUKOCYTE ESTERASE, URINE AUTO NEGATIVE (NEGATIVE); NITRITE, URINE AUTO NEGATIVE (NEGATIVE); PROTEIN, URINE AUTO NEGATIVE (NEGATIVE); RBC, URINE AUTO 3 /HPF (0-3); SPECIFIC GRAVITY URINE AUTO 1.012 (1.002-1.035); SQUAMOUS EPITHELIAL CELL UR AU 0 /HPF (0-6); UROBILINOGEN, URINE AUTO 0.2 mg/dL (0.0-2.0); WBC, URINE AUTO 2 /HPF (0-3)
[2020-12-18 23:02] LABS: AMPHETAMINES LEVEL URINE NEGATIVE (NEGATIVE); BARBITURATES URINE POSITIVE (NEGATIVE); BENZODIAZEPINES URINE NEGATIVE (NEGATIVE); CANNABINOIDS URINE NEGATIVE (NEGATIVE); COCAINE METABOLITE URINE NEGATIVE (NEGATIVE); METHADONE URINE NEGATIVE (NEGATIVE); OPIATES URINE NEGATIVE (NEGATIVE); PHENCYCLIDINE URINE NEGATIVE (NEGATIVE)
[2020-12-18 23:40] VITALS: BP 155/99
--- NOTE | 2020-12-19 16:34 | ECGEPIP ---
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
== END 2020-12-18 23:47 | disposition home or self-care (01) ==
LOC: M ED 16:43
DX: E86.0 Dehydration (principal); R55 Syncope and collapse; F13.20 Sedative, hypnotic or anxiolytic dependence, uncomplicated; R51.9 Headache, unspecified; I95.1 Orthostatic hypotension; J45.909 Unspecified asthma, uncomplicated; K21.9 Gastro-esophageal reflux disease without esophagitis; F32.9 Major depressive disorder, single episode, unspecified; E55.9 Vitamin D deficiency, unspecified; G35 Multiple sclerosis; H81.09 Meniere's disease, unspecified ear; Z98.84 Bariatric surgery status; R00.0 Tachycardia, unspecified; E66.9 Obesity, unspecified; Z87.01 Personal history of pneumonia (recurrent); Z87.442 Personal history of urinary calculi; Z87.891 Personal history of nicotine dependence; Z79.3 Long term (current) use of hormonal contraceptives; Z79.899 Other long term (current) drug therapy; Z88.6 Allergy status to analgesic agent

== ENCOUNTER 2021-02-19 07:51 | Outpatient (CLI) | payer OTHER ==
[2021-02-19] VITALS (9 sets, daily range): BP systolic 110–146; BP diastolic 59–82
[~2021-02-19] VITALS: Ht 177.8 cm; Wt 127.5 kg
[2021-02-19] MEDS ORDERED: OCRELIZUMAB 600 MG in NS 500 ML IV ONE (09:00)
[2021-02-19] MEDS ORDERED: diphenhydrAMINE 25MG CAP PO ONE (09:00)
[2021-02-19] MEDS ORDERED: ACETAMINOPHEN TAB 650MG DOSE (2X325MG) PO ONE (09:00)
[2021-02-19] MEDS ORDERED: methylPREDNISolone 125MG 2ML VIAL IV ONE (09:00)
== END 2021-02-19 13:15 | disposition home or self-care (01) ==
LOC: M INFU 07:51
PROVIDERS: ATTEND Psychiatry & Neurology Neurology
DX: G35 Multiple sclerosis (principal); Z88.6 Allergy status to analgesic agent
CPT/HCPCS: 96365; 96366; 96375; J2350; J2930

== ENCOUNTER 2021-05-24 06:52 | Inpatient (IN) | payer OTHER ==
[~2021-05-24] VITALS: Ht 167.6 cm; Wt 125.6 kg
[2021-05-24] MEDS ORDERED: WELLTAB38 PO (07:00)
[2021-05-24] MEDS ORDERED: WELLTAB40 PO (07:00)
[2021-05-24] MEDS ORDERED: PHEN-239 PO (07:09)
[2021-05-24] MEDS ORDERED: EFFE75CA2 PO (07:09)
[2021-05-24] MEDS ORDERED: NALT50TA4 PO (07:09)
[2021-05-24] MEDS ORDERED: NADO20TA PO (07:09)
[2021-05-24] MEDS ORDERED: PRED10TA2 PO (07:09)
[2021-05-24] MEDS ORDERED: LORA-674 PO (07:09)
[2021-05-24] MEDS ORDERED: BUSP5TA PO ×2 (07:09)
[2021-05-24] MEDS ORDERED: VERA40TA PO (07:09)
[2021-05-24] MEDS: COMBIVENT RESPIMAT 100-20MCG INHALER 4GM INH SCH ×3 (07:40→08:00)
[2021-05-24 07:44] LABS: BASO # 0.1 10^3/uL (0.0-0.2); BASO % 0.6 % (0.0-1.0); EOS # 0.3 10^3/uL (0.0-0.5); EOS % 2.3 % (0.0-3.0); HEMATOCRIT 43.3 % (36.0-47.0); HEMOGLOBIN 14.2 g/dl (12.0-15.5); LYMPH # 2.4 10^3/uL (1.5-5.0); LYMPH % 22.3 % (24.0-44.0); MEAN CORPUSCULAR HEMOGLOBIN 29.5 pg (27.0-33.0); MEAN CORPUSCULAR HGB CONC 32.8 g/dl (32.0-36.5); MONO # 1.1 10^3/uL (0.0-0.8); MONO % 10.3 % (2.0-8.0); NEUTROPHILS # 6.9 10^3/uL (1.5-8.5); PLATELET COUNT, AUTOMATED 359 10^3/uL (150-450); RED BLOOD COUNT 4.81 10^6/uL (4.00-5.40); WHITE BLOOD COUNT 10.8 10^3/uL (4.0-10.0)
[2021-05-24 08:13] LABS: BLOOD UREA NITROGEN 7 MG/DL (7-18); CALCIUM LEVEL 9.4 MG/DL (8.5-10.1); CARBON DIOXIDE LEVEL 25 MEQ/L (21-32); CHLORIDE LEVEL 109 MEQ/L (98-107); CK-MB VALUE MASS < 1.0 NG/ML (<3.6); CPK CREATINE PHOSPHOKINASE 129 U/L (26-192); CREATININE FOR GFR 0.69 MG/DL (0.55-1.30); GLOMERULAR FILTRATION RATE > 60.0 (>60); GLUCOSE, FASTING 102 MG/DL (70-100); MB/CK RELATIVE INDEX 0.78 (< OR =4); POTASSIUM SERUM 4.8 MEQ/L (3.5-5.1); SODIUM LEVEL 140 MEQ/L (136-145); TROPONIN I < 0.02 NG/ML (< 0.10)
--- NOTE | 2021-05-24 08:28 | REP ---
INDICATION: DYSPNEA/COUGH. COMPARISON: Comparison chest x-ray March 24, 2019. TECHNIQUE: Two views.. FINDINGS: The lungs are well inflated and free of infiltrate. The pleural angles are sharp. The heart size is normal. Pulmonary vasculature is not increased. No significant bony abnormality is seen. EKG monitoring electrodes are visible. There are clips in the right upper quadrant. IMPRESSION: Negative chest x-ray. <Electronically signed by Favian Ricardo > 05/24/21 0830
[2021-05-24] MEDS ORDERED: methylPREDNISolone 125MG 2ML VIAL IV ONE (08:30)
[2021-05-24] MEDS: IPRATROPIUM 0.5MG/ALBUTEROL 2.5MG INH SOL UD 3ML (DUONEB) NEB PRN ×3 (08:42→10:03)
[2021-05-24] MEDS ORDERED: ISOVUE-370 76% 100ML VIAL As Ordered ONE (10:03)
[2021-05-24] MEDS ORDERED: IPRATROPIUM 0.5MG/ALBUTEROL 2.5MG INH SOL UD 3ML (DUONEB) NEB ONE (10:05)
--- NOTE | 2021-05-24 10:35 | REP ---
INDICATION: r/o PE, h/o PE, SOB, pleuritic CP. COMPARISON: Comparison CT pulmonary angiogram is from 22 November 2019.. TECHNIQUE: Contrast dose: 75 ML of Isovue [address] technique: Helical scanning is acquired and overlapping 1.5 mm and contiguous 3 mm axial images are reformatted. In addition, maximum intensity projection and multiplanar re-formation images are generated in sagittal and coronal imaging projections. FINDINGS: There is good opacification in the pulmonary arterial tree. There is no evidence of vessel cut off or filling defect to suggest pulmonary embolus. Homogeneous opacity is seen in the thoracic aorta. There is no evidence of aneurysm or dissection. There is no evidence of pleural pleural or pericardial effusion. No hilar or mediastinal mass or adenopathy is observed. Lung window settings demonstrate an area of linear fibrosis in the right middle lobe medially unchanged from the comparison study. There is no evidence of infiltrate, pulmonary mass, or significant pulmonary nodule. There is a zone of minimal platelike atelectasis in the lingula at the left lung base which was not previously apparent. In the upper abdomen, there is evidence of prior cholecystectomy and gastric sleeve procedure. The visualized upper abdominal structures are otherwise unremarkable. Normal adrenal glands. IMPRESSION: No CT evidence of pulmonary embolus. Minimal platelike atelectasis in the lingula at the left lung base. Area of fibrosis in the right middle lobe. Otherwise no active disease. <Electronically signed by Favian Ricardo > 05/24/21 1970
[2021-05-24 12:01] VITALS: O2SAT 89
[2021-05-24] MEDS ORDERED: BUPR15TA PO (12:43)
[2021-05-24] MEDS ORDERED: MEPO100A SC (12:43)
[2021-05-24] MEDS ORDERED: D31000TA2 PO (12:43)
[2021-05-24] MEDS ORDERED: TIZA2TA PO (12:43)
[2021-05-24] MEDS ORDERED: SUMA50TA2 PO (12:43)
[2021-05-24] MEDS ORDERED: VENL150C43 PO (12:43)
[2021-05-24] MEDS ORDERED: TIZA1TAB12 PO (12:43)
[2021-05-24] MEDS ORDERED: FLUT22IN INH (12:43)
[2021-05-24] MEDS ORDERED: SUMAtriptan SUCCINATE 25 MG TAB PO PRN (13:35)
[2021-05-24] MEDS ORDERED: IPRATROPIUM 0.5MG/ALBUTEROL 2.5MG INH SOL UD 3ML (DUONEB) NEB PRN (13:35)
[2021-05-24] MEDS ORDERED: MAALOX 30 ML SUSP *UDC PO PRN (13:35)
[2021-05-24] MEDS ORDERED: ACETAMINOPHEN TAB 650MG DOSE (2X325MG) PO PRN (13:35)
[2021-05-24] MEDS ORDERED: CYCLOBENZAPRINE 5MG TABLET PO PRN (13:35)
[2021-05-24] MEDS ORDERED: ALBUTEROL SULFATE 2.5 MG/0.5 ML INH NEB SOLN INH PRN (13:35)
[2021-05-24] MEDS: IPRATROPIUM 0.5MG/ALBUTEROL 2.5MG INH SOL UD 3ML (DUONEB) NEB SCH ×2 (16:05→19:53)
--- NOTE | 2021-05-24 17:03 | HPEPDOC ---
General Date of Admission May 24, 2021 at 13:35 Date of Service: May 24, 2021 Other Providers Remy on post Attending Physician: Yves Mccloud MD Chief Complaint The patient is a 30-year-old female admitted with a reason for visit of Asthma With Acute Exacerbation. Source: Patient, RN/MD Exam Limitations: No limitations History of Present Illness Ms. Fierro has a significant history of asthma. She reports that she had a flare about 7 weeks ago. She is on chronic prednisone and until the last month was on roughly 50 mg a day as a result of this flare. Over the last month she has tapered back from the 50 mg down to her usual maintenance dose of 10 mg of prednisone. She has had a 1 day history of worsening dyspnea. She has been taking all of her prescribed medications. Additionally she is taking frequent doses of albuterol as needed but they are not helping. She had a rough night. By the morning time she was extremely dyspneic and was unable to perform basic functions like changing her clothes without becoming short of breath. On presentation to the ER she was reported to have between 3-4 word in 1 sentence dyspnea. In the emergency department she was given several treatments with nebulizations as well as 125 mg of Solu-Medrol IV. She reports that she feels quite a bit better after this, although she is certainly not all the way better. Home Medications Scheduled Bupropion HCl (Wellbutrin Sr) 150 Mg Tab.sr.12h, 450 MG PO DAILY, (Reported) Buspirone HCl (Buspirone HCl) 5 Mg Tablet, 5 MG PO TID, (Reported) Cholecalciferol (Vitamin D3) (Vitamin D3) 1,000 Unit Tablet, 2,000 UNIT PO BID, (Reported) Etonogestrel/Ethinyl Estradiol (Nuvaring Vaginal Ring) 1 Each Vag.ring, 1 RING PV QMONTH, (Reported) DID NOT USE ONE THIS MONTH Fluticasone Propion/Salmeterol (Advair Hfa 230-21 Mcg Inhaler) 12 Gm Hfa.aer.ad, 2 PUFF INH BID, (Reported) Fluticasone Propionate (Flovent Hfa) 220 Mcg/Act Aer.w.adap, 2 PUFF INH BID, (Reported) Loratadine (Loratadine) 10 Mg Tablet, 10 MG PO DAILY, (Reported) Mepolizumab (Nucala) 100 Mg/1 Ml Auto.injct, 100 MG SC QMONTH, (Reported) 4TH OF EVERY MONTH Nadolol (Nadolol) 20 Mg Tablet, 20 MG PO QHS, (Reported) Naltrexone HCl (Naltrexone HCl) 50 Mg Tablet, 50 MG PO DAILY, (Reported) Ocrelizumab (Ocrevus) 300 Mg/10 Ml Inj, 300 MG IV ASDIRECTED, (Reported) EVERY 6 MONTHS Phentermine HCl (Phentermine HCl) 37.5 Mg Capsule, 37.5 MG PO DAILY, (Reported) Prednisone (Prednisone) 10 Mg Tablet, 10 MG PO DAILY, (Reported) Tiotropium [place] (Spiriva Respimat) 4 Gm Mist.inhal, 2 PUFFS INH DAILY, (Reported) Tizanidine HCl (Tizanidine HCl) 2 Mg Tablet, 2 MG PO QHS, (Reported) Venlafaxine HCl (Effexor Xr) 75 Mg Cap.er.24h, 75 MG PO DAILY, (Reported) 225MG TOTAL DAILY Venlafaxine HCl (Venlafaxine HCl ER) 150 Mg Cap.er.24h, 150 MG PO DAILY, (Reported) 225MG TOTAL DAILY Verapamil HCl (Verapamil HCl) 40 Mg Tablet, 40 MG PO BID, (Reported) Scheduled PRN Albuterol Sulf (Albuterol Sulfate) 2.5 Mg/3 Ml Vial.neb, 2.5 MG INH Q6H PRN for SOB/WHEEZING, (Reported) Albuterol Sulfate (Proair Hfa) 8.5 Gm Hfa.aer.ad, 2 PUFF INH QID PRN for SOB/WHEEZING, (Reported) Sumatriptan Succinate (Sumatriptan Succinate) 50 Mg Tablet, 50 MG PO BID PRN for MIGRAINE, (Reported) Tizanidine HCl (Tizanidine HCl) 2 Mg Tablet, 2 MG PO TID PRN for SPASMS, (Reported) Allergies Coded Allergies: NSAIDS (Non-Steroidal Anti-Inflamma (Verified Adverse Reaction, Unknown, PT HAS GASTRIC SLEEVE, 11/22/19) Past Medical History Medical History Relapsing remitting multiple sclerosis, a provoked PE after her gastric sleeve (was anticoagulated but no longer is), at least moderate asthma, depression Surgical History Cholecystectomy (2005), appendectomy (2007), gastric sleeve (09/2016) Family History Her father is alive with type 2 diabetes. Her mother is alive and is status post KS and CVA. She has a brother and a sister both of whom are alive with no known medical problems. She has a son with no known medical problems. Social History * Smoker: former Smoker Alcohol: rarely A-FIB/CHADSVASC A-FIB History Current/History of A-Fib/PAF?: No Review of Systems Constitutional: Reports: Fatigue; Denies: Chills, Fever, Weight Loss ENT: Reports: Head Aches; Denies: Sore Throat Skin: Denies: Rash, Breakdown Pulmonary: Reports: Dyspnea, Cough Cardiovascular: Denies: Chest Pain, Palpitations, Lt Headedness Gastrointestinal: Denies: Nausea, Vomiting, Abdominal Pain, Diarrhea Genitourinary: Denies: Dysuria, Frequency Hematologic: Denies: Bruising, Bleeding Excessively Endocrine: Denies: Polydipsia, Polyphagia, Polyuria Neurological: Reports: Change in speech (Related to her dyspnea); Denies: Weakness, Numbness, Confusion Psych: Reports: Mood Normal; Denies: Memory Issues Physical Examination General Exam: Positive: Alert, Cooperative (Sitting up in the ER stretcher when I entered the room), No Acute Distress (She is able to speak multiple sentences by the time of my interview and examination.) Eye Exam: Positive: PERRLA, Conjunctiva & lids normal, EOMI; Negative: Sclera icteric ENT Exam: Positive: Atraumatic, Mucous membr. moist/pink, Pharynx Normal, Nares Patent, Tympanic Membranes Normal; Negative: Pharyngeal Edema Neck Exam: Positive: Supple; Negative: Lymphadenopathy Chest Exam: Positive: Wheezing (Both inspiratory and expiratory wheezing were noted throughout all lung burns), Diminished; Negative: Rales, Rhonchi Heart Exam: Positive: Rate Normal, Regular Rhythm, Normal S1, Normal S2; Negative: Murmurs, Rubs Telemetry: Positive: No significant arrhythmia Abdomen Exam: Positive: Normal bowel sounds, Soft; Negative: Tenderness, Hepatospenomegaly Extremity Exam: Positive: Normal pulses; Negative: Clubbing, Cyanosis, Edema Skin Exam: Positive: Nl turgor and temperature; Negative: Breakdown Neuro Exam: Positive: Normal Speech, Normal Tone Psych Exam: Positive: Mental status NL, Mood NL, Oriented x [address] angiogram of the chest shows: No CT evidence of pulmonary embolus. Minimal platelike atelectasis in the lingula at the left lung base. Area of fibrosis in the right middle lobe. Otherwise no active disease. Vital Signs Vital Signs Date Time Temp Pulse Resp B/P (MAP) Pulse Ox O2 Delivery O2 Flow Rate FiO2 05/24/21 16:15 98.1 92 22 167/94 (118) 92 Room Air Laboratory Data Labs 24H Laboratory Tests 2 05/24/21 07:27: POC Beta HCG, Quantitative < 5.0 05/24/21 07:28: Immature Granulocyte % (Auto) 0.5, Neutrophils (%) (Auto) 64.0, Lymphocytes (%) (Auto) 22.3L, Monocytes (%) (Auto) 10.3H, Eosinophils (%) (Auto) 2.3, Basophils (%) (Auto) 0.6, Neutrophils # (Auto) 6.9, Lymphocytes # (Auto) 2.4, Monocytes # (Auto) 1.1H, Eosinophils # (Auto) 0.3, Basophils # (Auto) 0.1, Nucleated Red Blood Cells % (auto) 0.0, Anion Gap 6L, Glomerular Filtration Rate > 60.0, Calcium Level 9.4, Total Creatine Kinase 129, Creatine Kinase MB < 1.0, Creatine Kinase MB Relative Index 0.78, Troponin I < 0.02 05/24/21 08:14: D-Dimer, Quantitative < 270 05/24/21 08:36: POC pH (Misc Panel) 7.363, POC Base Excess (Misc Panel) 1.0, POC Saturated Percent O2 (Misc) 98, POC pO2 (Misc Panel) 106.0H, POC pCO2 (Misc Panel) 45.6H, POC HCO3 (Misc Panel) 26.0, POC Total CO2 (Misc Panel) 27.0 CBC/BMP Laboratory Tests 05/24/21 07:28 Microbiology Microbiology 05/24/21 Respiratory Virus Panel (PCR) (NOHEMI) - Final, Complete RAD Interpretation STUDY: CXR (Negative chest x-ray) Problems (1) Asthma with acute exacerbation Status: Acute Response to Treatment: Uncontrolled Discussed With: Nurse, Patient Problem Specific Plan: Monitor Clinically Problem Text: We will admit her to the hospital. As far as I can tell this is her first admission for an asthma exacerbation. We will continue duo nebs routinely at least 4 times a day and albuterol and duo nebs available as needed in between. We will start her on 60 mg of p.o. prednisone tomorrow (she is already received 125 mg of IV Solu-Medrol today). I do not believe she has an acute infection, although will monitor carefully. (2) Multiple sclerosis, relapsing-remitting Status: Chronic Problem Text: Stable at present. Continue current regimen, monitor. (3) Depression Status: Chronic Problem Text: Stable at present. Continue current regimen, monitor. Plan / VTE VTE Prophylaxis Ordered?: Yes Plan Anticipated Discharge: Home Advanced Directives: Health Care Proxy (HCP) (She verbally identifies her , Salazar Fierro [phone], as her alternate decision-maker if she was unable to make her own medical decisions. We did address her CODE STATUS and she wishes to be FULL CODE.) Yves Mccloud MD May 24, 2021 17:03
[2021-05-24 17:04] VITALS: BP 162/104
[2021-05-24] MEDS: busPIRone 5 MG TAB PO SCH ×2 (17:29→20:44)
[2021-05-24] MEDS: ADVAIR HFA 230/21MCG INHALER INH SCH (19:52)
[2021-05-24] MEDS: FLUTICASONE HFA 220 MCG 12 GM INHALER (FLOVENT) INH SCH (19:53)
[2021-05-24] MEDS: VITAMIN D 1,000 INTERNATIONAL UNITS TABLET PO SCH (20:44)
[2021-05-24] MEDS: VERAPAMIL 40 MG TAB PO SCH (20:45)
[2021-05-24] MEDS ORDERED: NADOLOL 20MG TABLET PO SCH (21:00)
[2021-05-24 22:00] VITALS: BP 137/91
--- NOTE | 2021-05-25 04:21 | ECGEPIP ---
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
[2021-05-25 06:00] VITALS: BP 146/73
[2021-05-25 06:29] LABS: HEMATOCRIT 40.4 % (36.0-47.0); HEMOGLOBIN 13.1 g/dl (12.0-15.5); MEAN CORPUSCULAR HEMOGLOBIN 28.7 pg (27.0-33.0); MEAN CORPUSCULAR HGB CONC 32.4 g/dl (32.0-36.5); MEAN CORPUSCULAR VOLUME 88.4 fl (80.0-96.0); PLATELET COUNT, AUTOMATED 315 10^3/uL (150-450); RED BLOOD COUNT 4.57 10^6/uL (4.00-5.40); WHITE BLOOD COUNT 12.8 10^3/uL (4.0-10.0)
[2021-05-25 06:50] LABS: BLOOD UREA NITROGEN 6 MG/DL (7-18); CALCIUM LEVEL 9.2 MG/DL (8.5-10.1); CARBON DIOXIDE LEVEL 26 MEQ/L (21-32); CHLORIDE LEVEL 107 MEQ/L (98-107); GLOMERULAR FILTRATION RATE > 60.0 (>60); GLUCOSE, FASTING 75 MG/DL (70-100); POTASSIUM SERUM 3.9 MEQ/L (3.5-5.1); SODIUM LEVEL 141 MEQ/L (136-145)
[2021-05-25] MEDS: ADVAIR HFA 230/21MCG INHALER INH SCH ×2 (07:25→17:54)
[2021-05-25] MEDS: FLUTICASONE HFA 220 MCG 12 GM INHALER (FLOVENT) INH SCH ×2 (07:26→11:48)
[2021-05-25] MEDS: IPRATROPIUM 0.5MG/ALBUTEROL 2.5MG INH SOL UD 3ML (DUONEB) NEB SCH ×3 (07:26→15:29)
[2021-05-25] MEDS ORDERED: LORATADINE 10 MG TAB PO SCH (09:00)
[2021-05-25] MEDS ORDERED: buPROPion **SR TABLET** (ZYBAN) 150MG PO SCH (09:00)
[2021-05-25] MEDS ORDERED: VENLAFAXINE **XR** 75MG CAPSULE PO SCH ×2 (09:00)
[2021-05-25] MEDS ORDERED: ENOXAPARIN 40MG/0.4ML SYRINGE (J1650 PER 10MG) SC SCH (09:00)
[2021-05-25] MEDS ORDERED: predniSONE 20 MG TAB PO SCH (09:00)
[2021-05-25] MEDS ORDERED: NALTREXONE 50 MG TAB PO SCH (09:00)
[2021-05-25] MEDS: busPIRone 5 MG TAB PO SCH ×2 (09:40→16:46)
[2021-05-25] MEDS: VITAMIN D 1,000 INTERNATIONAL UNITS TABLET PO SCH (09:40)
[2021-05-25 09:41] VITALS: BP 139/94
[2021-05-25] MEDS: VERAPAMIL 40 MG TAB PO SCH (09:41)
[2021-05-25 14:00] VITALS: BP 142/96
[2021-05-25] MEDS ORDERED: PRED20TA PO ×2 (16:20→18:58)
--- NOTE | 2021-05-25 16:23 | DS.PDOC ---
Discharge Summary General Date of Admission May 24, 2021 at 13:35 Date of Discharge 05/25/21 Attending Physician: Yves Mccloud MD Discharge Summary PROCEDURES PERFORMED DURING STAY: [None]. ADMITTING DIAGNOSES: 1. . DISCHARGE DIAGNOSES: 1. . COMPLICATIONS/CHIEF COMPLAINT: Asthma With Acute Exacerbation. HISTORY OF PRESENT ILLNESS: . HOSPITAL COURSE: . DISCHARGE MEDICATIONS: Please see below. ALLERGIES: Please see below. PHYSICAL EXAMINATION ON DISCHARGE: VITAL SIGNS: Please see below. GENERAL: HEENT: NECK: CARDIOVASCULAR EXAMINATION: RESPIRATORY EXAMINATION: ABDOMINAL EXAMINATION: EXTREMITIES: SKIN: NEUROLOGICAL EXAMINATION: PSYCHIATRIC EXAMINATION: LABORATORY DATA: Please see below. IMAGING: PROGNOSIS: ACTIVITY: [As tolerated]. DIET: DISCHARGE PLAN: DISPOSITION: . DISCHARGE INSTRUCTIONS: 1. . ITEMS TO FOLLOWUP ON ON OUTPATIENT: 1. . DISCHARGE CONDITION: [Stable]. TIME SPENT ON DISCHARGE: minutes. Vital Signs/I&Os Vital Signs Date Time Temp Pulse Resp B/P (MAP) Pulse Ox O2 Delivery O2 Flow Rate FiO2 05/25/21 14:00 97.0 91 17 142/96 (111) 94 Room Air I&O- Last 24 Hours up to 6 AM 05/25/21 06:00 Intake Total 360 ml Output Total 500 ml Balance -140 ml Laboratory Data Labs 24H Laboratory Tests 2 05/25/21 05:55: Nucleated Red Blood Cells % (auto) 0.0, Anion Gap 8, Glomerular Filtration Rate > 60.0, Calcium Level 9.2, Procalcitonin <0.05 05/25/21 10:57: Lab Scanned Report Miscellaneous Lab CBC/BMP Laboratory Tests 05/25/21 05:55 Microbiology Microbiology 05/24/21 Respiratory Virus Panel (PCR) (NOHEMI) - Final, Complete Discharge Medications Scheduled Bupropion HCl (Wellbutrin Sr) 150 Mg Tab.sr.12h, 450 MG PO DAILY, (Reported) Buspirone HCl (Buspirone HCl) 5 Mg Tablet, 5 MG PO TID, (Reported) Cholecalciferol (Vitamin D3) (Vitamin D3) 1,000 Unit Tablet, 2,000 UNIT PO BID, (Reported) Etonogestrel/Ethinyl Estradiol (Nuvaring Vaginal Ring) 1 Each Vag.ring, 1 RING PV QMONTH, (Reported) DID NOT USE ONE THIS MONTH Fluticasone Propion/Salmeterol (Advair Hfa 230-21 Mcg Inhaler) 12 Gm Hfa.aer.ad, 2 PUFF INH BID, (Reported) Fluticasone Propionate (Flovent Hfa) 220 Mcg/Act Aer.w.adap, 2 PUFF INH BID, (Reported) Loratadine (Loratadine) 10 Mg Tablet, 10 MG PO DAILY, (Reported) Mepolizumab (Nucala) 100 Mg/1 Ml Auto.injct, 100 MG SC QMONTH, (Reported) 4TH OF EVERY MONTH Nadolol (Nadolol) 20 Mg Tablet, 20 MG PO QHS, (Reported) Naltrexone HCl (Naltrexone HCl) 50 Mg Tablet, 50 MG PO DAILY, (Reported) Ocrelizumab (Ocrevus) 300 Mg/10 Ml Inj, 300 MG IV ASDIRECTED, (Reported) EVERY 6 MONTHS Phentermine HCl (Phentermine HCl) 37.5 Mg Capsule, 37.5 MG PO DAILY, (Reported) Prednisone (Prednisone) 10 Mg Tablet, 10 MG PO DAILY, (Reported) Prednisone (Prednisone) 20 Mg Tablet, 60 MG PO DAILY take 3 tabs daily x 2 days, then take 2 tabs daily x 3 days, then take 1 tab daily x 3 days, then resume 10mg daily Tiotropium [place] (Spiriva Respimat) 4 Gm Mist.inhal, 2 PUFFS INH DAILY, (Reported) Tizanidine HCl (Tizanidine HCl) 2 Mg Tablet, 2 MG PO QHS, (Reported) Venlafaxine HCl (Effexor Xr) 75 Mg Cap.er.24h, 75 MG PO DAILY, (Reported) 225MG TOTAL DAILY Venlafaxine HCl (Venlafaxine HCl ER) 150 Mg Cap.er.24h, 150 MG PO DAILY, (Reported) 225MG TOTAL DAILY Verapamil HCl (Verapamil HCl) 40 Mg Tablet, 40 MG PO BID, (Reported) Scheduled PRN Albuterol Sulf (Albuterol Sulfate) 2.5 Mg/3 Ml Vial.neb, 2.5 MG INH Q6H PRN for SOB/WHEEZING, (Reported) Albuterol Sulfate (Proair Hfa) 8.5 Gm Hfa.aer.ad, 2 PUFF INH QID PRN for SOB/WHEEZING, (Reported) Sumatriptan Succinate (Sumatriptan Succinate) 50 Mg Tablet, 50 MG PO BID PRN for MIGRAINE, (Reported) Tizanidine HCl (Tizanidine HCl) 2 Mg Tablet, 2 MG PO TID PRN for SPASMS, ( Reported) Allergies Coded Allergies: NSAIDS (Non-Steroidal Anti-Inflamma (Verified Adverse Reaction, Unknown, PT HAS GASTRIC SLEEVE, 11/22/19) Yves Mccloud MD May 25, 2021 16:23
== END 2021-05-25 18:00 | disposition home or self-care (01) | DRG 203 ==
LOC: M ED 06:52 → M ED INP 13:35 → ENRESERV 14:30 → M MSPAV 16:46
PROVIDERS: ADMIT Family Medicine; ATTEND Family Medicine
DX: J45.901 Unspecified asthma with (acute) exacerbation (principal); Z79.899 Other long term (current) drug therapy; Z88.6 Allergy status to analgesic agent; G35 Multiple sclerosis; Z98.84 Bariatric surgery status; Z87.891 Personal history of nicotine dependence; F32.9 Major depressive disorder, single episode, unspecified

== ENCOUNTER 2021-08-22 10:28 | Outpatient (CLI) | payer OTHER ==
[~2021-08-22] VITALS: Ht 172.7 cm; Wt 127.5 kg
[2021-08-22] VITALS (7 sets, daily range): BP systolic 123–184; BP diastolic 78–94
[~2021-08-22 10:28] MED LIST changes: +BUPR15TA PO; +BUSP5TA PO; +D31000TA2 PO; +EFFE75CA2 PO; +FLOV250A IN; -FLOV250A2 IN; +FLUT22IN INH; +LORA-674 PO; +MEPO100A SC; +NADO20TA PO; +NALT50TA4 PO; +PHEN-239 PO; +SUMA50TA2 PO; +TIZA1TAB12 PO; +TIZA2TA PO; +VENL150C43 PO; +VERA40TA PO; +WELLTAB38 PO; +WELLTAB40 PO
[2021-08-22] MEDS ORDERED: diphenhydrAMINE 25MG CAP PO ONE (10:30)
[2021-08-22] MEDS ORDERED: methylPREDNISolone 125MG 2ML VIAL IV ONE (10:30)
[2021-08-22] MEDS ORDERED: OCRELIZUMAB 600 MG in NS 500 ML IV ONE (10:30)
[2021-08-22] MEDS ORDERED: ACETAMINOPHEN TAB 650MG DOSE (2X325MG) PO ONE (10:30)
== END 2021-08-22 15:15 | disposition home or self-care (01) ==
LOC: M INFU 10:28
PROVIDERS: ATTEND Psychiatry & Neurology Neurology
DX: G35 Multiple sclerosis (principal); Z88.6 Allergy status to analgesic agent
CPT/HCPCS: 96365; 96366; 96375; J2350; J2930

== ENCOUNTER → 2021-09-26 | Outpatient (CLI) | payer OTHER ==
[~2021-09-26] MED LIST changes: -FLUO10CA16 PO; +FLUO10CA18 PO; +METH16TA2 PO
[2021-09-26 16:48] LABS: ALBUMIN 3.6 GM/DL (3.2-5.2); TOTAL PROTEIN 6.8 GM/DL (6.4-8.2)
[2021-09-27 11:06] LABS: ALBUMIN 4.18 GM/DL (3.29-5.55); ALBUMIN % 61.5 % (55.8-66.1); ALPHA-1-GLOBULIN % 5.1 % (2.9-4.9); ALPHA-1-GLOBULINS 0.35 GM/DL (0.17-0.41); ALPHA-2-GLOBULINS % 13.2 % (7.1-11.8); BETA-1-GLOBULINS 0.44 GM/DL (0.28-0.60); BETA-1-GLOBULINS % 6.5 % (4.7-7.2); BETA-2-GLOBULINS 0.31 GM/DL (0.19-0.55); BETA-2-GLOBULINS % 4.6 % (3.2-6.5)
[2021-09-27 11:07] LABS: GAMMA GLOBULIN % 9.1 % (11.1-18.8); GAMMA GLOBULINS 0.62 GM/DL (0.65-1.58)
== END ==
LOC: M WUC 10:20
PROVIDERS: ATTEND Psychiatry & Neurology Neurology
DX: G35 Multiple sclerosis (principal)

== ENCOUNTER 2022-02-20 10:26 | Outpatient (CLI) | payer OTHER ==
[~2022-02-20] VITALS: Ht 172.7 cm; Wt 127.8 kg
[2022-02-20] VITALS (8 sets, daily range): BP systolic 127–144; BP diastolic 66–77
[~2022-02-20 10:26] MED LIST changes: -D31000TA2 PO; +VITA100093 PO
[2022-02-20] MEDS ORDERED: OCRELIZUMAB 600 MG in NS 500 ML IV ONE (10:30)
[2022-02-20] MEDS ORDERED: methylPREDNISolone 125MG 2ML VIAL IV ONE (10:30)
[2022-02-20] MEDS ORDERED: ACETAMINOPHEN TAB 650MG DOSE (2X325MG) PO ONE (10:30)
[2022-02-20] MEDS ORDERED: diphenhydrAMINE 25MG CAP PO ONE (10:30)
== END 2022-02-20 15:40 | disposition home or self-care (01) ==
LOC: M INFU 10:26
PROVIDERS: ATTEND Psychiatry & Neurology Neurology
DX: G35 Multiple sclerosis (principal); Z88.6 Allergy status to analgesic agent
CPT/HCPCS: 96365; 96366; 96375; J2350; J2930